=== PATIENT | female | born 1945 | race Caucasian/White ===

== ENCOUNTER 2019-09-07 13:48 | Outpatient (CLI) | payer MEDICARE, SELFPAY ==
--- NOTE | ~2019-09-07 | CT_ITS ---
EXAMINATION: CT chest wo con DATE: 09/07/2019 14:15 INDICATION: Left lower lobe pulmonary nodule TECHNIQUE: Computed tomography (CT) of the chest was performed without intravenous contrast. The dose -length product was 352.79 mGy-cm. Automated exposure control and iterative reconstruction technique were employed. COMPARISON: CT dated 06/07/2019 FINDINGS: There is a left lower lobe nodule measuring 1.5 x 0.8 cm. Dependent atelectasis. No endobro nchial lesions. Calcified granulomas in the right lower lobe. Dependent atelectasis. No endobronchial lesions. Cardiomegaly. No thoracic lymphadenopathy. Thyroid gland is unremarkable. There is atherosc lerosis of the aorta and coronary arteries. 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 Stable nodul ar thickening of the adrenal glands, likely benign adrenal adenomas. IMPRESSION: 1. Enlargement of left lower lobe nodule measuring 1.5 x 0.8 cm. Consider further evaluation with pet /CT or percutaneous biopsy. Reviewed, dictated and finalized at location A. IMPRESSION: 1. Enlargement of left lower lobe nodule measuring 1.5 x 0.8 cm. Consider furth er evaluation with pet/CT or percutaneous biopsy.
== END 2019-09-07 13:49 | disposition home or self-care (01) ==
LOC: ANHIMG 13:54
PROVIDERS: PCP Internal Medicine; Visit Provider Internal Medicine Cardiovascular Disease
DX: R91.1 Solitary pulmonary nodule (principal)
CPT/HCPCS: 71250

== ENCOUNTER 2019-09-21 12:06 | Outpatient (CLI) | payer MEDICARE, SELFPAY ==
--- NOTE | ~2019-09-21 | PE_ITS ---
EXAMINATION: PET skull to mid thigh DATE: 09/21/2019 14:09 INDICATION: Lung nodule TECHNIQUE: Blood glucose level was 106 mg/dL. 10.15 mCi of 18-fluorodeoxyglucose (18-FDG) was adminis tered i.v. Low dose computed tomography (CT) images were acquired from the base of the brain to the p roximal thighs for attenuation correction and anatomic localization. Positron emission tomography (PE T) images were acquired in the same distribution beginning 68 minutes after injection. COMPARISON: Chest CT, 09/07/2019 FINDINGS: Head/neck: FDG uptake in the oral cavity and vocal cords without suspicious CT correlate is likely ph ysiologic. No abnormal FDG uptake is identified. Chest: A 1.5 x 0.6 cm nodule of the left lower lobe is stable accounting for respiratory motion artif act. There is no evidence of FDG uptake. Mild dependent atelectasis is noted. There is no pleural eff usion or pneumothorax. There is mild cardiomegaly. No pathologically enlarged thoracic lymph nodes ar e identified. Calcified coronary artery atherosclerosis is noted. There is also calcification of the mitral annulus. Abdomen/pelvis/proximal thighs: Physiologic FDG activity is present in the bowel and urinary tract. S urgical changes in the stomach likely related to gastric bypass surgery. The liver, spleen, pancreas, and right adrenal gland are normal. There is mild nodularity of the left adrenal gland without abnor mal FDG uptake. The gallbladder is surgically absent. There is a 2 cm stone in the left renal pelvis. A 1.1 cm stone is present in the left kidney lower pole. The right kidney is unremarkable. No pathol ogically enlarged abdominal or pelvic lymph nodes are identified. There is no free intraperitoneal ga s or evidence of bowel obstruction. Calcified uterine fibroids are noted. Musculoskeletal: No abnormal FDG uptake is identified. IMPRESSION: 1. Left lower lobe nodule without FDG uptake, likely scarring versus infection/inflammation. Follow-u p CT in six months is recommended. Reviewed, dictated and finalized at location A. IMPRESSION: 1. Left lower lobe nodule without FDG uptake, likely scarring versus infection/ inflammation. Follow-up CT in six months is recommended.
[2019-09-21 12:30] LABS: Glucose Point of Care 106 (65-105)
== END 2019-09-21 12:07 | disposition home or self-care (01) ==
PROVIDERS: PCP Internal Medicine; Visit Provider Internal Medicine
DX: C34.90 Malignant neoplasm of unspecified part of unspecified bronchus or lung (principal); R91.8 Other nonspecific abnormal finding of lung field
CPT/HCPCS: 78815; A9552

== ENCOUNTER 2019-10-07 06:28 | Day surgery (SDC) | payer MEDICARE, SELFPAY ==
[2019-10-07] VITALS (9 sets, daily range): BP systolic 108–133; BP diastolic 58–90; PULSE 60–102; RESP 19–23; TEMP 37.3; O2SAT 92–97; BMI 40.3
--- NOTE | 2019-10-07 06:17 | ECG_ITS ---
Measurements Intervals [place] Rate: 92 P: [place]: 0 QRS: 4 QRSD: 100 T: 31 QT: 391 QTc: 486 Interpretive Statements ATRIAL FIBRILLATION BORDERLINE ST-T WAVE ABNORMALITY- INF/LAT LEADS BASELINE ARTIFACT- II, III, AVF, V6 ABNORMAL ECG Electronically Signed On 10-07-2019 9:34:05 CDT by Yunier Godfrey D.O.
[2019-10-07 09:41] LABS: Blood Urea Nitrogen 21 mg/dL (7-17); Calcium 8.9 mg/dL (8.4-10.2); Carbon Dioxide 25 mmol/L (22-30); Chloride 107 mmol/L (98-107); Estimated CRCL calculation 73 ml/min; Estimated Glomerular Filt Rate > 60; Glucose 121 mg/dL (65-105); Magnesium 2.1 mg/dL (1.6-2.3); Potassium 3.8 mmol/L (3.4-5.0); Sodium 139 mmol/L (137-145)
--- NOTE | 2019-10-07 10:32 | PM.IMHP ---
H&P: HPI History of Present Illness Chief complaint: A Fib Narrative: Date of service: 10/07/2019 Bela Muñoz is a 74 year old female with a long history of paroxysmal AFib and several cardioversions. Her last cardioversion, on amiodarone, with in May. Her amiodarone dose was reduced shortly thereafter to 200 mg a day but she went back in atrial fibrillation recently. She is here for an elective electrical cardioversion. She is feeling well, NPO, no fevers chills cough or shortness of breath. She is also followed by Dr. 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 Review of Systems Constitutional: Constitutional: Reports lethargy (Since being back in atrial fibrillation) ENT: Denies epistaxis Cardiovascular: Cardiovascular: Denies chest pain, Denies leg edema and Denies lightheadedness Respiratory: Respiratory: Denies cough, Denies dyspnea and Denies dyspnea on exertion Gastrointestinal: Gastrointestinal: Denies abdominal pain and Denies hematochezia Genitourinary: Genitourinary: Reports hematuria (Has been having some intermittent mild hematuria secondary to kidney stones) Musculoskeletal: Musculoskeletal: Denies back pain Integumentary/Breasts: Skin/Breast: Denies rash Neurologic: Denies confusion Psychiatric: Psychiatric: Denies anxiety [facility] Past Medical History Medical History (Updated 10/01/19 @ 07:47 by Eddi Silvestre APN) Paroxysmal atrial fibrillation Social History Social History Smoking status: Former smoker Meds Home Medications and Allergies Home Medications Medication Instructions Recorded Confirmed Type Eliquis 5 mg PO BID 04/28/19 10/07/19 History allopurinol 100 mg PO DAILY 04/28/19 10/07/19 History cyanocobalamin (vitamin B-12) 500 mcg PO DAILY 04/28/19 10/07/19 History furosemide [Lasix] 40 mg PO DAILY 04/28/19 10/07/19 History glimepiride [Amaryl] 2 mg PO QAM 04/28/19 10/07/19 History metoprolol tartrate [Lopressor] 50 mg PO Q12H 04/28/19 10/07/19 History pantoprazole [Protonix] 40 mg PO QAM 04/28/19 10/07/19 History potassium chloride 20 meq PO DAILY 04/28/19 10/07/19 History pravastatin 10 mg PO EVERY OTHER DAY 04/28/19 10/07/19 History sertraline [Zoloft] 50 mg PO DAILY 04/28/19 10/07/19 History tramadol 50 mg PO Q6H PRN 04/28/19 10/07/19 History amiodarone 200 mg PO HS 06/01/19 10/07/19 History amlodipine [Norvasc] 5 mg PO DAILY 10/07/19 10/07/19 History oivurhhigquw-fkb-rwgb-FA-vit K 1 tablet PO DAILY 10/07/19 10/07/19 History [Adults Multivitamin] Allergies Allergy/AdvReac Type Severity Reaction Status Date / Time lisinopril Allergy Unknown COUGH Verified 07/09/19 11:04 Vital Signs Vital Signs - 24 hr 10/07/19 09:15 Temperature 99.1 F Pulse Rate 90 Respiratory Rate 21 H Blood Pressure 133/85 Pulse Oximetry 95 Exam Const: General: comfortable and no acute distress Other: Obese female no distress accompanied by HENMT: Mouth: Yes moist mucous membranes Eyes: EOM: EOMs intact bilaterally Neck: Neck: supple and no JVD Resp: Effort & Inspection: normal respiratory effort Auscultation: clear to auscultation bilaterally Cardio: Rhythm: abnormal rhythm irregularly irregular Heart sounds: no murmurs GI: Inspection: non-distended GI Palp: Yes Soft to palpation Skin: Wounds: no wounds Neuro: Speech: normal speech Motor exam (neuro): Normal motor muscle tone present throughout Extrem: General: no pedal edema H&P: Results Labs Labs: [facility] 10/07/19 09:21 Sodium 139 Potassium 3.8 Chloride 107 Carbon Dioxide 25 BUN 21 H Creatinine 0.70 Glucose 121 H Calcium 8.9 Assessment and Plan Assessment and plan (1) Paroxysmal atrial fibrillation: Code(s): I48.0 - Paroxysmal atrial fibrillation Status: Acute Assessment and Plan: Long history of AFib, failed several medical therapies, now on amiodarone. Amiodarone was
--- NOTE | 2019-10-07 10:39 | P.SEDATION_ITS ---
Moderate Sedation Note-Pt Data Patient Data Diagnosis: Recurrent symptomatic atrial fibrillation Present Complaint: Paroxysmal atrial fibrillation, recurrent Procedure to be performed/Plan: Conscious sedation Elective electrical cardioversion Allergies Allergy/AdvReac Type Severity Reaction Status Date / Time lisinopril Allergy Unknown COUGH Verified 07/09/19 11:04 Home Medications Medication Instructions Recorded Confirmed Type Eliquis 5 mg PO BID 04/28/19 10/07/19 History allopurinol 100 mg PO DAILY 04/28/19 10/07/19 History cyanocobalamin (vitamin B-12) 500 mcg PO DAILY 04/28/19 10/07/19 History furosemide [Lasix] 40 mg PO DAILY 04/28/19 10/07/19 History glimepiride [Amaryl] 2 mg PO QAM 04/28/19 10/07/19 History metoprolol tartrate [Lopressor] 50 mg PO Q12H 04/28/19 10/07/19 History pantoprazole [Protonix] 40 mg PO QAM 04/28/19 10/07/19 History potassium chloride 20 meq PO DAILY 04/28/19 10/07/19 History pravastatin 10 mg PO EVERY OTHER DAY 04/28/19 10/07/19 History sertraline [Zoloft] 50 mg PO DAILY 04/28/19 10/07/19 History tramadol 50 mg PO Q6H PRN 04/28/19 10/07/19 History amiodarone 200 mg PO HS 06/01/19 10/07/19 History amlodipine [Norvasc] 5 mg PO DAILY 10/07/19 10/07/19 History soyjewrrutwo-sud-sgdd-FA-vit K 1 tablet PO DAILY 10/07/19 10/07/19 History [Adults Multivitamin] Sedation/Anesthesia: No previous sedation/anesthesia problems (including family history). [facility] Social History Social History Smoking status: Former smoker Mod Sed Physical Exam Physical Exam Pre Procedural Exam: Normal: Appearance (Morbidly obese, no distress), Eyes, Ears, Nose, Neck, Throat, Airway, Lungs, Heart Size, Heart Rate, Neuro Exam, Abdomen, Extremities and Skin and Variation: Heart Rhythm (Irregular rate and rhythm) Hours since solid foods: 12 Hours since liquid intake: 12 Internal Medicine - PN: Obj Da Vital Signs Vital Signs: Vital Signs - 24 hr 10/07/19 09:15 Temperature 99.1 F Pulse Rate 90 Respiratory Rate 21 H Blood Pressure 133/85 Pulse Oximetry 95 Labs CBC & Chem 7: 10/07/19 09:21 Labs: Laboratory Results - last 24 hr 10/07/19 09:21 Sodium 139 Potassium 3.8 Chloride 107 Carbon Dioxide 25 BUN 21 H Creatinine 0.70 Estim Creat Clear Calc 73 Estimated GFR > 60 Glucose 121 H Calcium 8.9 Magnesium 2.1 ASA Classification/Sedation ASA Classification/Sedation ASA Class: III Risks: Risks, benefits and alternatives explained and patient/family accepted plan for sedation. Patient re-evaluated immediately prior to sedation.
--- NOTE | 2019-10-07 10:51 | ECG_ITS ---
Measurements Intervals [place] Rate: 65 P: 95 IN: 246 QRS: 7 QRSD: 108 T: 56 QT: 471 QTc: 491 Interpretive Statements SINUS RHYTHM WITH FIRST DEGREE AV BLOCK BORDERLINE ST-T WAVE ABNORMALITY- ANTEROLAT/LAT LEADS PROLONGED QT INTERVAL ABNORMAL ECG Electronically Signed On 10-07-2019 11:11:45 CDT by Yunier YOUSIF
--- NOTE | 2019-10-07 10:54 | WPDCARDVER ---
Cardioversion Cardioversion Date of procedure: 10/07/19 Procedure: Conscious sedation elective electrical cardioversion Pre-op diagnosis: Symptomatic atrial fibrillation Post-op diagnosis: same Indications: 74-year-old female with long history of paroxysmal atrial fibrillation, having failed several medications, now on amiodarone. Her last cardioversion was May 2019. Her amiodarone dose was reduced a few months ago to 200 mg a day but she went back and atrial fibrillation recently and noted palpitations and shortness of breath. Her amiodarone was increased to: 400 mg daily. She has not missed any Eliquis doses. She is here for an elective electrical cardioversion. Description of procedure: Conscious sedation: Assessment: The patient has no history of anesthesia problems. The patient's oropharynx is clear. The patient was deemed to be a good candidate for conscious sedation. The patient had continuous hemodynamic monitoring during the procedure. Start time: 1042 Completion time: 10 50 Total conscious sedation time: 8 minutes Medications: Versed 4 mg, fentanyl 100 mcg IV push Trained observer: Rea Olivarez RN Outcome: The patient tolerated the procedure well with no complications. Cardioversion: The patient presents with AFib heart rate 90-115 beats per minute. After informed consent and the above conscious sedation, the patient underwent elective electrical synchronized cardioversion with 200 joules of biphasic energy and converted to normal sinus rhythm, rate 60s. There were no complications. . Conclusion: Successful electrical cardioversion Plan: Continue amiodarone 400 mg daily. EKG in 1 week Follow-up with Dr. Miranda as scheduled in November
== END 2019-10-07 12:45 | disposition home or self-care (01) ==
PROVIDERS: PCP Internal Medicine; Visit Provider Internal Medicine Cardiovascular Disease
PROC: 5A2204Z Restoration of Cardiac Rhythm, Single (ICD-10-PCS; principal; 2019-10-07 10:00)
DX: I48.0 Paroxysmal atrial fibrillation (principal); Z79.01 Long term (current) use of anticoagulants; Z87.891 Personal history of nicotine dependence
CPT/HCPCS: 36415; 80048; 83735; 92960; 93005; A9270; J2250; J3010; J7040

== ENCOUNTER 2019-10-29 22:57 | Emergency (ER) | payer MEDICARE, SELFPAY ==
--- NOTE | ~2019-10-29 | XR_ITS ---
EXAMINATION: XR shoulder RT min 2V INDICATION: Right arm pain after fall TECHNIQUE: Three views of the right shoulder are submitted. COMPARISON: 02/04/2011 FINDINGS: There is a comminuted shaft fracture of the right humerus. Glenohumeral alignment is normal . Glenohumeral and acromioclavicular joint spaces are normal. IMPRESSION: 1. Comminuted proximal humerus fracture, unremarkable shoulder. Reviewed, dictated and finalized at location A.
--- NOTE | ~2019-10-29 | XR_ITS ---
EXAMINATION: XR humerus RT INDICATION: Right arm pain, initial encounter TECHNIQUE: Two views of the right humerus are obtained. COMPARISON: None available FINDINGS: There is an acute, traumatic, comminuted fracture of the proximal right humerus. At least t hree separate fracture fragments are seen. One of the proximal humerus contains humeral head. A secon d 9 cm segment is seen between the proximal fragment and the distal fragment. Soft tissue swelling hodges rrounds the fracture. IMPRESSION: 1. Comminuted proximal humerus fracture. Reviewed, dictated and finalized at location A.
[2019-10-29 22:57] VITALS: BP 159/84; PULSE 74; RESP 15; TEMP 36.6; O2SAT 90
[2019-10-29] MEDS: MORPHINE SULFATE 4 MG/ML INJ IV PUSH (23:34)
--- NOTE | 2019-10-29 23:47 | ED.GENADULT ---
HPI - General Adult General Chief complaint: Fall Stated complaint: shoulder pain, fall Time Seen by Provider: 10/29/19 22:58 History of Present Illness HPI narrative: Patient is a 74-year-old female who presents the ER with right upper extremity pain and deformity. Patient was walking to turn on a light switch when she tripped over a piece of furniture and fell back getting her arm stuck behind her. Unsure if she felt a pop or snap. EMS reports obvious deformity and is placed in a long-arm posterior splint. Patient reports she has normal sensation distal to her shoulder. She has normal range of motion in the fingers. Sensation and pulses intact distally. Did not strike her head or lose consciousness. Patient is on a blood thinner for A. fib. She had a cardioversion within the last week. Related Data Home Medications Medication Instructions Recorded Confirmed Eliquis 5 mg PO BID 04/28/19 10/07/19 allopurinol 100 mg PO DAILY 04/28/19 10/07/19 cyanocobalamin (vitamin B-12) 500 mcg PO DAILY 04/28/19 10/07/19 furosemide [Lasix] 40 mg PO DAILY 04/28/19 10/07/19 glimepiride [Amaryl] 2 mg PO QAM 04/28/19 10/07/19 metoprolol tartrate [Lopressor] 50 mg PO Q12H 04/28/19 10/07/19 pantoprazole [Protonix] 40 mg PO QAM 04/28/19 10/07/19 potassium chloride 20 meq PO DAILY 04/28/19 10/07/19 pravastatin 10 mg PO EVERY OTHER DAY 04/28/19 10/07/19 sertraline [Zoloft] 50 mg PO DAILY 04/28/19 10/07/19 tramadol 50 mg PO Q6H PRN 04/28/19 10/07/19 amlodipine [Norvasc] 5 mg PO DAILY 10/07/19 10/07/19 llczuklccvcv-wwu-ohay-FA-vit K 1 tablet PO DAILY 10/07/19 10/07/19 [Adults Multivitamin] Allergies Allergy/AdvReac Type Severity Reaction Status Date / Time lisinopril Allergy Unknown COUGH Verified 10/29/19 23:09 Review of Systems Review of Systems: All systems reviewed & are unremarkable except as noted in HPI and below Genitourinary: Genitourinary: Reports hematuria (Ongoing over the last few days, has history of kidney stones) Musculoskeletal: Comments: Right upper extremity pain and deformity. Neurologic: Denies syncope, Denies focal weakness and Denies numbness PMFSH Past Medical History Medical History (Updated 10/30/19 @ 01:20 by Mason Atkinson MD) Dyslipidemia Essential hypertension Kidney stones Mixed restrictive and obstructive lung disease Paroxysmal atrial fibrillation Surgical History Surgical History (Updated 10/29/19 @ 23:51 by Mason Atkinson MD) History of cardioversion Social History Social History Smoking status: Former smoker Exam Narrative: Exam Narrative: GENERAL: Well-appearing, well-nourished, and in no acute distress. HEAD: Normocephalic, atraumatic. ENT: Mucous membranes moist. CHEST: Clear to auscultation. No respiratory distress. HEART: Regular rate and rhythm. Normal peripheral pulses. EXTREMITIES: Shortening of the right humerus region. Right upper extremity immobilized in a long-arm posterior splint. Has strong radial pulses with normal sensation fingers and to move the fingers. SKIN: Warm, dry, no rash. NEURO: Alert and oriented x3. Course Course Emergency Course: Dr. Hooker feels patient would benefit from tertiary care facility given complexity of fracture. I spoke with [facility] ER and they have accepted the patient. Patient had a drop in her O2 sat after laying down flat due to PEYMAN and receiving IV narcotic therapy. She is on 2 L of oxygen. Vital Signs Vital signs: Vital Signs Temperature 97.9 F 10/29/19 22:57 Pulse Rate 74 10/29/19 22:57 Respiratory Rate 10/29/19 22:57 Blood Pressure 159/84 H 10/29/19 22:57 Pulse Oximetry 90 10/29/19 22:57 Temperature 97.9 F 10/29/19 22:57 Pulse Rate 74 10/30/19 01:03 Respiratory Rate 10/30/19 01:03 Blood Pressure 167/97 H 10/30/19 01:03 Pulse Oximetry 93 10/30/19 01:03 Medical Decision Making Vital Signs Vital Signs: Vital Sign
[2019-10-30] VITALS: BP 154/71; PULSE 73; RESP 15; O2SAT 90
[2019-10-30 00:21] LABS: Basophils Percent Auto 0.3 % (0.2-1.2); Eosinophils Absolute Auto 0.1 K/mm3 (0-0.3); Eosinophils Percent Auto 0.8 % (0-4.4); Hemoglobin 10.1 g/dL (12.0-15.0); Immature Granulocyte Absolute 0.13 K/mm3 (0.00-0.031); Immature Granulocyte Percent A 0.9 % (0-0.5); Lymphocytes Percent Auto 8.8 % (18.3-44.2); Mean Corpuscular HGB Conc 30.6 g/dl (32-36); Mean Corpuscular Hemoglobin 25.8 pg (26-34); Mean Corpuscular Volume 84.2 fl (80-100); Mean Platelet Volume 8.6 fl (7.4-10.4); Monocytes Percent Auto 6.7 % (2.6-8.5); Neutrophils Absolute Auto 12.1 K/mm3 (1.3-6.7); Neutrophils Percent Auto 82.5 % (45.5-73.1); Platelet Count Result 380 k/mm3 (150-375); Red Blood Count 3.92 M/mm3 (4.2-5.4); Red Cell Distribution Width 17.5 % (11.5-14.5); White Blood Count 14.7 K/mm3 (4.5-10.0)
[2019-10-30 00:31] LABS: Add Urine Microscopic? YES; Appearance Urine Cloudy (Clear); Bacteria Urine Trace /hpf; Bilirubin Urine Negative (Negative); Blood Urine 3+ (Negative); Color Urine Yellow (Yellow); Glucose Urine UA Negative (Negative); Ketones Urine Negative (Negative); Leukocyte Esterase Ur 1+ LEU/UL (Negative); Mucus Urine Rare /lpf; Nitrate Urine Negative (Negative); Protein Urine 2+ mg/dL (Negative); RBC Urine >75 /hpf (0-2); Specific Grav Ur 1.023 (1.001-1.035); Squamous Epithelial Cell Urine Rare /hpf (Few); Urobilinogen Urine Negative mg/dL (<2.0); WBC Urine 31-50 /hpf
[2019-10-30] MEDS: MORPHINE SULFATE 4 MG/ML INJ IV PUSH ×2 (00:48→02:09)
[2019-10-30 00:57] LABS: Blood Urea Nitrogen 26 mg/dL (7-17); Calcium 8.7 mg/dL (8.4-10.2); Carbon Dioxide 23 mmol/L (22-30); Chloride 107 mmol/L (98-107); Estimated Glomerular Filt Rate > 60; Glucose 167 mg/dL (65-105); Potassium 3.9 mmol/L (3.4-5.0); Sodium 138 mmol/L (137-145)
[2019-10-30 01:03] VITALS: BP 167/97; PULSE 74; RESP 20; O2SAT 93
[2019-10-30 01:46] VITALS: BP 119/94; PULSE 76; RESP 19; O2SAT 91
[2019-10-30 02:12] VITALS: BP 120/88; PULSE 78; RESP 14; O2SAT 94
== END 2019-10-30 02:12 | disposition short-term general hospital (02) ==
PROVIDERS: Emergency Provider Emergency Medicine; PCP Internal Medicine
DX: S42.291A Other displaced fracture of upper end of right humerus, initial encounter for closed fracture (principal); S42.351A Displaced comminuted fracture of shaft of humerus, right arm, initial encounter for closed fracture; E78.5 Hyperlipidemia, unspecified; I10 Essential (primary) hypertension; I48.0 Paroxysmal atrial fibrillation; J43.9 Emphysema, unspecified; G47.33 Obstructive sleep apnea (adult) (pediatric); Z87.891 Personal history of nicotine dependence; Z79.01 Long term (current) use of anticoagulants; R82.998 Other abnormal findings in urine; Z87.442 Personal history of urinary calculi; W18.09XA Striking against other object with subsequent fall, initial encounter
CPT/HCPCS: 36415; 73030; 73060; 80048; 81001; 85025; 87086; 87088; 96374; 96376; 99285; J2270

== ENCOUNTER 2020-01-06 12:56 | Outpatient (CLI) | payer MEDICARE, SELFPAY ==
--- NOTE | 2020-01-06 14:43 | WPDPFTINT ---
PFT Interpretation PFT Interpretation: This PFT met all criteria for ATS standards and reproducibility FEV/FVC post bronchodilator 66% of predicted FEV1 70% of predicted or 1.35 liters FVC 74% or 2.04 liters TLC 93% or 4.47 liters RV 121% RV/TLC 53% DLCO 34% when adjusted for alveolar volume but not adjusted for hemoglobin Flow volume loops showed showed significant expiratory coving Impression: Moderate airflow obstruction with air trapping and severely reduced diffusion capacity. This pattern fits that of COPD. Clinical correlation is advised.
== END 2020-01-06 12:57 | disposition home or self-care (01) ==
LOC: ANHPFT 12:57
PROVIDERS: PCP Internal Medicine; Visit Provider Nurse Practitioner Family
DX: J43.9 Emphysema, unspecified (principal); J98.4 Other disorders of lung; R94.2 Abnormal results of pulmonary function studies
CPT/HCPCS: 94060; 94726; 94729

== ENCOUNTER 2020-01-28 14:22 | Outpatient (CLI) | payer MEDICARE, SELFPAY ==
[2020-01-28 15:10] LABS: Hematocrit 43.2 % (37.0-47.0); Hemoglobin 13.4 g/dL (12.0-15.0); Mean Corpuscular Hemoglobin 28.1 pg (26-34); Mean Corpuscular Volume 90.6 fl (80-100); Mean Platelet Volume 9.2 fl (7.4-10.4); Platelet Count Result 264 k/mm3 (150-375); Red Blood Count 4.77 M/mm3 (4.2-5.4); Red Cell Distribution Width 24.5 % (11.5-14.5); White Blood Count 7.4 K/mm3 (4.5-10.0)
[2020-01-28 15:25] LABS: Alanine Aminotransferase 23 U/L (4-35); Albumin Level 4.3 g/dL (3.5-5.1); Alkaline Phosphatase 84 U/L (38-126); Anion Gap 8 mmol/L (8-16); Aspartate Amino Transferase 30 U/L (14-36); Bilirubin,Total 0.1 mg/dL (0.2-1.3); Blood Urea Nitrogen 18 mg/dL (7-17); Calcium 9.2 mg/dL (8.4-10.2); Carbon Dioxide 24 mmol/L (22-30); Chloride 106 mmol/L (98-107); Estimated Glomerular Filt Rate > 60; Glucose 181 mg/dL (65-105); Potassium 4.2 mmol/L (3.4-5.0); Sodium 138 mmol/L (137-145)
[2020-01-28 16:28] LABS: Iron 112 ug/dL (37-170)
[2020-01-28 16:31] LABS: Vitamin D 25 Hydroxy 31.8 ng/mL
[2020-01-28 16:37] LABS: Percent Iron Saturation 33 % (20-50)
== END 2020-01-28 14:23 | disposition home or self-care (01) ==
PROVIDERS: Family Provider Registered Nurse; PCP Internal Medicine; Visit Provider Internal Medicine Cardiovascular Disease
DX: Z79.899 Other long term (current) drug therapy (principal); D50.9 Iron deficiency anemia, unspecified; E55.9 Vitamin D deficiency, unspecified
CPT/HCPCS: 36415; 80053; 82306; 82728; 83540; 83550; 84443; 85027

== ENCOUNTER 2020-02-25 10:13 | Outpatient (CLI) | payer MEDICARE, SELFPAY ==
--- NOTE | ~2020-02-25 | XR_ITS ---
XR lumbar spine 2-3V DATE: 02/25/2020 10:33 INDICATION: Chronic low back pain TECHNIQUE: AP, lateral, coned lateral lumbosacral views COMPARISON: None FINDINGS: Diffuse osteopenia. There is mild dextroscoliosis of the thoracolumbar spine. There is degenerative spurring throughout the thoracic and lumbar spine. There is multilevel degenera tive disc disease of the lumbar spine, most pronounced at L3-4 and L5-S1. The included lower thoracic and lumbar pedicles appear intact. There is degenerative change at the apophyseal joints involving particularly the mid and lower lumbar spine with associated grade 1 anterolisthesis at L4-5. Degenerative changes at the sacroiliac joints. There is abdominal aortic and iliac arterial calcification; no apparent abdominal aortic calcificatio n. Up to 1.5 x 2 cm calcification overlies the left renal pelvis, likely a large calcified left renal pe lvic calculus. Additional calcified left renal calculi are suggested. IMPRESSION: Diffuse osteopenia Degenerative changes of the thoracic and lumbar spine, including multilevel degenerative disc disease of lumbar spine, most pronounced at L3-4 and L5-S1 Grade 1 anterolisthesis at L4-5 due to degenerative change at the apophyseal joints Reviewed, dictated and finalized at location A. IMPRESSION: Diffuse osteopenia Degenerative changes of the thoracic and lumbar spine, including multilevel deg enerative disc disease of lumbar spine, most pronounced at L3-4 and L5-S1 Grade 1 anterolisthesis at L4-5 due to degenerative change at the apophyseal bri ints
== END 2020-02-25 10:14 | disposition home or self-care (01) ==
PROVIDERS: PCP Internal Medicine; Visit Provider Internal Medicine
DX: M54.5 Low back pain (principal)
CPT/HCPCS: 72100

== ENCOUNTER 2020-03-27 10:44 | Outpatient (CLI) | payer MEDICARE, SELFPAY ==
--- NOTE | ~2020-03-27 | XR_ITS ---
EXAMINATION: XR abdomen/kub 1V INDICATION: Gross hematuria TECHNIQUE: Supine views of the abdomen were obtained on 2 radiographs. COMPARISON: None FINDINGS: A 2.2 cm stone projects in the left renal pelvis. Additional punctate nephrolithiasis seen on CT from today is not definitely identified. There are surgical changes of left upper quadrant. Phl eboliths are noted in the pelvis. There are calcified uterine fibroids changes of left hip arthroplas ty are noted. The bowel gas pattern is normal. IMPRESSION: 1. Stone in the left renal pelvis. Reviewed, dictated and finalized at location A.
--- NOTE | ~2020-03-27 | CT_ITS ---
EXAMINATION: CT abdomen pelvis wo/w con DATE: 03/27/2020 12:19 INDICATION: Gross hematuria TECHNIQUE: Computed tomography (CT) of the abdomen and pelvis was performed without intravenous contr ast. CT of the abdomen and pelvis was then performed with a total of 130 mL Omnipaque 350 intravenous contrast using a double-bolus technique for simultaneous opacification of the renal parenchyma and r enal collecting system. The dose-length product (DLP) was 2693.51 mGy-cm. Automated exposure control and iterative reconstruction technique were employed. COMPARISON: 06/07/2019 FINDINGS: Minimal dependent atelectasis is present in the lung bases. Cardiomegaly is noted. There is calcification of the mitral valve. Surgical changes in the stomach likely reflect gastric bypass. Th e liver, spleen, pancreas, and adrenal glands are normal. The gallbladder is surgically absent. There is a 2.1 cm stone in the left renal pelvis. There is mild fat stranding of the left renal pelvis. A 6 mm nonobstructing stone is present in the left kidney lower pole. Punctate nonobstructing stones ar e present in the right kidney. Streak artifact from interval left hip arthroplasty obscures visualiza tion of the pelvis. No stones are identified in the ureters or bladder. There are phleboliths of the pelvis. Hypoattenuating lesions of the kidneys do not appear to enhance after contrast administration , likely proteinaceous cysts. No suspicious urothelial lesion is identified although evaluation of th e bladder and distal ureters is limited. No pathologically enlarged abdominal or pelvic lymph nodes a re identified. There is no free intraperitoneal gas or evidence of bowel obstruction. Calcified uteri ne fibroids are noted. There is mild lumbar spondylosis. IMPRESSION: 1. 2.1 cm stone in the left renal pelvis with mild inflammatory change in the renal pelvis. 2. Bilateral nonobstructing nephrolithiasis. Reviewed, dictated and finalized at location A. IMPRESSION: 1. 2.1 cm stone in the left renal pelvis with mild inflammatory change in the r enal pelvis. 2. Bilateral nonobstructing nephrolithiasis.
--- NOTE | ~2020-03-27 | CT_ITS ---
EXAMINATION: CT chest wo con DATE: 03/27/2020 12:19 INDICATION: R91.1 Solitary pulmonary nodule TECHNIQUE: Computed tomography (CT) of the chest was performed without intravenous contrast. Addition al 3D reconstructions utilizing coronal maximum intensity projection (MIP) were performed. Automated exposure control and iterative reconstruction technique were employed. The dose-length product was 90 4.19 mGy-cm. COMPARISON: 09/07/2019 FINDINGS: Mild emphysema. Significant interval improvement in a previous 1.6 x 0.8 cm cluster of nodules along a mildly dilated bronchus in the left lower lobe with residual approximate 4-5 mm nodule suggesting t his is likely infectious/inflammatory in etiology. Unchanged 6 mm noncalcified nodule in the right lo wer lobe. 6 mm calcified right lower lobe nodule consistent with old granulomatous disease. Mild scat tered atelectasis in the and bilateral dependent lungs with additional mild discoid atelectasis/scarr ing anteriorly at the lingula. No pleural effusion. Cardiomegaly. Atherosclerotic coronary artery warren cification. Dense mitral annular calcification. No pericardial or pleural effusion. Thoracic aorta is normal in caliber. Plate and screw fixation along the right humerus. There is increased density of t he liver which could be seen with hemachromatosis or chronic amiodarone use. 3 cm cyst at the upper p ole of the left kidney. Postoperative change of prior gastric bypass procedure. Mild thoracic spondyl osis. There are bridging osteophytes at multiple levels in the spine, consistent with diffuse idiopat hic skeletal hyperostosis (DISH). IMPRESSION: 1. Significant decrease in size of a previously 1.6 x 0.8 cm cluster pulmonary nodules now measuring 4-5 mm in the left lower lobe and which along with an unchanged 6 mm nodule in the right lower lobe a re likely infectious/inflammatory in etiology. 2. Mild emphysema. 3. Cardiomegaly. 4. Increased density of the liver which could be seen with hemachromatosis or chronic amiodarone use. Reviewed, dictated and finalized at location B. IMPRESSION: 1. Significant decrease in size of a previously 1.6 x 0.8 cm cluster pulmonary nodules now measuring 4-5 mm in the left lower lobe and which along with an unc hanged 6 mm nodule in the right lower lobe are likely infectious/inflammatory i n etiology. 2. Mild emphysema. 3. Cardiomegaly. 4. Increased density of the liver which could be seen with hemachromatosis or c hronic amiodarone use.
[2020-03-27 11:51] LABS: Estimated Glomerular Filt Rate > 60
== END 2020-03-27 10:45 | disposition home or self-care (01) ==
PROVIDERS: PCP Internal Medicine; Referring Provider Nurse Practitioner Family; Visit Provider Nurse Practitioner Adult Health
DX: R31.0 Gross hematuria (principal); R91.1 Solitary pulmonary nodule; I51.7 Cardiomegaly; J43.9 Emphysema, unspecified; N20.0 Calculus of kidney
CPT/HCPCS: 71250; 74018; 74178; Q9967

== ENCOUNTER 2020-08-11 11:37 | Outpatient (CLI) | payer MEDICARE, SELFPAY ==
[2020-08-11 12:41] LABS: Hematocrit 39.4 % (37.0-47.0); Hemoglobin 12.2 g/dL (12.0-15.0); Mean Corpuscular Hemoglobin 29.5 pg (26-34); Mean Corpuscular Volume 95.4 fl (80-100); Mean Platelet Volume 8.6 fl (7.4-10.4); Platelet Count Result 284 k/mm3 (150-375); Red Blood Count 4.13 M/mm3 (4.2-5.4); White Blood Count 7.7 K/mm3 (4.5-10.0)
[2020-08-11 12:54] LABS: Alanine Aminotransferase 18 U/L (4-35); Albumin Level 4.2 g/dL (3.5-5.1); Alkaline Phosphatase 109 U/L (38-126); Anion Gap 9 mmol/L (8-16); Aspartate Amino Transferase 27 U/L (14-36); Bilirubin,Total 0.5 mg/dL (0.2-1.3); Blood Urea Nitrogen 18 mg/dL (7-17); Calcium 9.3 mg/dL (8.4-10.2); Carbon Dioxide 28 mmol/L (22-30); Chloride 108 mmol/L (98-107); Cholesterol 143 mg/dL (0-200); Creatine Kinase 50 U/L (30-135); Estimated Glomerular Filt Rate 54; Glucose 110 mg/dL (65-105); HDL Direct 52 mg/dL; Potassium 3.6 mmol/L (3.4-5.0); Sodium 145 mmol/L (137-145); Triglycerides 119 mg/dL (<150); Uric Acid 5.2 mg/dL (2.5-7.5)
[2020-08-11 12:54] LABS: Hemoglobin A1C 5.6 % (<5.7)
[2020-08-11 13:05] LABS: LDL Cholesterol Direct 58 mg/dL
[2020-08-11 13:09] LABS: Creatinine Urine 70.8 mg/dL
[2020-08-11 13:15] LABS: MALB Creatinine Ratio 267.5 mg/g (0-30); Microalbumin Urine Random 189.4 mg/L (0-16.7)
[2020-08-11 13:16] LABS: Iron 71 ug/dL (37-170)
[2020-08-11 13:22] LABS: Add Urine Microscopic? YES; Appearance Urine Clear (Clear); Bacteria Urine Trace /hpf; Bilirubin Urine Negative (Negative); Blood Urine 3+ (Negative); Color Urine Yellow (Yellow); Glucose Urine UA Negative (Negative); Ketones Urine Negative (Negative); Leukocyte Esterase Ur 1+ LEU/UL (Negative); Mucus Urine Rare /lpf; Nitrate Urine Negative (Negative); Protein Urine 2+ mg/dL (Negative); RBC Urine >75 /hpf (0-2); Specific Grav Ur 1.014 (1.001-1.035); Squamous Epithelial Cell Urine Occasional /hpf (Few); Urobilinogen Urine Negative mg/dL (<2.0)
[2020-08-11 13:26] LABS: Percent Iron Saturation 19 % (20-50)
[2020-08-11 13:33] LABS: Free T4 Free Thyroxine 1.85 ng/mL (0.78-2.19)
[2020-08-14 07:20] LABS: Triiodothyronine T3 Free 2.2 pg/mL (2.3-4.2)
== END 2020-08-11 11:38 | disposition home or self-care (01) ==
LOC: ANHLAB 11:44
PROVIDERS: PCP Internal Medicine; Visit Provider Internal Medicine
DX: D50.9 Iron deficiency anemia, unspecified (principal); E11.65 Type 2 diabetes mellitus with hyperglycemia; I10 Essential (primary) hypertension; E78.5 Hyperlipidemia, unspecified; E55.9 Vitamin D deficiency, unspecified; E79.0 Hyperuricemia without signs of inflammatory arthritis and tophaceous disease
CPT/HCPCS: 36415; 80053; 80061; 81001; 82043; 82550; 82607; 82728; 83036; 83540; 83550; 84439; 84443; 84481; 84550; 85027; 87086

== ENCOUNTER 2020-10-02 13:08 | Outpatient (NON) | payer MEDICARE, SELFPAY | END 2020-10-02 13:09 | disposition home or self-care (01) | PROVIDERS: PCP Internal Medicine | DX: N20.0 Calculus of kidney (principal) | CPT/HCPCS: 36415; 82340; 82507; 82570; 83735; 83945; 83986; 84105; 84133; 84300; 84392; 84560 ==

== ENCOUNTER 2020-12-19 01:49 | Day surgery (SDC) | payer MEDICARE, SELFPAY ==
[2020-12-19] VITALS (10 sets, daily range): BP systolic 123–158; BP diastolic 71–103; PULSE 48–89; RESP 16–24; TEMP 36–36.2; O2SAT 90–96; BMI 39.6
--- NOTE | 2020-12-19 08:00 | ECG_ITS ---
Measurements Intervals [place] Rate: 89 P: [place]: 0 QRS: -6 QRSD: 114 T: 16 QT: 424 QTc: 516 Interpretive Statements ATRIAL FIBRILLATION INTRAVENTRICULAR CONDUCTION DELAY BASELINE WANDER- I, II, III, AVF ABNORMAL ECG Electronically Signed On 12-19-2020 9:54:13 CDT by Yunier Godfrey D.O.
[2020-12-19 09:20] LABS: Anion Gap 11 mmol/L (8-16); Blood Urea Nitrogen 29 mg/dL (7-17); Calcium 9.6 mg/dL (8.4-10.2); Carbon Dioxide 25 mmol/L (22-30); Chloride 106 mmol/L (98-107); Estimated Glomerular Filt Rate 44; Glucose 98 mg/dL (65-105); Potassium 3.9 mmol/L (3.4-5.0); Sodium 142 mmol/L (137-145)
--- NOTE | 2020-12-19 09:51 | P.HPUP_ITS ---
History and Physical Update Update Date/Time: 12/19/20 09:51 Patient with a long history of atrial fibrillation and multiple cardioversions. She underwent AFib ablation in October but has gone back into symptomatic atrial fibrillation Despite this and being on amiodarone 200 mg b.i.d.. The computational biologist Dr. Espinoza thinks that is not unusual in the 1st 3 months after a pulmonary vein isolation and recommends another cardioversion for which she is here to see us today. she is NPO and has not missed any medications. History and Physical has been reviewed, including an updated exam of the patient. There are NO changes in the patient's condition. Risks, benefits, and alternatives have been discussed and questions answered. Patient agrees to proceed with procedure.
--- NOTE | 2020-12-19 10:00 | ECG_ITS ---
Measurements Intervals [place] Rate: 53 P: 78 OR: 253 QRS: -5 QRSD: 113 T: 32 QT: 528 QTc: 498 Interpretive Statements SINUS BRADYCARDIA WITH FIRST DEGREE AV BLOCK INCOMPLETE LEFT BUNDLE BRANCH BLOCK PROLONGED QT INTERVAL ABNORMAL ECG Electronically Signed On 12-19-2020 17:05:34 CDT by Yunier Godfrey D.O.
--- NOTE | 2020-12-19 10:01 | WPDMODSED ---
Moderate Sedation Note-Pt Data Patient Data Diagnosis: Recurrent atrial fibrillation Present Complaint: symptomatic atrial fibrillation Procedure to be performed/Plan: conscious sedation elective electrical cardioversion Allergies Allergy/AdvReac Type Severity Reaction Status Date / Time lisinopril Allergy Unknown COUGH Verified 12/19/20 09:17 Home Medications Medication Instructions Recorded Confirmed Type Eliquis 5 mg PO BID 04/28/19 12/19/20 History allopurinol 100 mg PO DAILY 04/28/19 12/19/20 History cyanocobalamin (vitamin B-12) 1,000 mcg PO DAILY 04/28/19 12/19/20 History furosemide [Lasix] 40 mg PO DAILY 04/28/19 12/19/20 History glimepiride [Amaryl] 2 mg PO QAM 04/28/19 12/19/20 History metoprolol tartrate [Lopressor] 50 mg PO Q12H 04/28/19 12/19/20 History pantoprazole [Protonix] 40 mg PO QAM 04/28/19 12/19/20 History potassium chloride 20 meq PO DAILY 04/28/19 12/19/20 History pravastatin 10 mg PO EVERY OTHER DAY 04/28/19 12/19/20 History sertraline [Zoloft] 50 mg PO DAILY 04/28/19 12/19/20 History amlodipine [Norvasc] 5 mg PO DAILY 10/07/19 12/19/20 History cixqcpdhjeln-vac-vduf-FA-vit K 1 tablet PO DAILY 10/07/19 12/19/20 History [Adults Multivitamin] acetaminophen 1,000 mg PO Q6H PRN 12/19/20 12/19/20 History amiodarone 200 mg PO DAILY 12/19/20 12/19/20 History docusate sodium [Colace] 100 mg PO DAILY 12/19/20 12/19/20 History ergocalciferol (vitamin D2) 1,250 mcg PO WEEKLY 12/19/20 12/19/20 History [Vitamin D2] Current Medications: Active Medications Sodium Chloride (Normal Saline Iv) 1,000 mls @ 30 mls/hr IV CONT .Q24H BETSEY Sedation/Anesthesia: No previous sedation/anesthesia problems (including family history). [facility] Past Medical History Medical History (Updated 12/19/20 @ 10:04 by Puja Dobbs MD) Dyslipidemia Essential hypertension Former smoker She has a 20 pack year history, quit 1986. Hyperlipidemia Kidney stones Mixed restrictive and obstructive lung disease Paroxysmal atrial fibrillation Right arm fracture s /p surgery Surgical History Surgical History (Updated 12/19/20 @ 10:04 by Puja Dobbs MD) History of cardioversion History of total hip replacement S/P ablation of atrial fibrillation October 2020, Dr. Espinoza, [facility] Family History Family History Father Family history of lung cancer Mother Family history of lung cancer Family history of malignant neoplasm of breast in first degree relative Social History Social History (Updated 12/19/20 @ 10:05 by Puja Dobbs MD) Social History: to [place]. Disabled adult son a few years ago. Have a daughter in granddaughter in [facility]. Smoking packs per day: 1 Smoking cigarettes per day: 20.0 Years smoked: 20 Smoking pack-years: 20.00 Smoking status: Former smoker Mod Sed Physical Exam Physical Exam Pre Procedural Exam: Normal: Appearance (Morbidly obese), Eyes, Ears, Nose, Neck, Throat, Airway (dentition in good repair), Lungs, Heart Size, Heart Rate, Neuro Exam, Abdomen, Extremities and Skin and Variation: Heart Rhythm (irregular) Hours since solid foods: 12 Hours since liquid intake: 12 Mallampati Classification: class III Internal Medicine - PN: Obj Da Vital Signs Vital Signs: Vital Signs - 24 hr 12/19/20 09:17 Temperature 97.2 F L Pulse Rate 89 Respiratory Rate 16 Blood Pressure 150/93 H Pulse Oximetry 92 Meds/Results Medications: Active Medications Generic Name Dose Route Start Last Admin Trade Name Freq PRN Reason Stop Dose Admin Sodium Chloride 1,000 mls @ 30 mls/hr 12/19/20 08:00 Normal Saline Iv IV CONT .Q24H BETSEY Labs CBC & Chem 7: 12/19/20 08:59 Labs: Laboratory Results - last 24 hr 12/19/20 08:59 Sodium 142 Potassium 3.9 Chloride 106 Carbon Dioxide 25 Anion Gap 11 BUN 29 H D Creatinine 1.20 H Estim Creat Clear Ca
--- NOTE | 2020-12-19 10:22 | PM.OP ---
Procedure Note - Brief Procedure Note - Brief Date of procedure: 12/19/20 Pre-op diagnosis: a-fib Post-op diagnosis: same Procedure performed: conscious sedation Elective electrical cardioversion Description of procedure: successful cardioversion to sinus bradycardia rate 50s Anesthesia: other ( conscious sedation) Surgeon: Puja Dobbs MD Complications: None Condition: stable Disposition: same day
--- NOTE | 2020-12-19 10:24 | WPDCARDVER ---
Cardioversion Cardioversion Date of procedure: 12/19/20 Procedure: conscious sedation Elective electrical cardioversion Pre-op diagnosis: symptomatic atrial fibrillation Post-op diagnosis: same Indications: symptomatic atrial fibrillation Description of procedure: history: 75-year-old female with a long history of atrial fibrillation and multiple cardioversions. She had AFib ablation in October but has had recurrent AFib while on amiodarone and Eliquis. Is too early to decide on a success or lack thereof for the ablation. She is here for an elective electrical cardioversion. Conscious sedation: Assessment: The patient has no history of anesthesia problems. The patient's oropharynx is clear. The patient was deemed to be a good candidate for conscious sedation. The patient had continuous hemodynamic monitoring during the procedure. Start time: 10:11 a.m. Completion time: 10:18 a.m. Total conscious sedation time: 7 minutes Medications: Versed 4 mg, fentanyl 100 mcg IV push Trained observer: Priyanka Hernandez RN Outcome: The patient tolerated the procedure well with no complications. Cardioversion: After informed consent and the above conscious sedation, the patient underwent elective electrical synchronized cardioversion with 200 joules of biphasic energy and converted to normal sinus rhythm, heart rate 53-55 beats per minute with a first-degree AV block.. There were no complications. Conclusion: Uneventful electrical cardioversion to sinus bradycardia. Will discharge patient on her usual medications: Amiodarone, metoprolol 50 mg b.i.d. and Eliquis Office follow-up in 1 month.
--- NOTE | 2020-12-19 12:00 | SUR.PHASEII ---
1140 D/C instructions reviewed with patient and her , questions answered. IV was d/c'd, cath intact, pressure applied. Pt transported to [facility] via wheelchair where her drove her home in a private vehicle.
== END 2020-12-19 12:00 | disposition home or self-care (01) ==
PROVIDERS: PCP Internal Medicine; Visit Provider Internal Medicine Cardiovascular Disease
PROC: 5A2204Z Restoration of Cardiac Rhythm, Single (ICD-10-PCS; principal; 2020-12-19 10:00)
DX: I48.0 Paroxysmal atrial fibrillation (principal); I44.30 Unspecified atrioventricular block; R00.1 Bradycardia, unspecified; I44.7 Left bundle-branch block, unspecified; I11.0 Hypertensive heart disease with heart failure; I50.9 Heart failure, unspecified; Z87.891 Personal history of nicotine dependence; E66.9 Obesity, unspecified; Z68.39 Body mass index [BMI] 39.0-39.9, adult; Z79.01 Long term (current) use of anticoagulants; E78.5 Hyperlipidemia, unspecified; G47.33 Obstructive sleep apnea (adult) (pediatric)
CPT/HCPCS: 36415; 80048; 83735; 92960; J2250; J3010; J7040

== ENCOUNTER 2020-12-26 16:00 | Outpatient (CLI) | payer MEDICARE, SELFPAY ==
--- NOTE | ~2020-12-26 | XR_ITS ---
EXAMINATION: XR abdomen/kub 1V EXAM DATE: 12/26/2020 16:22 INDICATION: Kidney stone on the left. Gallbladder removed 1971. TECHNIQUE: Frontal projection of the upper abdomen, frontal projection lower abdomen/pelvis for inter pretation. Comparison is made to prior examination from 03/27/2020. FINDINGS: There is moderate amount of colonic stool and gas. No dilated small bowel, no obstruction suspected. Lung bases unremarkable. Again there is approximately 2 x 3 cm density projecting over exp ected location of left kidney which could be a large kidney stone. This finding has been indicated, ml drake on the examination for review, clinical correlation. There are bony degenerative changes. Left hip replacement. Probable fibroid. IMPRESSION: 1. Probable large left nephrolithiasis. 2. Other chronic findings. Reviewed, dictated and finalized at location A.
== END 2020-12-26 16:01 | disposition home or self-care (01) ==
PROVIDERS: PCP Internal Medicine; Visit Provider Urology
DX: N20.0 Calculus of kidney (principal)
CPT/HCPCS: 74018

== ENCOUNTER 2021-01-22 14:32 | Outpatient (CLI) | payer MEDICARE, SELFPAY ==
[2021-01-22 17:09] LABS: Alanine Aminotransferase 24 U/L (4-35); Albumin Level 4.4 g/dL (3.5-5.1); Alkaline Phosphatase 95 U/L (38-126); Anion Gap 12 mmol/L (8-16); Aspartate Amino Transferase 33 U/L (14-36); Bilirubin,Total 0.3 mg/dL (0.2-1.3); Blood Urea Nitrogen 27 mg/dL (7-17); Calcium 9.4 mg/dL (8.4-10.2); Carbon Dioxide 24 mmol/L (22-30); Chloride 104 mmol/L (98-107); Estimated Glomerular Filt Rate 40; Glucose 77 mg/dL (65-110); Potassium 3.9 mmol/L (3.4-5.0); Sodium 140 mmol/L (137-145)
[2021-01-22 17:20] LABS: Parathyroid Intact 218.4 pg/mL (7.5-53.5)
[2021-01-24 11:41] LABS: Zinc 52 mcg/dL (60-130)
== END 2021-01-22 14:33 | disposition home or self-care (01) ==
LOC: ANHLAB 14:40
PROVIDERS: PCP Internal Medicine; Visit Provider Nurse Practitioner Adult Health
DX: Z79.899 Other long term (current) drug therapy (principal); E63.9 Nutritional deficiency, unspecified; M81.0 Age-related osteoporosis without current pathological fracture; S42.351D Displaced comminuted fracture of shaft of humerus, right arm, subsequent encounter for fracture with routine healing
CPT/HCPCS: 36415; 80053; 82306; 82525; 83970; 84443; 84630

== ENCOUNTER 2021-02-22 11:20 | Outpatient (CLI) | payer MEDICARE, SELFPAY ==
[2021-02-22 11:37] LABS: Basophils Absolute Auto 0.03 K/mm3 (0.00-0.10); Basophils Percent Auto 0.4 % (0.0-1.0); Eosinophils Absolute Auto 0.15 K/mm3 (0.02-0.50); Eosinophils Percent Auto 1.8 % (1.0-6.0); Hematocrit 35.5 % (35.0-42.0); Hemoglobin 11.4 g/dL (11.7-13.8); Immature Granulocyte Absolute 0.04 K/mm3 (0.00-0.00); Immature Granulocyte Percent A 0.5 % (0.0-0.0); Lymphocytes Absolute Auto 1.04 K/mm3 (1.10-4.50); Lymphocytes Percent Auto 12.7 % (18.0-42.0); Mean Corpuscular HGB Conc 32.1 g/dL (32.0-36.0); Mean Corpuscular Hemoglobin 31.1 pg (27.0-31.0); Mean Corpuscular Volume 96.7 fL (78.0-102.0); Mean Platelet Volume 8.2 fl (9.2-11.8); Monocytes Absolute Auto 0.78 K/mm3 (0.10-0.90); Monocytes Percent Auto 9.5 % (2.0-11.0); Neutrophils Absolute Auto 6.2 K/mm3 (1.7-7.2); Neutrophils Percent Auto 75.1 % (50.0-70.0); Platelet Count Result 263 K/mm3 (150-420); Red Blood Count 3.67 M/mm3 (4.20-5.40); Red Cell Distribution Width 15.7 % (11.6-14.4); White Blood Count 8.2 K/mm3 (4.8-10.8)
[2021-02-22 11:59] LABS: Appearance Urine Clear (Clear); Bilirubin Urine Negative (Negative); Color Urine Light Yellow (Yellow); Glucose Urine UA Negative (Negative); Ketones Urine Negative (Negative); Leukocyte Esterase Ur Negative (Negative); Nitrate Urine Negative (Negative); Protein Urine Negative (Negative); Urobilinogen Urine 0.2 mg/dL (0.2-1.0)
[2021-02-22 12:12] LABS: Add Urine Microscopic? YES; Bacteria Urine Trace /hpf; Blood Urine Trace-Intact (Negative); Renal Epithelial Cells Urine Few /hpf; Squamous Epithelial Cell Urine Few /hpf (Few); WBC Urine None seen /hpf (0-3)
[2021-02-22 12:16] LABS: MALB Creatinine Ratio 48.5 mg/g (0-30); Microalbumin Urine Random 19.5 mg/L
[2021-02-22 12:20] LABS: Hemoglobin A1C 6.4 % (<5.7)
[2021-02-22 13:07] LABS: Alanine Aminotransferase 27 U/L (14-59); Albumin Level 3.7 g/dL (3.4-5.0); Alkaline Phosphatase 122 U/L (46-116); Anion Gap 11 mmol/L (8-16); Aspartate Amino Transferase 21 U/L (15-37); Bilirubin,Total 0.4 mg/dL (0.00-1.00); Blood Urea Nitrogen 29 mg/dL (7-18); Carbon Dioxide 28 mmol/L (21-32); Chloride 107 mmol/L (98-108); Cholesterol 145 mg/dL (0-200); Creatine Kinase 46 U/L (26-192); Estimated Glomerular Filt Rate 44; Glucose 108 mg/dL (70-99); HDL Direct 60 mg/dL (40-60); LDL Cholesterol Calculated 66 mg/dL (<130); Osmolality Calculated 308 mOsm/kg (285-295); Sodium 146 mmol/L (136-145); Triglycerides 96 mg/dL (0-150); Uric Acid 5.3 mg/dL (2.6-6.0); Vitamin B12 1549 pg/mL (193-986)
[2021-02-22 13:28] LABS: Free T4 Free Thyroxine 1.29 ng/dL (0.76-1.46); Thyroid Stimulating Hormone 1.09 uIU/mL (0.36-3.74)
[2021-02-24 18:33] LABS: Vitamin D 25 Hydroxy 25 ng/mL (30-100)
[2021-02-25 15:51] LABS: Parathyroid Intact 85 pg/mL (14-64)
== END 2021-02-22 11:21 | disposition home or self-care (01) ==
LOC: CHSLAB 11:22
PROVIDERS: PCP Internal Medicine; Visit Provider Internal Medicine
DX: E11.9 Type 2 diabetes mellitus without complications (principal); I10 Essential (primary) hypertension; E79.0 Hyperuricemia without signs of inflammatory arthritis and tophaceous disease; E03.4 Atrophy of thyroid (acquired); D50.9 Iron deficiency anemia, unspecified; E21.0 Primary hyperparathyroidism; I48.11 Longstanding persistent atrial fibrillation
CPT/HCPCS: 36415; 80053; 80061; 81001; 82043; 82306; 82550; 82607; 83036; 83970; 84439; 84443; 84550; 85025

== ENCOUNTER 2021-04-16 01:17 | Day surgery (SDC) | payer MEDICARE, SELFPAY ==
[2021-04-13 15:39] VITALS: BMI 37.5
[2021-04-16] VITALS (16 sets, daily range): BP systolic 86–136; BP diastolic 41–85; PULSE 54–93; RESP 14–31; TEMP 36.6; O2SAT 91–96; BMI 39.6
--- NOTE | 2021-04-16 10:00 | ECG_ITS ---
Measurements Intervals [place] Rate: 66 P: 87 MN: 259 QRS: 4 QRSD: 113 T: 48 QT: 491 QTc: 517 Interpretive Statements SINUS RHYTHM WITH FIRST DEGREE AV BLOCK ATRIAL AND VENTRICULAR PREMATURE COMPLEXES INTRAVENTRICULAR CONDUCTION DELAY BORDERLINE ST-T WAVE ABNORMALITY- HIGH LATERAL LEADS BASELINE ARTIFACT- I, II, III ABNORMAL ECG Electronically Signed On 04-16-2021 13:30:26 CDT by Yunier Godfrey D.O.
--- NOTE | 2021-04-16 11:36 | WPDHPUPDATE1 ---
History and Physical Update Update Date/Time: 04/16/21 11:36 History and Physical has been reviewed, including an updated exam of the patient. There are NO changes in the patient's condition. Risks, benefits, and alternatives have been discussed and questions answered. Patient agrees to proceed with procedure.
--- NOTE | 2021-04-16 11:36 | WPDMODSED ---
Moderate Sedation Note-Pt Data Patient Data Diagnosis: Atrial fibrillation Present Complaint: Fatigue History and physical update: Patient is a very pleasant 75-year-old female who is a patient of Dr. Dobbs's with a history of persistent recurrent atrial fibrillation status post multiple cardioversions and atrial fibrillation ablation October 2020 maintained on amiodarone and Eliquis, PEYMAN on BiPAP referred for repeat attempt at cardioversion to restore sinus rhythm for symptomatic improvement. Her last cardioversion was performed December of this year and she reports recurrence of atrial fibrillation over the past week. Impression/plan of care: Proceed with elective cardioversion in an attempt to restore sinus rhythm. She has been compliant with Eliquis without missing a single dose for least 4 weeks. Patient has done well with moderate sedation in the past the last being December 2020. Further recommendation to follow post procedure. Follow-up with Dr. Dobbs and Dr. Miranda as an outpatient. Procedure to be performed/Plan: Elective electrical cardioversion Allergies Allergy/AdvReac Type Severity Reaction Status Date / Time lisinopril Allergy Unknown COUGH Verified 12/19/20 09:17 Home Medications Medication Instructions Recorded Confirmed Type Eliquis 5 mg PO BID 04/28/19 04/13/21 History allopurinol 100 mg PO DAILY 04/28/19 04/13/21 History cyanocobalamin (vitamin B-12) 1,000 mcg PO DAILY 04/28/19 04/13/21 History furosemide [Lasix] 40 mg PO DAILY 04/28/19 04/13/21 History glimepiride [Amaryl] 2 mg PO QAM 04/28/19 04/13/21 History metoprolol tartrate [Lopressor] 50 mg PO Q12H 04/28/19 04/13/21 History pantoprazole [Protonix] 40 mg PO QAM 04/28/19 04/13/21 History potassium chloride 20 meq PO DAILY 04/28/19 04/13/21 History pravastatin 10 mg PO EVERY OTHER DAY 04/28/19 04/13/21 History sertraline [Zoloft] 50 mg PO DAILY 04/28/19 04/13/21 History Adults Multivitamin 1 tablet PO DAILY 10/07/19 04/13/21 History amlodipine [Norvasc] 5 mg PO DAILY 10/07/19 04/13/21 History acetaminophen 1,000 mg PO Q6H PRN 12/19/20 04/13/21 History amiodarone 200 mg PO DAILY 12/19/20 04/13/21 History docusate sodium [Colace] 100 mg PO DAILY 12/19/20 04/13/21 History ergocalciferol (vitamin D2) 1,250 mcg PO WEEKLY 12/19/20 04/13/21 History [Vitamin D2] Current Medications: Active Medications Sodium Chloride (Normal Saline Iv) 1,000 mls @ 30 mls/hr IV CONT .Q24H [facility] Sedation/Anesthesia: No previous sedation/anesthesia problems (including family history). [facility] Past Medical History Medical History Dyslipidemia Essential hypertension Former smoker She has a 20 pack year history, quit 1986. Hyperlipidemia Kidney stones Mixed restrictive and obstructive lung disease Paroxysmal atrial fibrillation Right arm fracture s /p surgery Surgical History Surgical History History of cardioversion History of total hip replacement S/P ablation of atrial fibrillation October 2020, Dr. Espinoza, [facility] Family History Family History Father Family history of lung cancer Mother Family history of lung cancer Family history of malignant neoplasm of breast in first degree relative Social History Social History Social History: to Jorje. Disabled adult son a few years ago. Have a daughter in granddaughter in [facility]. Smoking packs per day: 1 Smoking cigarettes per day: 20.0 Years smoked: 20 Smoking pack-years: 20.00 Smoking status: Former smoker Living arrangements: with family Mod Sed Physical Exam Physical Exam Pre Procedural Exam: Normal: Appearance, Eyes, Ears, Nose, Neck (Supple, normal range of motion), Throat (Posterior hypopharynx clear, nonerythematous), Airway (N
--- NOTE | 2021-04-16 12:00 | ECG_ITS ---
Measurements Intervals [place] Rate: 89 P: MT: 0 QRS: 6 QRSD: 101 T: 37 QT: 408 QTc: 498 Interpretive Statements ATRIAL FIBRILLATION EARLY PRECORDIAL R/S TRANSITION ABNORMAL ECG Electronically Signed On 04-16-2021 11:03:21 CDT by Yunier Godfrey D.O.
[2021-04-16 12:38] LABS: Anion Gap 7 mmol/L (8-16); Blood Urea Nitrogen 16 mg/dL (7-17); Calcium 9.3 mg/dL (8.4-10.2); Carbon Dioxide 27 mmol/L (22-30); Chloride 108 mmol/L (98-107); Estimated CRCL calculation 59 ml/min; Estimated Glomerular Filt Rate > 60; Glucose 119 mg/dL (65-110); Potassium 4.1 mmol/L (3.4-5.0); Sodium 142 mmol/L (137-145)
--- NOTE | 2021-04-16 13:20 | WPDCARDVER ---
Cardioversion Cardioversion Date of procedure: 04/16/21 Pre-op diagnosis: Atrial fibrillation Post-op diagnosis: same Indications: Atrial fibrillation Description of procedure: Brief history present illness: Patient is a very pleasant 75-year-old female who is a patient of Dr. Fonseca with a history of persistent recurrent atrial fibrillation status post multiple cardioversions and atrial fibrillation ablation October 2020 maintained on amiodarone and Eliquis, PEYMAN on BiPAP referred for repeat attempt at cardioversion to restore sinus rhythm for symptomatic improvement. Her last cardioversion was performed December of this year and she reports recurrence of atrial fibrillation over the past week. Procedure in detail: After verbal and written informed consent was obtained the patient risks, benefits, and alternatives explained in detail the patient agreed to proceed with the plan of care as outlined above. Patient was evaluated at bedside in [facility] room. On examination, neck was supple with normal range of motion, no restrictions to opening of the oral cavity, jaw angle and posterior hypopharynx was clear. Lungs were clear to auscultation. Patient was placed in appropriate 30 to 45 degree angle in a supine position. Patient was monitored throughout the study with telemetry, oxygen saturation, end-tidal CO2 monitoring, blood pressure, heart rate, and respirations. Anterior and posterior defibrillator pads placed in the appropriate positions. After confirmation of adequate sedation electrical cardioversion was carried out without complication. Patient tolerated the procedure well without difficulty. Sedation: Moderate Sedation/Anesthesia administration: Patient denied previous intolerance or complications with anesthesia/sedation. Please see sedation note for documentation of the pre-procedure physical examination. A total of 6 mg intravenous Versed and a total of 175 mcg intravenous Fentanyl in multiple divided doses was utilized for moderate sedation. Sedation start time was 1249 and end time was 1317 for a total of 28 minutes [id number] intra-procedure time. Sedation was administered by a qualified observer Sarah Olivarez RN under my supervision with intra-procedure [id number] observation and management throughout the entirety of the procedure. There were no other issues or complications and patient tolerated the procedure well and sedation protocol well and I was present for the entirety. Findings: Elective electrical cardioversion: After confirmation of adequate sedation and persistence of atrial fibrillation, 200 joules synched biphasic energy x1 was delivered with immediate sabianist of sinus rhythm. Twelve lead EKG was obtained postprocedure confirming sinus rhythm. Complications: None Conclusion: Successful sabianist of sinus rhythm status post 200 joules synched biphasic energy x1. Recommendations: Continue current medical therapy particularly systemic anticoagulation without interruption without explicit direction but particularly over the next 30 days status post cardioversion. Follow-up with Dr. Dobbs and Dr. Miranda as scheduled as an outpatient.
--- NOTE | 2021-04-16 16:38 | SUR.PHASEII ---
Iv removed from right hand, catheter intact. No redness or swelling at the site. Pt awake and alert. Discharge instructions reviewed with patient and spouse with stated understanding. Discharged to home via wheelchair to personal vehicle driven by .
== END 2021-04-16 15:45 | disposition home or self-care (01) ==
PROVIDERS: PCP Internal Medicine; Visit Provider Internal Medicine Cardiovascular Disease
PROC: 5A2204Z Restoration of Cardiac Rhythm, Single (ICD-10-PCS; principal; 2021-04-16 11:30)
DX: I48.0 Paroxysmal atrial fibrillation (principal); I11.9 Hypertensive heart disease without heart failure; G47.33 Obstructive sleep apnea (adult) (pediatric); Z79.01 Long term (current) use of anticoagulants
CPT/HCPCS: 36415; 80048; 83735; 92960; J2250; J3010; J7040

== ENCOUNTER 2021-04-19 10:17 | Outpatient (CLI) | payer MEDICARE, SELFPAY ==
--- NOTE | ~2021-04-19 | CT_ITS ---
EXAMINATION: CT diagnostic chest wo con DATE: 04/19/2021 10:38 INDICATION: Solitary pulmonary nodule TECHNIQUE: Computed tomography (CT) of the chest was performed without intravenous contrast. The dose -length product (DLP) was 261.09 mGy-cm. Automated exposure control and iterative reconstruction tech nique were employed. COMPARISON: 03/27/2020, 09/07/2019 FINDINGS: There is a stable 6 mm nodule of the right lower lobe. A small area of scarring is present in the left lower lobe at the site of the previously described nodule. No new pulmonary nodules are i dentified. There is mild atelectasis. There is chronic and unchanged mild mediastinal lymphadenopathy , likely reactive. There is mild emphysema. Cardiomegaly is noted. There is calcified coronary artery atherosclerosis. No pleural effusion or pneumothorax is identified. There are bridging osteophytes a t multiple levels in the spine, consistent with diffuse idiopathic skeletal hyperostosis (DISH). IMPRESSION: 1. Pulmonary nodules without significant change, consistent with old granulomatous disease and sequel a of prior infection. No new nodules identified. Reviewed, dictated and finalized at location B. IMPRESSION: 1. Pulmonary nodules without significant change, consistent with old granulomat ous disease and sequela of prior infection. No new nodules identified.
--- NOTE | ~2021-04-19 | NM_ITS ---
EXAMINATION: NM parathyroid w imaging DATE: 04/19/2021 14:47 INDICATION: Hyperparathyroidism TECHNIQUE: 19.4 mCi Tc99m sestamibi (Cardiolite) was administered by intravenous route. Anterior imag es of the neck were obtained at 10 minutes and 2 hours. Patient refused SPECT imaging due to claustro phobia. COMPARISON: None. FINDINGS/IMPRESSION: There is no focus of persistent activity in the area of the thyroid or mediastinum to suggest parathy roid adenoma. Reviewed, dictated and finalized at location A.
== END 2021-04-19 10:18 | disposition home or self-care (01) ==
LOC: ANHIMG 10:22
PROVIDERS: PCP Internal Medicine; Visit Provider Nurse Practitioner Family
DX: R91.1 Solitary pulmonary nodule (principal); E21.3 Hyperparathyroidism, unspecified
CPT/HCPCS: 71250; 78070; A9500

== ENCOUNTER 2021-05-04 14:52 | Outpatient (CLI) | payer MEDICARE, SELFPAY ==
[2021-05-04 15:24] LABS: Anion Gap 10 mmol/L (8-16); Blood Urea Nitrogen 21 mg/dL (7-17); Calcium 9.4 mg/dL (8.4-10.2); Carbon Dioxide 24 mmol/L (22-30); Chloride 110 mmol/L (98-107); Estimated Glomerular Filt Rate 49; Glucose 147 mg/dL (65-110); Potassium 4.2 mmol/L (3.4-5.0); Sodium 144 mmol/L (137-145)
== END 2021-05-04 14:53 | disposition home or self-care (01) ==
LOC: ANHLAB 14:58
PROVIDERS: PCP Internal Medicine; Visit Provider Internal Medicine
DX: N18.2 Chronic kidney disease, stage 2 (mild) (principal)
CPT/HCPCS: 36415; 80048; 83970

== ENCOUNTER 2021-06-06 14:10 | Outpatient (CLI) | payer MEDICARE, SELFPAY ==
[2021-06-06 14:51] LABS: Basophils Percent Auto 0.5 % (0.2-1.2); Eosinophils Absolute Auto 0.1 K/mm3 (0-0.3); Eosinophils Percent Auto 1.3 % (0-4.4); Hematocrit 36.6 % (37.0-47.0); Hemoglobin 11.2 g/dL (12.0-15.0); Immature Granulocyte Absolute 0.03 K/mm3 (0.00-0.031); Immature Granulocyte Percent A 0.4 % (0-0.5); Lymphocytes Absolute Auto 0.86 K/mm3 (0.9-3.2); Lymphocytes Percent Auto 10.4 % (18.3-44.2); Mean Corpuscular HGB Conc 30.6 g/dl (32-36); Mean Corpuscular Hemoglobin 28.9 pg (26-34); Mean Corpuscular Volume 94.3 fl (80-100); Mean Platelet Volume 8.9 fl (7.4-10.4); Monocytes Absolute Auto 0.6 K/mm3 (0.1-0.6); Monocytes Percent Auto 7.4 % (2.6-8.5); Neutrophils Absolute Auto 6.6 K/mm3 (1.3-6.7); Platelet Count Result 301 k/mm3 (150-375); Red Blood Count 3.88 M/mm3 (4.2-5.4); Red Cell Distribution Width 15.3 % (11.5-14.5); White Blood Count 8.3 K/mm3 (4.5-10.0)
[2021-06-06 15:08] LABS: Anion Gap 10 mmol/L (8-16); Blood Urea Nitrogen 22 mg/dL (7-17); Calcium 9.3 mg/dL (8.4-10.2); Carbon Dioxide 23 mmol/L (22-30); Chloride 107 mmol/L (98-107); Estimated Glomerular Filt Rate 49; Glucose 239 mg/dL (65-110); Sodium 140 mmol/L (137-145)
== END 2021-06-06 14:11 | disposition home or self-care (01) ==
PROVIDERS: PCP Internal Medicine
DX: I48.19 Other persistent atrial fibrillation (principal); I11.0 Hypertensive heart disease with heart failure
CPT/HCPCS: 36415; 80048; 85025

== ENCOUNTER → 2021-06-07 02:52 | Outpatient (CLI) | payer MEDICARE, SELFPAY ==
[2021-06-07 19:47] LABS: SARS-CoV-2 RNA PCR Negative
== END ==
PROVIDERS: PCP Internal Medicine
DX: Z20.822 Contact with and (suspected) exposure to COVID-19 (principal)
CPT/HCPCS: C9803; U0003; U0005

== ENCOUNTER 2021-07-11 14:20 | Outpatient (CLI) | payer MEDICARE, SELFPAY ==
--- NOTE | ~2021-07-11 | XR_ITS ---
XR chest 2V DATE: 07/11/2021 14:43 INDICATION: Shortness of breath TECHNIQUE: PA and lateral views COMPARISON: 04/19/2021 CT chest 01/12/2016 2 view chest FINDINGS: There is cardiomegaly. Prominent mitral annulus calcification. There is pulmonary vascular redistribution suggesting mild pulmonary venous hypertension, mild conges tive heart failure. There is aortic ectasia, tortuosity and calcification. No pulmonary infiltrate or consolidation, ple ural effusion or pneumothorax. Diffuse osteopenia Plate and screws of right humerus IMPRESSION: Cardiomegaly, pulmonary vascular redistribution, suggesting mild CHF Reviewed, dictated and finalized at location A. [facility] [employer] IMPRESSION: Cardiomegaly, pulmonary vascular redistribution, suggesting mild CH F
== END 2021-07-11 14:21 | disposition home or self-care (01) ==
PROVIDERS: PCP Internal Medicine
DX: R06.02 Shortness of breath (principal); I51.7 Cardiomegaly
CPT/HCPCS: 71046

== ENCOUNTER 2021-08-14 12:37 | Outpatient (CLI) | payer MEDICARE, SELFPAY ==
[2021-08-14 13:00] VITALS: PULSE 58; O2SAT 90
[2021-08-14 13:03] VITALS: PULSE 72; O2SAT 86
[2021-08-14 13:05] VITALS: O2SAT 87
[2021-08-14 13:06] VITALS: O2SAT 91
[2021-08-14 13:15] VITALS: PULSE 60; O2SAT 90
--- NOTE | 2021-08-14 14:03 | HOMEO2EVAL ---
Evaluation was performed at [facility] Home Oxygen Evaluation RC: Home Oxygen (O2) Evaluation Start: 08/14/21 14:01 Freq: Status: Active Protocol: RPE Activity Type Activity Date Activity User E-Sign Co-Sign Detail Recorded Client Recorded Date Recorded By Document 08/14/21 13:00 GINNA [id number] 08/14/21 14:03 GINNA Document 08/14/21 13:03 GINNA [id number] 08/14/21 14:03 GINNA Document 08/14/21 13:05 GINNA [id number] 08/14/21 14:03 GINNA Document 08/14/21 13:06 GINNA [id number] 08/14/21 14:03 GINNA Document 08/14/21 13:15 GINNA [id number] 08/14/21 14:03 GINNA 08/14/21 08/14/21 08/14/21 13:00 13:03 13:05 Home O2 Evaluation Test Phase Resting Exercise Exercise Oxygen Delivery Room Air Room Air Nasal Cannula Oxygen Flow Rate (L/min) 1 Pulse Oximetry (90-100 %) 90 86 L 87 L Pulse Rate (60-100 beats/min) 58 L 72 Ambulation Distance (feet) Ambulation Distance (meters) Home Oxygen Evaluation Comments Treatment Charges O2 Evaluation - Outpatient 08/14/21 08/14/21 13:06 13:15 Home O2 Evaluation Test Phase Exercise Resting Oxygen Delivery Nasal Cannula Room Air Oxygen Flow Rate (L/min) 2 Pulse Oximetry (90-100 %) 91 90 Pulse Rate (60-100 beats/min) 60 Ambulation Distance (feet) 400 Ambulation Distance (meters) 121.91 Home Oxygen Evaluation Comments PT REQUIRES 2 L WITH ACTIVITY Treatment Charges
--- NOTE | 2021-08-14 14:04 | PCRCNOTE ---
HOME O2 EVAL FAXED TO OFFICE, NEW SET UP. PT FAILED 6MWT
--- NOTE | 2021-08-15 14:18 | WPDPFTINT ---
PFT Procedure Performed PFT Procedure Performed Spirometry with Pre/Post Bronchodilator Plethysmography (Lung Vol) Diffusing Cap (DLCO) Flow Vol Loop PFT Interpretation Lung volumes were measured with the body plethysmography method. The elevated FRC and RV are indicative of a air trapping. Spirometry showed diminished expiratory flow rates and a diminished FEV1 to FVC ratio 52%, indicative of obstructive airway disease. Following administration of a bronchodilator there was no significant change in expiratory flow rates. Lung diffusion capacity is severely reduced at 34% predicted. In comparison to previous study in 2020 the post bronchodilator FVC and FEV1 are essentially unchanged. Impression: Moderate obstructive airway disease with Evidence of air trapping and no response to bronchodilators on this testing. Severely reduced lung diffusion capacity.
== END 2021-08-14 12:38 | disposition home or self-care (01) ==
LOC: ANHPFT 12:40
PROVIDERS: PCP Internal Medicine; Visit Provider Nurse Practitioner Family
DX: J43.9 Emphysema, unspecified (principal); J98.4 Other disorders of lung; R09.02 Hypoxemia; R06.02 Shortness of breath; J44.9 Chronic obstructive pulmonary disease, unspecified
CPT/HCPCS: 94060; 94618; 94726; 94729

== ENCOUNTER 2021-08-27 12:14 | Outpatient (CLI) | payer MEDICARE, SELFPAY ==
[2021-08-27 12:50] LABS: Hematocrit 35.9 % (37.0-47.0); Hemoglobin 10.8 g/dL (12.0-15.0); Mean Corpuscular HGB Conc 30.1 g/dl (32-36); Mean Corpuscular Hemoglobin 26.4 pg (26-34); Mean Corpuscular Volume 87.8 fl (80-100); Mean Platelet Volume 9.2 fl (7.4-10.4); Platelet Count Result 305 k/mm3 (150-375); Red Blood Count 4.09 M/mm3 (4.2-5.4); Red Cell Distribution Width 17.3 % (11.5-14.5); White Blood Count 6.9 K/mm3 (4.5-10.0)
[2021-08-27 12:58] LABS: Hemoglobin A1C 5.7 % (<5.7)
[2021-08-27 13:00] LABS: Alanine Aminotransferase 17 U/L (4-35); Albumin Level 4.1 g/dL (3.5-5.1); Alkaline Phosphatase 105 U/L (38-126); Anion Gap 8 mmol/L (8-16); Aspartate Amino Transferase 27 U/L (14-36); Bilirubin,Total 0.6 mg/dL (0.2-1.3); Blood Urea Nitrogen 15 mg/dL (7-17); Calcium 9.2 mg/dL (8.4-10.2); Carbon Dioxide 28 mmol/L (22-30); Chloride 108 mmol/L (98-107); Cholesterol 128 mg/dL (0-200); Creatine Kinase 30 U/L (30-135); Estimated Glomerular Filt Rate > 60; Glucose 114 mg/dL (65-110); HDL Direct 37 mg/dL; Potassium 3.7 mmol/L (3.4-5.0); Sodium 144 mmol/L (137-145); Triglycerides 122 mg/dL (<150)
[2021-08-27 13:09] LABS: Iron 45 ug/dL (37-170)
[2021-08-27 13:11] LABS: LDL Cholesterol Direct 59 mg/dL
[2021-08-27 13:15] LABS: Add Urine Microscopic? YES; Appearance Urine Sl Cloudy (Clear); Bilirubin Urine Negative (Negative); Blood Urine 3+ (Negative); Color Urine Yellow (Yellow); Glucose Urine UA Negative (Negative); Ketones Urine Negative (Negative); Leukocyte Esterase Ur 1+ LEU/UL (Negative); Nitrate Urine Negative (Negative); Protein Urine 1+ mg/dL (Negative)
[2021-08-27 13:17] LABS: MALB Creatinine Ratio 149.4 mg/g (0-30); Microalbumin Urine Random 125.5 mg/L (0-16.7)
[2021-08-27 13:27] LABS: Free T4 Free Thyroxine 3.52 ng/mL (0.78-2.19)
[2021-08-27 13:30] LABS: Thyroid Stimulating Hormone < 0.015 uIU/mL (0.465-4.680)
[2021-08-27 13:46] LABS: RBC Urine >75 /hpf (0-2)
[2021-08-27 13:48] LABS: Squamous Epithelial Cell Urine Few /hpf (Few)
[2021-08-27 13:51] LABS: Vitamin B12 > 1000.0 pg/mL (239-931)
[2021-08-30 05:46] LABS: Triiodothyronine T3 Free 4.7 pg/mL (2.3-4.2)
== END 2021-08-27 12:15 | disposition home or self-care (01) ==
LOC: ANHLAB 12:21
PROVIDERS: PCP Internal Medicine; Visit Provider Internal Medicine
DX: D50.9 Iron deficiency anemia, unspecified (principal); N39.0 Urinary tract infection, site not specified; E11.65 Type 2 diabetes mellitus with hyperglycemia; I10 Essential (primary) hypertension; E78.2 Mixed hyperlipidemia; E21.0 Primary hyperparathyroidism; E53.8 Deficiency of other specified B group vitamins
CPT/HCPCS: 36415; 80053; 80061; 81001; 82043; 82550; 82607; 82728; 83036; 83540; 84439; 84443; 84481; 85027

== ENCOUNTER 2021-09-05 12:06 | Outpatient (CLI) | payer MEDICARE, SELFPAY ==
[2021-09-05 12:56] LABS: Free T3 4.07 pg/mL (2.18-3.98); Free T4 Free Thyroxine 1.94 ng/dL (0.76-1.46)
[2021-09-05 13:06] LABS: Thyroid Stimulating Hormone < 0.01 uIU/mL (0.36-3.74)
[2021-09-08 15:38] LABS: Parathyroid Intact 118 pg/mL (14-64)
[2021-09-10 17:01] LABS: Thyrotropin Receptor Antibody <1.00 IU/L (<=2.00)
== END 2021-09-05 12:07 | disposition home or self-care (01) ==
LOC: CHSLAB 12:08
PROVIDERS: PCP Internal Medicine; Visit Provider Internal Medicine
DX: E05.90 Thyrotoxicosis, unspecified without thyrotoxic crisis or storm (principal)
CPT/HCPCS: 36415; 83519; 83970; 84439; 84443; 84481

== ENCOUNTER 2021-09-10 13:51 | Outpatient (CLI) | payer MEDICARE, SELFPAY ==
--- NOTE | ~2021-09-10 | NM_ITS ---
EXAMINATION: NM thyroid scan w uptake DATE: 09/11/2021 14:59 INDICATION: Hyperthyroidism. COMPARISON: Ultrasound thyroid 09/11/2021 TECHNIQUE: 0.335 mCi I-123 was administered orally. Scintigraphic images of the thyroid gland were o btained at 24 hours. Thyroid uptake was calculated by the technologist. FINDINGS: The thyroid uptake is 0.2% (normal 10-30%). There is no focal area of decreased or increased activity to suggest hypofunctioning or hyperfunctioning nodule. IMPRESSION: 1. Decreased 24-hour iodine uptake. This finding is most likely secondary to amiodarone therapy. Reviewed, dictated and finalized at location A. IMPRESSION: 1. Decreased 24-hour iodine uptake. This finding is most likely secondary to a miodarone therapy.
== END 2021-09-10 13:52 | disposition home or self-care (01) ==
PROVIDERS: PCP Internal Medicine; Visit Provider Internal Medicine
DX: E05.90 Thyrotoxicosis, unspecified without thyrotoxic crisis or storm (principal)
CPT/HCPCS: 78014; A9516

== ENCOUNTER 2021-09-11 13:28 | Outpatient (CLI) | payer MEDICARE, SELFPAY ==
--- NOTE | ~2021-09-11 | US_ITS ---
EXAMINATION: US thyroid EXAM DATE: 09/11/2021 14:00 INDICATION: Hyperthyroidism. TECHNIQUE: Multiple grayscale and Doppler images of the thyroid were obtained (by a technologist who performed the scan) and subsequently reviewed. Individual nodules and recommendations may be reporte d in accordance with TI-RADS system as designated by the 2017 ACR White Paper TI-RADS committee. Comp joaoson is made to prior examination from 09/12/2016. FINDINGS: Right there are lobe measures 4.3 x 1.9 x 1.8 cm, the left measuring 3.5 x 1.4 x 1.6 cm. There is mod erately diffusely heterogeneous thyroid echogenicity. No definite focal nodules are identified (can't identify the previously seen thyroid nodules which may have resolved). IMPRESSION: 1. Borderline mild thyromegaly. Reviewed, dictated and finalized at location B.
== END 2021-09-11 13:29 | disposition home or self-care (01) ==
PROVIDERS: PCP Internal Medicine; Visit Provider Internal Medicine
DX: E05.90 Thyrotoxicosis, unspecified without thyrotoxic crisis or storm (principal); E04.9 Nontoxic goiter, unspecified
CPT/HCPCS: 76536

== ENCOUNTER 2021-09-18 12:32 | Outpatient (CLI) | payer MEDICARE, SELFPAY ==
--- NOTE | ~2021-09-18 | US_ITS ---
EXAMINATION: US carotid duplex BI DATE: 09/18/2021 13:56 INDICATION: Carotid stenosis TECHNIQUE: Grayscale, color Doppler, and pulsed Doppler images of the cervical carotid arteries were obtained. The degree of vessel stenosis is placed in one of the following categories: normal, <50%, 5 0-69%, >=70% but less than near-occlusion, near-occlusion, or total occlusion. Note that percent sten osis relative to normal distal artery lumen diameter is indirectly measured from velocity measurement s as described by All, et al. Radiology 2003; 229:340-346. COMPARISON: 86 FINDINGS: RIGHT: The right common carotid artery (CCA) peak systolic velocity (PSV) is 68 cm/s. The right internal car otid artery (ICA) PSV is 9 cm/s. The right ICA end-diastolic velocity (EDV) is 0.8 cm/s. The right IC A/CCA PSV ratio is mild. Grayscale and color Doppler images yield an estimate of 76 diameter reductio n from plaque in the ICA. The external carotid artery (ECA) PSV is 76 cm/s. There is antegrade flow i n the right vertebral artery. LEFT: The left CCA PSV is 85 cm/s. The left ICA PSV is 85 cm/s. The left ICA EDV is 23 cm/s. The left ICA/C CA PSV ratio is 1.0. Grayscale and color Doppler images yield an estimate of <50% diameter reduction from plaque in the ICA. The ECA PSV is 51 cm/s. There is antegrade flow in the left vertebral artery. IMPRESSION: 1. <50% stenosis in the right internal carotid artery. 2. <50% stenosis in the left internal carotid artery. Reviewed, dictated and finalized at location B.
--- NOTE | ~2021-09-18 | XR_ITS ---
EXAMINATION: XR abdomen/kub 1V EXAM DATE: 09/18/2021 13:01 INDICATION: Left-sided kidney stone. TECHNIQUE: Frontal projection of the upper abdomen, frontal projection lower abdomen/pelvis for inter pretation. Comparison is made to prior examination from 12/26/2020. FINDINGS: Large density measuring up to 3 cm projecting over expected location of left renal pelvis is unchanged. Fibroid uterus. Left hip replacement. Moderate amount of colonic stool and gas. There a re bony degenerative changes. IMPRESSION: Probable large left nephrolithiasis unchanged. Reviewed, dictated and finalized at location A.
== END 2021-09-18 12:33 | disposition home or self-care (01) ==
PROVIDERS: PCP Internal Medicine; Referring Provider Urology; Visit Provider Internal Medicine
DX: I65.23 Occlusion and stenosis of bilateral carotid arteries (principal); N20.0 Calculus of kidney
CPT/HCPCS: 74018; 93880

== ENCOUNTER → 2021-10-30 14:14 | Outpatient (CLI) | payer MEDICARE, SELFPAY ==
--- NOTE | ~2021-10-30 | MM_ITS ---
EXAMINATION: MM screening renetta BI w hilton HISTORY: Screening mammogram, family history of breast cancer in her mother and daughter. TECHNIQUE: Craniocaudal and mediolateral oblique 3-D tomosynthesis images were obtained and synthetic 2-D images were generated. CAD analysis was submitted and interpreted. COMPARISON: 11/26/2018, 11/11/2018, 10/16/2017, 09/12/2016 BREAST PARENCHYMAL COMPOSITION: There are scattered areas of fibroglandular density. FINDINGS: RIGHT BREAST: There is a mass in the posterior third of the upper outer quadrant of the breast approx imately 9 cm from the nipple. LEFT BREAST: There is no suspicious mass, calcification, or architectural distortion to suggest malig faiza. There has been no significant interval change. IMPRESSION: 1. Right breast mass. 2. Additional mammographic views and possible breast ultrasound are recommended. BI-RADS Category 0: Incomplete: Needs additional imaging evaluation. Reviewed, dictated and finalized at location A. IMPRESSION: 1. Right breast mass. 2. Additional mammographic views and possible breast ultrasound are recommended . BI-RADS Category 0: Incomplete: Needs additional imaging evaluation.
== END ==
PROVIDERS: PCP Internal Medicine; Visit Provider Internal Medicine
DX: Z12.31 Encounter for screening mammogram for malignant neoplasm of breast (principal); R92.8 Other abnormal and inconclusive findings on diagnostic imaging of breast
CPT/HCPCS: 77063; 77067

== ENCOUNTER → 2021-11-16 08:05 | Outpatient (CLI) | payer MEDICARE, SELFPAY ==
--- NOTE | ~2021-11-16 | MMUS_ITS ---
EXAMINATION: MM diagnostic renetta RT w hilton, US breast RT limited HISTORY: Posterior upper outer quadrant right breast mass reported on 10/30/2021 screening mammogram e xaminations TECHNIQUE: Additional 3-D tomosynthesis images of the right breast were performed and synthetic 2-D i mages were generated. CAD analysis was submitted and interpreted. High resolution limited right breas t ultrasound at 8-10:00 was performed. COMPARISON: 10/30/2021 bilateral screening mammogram 12/03/2018 diagnostic right mammogram and limited right breast ultrasound 11/11/2018, 10/16/2017 bilateral screening mammogram examinations 09/12/2016 diagnostic right mammogram 08/28/2016 bilateral screening mammogram FINDINGS: MAMMOGRAPHIC FINDINGS: There is focal approximately 4.8 x 8 mm asymmetric density in the posterior outer mid right breast. T argeted ultrasound examination is recommended. There is a biopsy marker situated more anteriorly and superiorly in the upper outer quadrant of the r ight breast. ULTRASOUND: 9:00 8 cm from nipple: There is an antiparallel hypoechoic lesion measuring up to 6.9 mm with an 7.7 mm depth, with posterior shadowing. This is suspicious. Ultrasound-guided biopsy is recommended. At 10:00 7 cm from the nipple there is an oval irregular hypoechoic lesion with posterior shadowing, measuring 6.3 x 4.4 x 5.9 mm. Ultrasound-guided biopsy is recommended. At 10:00 6 cm from the nipple there is a circumscribed hypoechoic 2.4 x 4.1 x 4.2 mm hypoechoic area without internal vascularity or posterior shadowing. At 9-10:00 8 cm from the nipple there is an approximately 3.2 x 4.7 x 5.5 mm intramammary lymph node, with relatively uniform echogenicity of the cortex can with fatty hilus with expected vascular struc tures at the hilus. IMPRESSION: 1. Suspicious masses of right breast at 9:00 8 cm from nipple and 10:00 7 cm from nipple 2. Ultrasound-guided biopsy of 9:00 lesion 8 cm from nipple and at 10:00 7 cm from nipple is recommen ded. BI-RADS category 4, suspicious findings. Dr. Escalante telephoned the report and ultrasound-guided biopsy recommendations on 12/03/2021 at [address] Be. Reviewed, dictated and finalized at location A. IMPRESSION: 1. Suspicious masses of right breast at 9:00 8 cm from nipple and 10:00 7 cm fr om nipple 2. Ultrasound-guided biopsy of 9:00 lesion 8 cm from nipple and at 10:00 7 cm f rom nipple is recommended. BI-RADS category 4, suspicious findings. Dr. Escalante telephoned the report and ultrasound-guided biopsy recommendations on 12/03/2021 [address] Be.
== END ==
PROVIDERS: PCP Internal Medicine; Visit Provider Internal Medicine
DX: R92.8 Other abnormal and inconclusive findings on diagnostic imaging of breast (principal)
CPT/HCPCS: 76642; 77061; 77065; G0279

== ENCOUNTER 2021-11-19 13:45 | Outpatient (RCR) | payer MEDICARE, SELFPAY ==
--- NOTE | 2021-10-25 15:06 | PTOPEVAL ---
PHYSICAL THERAPY EVALUATION AND PLAN OF CARE 10-25-21 Thank you for referring Bela Muñoz to [facility].? She is scheduled to be seen for therapy? 2 x/week for 4 weeks. Please review, sign, date and return this plan of care SHREYA. I agree with and certify that the following plan of care is medically necessary. Referring Physician Date Attending Provider: Juno Braun MD Past Medical History Source of Past Medical History Recalled from Previous Visit, Confirmed with Patient/Family Neurological History Hx Neurological Disorders No Significant History Cardiovascular History Hx Atrial Fibrillation Yes: cardiac ablation 2x Respiratory History Hx Sleep Apnea Yes: bi pap for sleeping at 2L /min Hx Other Respiratory Disorders Yes: oxygen PRN for 2L/min Gastrointestinal History Hx Appendectomy Yes Hx Gastric Bypass Surgery Yes: 2011 Genitourinary History Hx Other Genitourinary Disorders Yes: monitoring kidney stone Musculoskeletal History Hx Orthopedic Surgery Yes: lumbar fusion 1964; L THR ; ORIF R humerus due to fall Endocrine History Hx Diabetes Yes: meds Hx Hypothyroidism Yes: new dx-have seen orthotist/prosthetist Other History Hx Other Medical Conditions Yes: obesity Evaluation Information Diagnosis at risk for falls, B knee pain Onset about one year ago Subjective Information gradual knee pain and issues Query Text:As Reported By Patient/ with balance; have had 1 Family fall in the past year-- walking at home and turned too sharp, fell; have not had any in the past 6 months; have seen ortho dr about knees-- they suggest TKR; is not doing any exercises at home; does most of the home chores and they eat out alot; Activity Level (Last 3 Months) Hand Dominance Right Home Setting Home Type House,Multiple Levels Environmental Barriers Ramp,Stairs, Lift Living Situation With Spouse Mobility Assistive Devices (Used Last 3 None,Cane,Walker, Rollator Months) Comments Additional Prior Level of Function indep with bathing, dressing, Comments showering with tub seat; use wheeled walker or scooter at the stores, when going distances; oxygen PRN; use cane, no device or rollator walke
--- NOTE | 2021-11-22 13:20 | PCPTNOTE ---
pt called and canceled today's reeval due to not feeling well;
--- NOTE | 2021-12-06 14:12 | PCPTNOTE ---
PHYSICAL THERAPY DISCHARGE 12-06-21 Attending Provider: Juno Braun MD Patient:Bela Muñoz Date of :1945 Mrs. uMñoz has not returned for any further treatments since 11/19/2021, therefore she will be discharged at this time. She has received 7 PT sessions from October 25 to November 19, then stopped attending therapy. The goals were not addressed. [facility]. Please review, sign, date and return this discharge summary SHREYA. I have been updated about the patient's current status and I agree with discharge from the above service at this time. Referring Physician Date
== END 2021-12-06 15:57 | disposition home or self-care (01) ==
LOC: ANHPT 13:45
PROVIDERS: PCP Internal Medicine
DX: M81.0 Age-related osteoporosis without current pathological fracture (principal); Z91.81 History of falling
CPT/HCPCS: 97110; 97112; 97162; 97530

== ENCOUNTER 2022-01-30 11:09 | Outpatient (CLI) | payer MEDICARE, SELFPAY ==
[2022-01-30] MEDS: IRON SUCROSE COMPLEX 500 MG in SODIUM CHLORIDE 0.9% IV 250 ML 62.5 MG IVPB (11:30)
[2022-01-30 11:46] VITALS: BMI 37.8
[2022-01-30 11:47] VITALS: BP 147/74; PULSE 76; RESP 14; TEMP 36.8; O2SAT 95
--- NOTE | 2022-01-30 15:06 | PC.NURSE ---
Patient here for #1 of 2 IV Venofer infusions. Education given. All concerns answered. IV Venofer administered. SEE MAR. Tolerated well. Safe exit of hospital. Will return 2021 at 11 a.m.
== END 2022-01-30 11:10 | disposition home or self-care (01) ==
LOC: CHSTREATRM 11:15
PROVIDERS: PCP Internal Medicine; Visit Provider Internal Medicine
DX: D50.9 Iron deficiency anemia, unspecified (principal)
CPT/HCPCS: 96365; 96366; J1756; J7050

== ENCOUNTER 2022-02-13 11:08 | Outpatient (CLI) | payer MEDICARE, SELFPAY ==
[2022-02-13] MEDS: IRON SUCROSE COMPLEX 500 MG in SODIUM CHLORIDE 0.9% IV 250 ML 62.5 MG IVPB (11:15)
[2022-02-13 11:17] VITALS: BMI 28.3
[2022-02-13 11:34] VITALS: BP 138/76; PULSE 70; RESP 18; TEMP 36.7; O2SAT 94
--- NOTE | 2022-02-13 14:37 | PC.NURSE ---
Patient here for #2 of 2 IV Venofer infusion. Education given. No concerns voiced. IV Venofer administered. See MAR.
== END 2022-02-13 11:09 | disposition home or self-care (01) ==
LOC: CHSTREATRM 11:14
PROVIDERS: PCP Internal Medicine; Visit Provider Internal Medicine
DX: D50.9 Iron deficiency anemia, unspecified (principal)
CPT/HCPCS: 96365; 96366; J1756; J7050

== ENCOUNTER 2022-02-26 13:15 | Outpatient (CLI) | payer MEDICARE, SELFPAY ==
[2022-02-26 13:37] LABS: Hematocrit 41.6 % (37.0-47.0); Hemoglobin 12.5 g/dL (12.0-15.0); Mean Corpuscular Hemoglobin 26.9 pg (26-34); Mean Corpuscular Volume 89.7 fl (80-100); Mean Platelet Volume 8.2 fl (7.4-10.4); Platelet Count Result 229 k/mm3 (150-375); Red Blood Count 4.64 M/mm3 (4.2-5.4); Red Cell Distribution Width 23.9 % (11.5-14.5); White Blood Count 6.5 K/mm3 (4.5-10.0)
[2022-02-26 14:20] LABS: Iron 104 ug/dL (37-170)
== END 2022-02-26 13:16 | disposition home or self-care (01) ==
PROVIDERS: PCP Internal Medicine; Visit Provider Internal Medicine
DX: D50.9 Iron deficiency anemia, unspecified (principal)
CPT/HCPCS: 36415; 82728; 83540; 85027

== ENCOUNTER 2022-04-22 13:19 | Outpatient (CLI) | payer MEDICARE, SELFPAY ==
--- NOTE | ~2022-04-22 | CT_ITS ---
EXAMINATION:CT diagnostic chest wo con DATE: 04/22/2022 13:39 INDICATION: Solitary pulmonary nodule. TECHNIQUE: Computed tomography (CT) of the chest was performed without intravenous contrast. Automate d exposure control and iterative reconstruction technique were employed. The dose-length product (DLP ) was 546.83 mGy-cm. COMPARISON: Chest CT 04/19/21, 03/27/20, right breast ultrasound 11/16/21 FINDINGS: There is mild atelectasis bilaterally. Calcified right lung nodules and a calcified right h ilar lymph node are consistent with old granulomatous disease. There is a stable mildly enlarged nonc alcified mediastinal lymph node, likely reactive. No pleural effusion. Cardiomegaly is noted. The kita tral pulmonary arteries are enlarged, consistent with pulmonary arterial hypertension. There are surg ical changes of the stomach. There is a 4.2 x 3.0 cm mass in right breast, consistent with surgical c hanges and seroma. There is internal fixation of right humerus. There are bridging endplate osteophyt es at multiple levels in the spine, consistent with diffuse idiopathic skeletal hyperostosis (DISH). IMPRESSION: 1. No abnormal pulmonary nodule. 2. Cardiomegaly. Reviewed, dictated and finalized at location A. OR TRAINING AND DEVELOPMENT REP
== END 2022-04-22 13:20 | disposition home or self-care (01) ==
PROVIDERS: PCP Internal Medicine; Visit Provider Internal Medicine Critical Care Medicine
DX: R91.1 Solitary pulmonary nodule (principal); I51.7 Cardiomegaly
CPT/HCPCS: 71250

== ENCOUNTER 2022-04-26 14:04 | Outpatient (CLI) | payer MEDICARE, SELFPAY ==
[2022-04-26] MEDS: diphenhydrAMINE HCl CAP 25 MG CAPSULE PO (14:25)
--- NOTE | 2022-04-26 14:25 | PC.NURSE ---
Consent signed to receive Bebtelovimab. Patient states understanding, denies any questions at this time. Provided with education.
[2022-04-26] MEDS: ACETAMINOPHEN 325 MG TABLET 650 MG PO (14:26)
[2022-04-26] MEDS: BEBTELOVIMAB 175 MG/2 ML VIAL IV PUSH (14:26)
[2022-04-26] MEDS: FAMOTIDINE 20 MG TABLET PO (14:26)
--- NOTE | 2022-04-26 15:00 | PC.NURSE ---
Patient tolerated injection well. Denies any adverse reactions. IV site discontinued, tip intact. Dressing applied to site. Pressure held for 2-3 minutes due to patient being on blood thinners. Patient instructions to keep dressing on site for 1 hour. Patient accompanied to front door via wheelchair by this nurse, left via private vehicle with .
== END 2022-04-26 14:05 | disposition home or self-care (01) ==
LOC: CHSTREATRM 14:06
PROVIDERS: PCP Internal Medicine; Visit Provider Internal Medicine
DX: U07.1 COVID-19 (principal); E11.9 Type 2 diabetes mellitus without complications; I10 Essential (primary) hypertension; J44.9 Chronic obstructive pulmonary disease, unspecified
CPT/HCPCS: A9270; M0222; Q0222

== ENCOUNTER 2022-09-20 11:29 | Outpatient (CLI) | payer MEDICARE, SELFPAY ==
[2022-09-20 12:06] LABS: Hematocrit 41.2 % (37.0-47.0); Hemoglobin 13.1 g/dL (12.0-15.0); Mean Corpuscular HGB Conc 31.8 g/dl (32-36); Mean Corpuscular Volume 97.4 fl (80-100); Mean Platelet Volume 8.6 fl (7.4-10.4); Platelet Count Result 233 k/mm3 (150-375); Red Blood Count 4.23 M/mm3 (4.2-5.4); Red Cell Distribution Width 14.8 % (11.5-14.5); White Blood Count 7.2 K/mm3 (4.5-10.0)
[2022-09-20 12:14] LABS: Appearance Urine Clear (Clear); Bacteria Urine None Seen /hpf; Bilirubin Urine Negative (Negative); Blood Urine 3+ (Negative); Color Urine Yellow (Yellow); Glucose Urine UA Negative (Negative); Ketones Urine Negative (Negative); Leukocyte Esterase Ur Negative LEU/UL (Negative); Nitrate Urine Negative (Negative); Non Pathogenic Casts 0-2; Protein Urine Trace mg/dL (Negative); RBC Urine 21-50 /hpf (0-2); Specific Grav Ur 1.014 (1.001-1.035); Squamous Epithelial Cell Urine None seen /hpf (Few); Urobilinogen Urine 0.2 mg/dL (<2.0); WBC Urine 0-5 /hpf
[2022-09-20 12:16] LABS: Anion Gap 8 mmol/L (8-16); Blood Urea Nitrogen 16 mg/dL (7-17); Carbon Dioxide 28 mmol/L (22-30); Chloride 106 mmol/L (98-107); Estimated Glomerular Filt Rate > 60; Glucose 136 mg/dL (65-110); Potassium 3.8 mmol/L (3.4-5.0); Sodium 142 mmol/L (137-145)
[2022-09-20 12:17] LABS: Alanine Aminotransferase 15 U/L (6-35); Albumin Level 4.1 g/dL (3.5-5.1); Alkaline Phosphatase 82 U/L (38-126); Aspartate Amino Transferase 21 U/L (14-36); Bilirubin,Total 0.6 mg/dL (0.2-1.3); Calcium 8.6 mg/dL (8.4-10.2); Cholesterol 159 mg/dL (0-200); Creatine Kinase 40 U/L (30-135); HDL Direct 48 mg/dL; Triglycerides 142 mg/dL (<150)
[2022-09-20 12:25] LABS: Iron 61 ug/dL (37-170)
[2022-09-20 12:27] LABS: Parathyroid Intact 122.3 pg/mL (7.5-53.5)
[2022-09-20 12:28] LABS: LDL Cholesterol Direct 76 mg/dL
[2022-09-20 12:30] LABS: Add Urine Microscopic? YES
[2022-09-20 12:41] LABS: Free T4 Free Thyroxine 0.96 ng/mL (0.78-2.19)
[2022-09-25 05:53] LABS: Triiodothyronine T3 Free 2.9 pg/mL (2.3-4.2)
== END 2022-09-20 11:30 | disposition home or self-care (01) ==
PROVIDERS: PCP Internal Medicine
DX: E11.51 Type 2 diabetes mellitus with diabetic peripheral angiopathy without gangrene (principal); I10 Essential (primary) hypertension; E78.2 Mixed hyperlipidemia; E21.0 Primary hyperparathyroidism; D50.9 Iron deficiency anemia, unspecified; N39.0 Urinary tract infection, site not specified; E55.9 Vitamin D deficiency, unspecified; M81.0 Age-related osteoporosis without current pathological fracture
CPT/HCPCS: 36415; 80053; 80061; 81001; 82550; 82607; 82728; 83036; 83540; 83970; 84439; 84443; 84481; 85027

== ENCOUNTER 2022-09-30 15:24 | Outpatient (CLI) | payer MEDICARE, SELFPAY ==
--- NOTE | ~2022-09-30 | XR_ITS ---
XR abdomen/kub 1V 09/30/2022 15:49 Indication: Left-sided renal stone Procedure: KUB Comparison: 09/18/2021 Findings: Bowel gas pattern is nonobstructive. Large amount of retained fecal material in the colon. There are amorphous calcifications in the pelvis, likely calcified fibroids. There is a large left re nal stone measuring 4 x 2.3 cm. No acute osseous abnormality. There is a left total hip arthroplasty. Moderate lumbar spondylosis with dextroscoliosis. Impression: 1: Large left renal stone measuring up to 4 cm. Reviewed, dictated and finalized at location A. Impression: 1: Large left renal stone measuring up to 4 cm.
== END 2022-09-30 15:25 | disposition home or self-care (01) ==
PROVIDERS: PCP Internal Medicine; Visit Provider Urology
DX: N20.0 Calculus of kidney (principal)
CPT/HCPCS: 74018

== ENCOUNTER 2023-02-24 13:29 | Outpatient (CLI) | payer MEDICARE, SELFPAY ==
[2023-02-28 07:45] LABS: Total Volume 2300; Urine Calcium 8.3
== END 2023-02-24 13:30 | disposition home or self-care (01) ==
PROVIDERS: PCP Internal Medicine
DX: M81.0 Age-related osteoporosis without current pathological fracture (principal)
CPT/HCPCS: 82340

== ENCOUNTER 2023-03-31 11:50 | Outpatient (CLI) | payer MEDICARE, SELFPAY ==
[2023-03-31 13:02] LABS: Hematocrit 39.5 % (37.0-47.0); Hemoglobin 12.7 g/dL (12.0-15.0)
[2023-03-31 13:15] LABS: Alanine Aminotransferase 16 U/L (6-35); Albumin Level 4.1 g/dL (3.5-5.1); Alkaline Phosphatase 64 U/L (38-126); Anion Gap 5 mmol/L (8-16); Aspartate Amino Transferase 25 U/L (14-36); Bilirubin,Total 0.7 mg/dL (0.2-1.3); Blood Urea Nitrogen 17 mg/dL (7-17); Calcium 8.7 mg/dL (8.4-10.2); Carbon Dioxide 28 mmol/L (22-30); Chloride 106 mmol/L (98-107); Cholesterol 159 mg/dL (0-200); Estimated Glomerular Filt Rate > 60; Glucose 124 mg/dL (65-110); HDL Direct 42 mg/dL; Potassium 3.7 mmol/L (3.4-5.0); Sodium 139 mmol/L (137-145); Triglycerides 143 mg/dL (<150)
[2023-03-31 13:17] LABS: Hemoglobin A1C 6.2 % (<5.7)
[2023-03-31 13:24] LABS: Appearance Urine Clear (Clear); Bilirubin Urine Negative (Negative); Blood Urine Negative (Negative); Color Urine Yellow (Yellow); Glucose Urine UA Negative (Negative); Ketones Urine Negative (Negative); Leukocyte Esterase Ur Negative LEU/UL (NEGATIVE); Nitrate Urine Negative (Negative); Protein Urine Negative (Negative); Specific Grav Ur 1.015 (1.001-1.035); Urobilinogen Urine 0.2 mg/dL (<2.0)
[2023-03-31 13:26] LABS: LDL Cholesterol Direct 83 mg/dL
[2023-03-31 13:30] LABS: Add Urine Microscopic? NO
[2023-04-03 05:45] LABS: Triiodothyronine T3 Free 2.7 pg/mL (2.3-4.2)
== END 2023-03-31 11:51 | disposition home or self-care (01) ==
LOC: ANHLAB 11:55
PROVIDERS: PCP Internal Medicine; Visit Provider Internal Medicine
DX: E11.65 Type 2 diabetes mellitus with hyperglycemia (principal); I10 Essential (primary) hypertension; E21.0 Primary hyperparathyroidism; R25.9 Unspecified abnormal involuntary movements; E05.90 Thyrotoxicosis, unspecified without thyrotoxic crisis or storm
CPT/HCPCS: 36415; 80053; 80061; 81003; 83036; 84439; 84443; 84481; 85014; 85018

== ENCOUNTER 2023-07-31 00:47 | Day surgery (SDC) | payer MEDICARE, SELFPAY ==
[2023-07-31] VITALS (11 sets, daily range): BP systolic 109–134; BP diastolic 62–100; PULSE 51–114; RESP 20–27; TEMP 36.6; O2SAT 92–98; BMI 40.4
--- NOTE | 2023-07-31 10:00 | ECG_ITS ---
Measurements Intervals [place] Rate: 54 P: 76 [place]: 229 QRS: -8 QRSD: 105 T: 17 QT: 470 QTc: 448 Interpretive Statements SINUS BRADYCARDIA WITH FIRST DEGREE AV BLOCK NONSPECIFIC ST ABNORMALITY ABNORMAL ECG COMPARED TO ECG 07/31/2023 10:43:29 SINUS BRADYCARDIA NOW PRESENT FIRST DEGREE AV BLOCK NOW PRESENT Electronically Signed On 07-31-2023 12:42:41 RETAIL OFFICE MANAGER by Garo Narvaez M.D.
--- NOTE | 2023-07-31 11:13 | WPDMODSED ---
Moderate Sedation Note-Pt Data Patient Data Diagnosis: atrial fibrillation Present Complaint: atrial fibrillation Procedure to be performed/Plan: moderate sedation Electrical cardioversion Allergies Allergy/AdvReac Type Severity Reaction Status Date / Time lisinopril Allergy Unknown COUGH Verified 07/31/23 11:01 Home Medications Medication Instructions Recorded Confirmed Type allopurinol 100 mg tablet 100 mg PO DAILY 04/28/19 07/31/23 History apixaban 5 mg tablet (Eliquis) 5 mg PO BID 04/28/19 07/31/23 History furosemide 40 mg tablet (Lasix) 40 mg PO DAILY 04/28/19 07/30/23 History metoprolol tartrate 50 mg tablet 150 mg PO Q12H 04/28/19 07/30/23 History (Lopressor) potassium chloride 20 mEq 20 meq PO DAILY 04/28/19 07/30/23 History tablet,extended release sertraline 50 mg tablet (Zoloft) 100 mg PO DAILY 04/28/19 07/31/23 History multivit with minerals-iron 18 1 tablet PO DAILY 10/07/19 07/30/23 History mg-folic ac 400 mcg-vit K 25 mcg tablet (Adults Multivitamin) acetaminophen 500 mg tablet 1,000 mg PO Q6H PRN Pain 12/19/20 07/30/23 History docusate sodium 100 mg capsule 100 mg PO DAILY PRN Constipation 12/19/20 07/30/23 History (Colace) glimepiride 2 mg tablet (Amaryl) 1 mg PO QAM 04/10/22 07/30/23 History pravastatin 10 mg tablet 10 mg PO .MWF 04/10/22 07/30/23 History ergocalciferol (vitamin D2) 1,250 1,250 mcg PO .2xweek 10/08/22 07/30/23 History mcg (50,000 unit) capsule (Vitamin D2) tamoxifen 20 mg tablet 20 mg PO DAILY 10/08/22 07/30/23 History amlodipine 10 mg tablet 10 mg PO DAILY 07/31/23 07/31/23 History Current Medications: Active Medications Sodium Chloride (Normal Saline Iv) 1,000 mls @ 30 mls/hr IV CONT .Q24H BETSEY Sedation/Anesthesia: No previous sedation/anesthesia problems (including family history). [facility] Past Medical History Medical History Dyslipidemia Essential hypertension Former smoker She has a 20 pack year history, quit 1986. Hyperlipidemia Kidney stones Mixed restrictive and obstructive lung disease Paroxysmal atrial fibrillation Right arm fracture s /p surgery Surgical History Surgical History History of cardioversion History of total hip replacement S/P ablation of atrial fibrillation October 2020, Dr. Espinoza, [facility] Family History Family History Father Family history of lung cancer Mother Family history of lung cancer Family history of malignant neoplasm of breast in first degree relative Social History Social History Social History: to Jorje. Disabled adult son a few years ago. Have a daughter in granddaughter in [facility]. Smoking packs per day: 0 Smoking cigarettes per day: 0.0 Years smoked: 20 Smoking pack-years: 0.00 Smoking status: Former smoker Second hand tobacco smoke exposure: Yes Smoking end date: 06/16/86 Alcohol intake: never Substance use type: does not use Living arrangements: with family Spiritual care concerns: No Mod Sed Physical Exam Physical Exam Pre Procedural Exam: Normal: Appearance, Eyes, Ears, Nose, Neck, Throat, Airway, Lungs, Heart Size, Neuro Exam, Abdomen, Extremities and Skin and Variation: Heart Rate ( tachycardia) and Heart Rhythm ( irregular irregular) Hours since solid foods: 12 Hours since liquid intake: 12 Mallampati Classification: class II Internal Medicine - PN: Obj Da Vital Signs Vital Signs: Vital Signs - 24 hr 07/31/23 10:48 Temperature 36.6 C Pulse Rate 109 H Respiratory Rate 20 Blood Pressure 130/90 Pulse Oximetry 92 Oxygen Delivery Room Air Meds/Results Medications: Active Medications Generic Name Dose Route Start Last Admin Trade Name Freq PRN Reason Stop Dose Admin Sodium Chloride 1,000 mls @
--- NOTE | 2023-07-31 11:14 | PM.IMHP ---
H&P: HPI History of Present Illness Date/Time: 07/31/23 11:14 Chief Complaint: atrial fibrillation Narrative: 77-year-old with atrial fibrillation Review of Systems Review of Systems: All systems reviewed & are unremarkable except as noted in HPI and below Eyes: Eyes: Denies blurry vision Cardiovascular: Cardiovascular: Denies chest pain Respiratory: Respiratory: Denies chest congestion Genitourinary: Genitourinary: Denies hematuria [facility] Past Medical History Medical History Dyslipidemia Essential hypertension Former smoker She has a 20 pack year history, quit 1986. Hyperlipidemia Kidney stones Mixed restrictive and obstructive lung disease Paroxysmal atrial fibrillation Right arm fracture s /p surgery Surgical History Surgical History History of cardioversion History of total hip replacement S/P ablation of atrial fibrillation October 2020, Dr. Espinoza, [facility] Family History Family History Father Family history of lung cancer Mother Family history of lung cancer Family history of malignant neoplasm of breast in first degree relative Social History Social History Social History: to Jorje. Disabled adult son a few years ago. Have a daughter in granddaughter in [facility]. Smoking packs per day: 0 Smoking cigarettes per day: 0.0 Years smoked: 20 Smoking pack-years: 0.00 Smoking status: Former smoker Second hand tobacco smoke exposure: Yes Smoking end date: 06/16/86 Alcohol intake: never Substance use type: does not use Living arrangements: with family Spiritual care concerns: No Meds Home Medications and Allergies Home Medications Medication Instructions Recorded Confirmed Type allopurinol 100 mg tablet 100 mg PO DAILY 04/28/19 07/31/23 History apixaban 5 mg tablet (Eliquis) 5 mg PO BID 04/28/19 07/31/23 History furosemide 40 mg tablet (Lasix) 40 mg PO DAILY 04/28/19 07/30/23 History metoprolol tartrate 50 mg tablet 150 mg PO Q12H 04/28/19 07/30/23 History (Lopressor) potassium chloride 20 mEq 20 meq PO DAILY 04/28/19 07/30/23 History tablet,extended release sertraline 50 mg tablet (Zoloft) 100 mg PO DAILY 04/28/19 07/31/23 History multivit with minerals-iron 18 1 tablet PO DAILY 10/07/19 07/30/23 History mg-folic ac 400 mcg-vit K 25 mcg tablet (Adults Multivitamin) acetaminophen 500 mg tablet 1,000 mg PO Q6H PRN Pain 12/19/20 07/30/23 History docusate sodium 100 mg capsule 100 mg PO DAILY PRN Constipation 12/19/20 07/30/23 History (Colace) glimepiride 2 mg tablet (Amaryl) 2 mg PO QAM 04/10/22 07/31/23 History pravastatin 10 mg tablet 10 mg PO .MWF 04/10/22 07/30/23 History ergocalciferol (vitamin D2) 1,250 1,250 mcg PO .2xweek 10/08/22 07/30/23 History mcg (50,000 unit) capsule (Vitamin D2) tamoxifen 20 mg tablet 20 mg PO DAILY 10/08/22 07/30/23 History amlodipine 10 mg tablet 10 mg PO DAILY 07/31/23 07/31/23 History metoprolol tartrate 100 mg tablet 100 mg PO ONCE 07/31/23 07/31/23 History Allergies Allergy/AdvReac Type Severity Reaction Status Date / Time lisinopril Allergy Unknown COUGH Verified 07/31/23 11:01 Vital Signs Vital Signs - 24 hr 07/31/23 10:48 Temperature 36.6 C Pulse Rate 109 H Respiratory Rate 20 Blood Pressure 130/90 Pulse Oximetry 92 Oxygen Delivery Room Air Exam Narrative: awake alert Const: General: comfortable HENMT: Face/Nose/Sinus: Normal nares present Eyes: Sclera: sclerae normal Neck: Neck: supple Cardio: Rate: tachycardic Rhythm: abnormal rhythm Extrem: General: normal to inspection Assessment and Plan Assessment and plan (1) Paroxysmal atrial fibrillation: Code(s): I48.0 - Paroxysmal atrial fibrillation
[2023-07-31 11:47] LABS: Anion Gap 7 mmol/L (8-16); Blood Urea Nitrogen 18 mg/dL (7-17); Calcium 8.7 mg/dL (8.4-10.2); Carbon Dioxide 24 mmol/L (22-30); Chloride 109 mmol/L (98-107); Estimated CRCL calculation 95 ml/min; Estimated Glomerular Filt Rate > 60; Glucose 137 mg/dL (65-110); Magnesium 2.1 mg/dL (1.6-2.3); Potassium 3.8 mmol/L (3.4-5.0); Sodium 140 mmol/L (137-145)
--- NOTE | 2023-07-31 11:59 | P.PCNCVR_ITS ---
Cardioversion Cardioversion Date of procedure: 07/31/23 Procedure: 1. Electrical cardioversion 2. Moderate sedation Pre-op diagnosis: atrial fibrillation Post-op diagnosis: Same Indications: atrial fibrillation Description of procedure: after discussing the risks, benefits alternatives of procedure patient able via verbal and written informed consent. Risks discussed included stroke, skin irritation or burn, shocking to more problematic heart rhythm, , adverse reaction to anesthesia. After time-out was taken and after establishing continuous general handling supervisor, pulse oxygenation in serial blood pressure assessments procedure was started Procedure start time 11:52 a.m. Procedure stop time 11:57 a.m. Complications: None Blood loss: None A total of 3 mg of Versed and 25 mcg of fentanyl given in divided dosages. Medications were administered and patient was monitored by Erna Nunez RN Sedation: as detailed above Findings: atrial fibrillation was confirmed and then subsequently 175 joules of biphasic synchronized energy was used to restore sinus rhythm Conclusion: 1. Moderate sedation 2. Successful electrical cardioversion using 175 joules of biphasic s ynchronized energy
--- NOTE | 2023-07-31 12:00 | ECG_ITS ---
Measurements Intervals [place] Rate: 121 P: [place]: 0 QRS: 68 QRSD: 93 T: 32 QT: 332 QTc: 473 Interpretive Statements ATRIAL FIBRILLATION WITH RAPID VENTRICULAR RESPONSE ABNORMAL RHYTHM ECG COMPARED TO ECG 04/16/2021 13:20:19 ATRIAL FIBRILLATION NOW PRESENT Electronically Signed On 07-31-2023 12:42:12 SENIOR CONSTRUCTION PROJECT MANAGER by Garo Narvaez M.D.
== END 2023-07-31 13:30 | disposition home or self-care (01) ==
PROVIDERS: PCP Internal Medicine; Visit Provider Internal Medicine Cardiovascular Disease
PROC: 5A2204Z Restoration of Cardiac Rhythm, Single (ICD-10-PCS; principal; 2023-07-31 11:30)
DX: I48.0 Paroxysmal atrial fibrillation (principal); I10 Essential (primary) hypertension; E78.5 Hyperlipidemia, unspecified; E11.9 Type 2 diabetes mellitus without complications; G47.33 Obstructive sleep apnea (adult) (pediatric); Z79.01 Long term (current) use of anticoagulants; Z79.84 Long term (current) use of oral hypoglycemic drugs; Z79.810 Long term (current) use of selective estrogen receptor modulators (SERMs); Z98.84 Bariatric surgery status; Z85.3 Personal history of malignant neoplasm of breast; Z87.891 Personal history of nicotine dependence; Z86.79 Personal history of other diseases of the circulatory system; Z80.3 Family history of malignant neoplasm of breast; Z80.1 Family history of malignant neoplasm of trachea, bronchus and lung; Z82.49 Family history of ischemic heart disease and other diseases of the circulatory system
CPT/HCPCS: 36415; 80048; 83735; 92960; J2250; J3010; J7030

== ENCOUNTER 2023-08-01 02:35 | Emergency (ER) | payer MEDICARE, SELFPAY ==
[2023-08-01] VITALS (16 sets, daily range): BP systolic 110–158; BP diastolic 61–93; PULSE 66–101; RESP 18–32; TEMP 36.8; O2SAT 89–100
--- NOTE | ~2023-08-01 | XR_ITS ---
Portable chest x-ray Comparison: 07/11/2021 Clinical History: Dyspnea Findings: There is mild bibasilar hazy airspace disease. Suspected underlying COPD. Cardiomediastin al silhouette is stable. Bones and soft tissues are unremarkable. Impression: Suspected mild bibasilar pulmonary edema. Underlying COPD. Reviewed, dictated and finalized at [facility]. [employer] SALES REPRESENTATIVE Impression: Suspected mild bibasilar pulmonary edema. Underlying COPD.
--- NOTE | 2023-08-01 03:25 | ECG_ITS ---
Measurements Intervals [place] Rate: 87 P: 66 [place]: 228 QRS: -10 QRSD: 98 T: 52 QT: 399 QTc: 482 Interpretive Statements SINUS RHYTHM WITH FIRST DEGREE AV BLOCK NONSPECIFIC ST SEGMENT ABNORMALITY BORDERLINE ECG COMPARED TO ECG 07/31/2023 12:03:23 HEART RATE INCREASED, NO OTHER DIFFERENCE Electronically Signed On 08-01-2023 15:15:35 SUPERVISOR BURLING AND JOINING by Jorge L Ruelas M.D.
--- NOTE | 2023-08-01 03:25 | ED.SOB ---
HPI - SOB/Dyspnea General Chief Complaint: Shortness of Breath/Dyspnea Stated Complaint: difficulty breathin Source: patient and family Limitations: no limitations History of Present Illness HPI Narrative: patient is a 77-year-old female presents to the emergency department accompanied by her for difficulty breathing. Patient states yesterday she had a cardioversion for atrial fibrillation and was doing well afterwards and for she went to bed she noted she was feeling slightly short of breath and she typically wears BiPAP with 2 L supplemental oxygen at night and the was unable to get her oxygen levels above 90 despite giving her 5 L of supplemental oxygen and brought her into the emergency department for further evaluation. Patient notes that she was told to hold her Lasix before the procedure however she did take some Lasix after the procedure. Patient denies cough, fever, chest pain, bloody bowel movements, nausea, vomiting, diarrhea, nasal congestion recent illness or recent injuries, numbness, weakness, abdominal pain, urinary discomfort. Patient admits to urinating well. Patient denies wearing oxygen at all times but does wear it sometimes as needed. Patient denies history of blood clots. Patient admits to feeling better since getting to the emergency department and her breathing is improving. Patient admits to orthopnea. Related Data Home Medications Medication Instructions Recorded Confirmed allopurinol 100 mg tablet 100 mg PO DAILY 04/28/19 07/31/23 apixaban 5 mg tablet (Eliquis) 5 mg PO BID 04/28/19 07/31/23 furosemide 40 mg tablet (Lasix) 40 mg PO DAILY 04/28/19 07/30/23 potassium chloride 20 mEq 20 meq PO DAILY 04/28/19 07/30/23 tablet,extended release sertraline 50 mg tablet (Zoloft) 100 mg PO DAILY 04/28/19 07/31/23 multivit with minerals-iron 18 1 tablet PO DAILY 10/07/19 07/30/23 mg-folic ac 400 mcg-vit K 25 mcg tablet (Adults Multivitamin) acetaminophen 500 mg tablet 1,000 mg PO Q6H PRN Pain 12/19/20 07/30/23 docusate sodium 100 mg capsule 100 mg PO DAILY PRN Constipation 12/19/20 07/30/23 (Colace) glimepiride 2 mg tablet (Amaryl) 2 mg PO QAM 04/10/22 07/31/23 pravastatin 10 mg tablet 10 mg PO .MWF 04/10/22 07/30/23 ergocalciferol (vitamin D2) 1,250 1,250 mcg PO .2xweek 10/08/22 07/30/23 mcg (50,000 unit) capsule (Vitamin D2) tamoxifen 20 mg tablet 20 mg PO DAILY 10/08/22 07/30/23 amlodipine 10 mg tablet 10 mg PO DAILY 07/31/23 07/31/23 metoprolol tartrate 100 mg tablet 100 mg PO ONCE 07/31/23 07/31/23 Allergies Allergy/AdvReac Type Severity Reaction Status Date / Time lisinopril Allergy Unknown COUGH Verified 07/31/23 11:01 Review of Systems Review of Systems: A 10 system review of systems was completed on the patient and is negative except for what is stated in the HPI. Nursing and ancillary documentation was reviewed. [facility] Past Medical History Medical History Dyslipidemia Essential hypertension Former smoker She has a 20 pack year history, quit 1986. Hyperlipidemia Kidney stones Mixed restrictive and obstructive lung disease Paroxysmal atrial fibrillation Right arm fracture s /p surgery Surgical History Surgical History History of cardioversion History of total hip replacement S/P ablation of atrial fibrillation October 2020, Dr. Espinoza, [facility] Family History Family History Father Family history of lung cancer Mother Family history of lung cancer Family history of malignant neoplasm of breast in first degree relative Social History Social History Social History: to Jorje. Disabled adult son a few years ago. Have a daughter in granddaughter in [facility]. Smoking packs per day: 0 Smoking cigarettes
[2023-08-01 03:50] LABS: Basophils Percent Auto 0.3 % (0.2-1.2); Eosinophils Absolute Auto 0.1 K/mm3 (0-0.3); Eosinophils Percent Auto 1.2 % (0-4.4); Hematocrit 37.5 % (37.0-47.0); Hemoglobin 11.6 g/dL (12.0-15.0); Immature Granulocyte Absolute 0.05 K/mm3 (0.00-0.031); Immature Granulocyte Percent A 0.4 % (0-0.5); Lymphocytes Absolute Auto 1.66 K/mm3 (0.9-3.2); Lymphocytes Percent Auto 13.7 % (18.3-44.2); Mean Corpuscular HGB Conc 30.9 g/dl (32-36); Mean Corpuscular Hemoglobin 29.7 pg (26-34); Mean Corpuscular Volume 95.9 fl (80-100); Mean Platelet Volume 9.1 fl (7.4-10.4); Monocytes Absolute Auto 0.9 K/mm3 (0.1-0.6); Monocytes Percent Auto 7.4 % (2.6-8.5); Neutrophils Absolute Auto 9.3 K/mm3 (1.3-6.7); Platelet Count Result 258 k/mm3 (150-375); Red Blood Count 3.91 M/mm3 (4.2-5.4); Red Cell Distribution Width 15.7 % (11.5-14.5); White Blood Count 12.1 K/mm3 (4.5-10.0)
[2023-08-01] MEDS: FUROSEMIDE INJ 40 MG/4 ML VIAL IV PUSH (03:50)
[2023-08-01 04:26] LABS: Influenza A QL RT-PCR Negative (Negative); Influenza B QL RT-PCR Negative (Negative); RSV RNA, RT-PCR Negative (Negative); SARS-CoV-2 RNA PCR Negative (Negative)
[2023-08-01 04:26] LABS: Alanine Aminotransferase 24 U/L (6-35); Albumin Level 4.3 g/dL (3.5-5.1); Alkaline Phosphatase 81 U/L (38-126); Anion Gap 10 mmol/L (8-16); Aspartate Amino Transferase 31 U/L (14-36); Bilirubin,Total 0.7 mg/dL (0.2-1.3); Blood Urea Nitrogen 21 mg/dL (7-17); Calcium 8.7 mg/dL (8.4-10.2); Carbon Dioxide 27 mmol/L (22-30); Chloride 106 mmol/L (98-107); Estimated CRCL calculation 69 ml/min; Estimated Glomerular Filt Rate > 60; Glucose 185 mg/dL (65-110); Magnesium 1.9 mg/dL (1.6-2.3); Potassium 3.4 mmol/L (3.4-5.0); Sodium 143 mmol/L (137-145)
[2023-08-01 04:37] LABS: Troponin I 0.018 ng/mL (0.000-0.034)
--- NOTE | 2023-08-01 06:36 | ECG_ITS ---
Measurements Intervals [place] Rate: 72 P: 75 CA: 221 QRS: -5 QRSD: 103 T: 14 QT: 464 QTc: 508 Interpretive Statements SINUS RHYTHM WITH FIRST DEGREE AV BLOCK NONSPECIFIC ST SEGMENT ABNORMALITY BORDERLINE ECG COMPARED TO ECG 08/01/2023 02:54:34 NO SIGNIFICANT CHANGE Electronically Signed On 08-01-2023 15:17:19 AIRLINE PILOT/FIRST OFFICER by Jorge L Ruelas M.D.
== END 2023-08-01 07:43 | disposition home or self-care (01) ==
PROVIDERS: Emergency Provider Student in an Organized Health Care Education/Training Program; PCP Internal Medicine
DX: R06.00 Dyspnea, unspecified (principal); I50.9 Heart failure, unspecified; Z20.822 Contact with and (suspected) exposure to COVID-19; I11.0 Hypertensive heart disease with heart failure; I48.0 Paroxysmal atrial fibrillation; J44.9 Chronic obstructive pulmonary disease, unspecified; E78.5 Hyperlipidemia, unspecified; E11.9 Type 2 diabetes mellitus without complications; Z96.649 Presence of unspecified artificial hip joint; Z87.442 Personal history of urinary calculi; Z87.891 Personal history of nicotine dependence; Z79.01 Long term (current) use of anticoagulants; Z79.84 Long term (current) use of oral hypoglycemic drugs; I44.0 Atrioventricular block, first degree; R94.31 Abnormal electrocardiogram [ECG] [EKG]
CPT/HCPCS: 36415; 71045; 80053; 83735; 84484; 85025; 87637; 93005; 96374; 99284; J1940

== ENCOUNTER 2023-10-06 14:26 | Outpatient (CLI) | payer MEDICARE, SELFPAY ==
--- NOTE | ~2023-10-06 | XR_ITS ---
XR abdomen/kub 1V 10/06/2023 14:50 Indication: Left renal stone Procedure: KUB Comparison: KUB dated 12/26/2020 Findings: There is a 4.6 cm left renal stone. Bowel gas pattern is nonobstructive. Moderate colonic f ecal loading. There are are coarse amorphous calcifications in the pelvis, consistent with calcified uterine fibroids. There is a left total hip arthroplasty. Severe lumbar spondylosis stenosis. Impression: 1: Large left renal stone measuring 4.6 cm. Reviewed, dictated and finalized at location B. Impression: 1: Large left renal stone measuring 4.6 cm.
== END 2023-10-06 14:27 | disposition home or self-care (01) ==
PROVIDERS: PCP Internal Medicine; Visit Provider Urology
DX: N20.0 Calculus of kidney (principal)
CPT/HCPCS: 74018

== ENCOUNTER 2023-10-13 12:17 | Outpatient (CLI) | payer MEDICARE, SELFPAY ==
[2023-10-13 13:05] LABS: Hematocrit 39.1 % (37.0-47.0)
[2023-10-13 13:17] LABS: Alanine Aminotransferase 16 U/L (6-35); Alkaline Phosphatase 68 U/L (38-126); Anion Gap 6 mmol/L (4-12); Aspartate Amino Transferase 22 U/L (14-36); Bilirubin,Total 0.7 mg/dL (0.2-1.3); Blood Urea Nitrogen 16 mg/dL (7-17); Carbon Dioxide 26 mmol/L (22-30); Chloride 110 mmol/L (98-107); Cholesterol 123 mg/dL (0-200); Creatine Kinase 40 U/L (30-135); Estimated Glomerular Filt Rate > 60; Glucose 126 mg/dL (65-110); HDL Direct 39 mg/dL; Potassium 3.7 mmol/L (3.4-5.0); Sodium 142 mmol/L (137-145); Triglycerides 131 mg/dL (<150); Uric Acid 5.2 mg/dL (2.5-7.5)
[2023-10-13 13:27] LABS: LDL Cholesterol Direct 69 mg/dL; Parathyroid Intact 191.1 pg/mL (7.5-53.5)
[2023-10-13 13:28] LABS: Appearance Urine Clear (Clear); Bilirubin Urine Negative (Negative); Blood Urine Negative (Negative); Color Urine Yellow (Yellow); Glucose Urine UA Negative (Negative); Ketones Urine Negative (Negative); Leukocyte Esterase Ur Negative LEU/UL (Negative); Nitrate Urine Negative (Negative); Protein Urine Negative (Negative); Specific Grav Ur 1.012 (1.001-1.035); Urobilinogen Urine 0.2 mg/dL (<2.0)
[2023-10-13 13:30] LABS: Hemoglobin A1C 6.4 % (<5.7)
[2023-10-13 13:47] LABS: Add Urine Microscopic? NO
[2023-10-13 14:04] LABS: Iron 53 ug/dL (37-170)
[2023-10-13 14:41] LABS: Creatinine Urine 32.2 mg/dL
[2023-10-13 14:58] LABS: MALB Creatinine Ratio 170.8 mg/g (0-30)
== END 2023-10-13 12:18 | disposition home or self-care (01) ==
PROVIDERS: PCP Internal Medicine; Referring Provider Urology; Visit Provider Internal Medicine
DX: E53.8 Deficiency of other specified B group vitamins (principal); E79.0 Hyperuricemia without signs of inflammatory arthritis and tophaceous disease; E78.2 Mixed hyperlipidemia; E21.0 Primary hyperparathyroidism; E05.90 Thyrotoxicosis, unspecified without thyrotoxic crisis or storm; E11.8 Type 2 diabetes mellitus with unspecified complications; Z98.84 Bariatric surgery status
CPT/HCPCS: 36415; 80053; 80061; 81001; 81003; 82043; 82550; 82607; 82728; 83036; 83540; 83970; 84443; 84550; 85014; 85018

== ENCOUNTER 2023-11-03 15:40 | Outpatient (CLI) | payer MEDICARE, SELFPAY ==
--- NOTE | ~2023-11-03 | XR_ITS ---
XR chest 2V DATE: 11/03/2023 16:07 INDICATION: Pacemaker surgery on 11/17/2023. Atrial fibrillation. COPD. TECHNIQUE: PA and lateral chest COMPARISON: August 01, 2023 portable AP chest FINDINGS: Cardiomegaly. Mitral annulus calcification. There is evidence of coronary artery calcificat ion. There is aortic calcification and mild tortuosity. No hilar or mediastinal enlargement is eviden t. No pulmonary infiltrate or consolidation, pleural effusion or pulmonary vascular congestion or pneum othorax is detected. Diffuse osteopenia. Plate and screws of the right humerus. IMPRESSION: Cardiomegaly, coronary artery disease Aortic atherosclerosis No active pulmonary disease Osteopenia Reviewed, dictated and finalized at location B.
== END 2023-11-03 15:41 | disposition home or self-care (01) ==
PROVIDERS: PCP Internal Medicine; Referring Provider Internal Medicine Cardiovascular Disease; Visit Provider Internal Medicine Critical Care Medicine
DX: I51.7 Cardiomegaly (principal); I25.10 Atherosclerotic heart disease of native coronary artery without angina pectoris; I70.0 Atherosclerosis of aorta; M85.88 Other specified disorders of bone density and structure, other site
CPT/HCPCS: 71046

== ENCOUNTER 2024-03-04 11:53 | Outpatient (CLI) | payer MEDICARE, SELFPAY ==
[2024-03-04 12:38] LABS: Hematocrit 38.6 % (37.0-47.0); Hemoglobin 11.5 g/dL (12.0-15.0); Mean Corpuscular HGB Conc 29.8 g/dl (32-36); Mean Corpuscular Hemoglobin 26.8 pg (26-34); Mean Platelet Volume 8.8 fl (7.4-10.4); Platelet Count Result 227 k/mm3 (150-375); Red Blood Count 4.29 M/mm3 (4.2-5.4); Red Cell Distribution Width 17.2 % (11.5-14.5); White Blood Count 7.3 K/mm3 (4.5-10.0)
[2024-03-04 12:52] LABS: Alanine Aminotransferase 11 U/L (6-35); Albumin Level 3.8 g/dL (3.5-5.1); Alkaline Phosphatase 63 U/L (38-126); Anion Gap 8 mmol/L (4-12); Aspartate Amino Transferase 28 U/L (14-36); Bilirubin,Total 0.7 mg/dL (0.2-1.3); Blood Urea Nitrogen 17 mg/dL (7-17); Calcium 8.7 mg/dL (8.4-10.2); Carbon Dioxide 27 mmol/L (22-30); Chloride 106 mmol/L (98-107); Estimated Glomerular Filt Rate > 60; Glucose 122 mg/dL (65-110); Potassium 3.6 mmol/L (3.4-5.0); Sodium 141 mmol/L (137-145)
[2024-03-04 13:01] LABS: Parathyroid Intact 110.6 pg/mL (14.5-75.2)
[2024-03-04 13:36] LABS: Vitamin D 25 Hydroxy 26.5 ng/mL
== END 2024-03-04 11:54 | disposition home or self-care (01) ==
LOC: ANHLAB 12:05
PROVIDERS: PCP Internal Medicine; Visit Provider Internal Medicine
DX: D64.9 Anemia, unspecified (principal); E55.9 Vitamin D deficiency, unspecified
CPT/HCPCS: 36415; 80053; 82306; 83970; 85027

== ENCOUNTER 2024-03-16 14:21 | Outpatient (CLI) | payer MEDICARE, SELFPAY ==
--- NOTE | ~2024-03-16 | XR_ITS ---
EXAMINATION: XR chest 2V Exam Date/Time: 03/16/2024 14:30 CDT HISTORY: Dyspnea during exertion Comparison: 11/03/2023. RESULT: Lines, tubes, and devices: Partially visualized right humeral hardware. Left chest pacer with intact leads. Lungs and pleura: Clear. Cardiomediastinal silhouette: Stable cardiomegaly. Mitral annulus calcification. Dilated central pul monary arteries as can be seen with pulmonary arterial hypertension. Other: No acute osseous or upper abdominal finding. IMPRESSION: No acute cardiopulmonary process. Reviewed, dictated and finalized at location K.
[2024-03-16 15:02] LABS: Hemoglobin A1C 6.4 % (<5.7)
[2024-03-16 16:56] LABS: Cholesterol 147 mg/dL (0-200); Creatine Kinase 45 U/L (26-192); Ferritin 34 ng/mL (8-252); Free T4 Free Thyroxine 0.87 ng/dL (0.76-1.46); HDL Direct 51 mg/dL (40-60); Iron 34 ug/dL (50-170); LDL Cholesterol Calculated 71 mg/dL (<130); NT Pro B Type Natriuretic Pept 2297 pg/mL (0-450); Thyroid Stimulating Hormone 2.17 uIU/mL (0.36-3.74); Triglycerides 125 mg/dL (0-150); Uric Acid 5.7 mg/dL (2.6-6.0); Vitamin B12 503 pg/mL (193-986)
== END 2024-03-16 14:22 | disposition home or self-care (01) ==
PROVIDERS: PCP Internal Medicine; Visit Provider Internal Medicine
DX: D50.9 Iron deficiency anemia, unspecified (principal); E78.2 Mixed hyperlipidemia; E11.65 Type 2 diabetes mellitus with hyperglycemia; E79.0 Hyperuricemia without signs of inflammatory arthritis and tophaceous disease; R06.00 Dyspnea, unspecified
CPT/HCPCS: 36415; 71046; 80061; 82550; 82607; 82728; 83036; 83540; 83880; 84439; 84443; 84550

== ENCOUNTER 2024-03-25 12:46 | Outpatient (CLI) | payer MEDICARE, SELFPAY ==
[2024-03-25 13:15] VITALS: BMI 37.8
--- NOTE | 2024-03-25 13:15 | PC.NURSE ---
Patient here for Venofer infusion. Tolerated IV start well. Provided with white soda per request. Patient sitting up in recliner, in room with patient. Waiting on medication to be ready. Call light provided, and education given on how to use.
[2024-03-25 13:24] VITALS: BP 157/75; PULSE 82; RESP 16; TEMP 36.2; O2SAT 95
[2024-03-25] MEDS: IRON SUCROSE COMPLEX 200 MG, IRON SUCROSE COMPLEX 100 MG in SODIUM CHLORIDE 0.9% IV 250 ML 125 MG IVPB (13:26)
--- NOTE | 2024-03-25 14:25 | PC.NURSE ---
Patient sitting up in recliner, tolerated infusion well. Denies any need at present. Call dodge at side.
--- NOTE | 2024-03-25 15:40 | PC.NURSE ---
Patient tolerated infusion well, IV site removed, tip intact. Dressing applied to site. Patient provided with discharge information and education, reviewed with patient by this nurse. Patient denies any questions. Patient left floor via wheelchair accompanied by . Next appt. for venofer set up for 04/08/24.
== END 2024-03-25 15:40 | disposition home or self-care (01) ==
PROVIDERS: PCP Internal Medicine; Visit Provider Internal Medicine
DX: D50.9 Iron deficiency anemia, unspecified (principal)
CPT/HCPCS: 96365; 96366; J1756; J7050

== ENCOUNTER 2024-03-30 14:11 | Outpatient (CLI) | payer MEDICARE, SELFPAY ==
[2024-03-30 15:06] LABS: Hematocrit 37.7 % (37.0-47.0); Hemoglobin 11.7 g/dL (12.0-15.0); Mean Corpuscular Hemoglobin 27.7 pg (26-34); Mean Corpuscular Volume 89.3 fl (80-100); Platelet Count Result 215 k/mm3 (150-375); Red Blood Count 4.22 M/mm3 (4.2-5.4); Red Cell Distribution Width 18.6 % (11.5-14.5); White Blood Count 6.8 K/mm3 (4.5-10.0)
[2024-03-30 15:16] LABS: Anion Gap 8 mmol/L (4-12); Blood Urea Nitrogen 14 mg/dL (7-17); Calcium 8.8 mg/dL (8.4-10.2); Carbon Dioxide 25 mmol/L (22-30); Chloride 108 mmol/L (98-107); Estimated Glomerular Filt Rate > 60; Glucose 147 mg/dL (65-110); Potassium 3.8 mmol/L (3.4-5.0); Sodium 141 mmol/L (137-145)
[2024-03-30 15:25] LABS: NT Pro B Type Natriuretic Pept 2760 pg/mL (19.9-100)
== END 2024-03-30 14:12 | disposition home or self-care (01) ==
LOC: ANHLAB 14:17
PROVIDERS: PCP Internal Medicine; Visit Provider Internal Medicine
DX: I48.19 Other persistent atrial fibrillation (principal); I50.9 Heart failure, unspecified
CPT/HCPCS: 36415; 80048; 83880; 85027

== ENCOUNTER 2024-04-08 12:46 | Outpatient (CLI) | payer MEDICARE, SELFPAY ==
[2024-04-08 13:15] VITALS: BP 140/83; PULSE 74; RESP 16; TEMP 36.3; O2SAT 94; BMI 37.8
--- NOTE | 2024-04-08 13:15 | PC.NURSE ---
Patient here for venofer infusion, Tolerated IV start well. Call light provided.
[2024-04-08] MEDS: IRON SUCROSE COMPLEX 200 MG, IRON SUCROSE COMPLEX 100 MG in SODIUM CHLORIDE 0.9% IV 250 ML 125 MG IVPB (13:33)
--- NOTE | 2024-04-08 14:30 | PC.NURSE ---
Patient tolerating infusion well, resting in recliner. Denies any needs. Call light at side.
--- NOTE | 2024-04-08 15:45 | PC.NURSE ---
IV venofer done infusing. Patient tolerated well. IV site removed, tip intact. Dressing applied to site. Patient denies any further needs at this time. Left ambulatory.
== END 2024-04-08 15:50 | disposition home or self-care (01) ==
PROVIDERS: PCP Internal Medicine; Visit Provider Internal Medicine
DX: D50.9 Iron deficiency anemia, unspecified (principal)
CPT/HCPCS: 96365; 96366; J1756; J7050

== ENCOUNTER 2024-04-09 13:50 | Outpatient (CLI) | payer MEDICARE, SELFPAY ==
[2024-04-09 14:25] LABS: Hematocrit 38.1 % (37.0-47.0); Hemoglobin 11.6 g/dL (12.0-15.0); Mean Corpuscular HGB Conc 30.4 g/dl (32-36); Mean Corpuscular Hemoglobin 27.4 pg (26-34); Mean Corpuscular Volume 90.1 fl (80-100); Platelet Count Result 184 k/mm3 (150-375); Red Blood Count 4.23 M/mm3 (4.2-5.4); White Blood Count 6.1 K/mm3 (4.5-10.0)
[2024-04-09 14:36] LABS: Anion Gap 10 mmol/L (4-12); Blood Urea Nitrogen 15 mg/dL (7-17); Calcium 8.7 mg/dL (8.4-10.2); Carbon Dioxide 24 mmol/L (22-30); Chloride 110 mmol/L (98-107); Estimated Glomerular Filt Rate > 60; Glucose 98 mg/dL (65-110); Potassium 4.1 mmol/L (3.4-5.0); Sodium 144 mmol/L (137-145)
[2024-04-09 14:44] LABS: NT Pro B Type Natriuretic Pept 1860 pg/mL (19.9-100)
== END 2024-04-09 13:51 | disposition home or self-care (01) ==
LOC: ANHLAB 13:54
PROVIDERS: PCP Internal Medicine; Visit Provider Nurse Practitioner Adult Health
DX: I50.42 Chronic combined systolic (congestive) and diastolic (congestive) heart failure (principal); E87.1 Hypo-osmolality and hyponatremia
CPT/HCPCS: 36415; 80048; 83880; 85027

== ENCOUNTER 2024-04-22 12:46 | Outpatient (CLI) | payer MEDICARE, SELFPAY ==
[2024-04-22 13:10] VITALS: BP 145/78; PULSE 81; RESP 16; TEMP 36.4; O2SAT 92; BMI 36.6
[2024-04-22] MEDS: IRON SUCROSE COMPLEX 300 MG in SODIUM CHLORIDE 0.9% IV 250 ML 125 MG IVPB (13:22)
--- NOTE | 2024-04-22 13:25 | PC.NURSE ---
Patient here to receive IV Venofer infusion. Tolerated IV start well. Sitting up in chair resting. Call light provided. Provided with diet white soda per request. No further needs stated.
--- NOTE | 2024-04-22 14:30 | PC.NURSE ---
Patient tolerating infusion well. Ambulated to bathroom and back with no assist with cane. Sitting up in chair with call light at side.
--- NOTE | 2024-04-22 15:30 | PC.NURSE ---
Patient tolerated infusion well. IV site removed, tip intact. Dressing applied to site. Patient denies any questions at this time. Left floor accompanied by via wheelchair, left premesis via private vehicle.
== END 2024-04-22 15:30 | disposition home or self-care (01) ==
PROVIDERS: PCP Internal Medicine; Visit Provider Internal Medicine
DX: D50.9 Iron deficiency anemia, unspecified (principal)
CPT/HCPCS: 96365; 96366; J1756; J7050

== ENCOUNTER 2024-05-06 15:03 | Outpatient (CLI) | payer MEDICARE, SELFPAY ==
[2024-05-06 15:44] LABS: Hematocrit 40.4 % (37.0-47.0); Hemoglobin 12.8 g/dL (12.0-15.0); Mean Corpuscular HGB Conc 31.7 g/dl (32-36); Mean Corpuscular Hemoglobin 29.3 pg (26-34); Mean Corpuscular Volume 92.4 fl (80-100); Mean Platelet Volume 8.7 fl (7.4-10.4); Platelet Count Result 161 k/mm3 (150-375); Red Blood Count 4.37 M/mm3 (4.2-5.4); Red Cell Distribution Width 22.6 % (11.5-14.5); White Blood Count 5.5 K/mm3 (4.5-10.0)
[2024-05-06 16:49] LABS: Iron 102 ug/dL (37-170)
== END 2024-05-06 15:04 | disposition home or self-care (01) ==
LOC: ANHLAB 15:06
PROVIDERS: PCP Internal Medicine; Visit Provider Internal Medicine
DX: D50.9 Iron deficiency anemia, unspecified (principal)
CPT/HCPCS: 36415; 82728; 83540; 85027

== ENCOUNTER 2024-05-21 12:48 | Outpatient (CLI) | payer MEDICARE, SELFPAY ==
--- NOTE | 2024-05-24 22:09 | WPDSIXMINUTE ---
Six Minute Walk Procedure Procedure Performed Pulmonary Stress Test (6 min walk) Six Minute Walk Six Minute Walk: DATE OF SERVICE: 05/21/2024 REQUESTING: Adrienne Fernando MD REASON FOR TESTING: COPD, pre-pulmonary rehab SIX MINUTE WALK This test was conducted per ATS guidelines. She used a wheeled walker during the test. The initial saturation was 94%, and initial heart rate was 74 beats per minute. The patient walked without stopping, completing 182.8 m/600 ft. The saturation at the end of testing was 92%, and the heart rate was 100 beats per minute. The Bossman scale was 0.5 at baseline and the Bossman scale was 3 at the end of testing. IMPRESSION: This is a normal study. The patient did not require supplemental oxygen with exertion. Distance walked is less than expected for age. Adrienne Fernando MD
== END 2024-05-21 12:49 | disposition home or self-care (01) ==
LOC: ANHPFT 12:51
PROVIDERS: PCP Internal Medicine; Visit Provider Internal Medicine Critical Care Medicine
DX: J44.9 Chronic obstructive pulmonary disease, unspecified (principal)
CPT/HCPCS: 94618

== ENCOUNTER 2024-06-11 14:57 | Outpatient (CLI) | payer MEDICARE, SELFPAY ==
[2024-06-11 16:20] LABS: Anion Gap 3 mmol/L (4-12); Blood Urea Nitrogen 17 mg/dL (7-17); Calcium 8.5 mg/dL (8.4-10.2); Carbon Dioxide 25 mmol/L (22-30); Chloride 113 mmol/L (98-107); Estimated Glomerular Filt Rate > 60; Glucose 122 mg/dL (65-110); Potassium 3.5 mmol/L (3.4-5.0); Sodium 141 mmol/L (137-145)
[2024-06-11 16:30] LABS: NT Pro B Type Natriuretic Pept 2560 pg/mL (19.9-100)
== END 2024-06-11 14:58 | disposition home or self-care (01) ==
LOC: ANHLAB 15:02
PROVIDERS: PCP Internal Medicine; Visit Provider Nurse Practitioner Adult Health
DX: I50.42 Chronic combined systolic (congestive) and diastolic (congestive) heart failure (principal)
CPT/HCPCS: 36415; 80048; 83880

== ENCOUNTER 2024-09-14 13:30 | Outpatient (RCR) | payer MEDICARE, SELFPAY | END 2024-09-14 23:59 | disposition home or self-care (01) | LOC: ANHCPREHAB 13:30 | PROVIDERS: PCP Internal Medicine; Visit Provider Internal Medicine Critical Care Medicine | DX: J44.9 Chronic obstructive pulmonary disease, unspecified (principal) | CPT/HCPCS: 94625 ==

== ENCOUNTER 2024-10-12 13:30 | Outpatient (RCR) | payer MEDICARE, SELFPAY | END 2024-10-14 14:38 | disposition home or self-care (01) | LOC: ANHCPREHAB 13:30 | PROVIDERS: PCP Internal Medicine; Visit Provider Internal Medicine Critical Care Medicine | DX: J44.9 Chronic obstructive pulmonary disease, unspecified (principal) | CPT/HCPCS: 94625 ==

== ENCOUNTER 2024-10-13 13:01 | Outpatient (CLI) | payer MEDICARE, SELFPAY ==
--- OUTSIDE RECORDS SUMMARY | 2024-10-13 13:54 | XMS_ITS | Encounter Summary ---
Author Organization [facility] Healthcare Address [address] [place] [address] Care Team Providers Care Screen Roller Name Role Phone Tomi Be MD Primary Care Provider + [phone] Reason for Visit * Diagnostic Imaging (Routine) - Closed Specialty Diagnoses / Procedures Referred By Contac t Referred To Contact Procedures Breast Imaging Screening Outside Reference Aft, Leah Swift MD PhD [address] [place] [address] Phone: tel: fax: Referral ID Status Reason Start Date Expiration Date Visits Re quested Visits Authorized [id number] Closed 01/02/2022 02/01/2023 1 1 Encounter Details Date Type Department Care Team (Late st Contact Info) Description 10/16/2017 Hospital Encounter [facility] [address] [place] [id number] Social History Tobacco Use Types Packs/Day Years [...] on file Legal Sex 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 There will be no report generated by a [facility] Radiologist. Narrative [facility]MO[facility] - 01/02/2022 5:06 PM CDT EXAMINATION: Images For Reference Purposes Only us Leah Rogers MD PhD IMG MAMMO PROCEDURES Final Result [facility] documented in this encounter Visit Diagnoses Not on filedocumented in this encounter Additional Health Concerns Infection Onset Date Last Indicated Resolved Time COVID: Suspected 06/20/2023 06/20/2023 06/20/2023 7:31 PM VULCANIZING PRESS OPERATOR documented as of this encounter Care Teams Screen Roller Relationship Specialty Start Date End Date Tomi Be MD [address] [place] [address] PCP - General Internal Medicine 01/15/17 documented as of this encounter
--- OUTSIDE RECORDS SUMMARY | 2024-10-13 13:54 | XMS_ITS | Encounter Summary ---
Author Organization [facility] Healthcare Address [address] [place] [address] Care Team Providers Care Fine Hairer Name Role Phone Tomi Be MD Primary Care Provider + [phone] Reason for Visit * Diagnostic Imaging (Routine) - Closed Specialty Diagnoses / Procedures Referred By Contac t Referred To Contact Procedures Breast Imaging US Outside Reference Aft, Leah Swift MD PhD [address] [place] [address] Phone: tel: fax: Referral ID Status Reason Start Date Expiration Date Visits Re quested Visits Authorized [id number] Closed 01/02/2022 02/01/2023 1 1 Encounter Details Date Type Department Care Team (Late st Contact Info) Description 11/16/2018 12:05 AM CDT Hospital Encounter [facility]) [address] [place] [id number] Social History Tobacco Use Types Packs/Day Years [...] on file Legal Sex Female 12:14 AM AGENCY OPERATOR Gender Identity Not on file Sexual Orientation Straight 07/05/2021 1: 52 PM AGENCY OPERATOR documented as of this encounter Functional [...] and have not been reviewed by [facility] Radiology. There will be no report generated by a [facility] Radiologist. Narrative [facility] - 01/02/2022 5:18 PM CDT EXAMINATION: Images For Reference Purposes Only us Leah Rogers MD PhD IMG MAMMO PROCEDURES Final Result [facility] documented in this encounter Visit Diagnoses Not on filedocumented in this encounter Additional Health Concerns Infection Onset Date Last Indicated Resolved Time COVID: Suspected 06/20/2023 06/20/2023 06/20/2023 7:31 PM AGENCY OPERATOR documented as of this encounter Care Teams Fine Hairer Relationship Specialty Start Date End Date Tomi Be MD [address] [place], [place] [id number] PCP - General Internal Medicine 01/15/17 documented as of this encounter
--- OUTSIDE RECORDS SUMMARY | 2024-10-13 13:54 | XMS_ITS ---
Author Organization [facility] [address] Address [address] [place] [address] Care Team Providers Care Doughnut Batter Mixer Name Role Phone Tomi Be MD Primary Care Provider + [phone] Miscellaneous, Not In File Unavailable Unava ilable Krysta Justin MD Unavailable Aft, Leah Swift MD PhD Unavailable [phone] Marybeth Guerra PhD Unavailable [phone] Sushil Zarate MD Unavailable [phone] Garo Narvaez MD Unavailable [phone] Active Problems Problem Noted Date Diagnosed Date Severe obesity 06/22/2024 History of right breast cancer 11/11/2022 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 02/04/2022 Cancer Staging:Clinical stage from 01/14/2022:Stage IA(cT1b, cN0, cM0, G2, ER+, IL+, HER2-) - Signed by Lance Austin MD on 04/03/2022 Pathologic stage from 02/28/2022:No Stage Recommended(pT1c, cN0, cM0, G2, ER+, IL+, HER2-) - Signed by Lance Austin MD on 04/03/2022 Pathologic: Unsigned Overview (02/04/2022): Added automatically from request for surgery [id number] Mammogram abnormal 01/07/2022 DURANT (dyspnea on exertion) 10/02/2021 Chronic combined systolic an d diastolic CHF (congestive heart failure) 10/02/2021 History of amiodarone therapy 10/02/2021 Hyperthyroidism 09/27/2021 Assessment & Plan (08/06/2022 3:06 PM DIRECTOR DRUG SAFETY): Seems to have resolved Will test once more If normal, pt can f/u with PCP Assessment & Plan (02/05/2022 3:57 PM CDT): Very likely, it was related to amiodarone in a patient with multinodular goiter Her TSH is normal now, in the high side, with normal free T4 I have recommended to repeat thyroid function test again in 2 months Assessment & Plan (09/27/2021 3:40 PM CDT): The patient does not have any symptoms of hyperthyroidism at this time She took amiodarone but has been off of that for almost 3 month She has been on biotin which can interfere with the assay for TSH I going to go ahead and repeat the thyroid function test, including TSH, free T4 and free T3, after the patient being off of the biotin for a week If the TSH is persistently suppressed with elevated free T4 and / or T3, Will start Tapazole The Hyperparathyroidism, secondary renal 07/24/2021 Assessment & Plan (02/05/2022 3:57 PM CDT): Related to vit D deficiency Continuous with Ergocalciferol, 50,000 international units weekly Repeat 25 OH vit D levels in about 2 m Assessment & Plan (07/24/2021 4:23 PM DIRECTOR DRUG SAFETY): I explained to Mrs. 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 I am going to check her 25 hydroxy vitamin-D level so I will send prescription, according with his current level I explained to the patient that she needs to is taken the vitamin-D at least 50,000 once a week and to follow up with Dr. Juno Braun , with home she has been following up. Vitamin D deficiency 07/24/2021 Assessment & Plan (08/06/2022 3:06 PM DIRECTOR DRUG SAFETY): Check vit D Adjust dose of Ergocalciferol accordingly Assessment & Plan (07/24/2021 4:25 PM DIRECTOR DRUG SAFETY): Check 25 OH vit D and restart Ergocalciferol , accordingly Vitamin B 12 deficiency 07/24/2021 Assessment & Plan (07/24/2021 4:25 PM DIRECTOR DRUG SAFETY): The patient asked me to check on her B12 level to adjust her vitamin B12 supplementation. She follows also with her primary care doctor, Dr. Be on this regard A-fib 06/11/2021 Hip arthritis 03/02/2020 Pulmonary nodule 12/05/2019 Essential hypertension 10/31/2019 Depression 10/31/2019 Closed displaced comminuted fracture of shaft of right humerus 10/30/2019 Overview (10/30/2019): Added automatically from request for surgery [id number] PEYMAN (obstructive sleep apnea) 03/22/2019 Status post ablation of atrial fibrillation 01/14 Iron deficiency 02/20/2018 Hypercholesteremia 08/13/2017 Bradycardia 08/13/2017 Class 3 obesity 12/06/2016 Paroxysmal atrial fibrillation 05/28/2016 Overview (09/19/2016): PAF (paroxysmal atrial fibrillation) Assessment & Plan (10/02/2020 4:41 PM CDT): Persistent atrial fibrillation, refractory to multiple antiarrhythmic drugs, including most recently amiodarone. We discussed catheter ablation small option. We discussed the rationale for atrial fibrillation ablation, including the steps involved in ablation. I detailed the risks of the procedure, including vascular injury/hematoma, myocardial injury/perforation, stroke, myocardial infarction, pulmonary vein stenosis, thermal esophageal injury, phrenic nerve injury, and . I estimated a 70% chance of freedom from long- term atrial arrhythmia, and the patient understands that occasionally a second procedure is necessary. Because of the patient's persistent atrial fibrillation, I recommended that they undergo transesophageal echocardiography (to exclude the presence of left atrial thrombus) immediately prior to EP study and ablation. If she wishes to proceed, my office will make the appropriate arrangements. From: June, Laurita LS, Geno JS, Naheed H, Enrique STEPHANIE, Tierney JE, Gabrielle CHARLES, Brian PT, Jackson FINLEY, ME, Alcides KT, Elizabeth RL, Aj WG, Zion PJ, Brenda CM, Maile CW. 2014 AHA/ACC/HRS guideline for the management of patients with atrial fibrillation: a report of the [place] [employer]/[place] [employer] Association Task Force on Practice Guidelines and the Heart Rhythm Society. J Am Seb Cardiol 2014. 6.3. AF Catheter Ablation to Maintain Sinus Rhythm: Recommendations Class IIa AF catheter ablation is reasonable for selected patients with symptomatic persistent AF refractory or intolerant to at least 1 class I or III antiarrhythmic medication (388, [phone]). (Level of Evidence: A) Assessment & Plan (03/31/2019 8:48 AM CDT): Patient has symptomatic persistent atrial fibrillation. She is presently in sinus rhythm on sotalol and is satisfied with her present symptoms. The patient would like to continue on this medication. Catheter ablation can be considered as an alternative, especially as she has failed antiarrhythmic medications in the past. Assessment & Plan (12/06/2016 6:21 PM CDT): Patient with paroxysmal atrial fibrillation maintaining sinus rhythm clinically 2nd set her 2nd cardioversion in April 2016. Doing well with flecainide which will need periodic evaluation by EKG. EKG today shows NSR, mild bradycardia heart rate 51, QTC 464 milliseconds, acceptable. Because of bradycardia, I will change metop tart 100 BID to metop succ 100 mg qd. FU 6 months. Chronic anticoagulation 02/15/2016 Overview (09/19/2016): Chronic anticoagulation Assessment & Plan (12/06/2016 6:23 PM CDT): Tolerating Eliquis Hypertensive heart disease with heart failure Overview (09/19/2016): Hypertensive heart disease with heart failure Assessment & Plan (12/06/2016 6:23 PM CDT): LVH and diast dysfxn. BP at goal Current Treatment and Therapy Plans No current plan information found. Past Treatment and Therapy Plans No past plan information found. Radiation Treatments * Course [id number]/30/2022 - 04/30/2022 Treatment Period Energy Fraction Dose Fractions Total Dose Plans Planned VR RT BRST 04/30/2022 - 04/30/2022 2,000 2,000 Reference Points Delivered PTV_SURG_BED IZ 04/30/2022 - 04/30/2022 2,000 Lifetime Dose Tracking * Chemical Lifetime Dose Automatic Entry Manual Entr y Fluoro Time 1 minutes 1 minutes 0 minutes Air kerma at the reference point (Ka,r) 119.23 mGy 8 .23 mGy 111 mGy DLP 1,488 mGycm 1,488 mGycm 0 mGycm Resolved Problems Problem Noted Date Diagnosed Date Resolved Date Persistent atrial fibrillation 06/06/2021 10/02/2021 Overview (06/06/2021): Added automatically from request for surgery [id number] Medication management 12/12/20202021 Acute pain due to trauma 10/31/2019 Acute blood loss anemia 10/31/201911/15 Brown-colored urine 05/25/2019 10/31/19 20 On amiodarone therapy 05/25/20192021 Assessment & Plan (10/02/2020 4:42 PM CDT): 12-lead ECG today does not demonstrate any changes that would prohibit continued use of amiodarone. We will continue the patient on the same dose and schedule, though it may be possible to discontinue this medication following ablation. As long as the patient continues on this medication, an ECG should be performed at least every 6 months to monitor for toxicity. Liver function tests and thyroid function tests should be performed at least every 6 months, an assessment of pulmonary function will be needed yearly. Hair loss 08/13/2017 12/05/2019 Anticoagulation management encounter 12/06/2016 10/02/2021 Assessment & Plan (10/02/2020 4:41 PM CDT): The patient has a [id number] score of 3 (annualized risk of stroke 3%). I have therefore recommended that she remain anticoagulated for thromboprophylaxis. Assessment & Plan (03/31/2019 8:49 AM CDT): The patient has a [id number] score of 3 (annualized risk of stroke 3.2 %). I have therefore recommended that she remain anticoagulated for thromboprophylaxis. The patient will follow-up with me in 6 months for an office visit and twelve- lead ECG. Assessment & Plan (12/06/2016 6:22 PM CDT): Flecainide monitoring as above. Avoid other meds that prolong QT interval. Persistent atrial fibrillation 02/15/2016 12/05/2019 Overview (09/19/2016): Persistent atrial fibrillation Morbid obesity 02/15/2016 08/13/2017 Overview (09/19/2016): Morbid obesity due to excess calories H/O: heart disorder 02/15/2016 08/13/19 18 Overview (09/19/2016): H/O congestive heart failure Morbid obesity due to excess calories 09/01/2015 05/25/2019 Stomach dilatation 09/01/2015 0 GIB (gastrointestinal bleeding) 08/29/2013 10/31/2019
--- OUTSIDE RECORDS SUMMARY | 2024-10-13 13:54 | XMS_ITS | Encounter Summary ---
Author Organization [facility] Healthcare Address [address] [place] [address] Care Team Providers Care Dressmaker Garment Fitter Name Role Phone Unavailable Primary Care Provider Unavailabl e Reason for Visit * Diagnostic Imaging (Routine) - Closed Specialty Diagnoses / Procedures Referred By Contac t Referred To Contact Procedures Breast Imaging Screening Outside Reference Aft, Leah Swift MD PhD [address] [place] [address] Phone: tel: fax: Referral ID Status Reason Start Date Expiration Date Visits Re quested Visits Authorized [id number] Closed 01/02/2022 02/01/2023 1 1 Encounter Details Date Type Department Care Team (Late st Contact Info) Description 08/28/2016 Hospital Encounter [facility] [address] [place] [id number] Social History Tobacco Use Types Packs/Day Years [...] on file Legal Sex Female 12:14 AM OFFSET PRINTING OPERATOR Gender Identity Not on file Sexual Orientation Straight 07/05/2021 1: 52 PM OFFSET PRINTING OPERATOR documented as of this encounter Functional [...] only and have not been reviewed by [facility] Radiology. There will be no report generated by a [facility] Radiologist. Narrative [facility]MO[facility] - 01/02/2022 5:07 PM CDT EXAMINATION: Images For Reference Purposes Only us Leah Rogers MD PhD IMG MAMMO PROCEDURES Final Result [facility] documented in this encounter Visit Diagnoses Not on filedocumented in this encounter Additional Health Concerns Infection Onset Date Last Indicated Resolved Time COVID: Suspected 06/20/2023 06/20/2023 06/20/2023 7:31 PM OFFSET PRINTING OPERATOR documented as of this encounter
--- OUTSIDE RECORDS SUMMARY | 2024-10-13 13:54 | XMS_ITS | Encounter Summary ---
Author Organization [facility] Healthcare Address [address] [place] [address] Care Team Providers Care General Manager Road Production Name Role Phone Tomi Be MD Primary Care Provider + [phone] Miscellaneous, Not In File Unavailable Unava ilable Krysta Justin MD Unavailable Aft, Leah Swift MD PhD Unavailable [phone] Marybeth Guerra PhD Unavailable [phone] Sushil Zarate MD Unavailable [phone] Garo Narvaez MD Unavailable [phone] Encounter Details Date Type Department Care Team (Late st Contact Info) Description 10/12/2024 Telephone [facility] Cardiology [address] [place] [address] Garo aNrvaez MD [address] [id number] Social History Tobacco Use Types Packs/Day Years [...] on file Legal Sex Female 12:14 AM MEDICINE TECH Gender Identity Not on file Sexual Orientation Straight 07/05/2021 1: 52 PM MEDICINE TECH documented as of this encounter Miscellaneous Notes * Telephone Encounter - Mehnaz Gupta MA - 10/12/2024 3:05 PM CDT Patient brought in her portion of [employer] patient assistance application. Faxed application with physician portion. Awaiting response. documented in this encounter Plan of Treatment Not on file documented as of this encounter Visit Diagnoses Not on filedocumented in this encounter Care Teams General Manager Road Production Relationship Specialty Start Date End Date Tomi Be MD [address] [place] [address] PCP - General Internal Medicine 01/15/17 Miscellaneous, Not In File 11/01/19 Krysta Justin MD [address] [place] [address] Radiation Oncologist Radiation Oncology 04/03/22 Leah Rogers MD PhD [address] [place] [address] Surgeon Surgical Oncology 04/03/22 Marybeth Guerra, PhD [address] [place] [address] Nurse Practitioner Radiation Oncology 05/20/22 Sushil Zarate MD [address] DIV IM MEDICAL ONCOLOGY, [facility] [address] [place] [address] Medical Oncologist/Administration Manager Medical Oncology 05/20/22 Garo Narvaez MD [address] [address] Consulting Physician Cardiology 04/22/24 documented as of this encounter
--- OUTSIDE RECORDS SUMMARY | 2024-10-13 13:54 | XMS_ITS | Encounter Summary ---
Author Organization [facility] Healthcare Address [address] [place] [address] Care Team Providers Care Educational Resource Coordinator Name Role Phone Tomi Be MD Primary Care Provider + [phone] Reason for Visit * Diagnostic Imaging (Routine) - Closed Specialty Diagnoses / Procedures Referred By Contac t Referred To Contact Procedures Breast Imaging Diagnostic Outside Reference Aft, Leah Swift MD PhD [address] [place] [address] Phone: tel: fax: Referral ID Status Reason Start Date Expiration Date Visits Re quested Visits Authorized [id number] Closed 01/02/2022 02/01/2023 1 1 Encounter Details Date Type Department Care Team (Late st Contact Info) Description 11/30/2018 Hospital Encounter [facility] [address] [place] [address] [phone] Social History Tobacco Use Types Packs/Day Years [...] on file Legal Sex Female 12:14 AM APPLICATIONS CHEMIST Gender Identity Not on file Sexual Orientation Straight 07/05/2021 1: 52 PM APPLICATIONS CHEMIST documented as of this encounter Functional Status [...] only and have not been reviewed by [facility] Radiology. There will be no report generated by a [facility] Radiologist. Narrative [facility] - 01/02/2022 5:04 PM CDT EXAMINATION: Images For Reference Purposes Only us Leah Rogers MD PhD IMG MAMMO PROCEDURES Final Result [facility] documented in this encounter Visit Diagnoses Not on filedocumented in this encounter Additional Health Concerns Infection Onset Date Last Indicated Resolved Time COVID: Suspected 06/20/2023 06/20/2023 06/20/2023 7:31 PM APPLICATIONS CHEMIST documented as of this encounter Care Teams Educational Resource Coordinator Relationship Specialty Start Date End Date Tomi Be MD [address] [place] [address] PCP - General Internal Medicine 01/15/17 documented as of this encounter
--- OUTSIDE RECORDS SUMMARY | 2024-10-13 13:54 | XMS_ITS | Encounter Summary ---
Author Organization [facility] Healthcare Address [address] [place] [address] Care Team Providers Care Elementary Supervisor Name Role Phone Unavailable Primary Care Provider Unavailabl e Reason for Visit * Diagnostic Imaging (Routine) - Closed Specialty Diagnoses / Procedures Referred By Contac t Referred To Contact Procedures Breast Imaging Screening Outside Reference Aft, Leah Swift MD PhD [address] [place] [id number] Phone: tel: fax: Referral ID Status Reason Start Date Expiration Date Visits Re quested Visits Authorized [id number] Closed 01/02/2022 02/01/2023 1 1 Encounter Details Date Type Department Care Team (Late st Contact Info) Description 07/28/2015 Hospital Encounter [facility] Radiology [facility] [address] [place] [address] [phone] Social History Tobacco Use Types Packs/Day Years [...] on file Legal Sex Female 12:14 AM SILK TOP HAT BODY MAKER Gender Identity Not on file Sexual Orientation Straight 07/05/2021 1: 52 PM SILK TOP HAT BODY MAKER documented as of this encounter Functional Status [...] SCREENING OUTSIDE REFERENCE Routine 07/28/2015 12:00 AM SILK TOP HAT BODY MAKER documented in this encounter Results * Breast Imaging Screening Outside Reference (07/28/2015 12:00 AM SILK TOP HAT BODY MAKER) Impressions [facility] - 01/02/2022 5:07 PM CDT These images are for Reference purposes only and have not been reviewed by [facility] Radiology. There will be no report generated by a [facility] Radiologist. Narrative [facility] - 01/02/2022 5:07 PM CDT EXAMINATION: Images For Reference Purposes Only us Leah Rogers MD PhD IMG MAMMO PROCEDURES Final Result [facility] documented in this encounter Visit Diagnoses Not on filedocumented in this encounter Additional Health Concerns Infection Onset Date Last Indicated Resolved Time COVID: Suspected 06/20/2023 06/20/2023 06/20/2023 7:31 PM SILK TOP HAT BODY MAKER documented as of this encounter
--- OUTSIDE RECORDS SUMMARY | 2024-10-13 13:54 | XMS_ITS | Clinical Summary ---
Author Organization [facility] Address [address] [place] [address] Care Team Providers Care Emergency Services Dispatcher Name Role Phone Puja Dobbs MD Unavailable [phone] Tomi Be MD Primary Care Provider [phone] Source Comments [facility],non-owned Affiliates and Associated Physician Practices is amultiple site organization consisting of ambulatory clinics and hospital sitesin [place], [place], [place] and [place]. This disclosure is being madepursuant to the Care Everywhere program and may not contain all information available regarding this patient. Last updated 18.[facility] Allergies Active Allergy Reactions Criticality Noted Date Comments Lisinopril Cough Low 08/13/2017 Medications * Be aware that medications may not be up to date on this document. Alwaysverify current medications with the patient. docusate sodium (COLACE) 100 MG capsule Take 100 mg by mouth once daily as needed Active pantoprazole EC (PROTONIX) 40 MG tablet Take 1 Tab by mouth 2 times daily. 60 Tab 5 4 Active Additional Information Patient taking differently:40 mg OralDAILY, Reported on 02/02/2020 sertraline (ZOLOFT) 50 MG tablet Take 50 mg by mouth 2 times daily Active furosemide (LASIX) 40 MG tablet Take 40 mg by mouth once daily Active metoprolol tartrate (LOPRESSOR) 100 MG tablet Take 50 mg by mouth 2 times daily Active potassium chloride (KLOR-CON) 20 MEQ tablet Take 20 mEq by mouth once daily Active pravastatin (PRAVACHOL) 10 MG tablet Take 10 mg by mouth every Friday, Friday & Friday Active cyanocobalamin (VITAMIN B-12) 500 MCG tablet Take 500 mcg by mouth once daily Active allopurinol (ZYLOPRIM) 100 MG tablet Take 100 mg by mouth once daily Active amiodarone (CORDARONE) 200 MG tablet Take 200 mg by mouth 2 times daily 0 Active glimepiride (AMARYL) 2 MG tablet TAKE 1 TABLET BY MOUTH ONCE DAILY IN THE MORNING 0 Active amLODIPine (NORVASC) 5 MG tablet TAKE 1 TABLET (5 MG TOTAL) BY MOUTH ONCE DAILY 0 Active ferrous sulfate 325 (65 FE) MG tablet Take 325 mg by mouth 2 times daily with morning and evening meal Active LORazepam (ATIVAN) 1 MG tablet Take 1 mg by mouth nightly as needed for Anxiety Active multivitamin daily tablet Take 1 tablet by mouth daily with food Active vitamin D, ergocalciferol , (DRISDOL) 1.25 MG (86929 UT) capsule Take 50,000 Units by mouth every 7 days Active acetaminophen (TYLENOL) 325 MG tablet Take 2 tablets by mouth every 6 hours as needed Maximum allowable Acetaminophen amount = 4 Grams (4000 mg) / 24 hours. 0 Active apixaban (ELIQUIS) 5 MG tablet Hold till hematuria clears up 0 Active Active Problems Problem Noted Date Diagnosed Date Hip arthritis 03/02/2020 Stomach dilatation 09/01/2015 Morbid obesity due to excess calories 09/01/2015 GIB (gastrointestinal bleeding) 08/29/2013 Immunizations Immunization Administration Dates Next Due PNEUMOCOCCAL PPSV23 08/30/2013 Family History Medical History Relation Name Comments Cancer Father lung Heart Failure Father Cancer Mother lung, breast Relation Name Status Comments Father Mother Social History Tobacco Use Types Packs/Day Years Used Date Smoking Tobacco: Former Cigarettes 1 15 0 06/16/1972 - 06/16/1987 Smokeless Tobacco: Never Tobacco Cessation:Counseling Given: Yes Alcohol Use Standard Drinks/Week Comments No 0 (1 standard drink = 0.6 oz pur e alcohol) Comments Unknown Sex and Gender Information Value Date Recorded Sex Assigned at Not on file 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 Temperature 36.8 C (98.3 F) 10/16/2020 1:40 PM CDT Respiratory Rate 19 03/07/2020 7:35 AM CDT Oxygen Saturation 93% 10/16/2020 1:4 0 PM CDT Inhaled Oxygen Concentration - - Weight 107.2 kg (236 lb 6.4 oz) 03/02/2020 7:37 AM CDT Height 162.6 cm (5' 4 ) 03/02/2020 7:37 AM CDT stated Body Mass Index 40.58 03/02/2020 7:37 AM CDT Plan of Treatment Health Maintenance Due Date Last Done Comments BONE DENSITY TESTING 1945 HEPATITIS C SCREENING 09/30/1964 DTAP/TDAP/TD VACCINES (1 - Tdap) 1965 ZOSTER VACCINE (1 of 2) 1996 PNEUMOCOCCAL VACCINE 50+ (2 of 2 - PCV) 08/30/2014 08/30/2013 Respiratory Syncytial Virus (RSV) Vaccine Pt: or over 60 yrs (1 - 1-dose 75+ series) 2021 COVID-19 VACCINE (1 - 2023- season) 2024 DEPRESSION SCREENING 06/16/2024 INFLUENZA VACCINE (Season Ended) 2025 03/05/2018, 03/07/2017, 03/11/2016, Additional history exists HEPATITIS B VACCINE Aged Out No longe r eligible based on patient's age to complete this topic HIB VACCINE Aged Out No longer eligi ble based on patient's age to complete this topic HPV VACCINE Aged Out No longer eligi ble based on patient's age to complete this topic MENINGOCOCCAL (Group B) VACCINE SHARED DECISION-MAKING Aged Out No longer eligible based on patient's age to complete this topic MENINGOCOCCAL GROUPS A/C/Y/W VACCINE Aged Out No longer eligible based on patient's age to complete this topic Medical Devices Implanted Type Area Supervisor Paper Machine Device Identifier Shelf Expiration Date Model / Serial / Lot Shell Actb 50mm Hip 3 Hl R3 Implanted:Qty: 1 on 03/02/2020 by Fili Wilkinson IV, MD at [facility] Left: Hip [employer] 09/13/2029 [id number] / / [id number] Acetabular Liner 36 Mm Implanted:Qty: 1 on 03/02/2020 by Fili Wilkinson IV, MD at [facility] Left: Hip 01/17/2030 [id number] / / [id number] Marline Stem Size 5 Implanted:Qty: 1 on 03/02/2020 by Fili Wilkinson IV, MD at [facility] Left: Hip 03/16/2026 [id number] / / [id number] Taper Femoral Head +0 Implanted:Qty: 1 on 03/02/2020 by Fili Wilkinson IV, MD at [facility] Left: Hip 01/23/2030 [id number] / / [id number] Explanted Type Area Supervisor Paper Machine Device Identifier Shelf Expiration Date Model / Serial / Lot Pin Hlf 255mm 5mm Jtx Lng Orth Ss 45mm Explanted:Qty: 1 on 03/02/2020 by Fili Wilkinson IV, MD at [facility] Left: Hip [employer] [id number] / / Insurance MEDICARE [facility] MEDICARE [employer] Advance Directives Documents on File Type Date Recorded Patient Production Potter Expl anation Adv Directive/Living Will/POA 05/02/2012 3:46 PM * Full Code (Latest Code Status on File) Date Activated Date Inactivated Comments 03/02/2020 11:51 AM 03/07/2020 2:38 PM * Full Code Date Activated Date Inactivated Comments 08/29/2013 8:44 PM 08/31/2013 3:36 PM * FULL RESUSCITATION Date Activated Date Inactivated Comments 04/28/2012 8:03 PM 05/01/2012 3:51 PM Care Teams Emergency Services Dispatcher Relationship Specialty Start Date End Date Tomi Be MD [address] [place] [address] PCP - General Internal Medicine 02/02/20 Puja Dobbs MD [address] [place] [address] Cardiovascular Disease 08/23/19
--- OUTSIDE RECORDS SUMMARY | 2024-10-13 13:54 | XMS_ITS | Encounter Summary ---
Author Organization [facility] Healthcare Address [address] [place] [address] Care Team Providers Care Billet Recorder Name Role Phone Tomi Be MD Primary Care Provider + [phone] Reason for Visit * Diagnostic Imaging (Routine) - Closed Specialty Diagnoses / Procedures Referred By Contac t Referred To Contact Procedures Breast Imaging US Outside Reference Aft, Leah Swift MD PhD [address] [place] [address] Phone: tel: fax: Referral ID Status Reason Start Date Expiration Date Visits Re quested Visits Authorized [id number] Closed 01/02/2022 02/01/2023 1 1 Encounter Details Date Type Department Care Team (Late st Contact Info) Description 11/30/2018 12:05 AM CDT Hospital Encounter [facility]iology [facility] [address] [place] [id number] Social History Tobacco Use Types Packs/Day Years [...] on file 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 Narrative [facility] - 01/02/2022 5:18 PM CDT EXAMINATION: Images For Reference Purposes Only us Leah Rogers MD PhD IMG MAMMO PROCEDURES Final Result [facility] documented in this encounter Visit Diagnoses Not on filedocumented in this encounter Additional Health Concerns Infection Onset Date Last Indicated Resolved Time COVID: Suspected 06/20/2023 06/20/2023 06/20/2023 7:31 PM COLOR SPECIALIST documented as of this encounter Care Teams Billet Recorder Relationship Specialty Start Date End Date Tomi Be MD [address] [place], [place] [id number] PCP - General Internal Medicine 01/15/17 documented as of this encounter
--- OUTSIDE RECORDS SUMMARY | 2024-10-13 13:54 | XMS_ITS | Encounter Summary ---
Author Organization [facility] Healthcare Address [address] [place] [address] Care Team Providers Care Enrober Name Role Phone Tomi Be MD Primary Care Provider + [phone] Miscellaneous, Not In File Unavailable Unava ilable Krysta Justin MD Unavailable Aft, Leah Swift MD PhD Unavailable [phone] Marybeth Guerra PhD Unavailable [phone] Sushil Zarate MD Unavailable [phone] Garo Narvaez MD Unavailable +[phone] Encounter Details Date Type Department Care Team (Late st Contact Info) Description 07/13/2020 Telephone [facility] - Interventional Radiology [address] [place] [address] Giselle Rutledge RN Social History Tobacco Use Types Packs/Day Years Used Date Smoking Tobacco: Former Cigarettes Q uit: 12/06/1986 Smokeless Tobacco: Never Alcohol Use Standard Drinks/Week Comments No 0 (1 standard drink = 0.6 oz pur e alcohol) Comments No Sex and Gender Information Value Date Recorded Sex Assigned at Not on file 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 Gender Identity Not on file Sexual Orientation Straight 07/05/2021 1: 52 PM ATTENDANCE SECRETARY documented as of this encounter Plan of Treatment Not on file documented as of this encounter Visit Diagnoses Not on filedocumented in this encounter Additional Health Concerns Infection Onset Date Last Indicated Resolved Time COVID: Suspected 06/20/2023 06/20/2023 06/20/2023 7:31 PM ATTENDANCE SECRETARY documented as of this encounter Care Teams Enrober Relationship Specialty Start Date End Date Tomi Be MD [address] [place] [address] PCP - General Internal Medicine 01/15/17 Miscellaneous, Not In File 11/01/19 Krysta Justin MD [address] [place] [address] Radiation Oncologist Radiation Oncology 04/03/22 Leah Rogers MD PhD [address] [place] [address] Surgeon Surgical Oncology 04/03/22 Marybeth Guerra, PhD [address] [place] [address] Nurse Practitioner Radiation Oncology 05/20/22 Sushil Zarate MD [address] DIV MEDICAL ONCOLOGY, [facility] [address] [place] [address] Medical Oncologist/Maintenance Groundskeeper Medical Oncology 05/20/22 Garo Narvaez MD [address] [id number] Consulting Physician Cardiology 04/22/24 documented as of this encounter
--- OUTSIDE RECORDS SUMMARY | 2024-10-13 13:54 | XMS_ITS | Clinical Summary ---
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 Name Role Phone Tomi Be MD Primary Care Provider [phone] Miscellaneous, Not In File Unavailable Unava ilable Krysta Justin MD Unavailable Aft, Leah Swift MD PhD Unavailable [phone] Marybeth Guerra PhD Unavailable [phone] Sushil Zarate MD Unavailable [phone] Garo Narvaez MD Unavailable Allergies Active Allergy Reactions Criticality Noted Date Comments Lisinopril Cough Low 08/13/2017 Medications glimepiride (AMARYL) 2 mg tabletIndicati ons:type 2 diabetes mellitus Take 0.5 tablets (1 mg total) by mouth daily before breakfast 07/15/19 18 Active allopurinol (ZYLOPRIM) 100 mg tabletIndicati ons:gout Take 1 tablet (100 mg total) by mouth every morning Active acetaminophen 500 mg capsuleIndicat ions:Pain Take 2 capsules (1,000 mg total) by mouth every 6 (six) hours 30 tablet 11/01/19 20 Active multivitamin capsule Take 1 capsule by mouth every morning Active sertraline (ZOLOFT) 100 mg tablet Take 1 tablet (100 mg total) by mouth daily 10/10/19 23 Active pravastatin (PRAVACHOL) 10 mg tabletIndicati ons:Hyperchole steremia Take 1 tablet (10 mg total) by mouth 3 (three) times a week Friday, Friday, Friday 36 tablet 2 03/03/20 24 Active potassium chloride ER 20 mEq CR tablet Take 2 tablets (40 mEq total) by mouth daily 60 tablet 11 03/18/20 24 Active furosemide (LASIX) 40 mg tablet Take 2 tablets (80 mg total) by mouth daily 60 tablet 11 03/18/20 24 Active apixaban (Eliquis) 5 mg tablet Take 1 tablet (5 mg total) by mouth 2 (two) times a day for 28 days 60 tablet 03/29/20 24 Active sacubitriL-lydia sartan (ENTRESTO) 49-51 mg tabletIndicati ons:chronic heart failure Take 1 tablet by mouth 2 (two) times a day 30 tablet 11 04/13/20 24 Active tamoxifen (NOLVADEX) 20 mg tablet TAKE 1 TABLET(20 MG) BY MOUTH DAILY 90 tablet 3 04/20/20 24 Active ergocalciferol (VITAMIN D) 50,000 unit capsule Take 1 capsule (50,000 Units total) by mouth every 14 (fourteen) days 6 capsule 06/04/20 24 Active ergocalciferol (VITAMIN D) 50,000 unit capsule Take 1 capsule (50,000 Units total) by mouth once a week 4 capsule 2 08/20/19 25 Active cholecalcifero l (VITAMIN D-3) 2000 unit capsule Take 1 capsule (2,000 Units total) by mouth daily 90 capsule 3 08/20/19 25 Active busPIRone (BUSPAR) 10 mg tabletIndicati ons:Generalize d Anxiety Disorder Take 1 tablet (10 mg total) by mouth as needed Active metoprolol (LOPRESSOR) 100 mg tablet TAKE 1 TABLET BY MOUTH TWICE DAILY 60 tablet 3 10/12/19 25 Active metoprolol (LOPRESSOR) 100 mg tablet TAKE 1 TABLET BY MOUTH TWICE DAILY 60 tablet 3 06/02/20 24 025 Discontinued Active Problems Problem Noted Date Diagnosed Date Severe obesity 06/22/2024 History of right breast cancer 11/11/2022 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 02/04/2022 Cancer Staging:Clinical stage from 01/14/2022:Stage IA(cT1b, cN0, cM0, G2, ER+, MT+, HER2-) - Signed by Lance Austin MD on 04/03/2022 Pathologic stage from 02/28/2022:No Stage Recommended(pT1c, cN0, cM0, G2, ER+, MT+, HER2-) - Signed by Lance Austin MD on 04/03/2022 Pathologic: Unsigned Overview (02/04/2022): Added automatically from request for surgery [id number] Mammogram abnormal 01/07/2022 DURANT (dyspnea on exertion) 10/02/2021 Chronic combined systolic an d diastolic CHF (congestive heart failure) 10/02/2021 History of amiodarone therapy 10/02/2021 Hyperthyroidism 09/27/2021 Assessment & Plan (08/06/2022 3:06 PM MEDIA MARKETING COORDINATOR): Seems to have resolved Will test once [...] m Assessment & Plan (07/24/2021 4:23 PM MEDIA MARKETING COORDINATOR): I explained to Mrs. Guevara that her elevated PTH is secondary to [...] 07/24/2021 Assessment & Plan (08/06/2022 3:06 PM MEDIA MARKETING COORDINATOR): Check vit D Adjust dose of Ergocalciferol accordingly Assessment & Plan (07/24/2021 4:25 PM MEDIA MARKETING COORDINATOR): Check 25 OH vit D and restart Ergocalciferol , accordingly Vitamin B 12 deficiency 07/24/2021 Assessment & Plan (07/24/2021 4:25 PM MEDIA MARKETING COORDINATOR): The patient asked me to check on her B12 level to adjust her vitamin B12 supplementation. She follows also with her primary care doctor, Dr. Be on this regard A-fib 06/11/2021 Hip arthritis 03/02/2020 Pulmonary nodule 12/05/2019 Essential hypertension 10/31/2019 Depression 10/31/2019 Closed displaced comminuted fracture of shaft of right humerus 10/30/2019 Overview (10/30/2019): Added automatically from request for surgery [id number] PEYMAN (obstructive sleep apnea) 03/22/2019 Status post [...] with atrial fibrillation: a report of the [place] [employer]/[place] [employer] Task Force on Practice Guidelines [...] LVH and diast dysfxn. BP at goal Resolved Problems Problem Noted Date Diagnosed Date Resolved Date Persistent atrial fibrillation 06/06/2021 10/02/2021 Overview (06/06/2021): Added automatically from request for surgery [id number] Medication management 12/12/20202021 Acute pain due to [...] 4:41 PM CDT): The patient has a ENJ0KO9-OCJw score of 3 (annualized risk of stroke 3%). I have therefore recommended that she remain anticoagulated for thromboprophylaxis. Assessment & Plan (03/31/2019 8:49 AM CDT): The patient has a GAM0IO5-NBMb score of 3 (annualized risk of stroke [...] 09/01/2015 0 GIB (gastrointestinal bleeding) 08/29/2013 10/31/2019 Encounters Date Type Department Care Team Description 10/12/2024 Telephone [facility] [address] [place] [address] Garo Narvaez MD 09/20/2024 Telephone [facility] [address] [place] [address] Garo Narvaez MD 09/06/2024 1:40 PM CDT Office Visit [address] 5th [place] [address] [place] [address] Juno Braun MD Osteoporosis, unspecified osteoporosis type, unspecified pathological fracture presence (Primary Dx) 09/06/2024 1:10 PM CDT Clinical Support [address] Medicine 5th [place] [address] [place] [address] Age-related osteoporosis without current pathological fracture (Primary Dx); Osteoporosis, unspecified osteoporosis type, unspecified pathological fracture presence 09/06/2024 Telephone [facility] [address] [facility] [address] [place] [phone] Juno Braun MD 08/31/2024 7:30 AM CDT Ancillary Procedure [facility] [address] [facility] [address] [place] [id number] Presence of biventricular cardiac pacemaker (Primary Dx); Persistent atrial fibrillation (HCC) 08/19/2024 1:00 PM MEDIA MARKETING COORDINATOR Office Visit [facility] On[facility] [address] [facility] Floor [address] [place] [phone] Sushil Zarate MD Carcinoma of right breast with ductal and lobular features (HCC) (Primary Dx) 08/19/2024 12:00 PM MEDIA MARKETING COORDINATOR Lab [facility] - Lab Collection [address] [facility] Floor 5 [place] [address] Carcinoma of right breast with ductal and lobular features (HCC) 07/20/2024 Telephone [facility] [address] [place] [address] Garo Narvaez MD samples from Last 3 Months Immunizations Immunization Administration Dates Next Due Influenza, Quadrivalent, Hig h Dose, Preservative Free, Intrr 02/14/2020 Influenza, Quadrivalent, Spl it, Preservative Free, Intramuscular 03/05/2018,03/07/2017 Influenza, Trivalent, High D ose, Split, Preservative Free, Intramuscular 03/11/2016,03/10/2013 Influenza, Trivalent, IM (MDV) 03/07/2015 Pneumococcal Conjugate PCV 13 06/07/2015 Pneumococcal Polysaccharide PPV23 08/30/2013 Surgical History Surgery Date Site/Laterality Comments CHOLECYSTECTOMY 06/16/1972 - 06/15/1973 GASTRIC BYPASS 06/16/2011 - 06/15/2012 SPINAL FUSION 06/16/1964 - 06/15/1965 FRACTURE SURGERY 09/15/2019 - 10/14/2019 R arn JOINT REPLACEMENT Hip 2019 BREAST BIOPSY 01/14/2022 Right ABLATION 05/16/2021 - 06/15/2021 a fib Medical History Medical History Date Comments Hx Other Medical Morbid obesity, Gastric bypass.; Comments: ELU 02/15/2016 - Hx Other Medical Bleeding ulcer; Comments: U 02/15/2016 - Hypertension Heart beat abnormality Atrial fibrillation (HCC) Diabetes mellitus (HCC) 2000 Kidney stone 10/2019 Breast cancer (HCC) Sleep apnea Delayed emergence from gener al anesthesia did not require ICU stay, pr olonged stay, did not require positive pressure therapy PONV (postoperative nausea and vomiting) controlled with medication Type 2 diabetes mellitus (HCC) Family History Medical History Relation Name Comments Breast cancer Daughter D Heart attack Father F Heart disease Father F Lung cancer Father F Cancer, lung; C ause of : Cancer, lung Arthritis Mother M Breast cancer Mother M Cancer, breast ; Hypertension Mother M Obesity Mother M defects Son S Anesthesia problems Neg Hx Hip fracture Neg Hx Osteoporosis Neg Hx Relation Name Status Comments Daughter D Father F (Age 80) Mother M Son S Social History Tobacco Use Types Packs/Day Years Used Date Smoking Tobacco: Former Cigarettes 1 20.5 1 967 - 12/06/1986 Smokeless Tobacco: Never Tobacco Cessation:Counseling Given: Not Answered Alcohol Use Standard Drinks/Week Comments No 0 [...] on file Legal Sex Female 12:14 AM MEDIA MARKETING COORDINATOR Gender Identity Not on file Sexual Orientation Straight 07/05/2021 1: 52 PM MEDIA MARKETING COORDINATOR Obstetrics History Last Filed Vital Signs Vital Sign Reading Time Taken Comments Blood Pressure 134/84 08/19/2024 1:02 PM MEDIA MARKETING COORDINATOR Pulse 79 08/19/2024 1:02 PM MEDIA MARKETING COORDINATOR Temperature 36.5 C (97.7 F) 08/19/2024 1:02 PM MEDIA MARKETING COORDINATOR Respiratory Rate 18 08/19/2024 1:02 PM MEDIA MARKETING COORDINATOR Oxygen Saturation 92% 08/19/2024 1:02 PM MEDIA MARKETING COORDINATOR Inhaled Oxygen Concentration - - Weight 103.1 kg (227 lb 3.2 oz) 09/06/2024 1:34 PM CDT Height 160.3 cm (5' 3.1 ) 09/06/2024 1:34 PM CDT Body Mass Index 40.12 09/06/2024 1:34 PM CDT Plan of Treatment Health Maintenance Due Date Last Done Comments Hepatitis C Screening 1945 DTaP/Tdap/Td Vaccine (1 - Tdap) 1957 Hepatitis B Screening 1964 Zoster Vaccine (1 of 2) 1965 Well Visit 65+ 10/06/2011 Depression Screening 02/05/2023 02/05/2022, 09/28/19 Covid-19 Vaccine (2023-2 5 season) 2024 05/06/2021, 09/04/2020, 08/02/2020 Fall Risk Assessment 11/17/2024 11/18/2023, 04/04/20 Osteoporosis Screening-Bone Density Scan 09/06/2026 09/06/2024, 01/29/2023, 10/01/2021, Additional history exists Pneumococcal vaccine 65+ Completed 06/07/2015, 08/14 Breast Cancer Screening-Mammogram Discontinued 024, 11/05/2022 Influenza Vaccine Completed 03/16/2024, , 02/14/2020, Additional history exists Medical Devices Implanted Type Area Spray Rig Operator Device Identifier Shelf Expiration Date Model / Serial / Lot [employer] [id number] Vascade 6/7fr Bioabsorbable Vascular System Compression Collagen - [id number] - [id number] Implanted:Qty: 1 on 10/24/2020 by Mason Miranda MD at [facility] Collagen [employer] 07/19/2022 700-580I -05U / [id number] 204A / [id number] 204A [employer] 165-270w-12d System 6-12fr Mvp Venous Closure Vascade - [id number] - [id number] Implanted:Qty: 1 on 10/24/2020 by Mason Miranda MD at [facility] Collagen [employer] 08/22/2022 800-612C -10U / [id number] 310A / [id number] 310A [employer] [id number] System 6-12fr Mvp Venous Closure Vascade - [id number] - [id number] Implanted:Qty: 1 on 10/24/2020 by Mason Miranda MD at [facility] Collagen [employer] 08/22/2022 800-612C -10U / [id number] 310A / [id number] 310A [employer] 107-169s-70p System 6-12fr Mvp Venous Closure Vascade - [id number] - [id number] Implanted:Qty: 1 on 10/24/2020 by Mason Miranda MD at [facility] Collagen [employer] 08/22/2022 800-612C -10U / [id number] 310A / [id number] 310A [employer] 359-673q-41q System 6-12fr Mvp Venous Closure Vascade - [id number] - [id number] Implanted:Qty: 1 on 06/11/2021 by Mason Miranda MD at [facility] Collagen [employer] 03/27/2023 800-612C -10U / [id number] 019A / [id number] 019A [employer] 837-600w-36o System 6-12fr Mvp Venous Closure Vascade - [id number] - [id number] Implanted:Qty: 1 on 06/11/2021 by Mason Miranda MD at [facility] Collagen [employer] 03/27/2023 800-612C -10U / [id number] 019A / [id number] 019A [employer] 334-039g-68q System 6-12fr Mvp Venous Closure Vascade - [id number] - [id number] Implanted:Qty: 1 on 06/11/2021 by Mason Miranda MD at [facility] Collagen [employer] 03/27/2023 800-612C -10U / [id number] 019A / [id number] 019A [employer] 964-697u-61j Vascade 6/7fr Bioabsorbable Vascular System Compression Collagen - [id number] - [id number] Implanted:Qty: 1 on 06/11/2021 by Mason Miranda MD at [facility] Collagen [employer] 09/12/2022 700-580I -05U / [id number] 401A / [id number] 401A Medtronic Inc Capsurefix Novus 6.2fr 2mm 58cm Bipolar Screw In Implantable 5076-58 - [id number] - [id number] Implanted:Qty: 1 on 11/18/2023 by Mason Miranda MD at [facility] Lead Medtronic Inc [id number] 03/25/2025 507 6-58 / [id number] 1V / Medtronic Inc Attain Stability Quad Mri Surescan Active Fixation Lv Lead 88cm [id number] - [id number] - [id number] Implanted:Qty: 1 on 11/18/2023 by Mason Miranda MD at [facility] Lead [employer]onic Inc [id number] 09/03/2025 479 888 / [id number] / Medtronic Inc Solara Mri Surescan Bluetooth 46.5x59mm Connector Hole Radiopaque W4tr03 - [id number] - [id number] Implanted:Qty: 1 on 11/18/2023 by Mason Miranda MD at [facility] Pacemaker Medtronic Inc 12/11/2024 W4TR03 / [id number] / Synthes 241.35 12mm [id number] .5mm 5 Hole Collar 1/3 Tubular Plate Bone Stainless - S000 - [id number] Implanted:Qty: 1 on 10/30/2019 by Paras Houston MD at [facility] Plate Right: Humerus Synthes I 241.35 / 000 / 000 Synthes 241.923s Plate Bone Lcp Combi Philos Long Stainless Steel L232mm X W12mm X H3.7mm Humerus Proximal 10 Hole Shaft Sterile 3.5mm Screw Small Fragment Set - S000 - [id number] Implanted:Qty: 1 on 10/30/2019 by Paras Houston MD at [facility] Plate Right: Humerus Synthes I 241.923S / 000 / 000 Synthes 212.117 3.5mm 2.9mm 40mm Self Tap Lock Stardrive Conical Head T15 Full - S000 - [id number] Implanted:Qty: 1 on 10/30/2019 by Paras Houston MD at [facility] Screw Right: Humerus Synthes I 212.117 / 000 / 000 Synthes 212.118 3.5mm 2.9mm 42mm Self Tap Lock Stardrive Conical Head Full Thread - S000 - [id number] Implanted:Qty: 1 on 10/30/2019 by Paras Houston MD at [facility] Screw Right: Humerus Synthes I 212.118 / 000 / 000 Synthes 212.115 3.5mm 2.9mm 36mm Self Tap Lock Stardrive Conical Head T15 Full - S000 - [id number] Implanted:Qty: 1 on 10/30/2019 by Paras Houston MD at [facility] Screw Right: Humerus Synthes I 212.115 / 000 / 000 Synthes 212.108 3.5mm 2.9mm 24mm Self Tap Lock Stardrive Conical Head Pelvis T15 - S000 - [id number] Implanted:Qty: 3 on 10/30/2019 by Paras Houston MD at [facility] Screw Right: Humerus Synthes I 212.108 / 000 / 000 Synthes 204.824 3.5mm 6mm 24mm 2.5mm Self Tap Small Hexagonal Socket Low Profile - S000 - [id number] Implanted:Qty: 2 on 10/30/2019 by Paras Houston MD at [facility] Screw Right: Humerus Synthes I 204.824 / 000 / 000 Synthes 204.820 3.5mm 6mm 20mm 2.5mm Self Tap Small Hexagonal Socket Low Profile - S000 - [id number] Implanted:Qty: 1 on 10/30/2019 by Paras Houston MD at [facility] Screw Right: Humerus Synthes I 204.820 / 000 / 000 Synthes 204.822 3.5mm 6mm 22mm 2.5mm Self Tap Small Hexagonal Socket Low Profile - S000 - [id number] Implanted:Qty: 1 on 10/30/2019 by Paras Houston MD at [facility] Screw Right: Humerus Synthes I 204.822 / 000 / 000 Synthes 204.828 3.5mm 6mm 28mm 2.5mm Self Tap Small Hexagonal Socket Low Profile - S000 - [id number] Implanted:Qty: 1 on 10/30/2019 by Paras Houston MD at [facility] Screw Right: Humerus Synthes I 204.828 / 000 / 000 Synthes 204.826 3.5mm 6mm 26mm 2.5mm Self Tap Small Hexagonal Socket Low Profile - S000 - [id number] Implanted:Qty: 1 on 10/30/2019 by Paras Houston MD at [facility] Screw Right: Humerus Synthes I 204.826 / 000 / 000 Synthes 212.121 3.5mm 2.9mm 50mm Self Tap Lock Stardrive Conical Head T15 Full - S000 - [id number] Implanted:Qty: 1 on 10/30/2019 by Paras Houston MD at [facility] Screw Right: Humerus Synthes I 212.121 / 000 / 000 Synthes 212.114 3.5mm 2.9mm 35mm Self Tap Lock Stardrive Conical Head T15 Full - S000 - [id number] Implanted:Qty: 1 on 10/30/2019 by Paras Houston MD at [facility] Screw Right: Humerus Synthes I 212.114 / 000 / 000 Synthes 212.116 3.5mm 2.9mm 38mm Self Tap Lock Stardrive Conical Head T15 Full - S000 - [id number] Implanted:Qty: 1 on 10/30/2019 by Paras Houston MD at [facility] Screw Right: Humerus Synthes I 212.116 / 000 / 000 Bard Peripheral Vascular Ultraclip Bard 17ga 10cm 2 Trigger Permanent Ultrasound [id number] - [id number] Implanted:Qty: 1 on 01/14/2022 at [facility] Right: Breast Bard Peripheral Vascular [id number] / / Bard Peripheral Vascular Ghiatas 20ga 20cm 9cm Beaded Needle Breast Wire Localization 88690 - [id number] Implanted:Qty: 1 on 02/28/2022 at [facility] Right: Breast Bard Peripheral Vascular [id number] / / Explanted Type Area Spray Rig Operator Device Identifier Shelf Expiration Date Model / Serial / Lot Synthes 204.812 3.5mm 6mm 12mm 2.5mm Self Tap Small Hexagonal Socket Low Profile - S000 - [id number] Explanted:Qty: 1 on 10/30/2019 by Paras Houston MD at [facility] Screw Right: Humerus Synthes I 204.812 / 000 / 000 Procedures Procedure Name Priority Date/Time Associated Diagnosis Comments DEXA TBS AXIAL SKELETON BONE DENSITY 1 OR MORE SITES Schedule Routine, Read Routine (OP Routine) 09/06/2024 1:18 PM CDT Age-related osteoporosis without current pathological fracture DEVICE CHECK - REMOTE Routine 08/31/2024 10:06 AM CDT Persistent atrial fibrillation (HCC) EGFR Routine 08/19/2024 12:41 PM MEDIA MARKETING COORDINATOR Carcinoma of right breast with ductal and lobular features (HCC) COMPREHENSIVE METABOLIC PANEL Routine 08/19/2024 12:41 PM MEDIA MARKETING COORDINATOR Carcinoma of right breast with ductal and lobular features (HCC) VITAMIN D 25 HYDROXY Routine 08/19/2024 12:41 PM MEDIA MARKETING COORDINATOR Carcinoma of right breast with ductal and lobular features (HCC) DIAGNOSTIC MAMMOGRAM BILATERAL W ALEC Schedule Routine, Read Routine (OP Routine) 11/11/2023 2:47 PM CDT Abnormal mammogram Mammogram abnormal from Last 3 Months or Most Recently Relevant to Health Maintenance Results * Dexa TBS Axial Skeleton Bone Density 1 or more sites (09/06/2024 1:18 PM CDT) Anatomical Region Laterality Modality Wrist, Body N/A Radiographic Valentine ging Narrative 09/06/2024 10:59 PM CDT Patient Name: Sanam Guevara Date of : 1945 Date of scan: 09/06/2024 Bone mineral density was performed on a [employer] Discovery Densitometer. Based on machine cross-calibration and precision studies the least significant changes of this densitometer is 0.024 g/cm2 at the spine, 0.020 g/cm2 at the total proximal femur, and 0.014g/cm2 at the forearm. HISTORY: This is a 78 y.o. postmenopausal female with a history of breast cancer and osteoporosis. She reports that she quit smoking about 37 years ago. Her smoking use included cigarettes. She started smoking about 58 years ago. She has a 20.5 pack-year smoking history. She has never used smokeless tobacco. Currently on treatment with vitamin D, tamoxifen, and anticoagulants and current complaint of back pain and leg pain. INDICATIONS: Menopause status and history of osteoporosis. FINDINGS: BONE MINERAL DENSITY OF THE LUMBAR SPINE Bone Mineral Density (BMD) of the lumbar spine was measured from L1-L4 and the average density was calculated to be 0.945 gm/cm2. This corresponds to a T-score (standard deviations from the mean of young adults) of -0.9. When compared to the previous study of 01/29/2023 there has been a 0.021 gm/cm (2.3%) increase in bone density that is considered significant. BONE MINERAL DENSITY OF THE PROXIMAL FEMUR Bone Mineral Density (BMD) of the right hip total was found to be 0.593 gm/cm2. This corresponds to a T-score standard deviations from the mean of young adults of -2.9. Femoral neck is 0.488 gm/cm2 with a T-score (standard deviations from the mean of young adults) of -3.3. When compared to the previous study of 01/29/2023 there has been a 0.039 gm/cm (7.1%) increase in bone density that is considered significant. BONE MINERAL DENSITY OF THE FOREARM Bone Mineral density (BMD) of the left proximal 1/3 of the radius measures 0.528 gm/cm2. This corresponds to a T-score (standard deviations from the mean of young adults) of -2.8. When compared to the previous study of 01/29/2023 there has been no significant changes in bone density. A forearm bone density study was performed in addition to the routine study due to department forearm protocol. SUMMARY: Bone mineral density shows evidence of osteoporosis and marked increase risk of fracture. There has been a significant increase in bone density since previous measurement. There is an artifact in the lumbar spine scan that cannot be corrected and may affect estimation of bone density. The lumbar spine Trabecular Bone Score TBS was not obtained due to BMI being out of range. ADDITIONAL COMMENTS: Postmenopausal Women and Men Over 50: Diagnostic criteria: Osteoporosis: BMD at or below -2.5 T-score; Osteopenia (low bone mass): BMD between -1.0 and -2.5 T-score. If the patient has a history of a fragility fracture, a fracture that occurred with trauma equivalent to a fall from a standing position or less, then the diagnosis is osteoporosis regardless of bone density. The history and data sections of the bone mineral density scan were prepared by Alisa Chirinos)([facility]who is accredited by the International Society of Clinical Densitometry. The overall patient assessment and scan interpretation were performed by Juno Braun M.D. who is certified by the International Society of Clinical Densitometry. [id number] us Juno Braun MD [facility] [place]XA PROCEDURES Final Result * DEVICE CHECK - REMOTE (08/31/2024 10:06 AM CDT) Anatomical Region Laterality Modality Other Narrative 09/14/2024 9:33 AM CDT Table formatting from the original result was not included. BiV PACEMAKER CHECK (REMOTE) Patient ID: Sanam Guevara is a 78 y.o. female. This patient received a Medtronic BiV Pacemaker. They had a routine remote transmission on 08/31/2024. Device implant indications: AF, status post AV node ablation Interrogation of the patient's device demonstrates the following: Presenting EGM: Bi V paced @ 70 bpm Original Device Settings Right Ventricle Left Ventricle Sensitivity (mV) 2.8 mV N/a mV Pacemaker Outputs 2.0 V @ 0.4 ms 2.25 V @ 1.0 ms Testing Measurements Right Ventricle Left Ventricle Sensitivity (mV) 10.9 mV Not done mV Impedence (Ohms) 399 ohms 456 ohms Pace Threshold 1.0 V @ 0.4 ms 1.75 V @ 1.0 ms Pacing % 99.9 % 99.9 % Battery Status: 7.4 years to FARZAD Episodes last 90 days/Comments: 1 episode classified as nonsustained VT for duration of 1 second at 169 beats per minute NORMAL DEVICE FUNCTION PROGRAMMED MEDICATIONS: Anti-coagulant(s): Eliquis 5 mg twice a day Anti-arrhythmic(s): Lopressor 100 mg twice a day PLAN: 1) Medtronic BiV Pacemaker evaluation 2) Medtronic remote transmission scheduled in 3 months. 3) Programming appropriate for device settings Kim Mosley RN us Mason Miranda MD [facility] CARDIAC SERVICES PRO CEDURES Final Result * eGFR (08/19/2024 12:41 PM MEDIA MARKETING COORDINATOR) eGFR 90 >=60 mL/min/1. 73 m2 Comment: Interpretive Data Reference Interval Normal >/= 90 mL/min/1.73m2 Mildly decreased* 60 - 89 mL/min/1.73m2 Mildly to moderately decreased 45 - 59 mL/min/1.73m2 Moderately to severely decreased 30 - 44 mL/min/1.73m2 Severely decreased 15 - 29 mL/min/1.73m2 Kidney Failure < 15 mL/min/1.73m2 *Relative to young adult level Estimated glomerular filtration rate is determined by the 2020 CKD-EPI equation recommended by the National Kidney Foundation (A Unifying Approach to GFR Estimation: Recommendations of the NKF-ASK Task Force on Reassessing the Inclusion of Race in Diagnosing Kidney Disease, JASN 2021). The CKD-EPI equation should not be used for patients with unstable renal function and has not been validated in children and those over 70. Current interpretive data was last reviewed 2021. Blood 08/19/2024 12:4 1 PM MEDIA MARKETING COORDINATOR 08/19/2024 12:46 PM MEDIA MARKETING COORDINATOR Sushil Zarate MD LAB BLOOD ORDERABLES Final Result Performing Organization Address City/[facility]/ZIP Co de Phone Number [facility] [place] [address] * (ABNORMAL) Vitamin D 25 hydroxy (08/19/2024 12:41 PM MEDIA MARKETING COORDINATOR) Pathologist [facility] Vitamin D 25-OH 20(L) 30 - 80 ng/mL Blood 08/19/2024 12:4 1 PM MEDIA MARKETING COORDINATOR 08/19/2024 12:46 PM MEDIA MARKETING COORDINATOR Sushil Zarate MD LAB BLOOD ORDERABLES Final Result Performing Organization Address City/[facility] de Phone Number [facility] [place] [address] * (ABNORMAL) Comprehensive metabolic panel (08/19/2024 12:41 PM MEDIA MARKETING COORDINATOR) Sodium 146(H) 135 - 145 mmol/L Potassium, pl 3.4 3.3 - 4.9 mmol/L [facility] Chloride 111(H) 97 - 110 mmol/L [facility] CO2 25 22 - 32 mmol/L [facility] Anion gap 10 2 - 15 mmol/L [facility] BUN 13 6 - 25 mg/dL [facility] Creatinine 0.67 0.60 - 1.10 mg/dL [facility] Glucose 149 70 - 199 mg/dL [facility] Comment: Interpretive Data Fasting glucose >/= 126 mg/dl is diagnostic for diabetes. Fasting is defined as no caloric intake for at least 8 hours. Fasting glucose between 100 mg/dl to 125 mg/dl is diagnostic of prediabetes. In a patient with classic symptoms of hyperglycemia or hyperglycemic crisis, a random glucose >/= 200 mg/dl is diagnostic for diabetes. In the absence of unequivocal hyperglycemia, results should be confirmed by repeat testing. The classification and Diagnosis of Diabetes Diabetes Care 2021; 46: S19-S40. Current interpretive data was last revised 2022. Calcium 8.8 8.5 - 10.3 mg/dL [facility] Bilirubin, total 0.6 0.1 - 1.2 mg/dL [facility] Protein, pl 7.0 6.5 - 8.5 g/dL [facility] Albumin 3.8 3.5 - 5.0 g/dL [facility] Alk phos 68 40 - 130 Units/L [facility] ALT 6(L) 7 - 45 Units/L [facility] AST 18 10 - 45 Units/L [facility] Blood 08/19/2024 12:4 1 PM MEDIA MARKETING COORDINATOR 08/19/2024 12:46 PM MEDIA MARKETING COORDINATOR Sushil Zarate MD LAB BLOOD ORDERABLES Final Result [facility] Department [place] [address] * Diagnostic Mammogram Bilateral W Alec (11/11/2023 2:47 PM CDT) Anatomical Region Laterality Modality Breast Bilateral Mammography 11/11/2023 2:53 PM CDT Impressions 11/11/2023 3:14 PM CDT Evolving changes of RIGHT breast conservation therapy. No mammographic evidence of malignancy in EITHER breast. OVERALL FINAL ASSESSMENT: BI-RADS Category 2: Benign. RECOMMENDATION: Annual diagnostic mammography is recommended. Dictated by: Gallito Wu MD, Ph.D The radiology attending physician has personally reviewed this study, and had reviewed and/or edited this written report and agrees with it. Electronically signed by: Quynh Okeefe M.D. Narrative 11/11/2023 3:14 PM CDT EXAMINATION: BILATERAL DIGITAL DIAGNOSTIC MAMMOGRAM INCLUDING CAD AND BILATERAL DIGITAL BREAST TOMOSYNTHESIS HISTORY: 78 year-old woman with history of RIGHT breast invasive mammary carcinoma status post breast conservation therapy in 2021. COMPARISON: Multiple prior studies, most recently 11/05/2022 and dating back to 08/28/2016. TECHNIQUE: Full field digital mammographic views of BOTH breasts were performed, including computer aided detection (CAD) and BILATERAL digital breast tomosynthesis (DBT). BREAST PARENCHYMAL COMPOSITION: There are scattered areas of fibroglandular density. MAMMOGRAM FINDINGS: Evolving changes of RIGHT breast conservation therapy. Spot compression images of the lumpectomy scar in the RIGHT upper outer breast demonstrated partial effacement, without concerning new mass or architectural distortion. No new suspicious mammographic abnormality in EITHER breast. Procedure Note Quynh Okeefe MD - 11/11/2023 EXAMINATION: BILATERAL DIGITAL DIAGNOSTIC MAMMOGRAM INCLUDING CAD AND BILATERAL DIGITAL BREAST TOMOSYNTHESIS HISTORY: 78 year-old woman with history of RIGHT breast invasive mammary carcinoma status post breast conservation therapy in 2021. COMPARISON: Multiple prior studies, most recently 11/05/2022 and dating back to 08/28/2016. TECHNIQUE: Full field digital mammographic views of BOTH breasts were performed, including computer aided detection (CAD) and BILATERAL digital breast tomosynthesis (DBT). BREAST PARENCHYMAL COMPOSITION: There are scattered areas of fibroglandular density. MAMMOGRAM FINDINGS: Evolving changes of RIGHT breast conservation therapy. Spot compression images of the lumpectomy scar in the RIGHT upper outer breast demonstrated partial effacement, without concerning new mass or architectural distortion. No new suspicious mammographic abnormality in EITHER breast. IMPRESSION: Evolving changes of RIGHT breast conservation therapy. No mammographic evidence of malignancy in EITHER breast. OVERALL FINAL ASSESSMENT: BI-RADS Category 2: Benign. RECOMMENDATION: Annual diagnostic mammography is recommended. Dictated by: Gallito Wu MD, Ph.D The radiology attending physician has personally reviewed this study, and had reviewed and/or edited this written report and agrees with it. Electronically signed by: Quynh Okeefe M.D. Emmie Emanuel NP IMG MAMMO PROCEDURES Fin al Result from Last 3 Months or Most Recently Relevant to Health Maintenance Insurance MEDICARE [facility] MEDICARE SUPPLEMENT MEDICARE [facility] MEDICARE SUPPLEMENT Advance Directives For more information, please contact: [phone] Documents on File Type Date Recorded Patient Hop Weigher Expl anation Power of Miner Placer 12/13/2020 6:34 AM * Full Code (Latest Code Status on File) Date Activated Date Inactivated Comments 10/24/2020 2:28 PM 10/25/2020 4:42 PM * Full Code Date Activated Date Inactivated Comments 10/30/2019 10:51 AM 11/01/2019 7:00 PM Care Teams Diesel Engine Pipe Fitter Relationship Specialty Start Date End Date Tomi Be MD [address] [place] [address] PCP - General Internal Medicine 01/15/17 Miscellaneous, Not In File 11/01/19 Krysta Justin MD [address] [facility] [address] [place] [address] Radiation Oncologist Radiation Oncology 04/03/22 Leah Rogers MD PhD [address] [place] [address] Surgeon Surgical Oncology 04/03/22 Marybeth Guerra, PhD [address] [place] [address] Nurse Practitioner Radiation Oncology 05/20/22 Sushil Zarate MD [address] [facility] DIV MEDICAL ONCOLOGY, [address] [place] [address] Medical Oncologist/Powerhouse Helper Medical Oncology 05/20/22 Garo Narvaez MD [address] [facility] [address] [place] [address] Consulting Physician Cardiology 04/22/24
--- OUTSIDE RECORDS SUMMARY | 2024-10-13 13:54 | XMS_ITS | Encounter Summary ---
Author Organization [facility] Healthcare Address [address] [place] [address] Care Team Providers Care Soapstoner Name Role Phone Unavailable Primary Care Provider Unavailabl e Reason for Visit * Diagnostic Imaging (Routine) - Closed Specialty Diagnoses / Procedures Referred By Contac t Referred To Contact Procedures Breast Imaging Diagnostic Outside Reference Aft, Leah Swift MD PhD [address] [place] [id number] Phone: tel: fax: Referral ID Status Reason Start Date Expiration Date Visits Re quested Visits Authorized [id number] Closed 01/02/2022 02/01/2023 1 1 Encounter Details Date Type Department Care Team (Late st Contact Info) Description 09/12/2016 Hospital Encounter [facility] [address] [place] [id number] Social History Tobacco Use Types Packs/Day Years [...] on file Legal Sex Female 12:14 AM ASSISTIVE TECHNOLOGY TRAINER Gender Identity Not on file Sexual Orientation Straight 07/05/2021 1: 52 PM ASSISTIVE TECHNOLOGY TRAINER documented as of this encounter Functional [...] only and have not been reviewed by [facility]. There will be no report generated by a [facility]iologist. Narrative [facility] - 01/02/2022 5:07 PM CDT EXAMINATION: Images For Reference Purposes Only us Leah Rogers MD PhD IMG MAMMO PROCEDURES Final Result [facility] documented in this encounter Visit Diagnoses Not on filedocumented in this encounter Additional Health Concerns Infection Onset Date Last Indicated Resolved Time COVID: Suspected 06/20/2023 06/20/2023 06/20/2023 7:31 PM ASSISTIVE TECHNOLOGY TRAINER documented as of this encounter
--- OUTSIDE RECORDS SUMMARY | 2024-10-13 13:54 | XMS_ITS | Referral Summary ---
Author Organization [facility] [address] [place] [address] Address [address] [facility] [address] [place] [address] Care Team Providers Care Interactive Digital Media Specialist Name Role Phone Tomi Be MD Primary Care Provider [phone] Miscellaneous, Not In File Unavailable Unava ilable Krysta Justin MD Unavailable Aft, Leah Swift MD PhD Unavailable [phone] Marybeth Guerra PhD Unavailable [phone] Sushil Zarate MD Unavailable [phone] Garo Narvaez MD Unavailable Encounters Date Type Department Care Team Description 10/12/[address] [facility] Cardiology [address] [facility] [address] [place] [address] Garo Narvaez MD 09/20/[address] [facility] Cardiology [address] [facility] [address] [place] [address] Garo Narvaez MD 09/06/2024 Telephone [facility] [address] [facility] Medical Office Building 2 [address] [place] [address] Juno Braun MD 09/06/2024 1:40 PM CDT Office Visit [facility] [address] [facility] 5th [place] [address] [place] [address] Juno Braun MD Osteoporosis, unspecified osteoporosis type, unspecified pathological fracture presence (Primary Dx) 09/06/2024 1:10 PM CDT Clinical Support [facility] [address] [facility] 5th [place] [address] [place] [address] Age-related osteoporosis without current pathological fracture (Primary Dx); Osteoporosis, unspecified osteoporosis type, unspecified pathological fracture presence 08/31/2024 7:30 AM CDT Ancillary Procedure [facility] [address] [facility] [address] [place] [id number] Presence of biventricular cardiac pacemaker (Primary Dx); Persistent atrial fibrillation (HCC) 08/19/2024 12:00 PM FINANCIAL ECONOMIST Lab [facility] - Lab Collection [address] [facility] Floor 5 [place] [address] 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 Cardiology [address] [place] [address] Garo Narvaez MD samples from Last 3 Months Allergies Active Allergy Reactions Criticality Noted Date [...] from 01/14/2022:Stage IA(cT1b, cN0, cM0, G2, ER+, VT+, HER2-) - Signed by Lance Austin MD on 04/03/2022 Pathologic stage from 02/28/2022:No Stage Recommended(pT1c, cN0, cM0, G2, ER+, VT+, HER2-) - Signed by Lance Austin MD on 04/03/2022 Pathologic: Unsigned Overview (02/04/2022): Added automatically from request for surgery [id number] Mammogram abnormal 01/07/2022 DURANT (dyspnea on exertion) 10/02/2021 Chronic combined systolic an d diastolic CHF (congestive heart failure) 10/02/2021 History of amiodarone therapy 10/02/2021 Hyperthyroidism 09/27/2021 Assessment & Plan (08/06/2022 3:06 PM FINANCIAL ECONOMIST): Seems to have resolved Will test once [...] m Assessment & Plan (07/24/2021 4:23 PM FINANCIAL ECONOMIST): I explained to Mrs. Guevara that her [...] 07/24/2021 Assessment & Plan (08/06/2022 3:06 PM FINANCIAL ECONOMIST): Check vit D Adjust dose of Ergocalciferol accordingly Assessment & Plan (07/24/2021 4:25 PM FINANCIAL ECONOMIST): Check 25 OH vit D and restart Ergocalciferol , accordingly Vitamin B 12 deficiency 07/24/2021 Assessment & Plan (07/24/2021 4:25 PM FINANCIAL ECONOMIST): The patient asked me to check on her B12 level to adjust her vitamin B12 supplementation. She follows also with her primary care doctor, Dr. Be on this regard A-fib 06/11/2021 Hip arthritis 03/02/2020 Pulmonary nodule 12/05/2019 Essential hypertension 10/31/2019 Depression 10/31/2019 Closed displaced comminuted fracture of shaft of right humerus 10/30/2019 Overview (10/30/2019): Added automatically from request for surgery [id number] PEYMAN (obstructive sleep apnea) 03/22/2019 Status post [...] office will make the appropriate arrangements. From: June CT, Laurita LS, Geno JS, Naheed H, Enrique STEPHANIE, Tierney JE, Gabrielle CHARLES, Brian PT, Jackson FINLEY, [place], Alcides KT, Elizabeth RL, Aj WG, Zion PJ, Brenda CM, Maile CW. 2014 AHA/ACC/HRS guideline for the management of patients with atrial fibrillation: a report of the [place] [employer]/[place] Heart Association Task Force on Practice Guidelines [...] (06/06/2021): Added automatically from request for surgery [id number] Medication management 12/12/20202021 Acute pain due to [...] 4:41 PM CDT): The patient has a KHN8IE1-JPBu score of 3 (annualized risk of stroke 3%). I have therefore recommended that she remain anticoagulated for thromboprophylaxis. Assessment & Plan (03/31/2019 8:49 AM CDT): The patient has a VKI6OT3-TDYl score of 3 (annualized risk of stroke [...] 09/01/2015 0 GIB (gastrointestinal bleeding) 08/29/2013 10/31/2019 Immunizations Immunization Administration Dates Next Due Influenza, Quadrivalent, Hig h Dose, Preservative Free, Intrr 02/14/2020 Influenza, Quadrivalent, Spl it, Preservative Free, Intramuscular 03/05/2018,03/07/2017 Influenza, Trivalent, High D ose, Split, Preservative Free, Intramuscular 03/11/2016,03/10/2013 Influenza, Trivalent, IM (MDV) 03/07/2015 Pneumococcal Conjugate PCV 13 06/07/2015 Pneumococcal Polysaccharide PPV23 08/30/2013 Social History Tobacco Use Types Packs/Day Years [...] on file Legal Sex Female 12:14 AM FINANCIAL ECONOMIST Gender Identity Not on file Sexual Orientation Straight 07/05/2021 1: 52 PM FINANCIAL ECONOMIST Last Filed Vital Signs Vital Sign Reading Time Taken Comments Blood Pressure 134/84 08/19/2024 1:02 PM FINANCIAL ECONOMIST Pulse 79 08/19/2024 1:02 PM FINANCIAL ECONOMIST Temperature 36.5 C (97.7 F) 08/19/2024 1:02 PM FINANCIAL ECONOMIST Respiratory Rate 18 08/19/2024 1:02 PM FINANCIAL ECONOMIST Oxygen Saturation 92% 08/19/2024 1:02 PM FINANCIAL ECONOMIST Inhaled Oxygen Concentration - - Weight 103.1 kg (227 lb 3.2 oz) 09/06/2024 1:34 PM CDT Height 160.3 cm (5' 3.1 ) 09/06/2024 1:34 PM CDT Body Mass Index 40.12 09/06/2024 1:34 PM CDT Plan of Treatment Not on file Medical Devices Implanted Type Area Calibration Technician Device Identifier Shelf Expiration Date Model / Serial / Lot Cardi[employer]fetch [employer] [id number] Vascade 6/7fr Bioabsorbable Vascular System Compression Collagen - [id number] - [id number] Implanted:Qty: 1 on 10/24/2020 by Mason Miranda MD at [facility] Collagen [employer] 07/19/2022 700-580I -05U / [id number] 204A / [id number] 204A Cardiva [employer] Inc [id number] System 6-12fr Mvp Venous Closure Vascade - [id number] - [id number] Implanted:Qty: 1 on 10/24/2020 by Mason Miranda MD at [facility] Collagen [employer] 08/22/2022 800-612C -10U / [id number] 310A / [id number] 310A [employer] 578-713l-84f System 6-12fr Mvp Venous Closure Vascade - [id number] - [id number] Implanted:Qty: 1 on 10/24/2020 by Mason Miranda MD at [facility] Collagen [employer] 08/22/2022 800-612C -10U / [id number] 310A / [id number] 310A [employer] 183-721q-73n System 6-12fr Mvp Venous Closure Vascade - [id number] - [id number] Implanted:Qty: 1 on 10/24/2020 by Mason Miranda MD at [facility] Collagen [employer] 08/22/2022 800-612C -10U / [id number] 310A / [id number] 310A [employer] 166-873w-67t System 6-12fr Mvp Venous Closure Vascade - [id number] - [id number] Implanted:Qty: 1 on 06/11/2021 by Mason Miranda MD at [facility] Collagen [employer] 03/27/2023 800-612C -10U / [id number] 019A / [id number] 019A [employer] 269-288l-95d System 6-12fr Mvp Venous Closure Vascade - [id number] - [id number] Implanted:Qty: 1 on 06/11/2021 by Mason Miranda MD at [facility] Collagen [employer] 03/27/2023 800-612C -10U / [id number] 019A / [id number] 019A [employer] 990-245o-74l System 6-12fr Mvp Venous Closure Vascade - [id number] - [id number] Implanted:Qty: 1 on 06/11/2021 by Mason Miranda MD at [facility] Collagen [employer] 03/27/2023 800-612C -10U / [id number] 019A / [id number] 019A [employer] 032-230i-21o Vascade 6/7fr Bioabsorbable Vascular System Compression Collagen - [id number] - [id number] Implanted:Qty: 1 on 06/11/2021 by Mason Miranda MD at [facility] Collagen [employer] 09/12/2022 700-580I -05U / [id number] 401A / [id number] 401A Medtronic Inc Capsurefix Novus 6.2fr 2mm 58cm Bipolar Screw In Implantable 5076-58 - [id number] - [id number] Implanted:Qty: 1 on 11/18/2023 by Mason Miranda MD at [facility] Lead Medtronic Inc [id number] 03/25/2025 507 6-58 / [id number] 1V / Medtronic Inc Attain Stability Quad Mri Surescan Active Fixation Lv Lead 88cm [id number] - [id number] - [id number] Implanted:Qty: 1 on 11/18/2023 by Mason Miranda MD at [facility] Lead [employer] Inc [id number] 09/03/2025 479 888 / [id number] / Medtronic Inc Solara Mri Surescan Bluetooth 46.5x59mm Connector Hole Radiopaque W4tr03 - [id number] - [id number] Implanted:Qty: 1 on 11/18/2023 by Mason Miranda MD at [facility] Pacemaker Medtronic Inc 12/11/2024 W4TR03 / [id number] / Synthes 241.35 12mm [id number] .5mm 5 Hole Collar 1/3 Tubular Plate Bone Stainless - S000 - [id number] Implanted:Qty: 1 on 10/30/2019 by Paras Houston MD at [facility] Plate Right: Humerus Synthes I 241.35 / 000 / 000 Synthes 241.923s Plate Bone Lcp Combi Philos Long Stainless Steel L232mm X W12mm X H3.7mm Humerus Proximal 10 Hole Shaft Sterile 3.5mm Screw Small Fragment Set - S000 - [id number] Implanted:Qty: 1 on 10/30/2019 by Paras Houston MD at [facility] Plate Right: Humerus Synthes I 241.923S / 000 / 000 Synthes 212.117 3.5mm 2.9mm 40mm Self Tap Lock Stardrive Conical Head T15 Full - S000 - [id number] Implanted:Qty: 1 on 10/30/2019 by Paras Houston MD at [facility] Screw Right: Humerus Synthes I 212.117 / 000 / 000 Synthes 212.118 3.5mm 2.9mm 42mm Self Tap Lock Stardrive Conical Head Full Thread - S000 - [id number] Implanted:Qty: 1 on 10/30/2019 by Paras Houston MD at [facility] Screw Right: Humerus Synthes I 212.118 / 000 / 000 Synthes 212.115 3.5mm 2.9mm 36mm Self Tap Lock Stardrive Conical Head T15 Full - S000 - [id number] Implanted:Qty: 1 on 10/30/2019 by Paras Houston MD at [facility] Screw Right: Humerus Synthes I 212.115 / 000 / 000 Synthes 212.108 3.5mm 2.9mm 24mm Self Tap Lock Stardrive Conical Head Pelvis T15 - S000 - [id number] Implanted:Qty: 3 on 10/30/2019 by Paras Houston MD at [facility] Screw Right: Humerus Synthes I 212.108 / 000 / 000 Synthes 204.824 3.5mm 6mm 24mm 2.5mm Self Tap Small Hexagonal Socket Low Profile - S000 - [id number] Implanted:Qty: 2 on 10/30/2019 by Paras Houston MD at [facility] Screw Right: Humerus Synthes I 204.824 / 000 / 000 Synthes 204.820 3.5mm 6mm 20mm 2.5mm Self Tap Small Hexagonal Socket Low Profile - S000 - [id number] Implanted:Qty: 1 on 10/30/2019 by Paras Houston MD at [facility] Screw Right: Humerus Synthes I 204.820 / 000 / 000 Synthes 204.822 3.5mm 6mm 22mm 2.5mm Self Tap Small Hexagonal Socket Low Profile - S000 - [id number] Implanted:Qty: 1 on 10/30/2019 by Paras Houston MD at [facility] Screw Right: Humerus Synthes I 204.822 / 000 / 000 Synthes 204.828 3.5mm 6mm 28mm 2.5mm Self Tap Small Hexagonal Socket Low Profile - S000 - [id number] Implanted:Qty: 1 on 10/30/2019 by Paras Huoston MD at [facility] Screw Right: Humerus Synthes I 204.828 / 000 / 000 Synthes 204.826 3.5mm 6mm 26mm 2.5mm Self Tap Small Hexagonal Socket Low Profile - S000 - [id number] Implanted:Qty: 1 on 10/30/2019 by Paras Houston MD at [facility] Screw Right: Humerus Synthes I 204.826 / 000 / 000 Synthes 212.121 3.5mm 2.9mm 50mm Self Tap Lock Stardrive Conical Head T15 Full - S000 - [id number] Implanted:Qty: 1 on 10/30/2019 by Paras Houston MD at [facility] Screw Right: Humerus Synthes I 212.121 / 000 / 000 Synthes 212.114 3.5mm 2.9mm 35mm Self Tap Lock Stardrive Conical Head T15 Full - S000 - [id number] Implanted:Qty: 1 on 10/30/2019 by Paras Houston MD at [facility] Screw Right: Humerus Synthes I 212.114 / 000 / 000 Synthes 212.116 3.5mm 2.9mm 38mm Self Tap Lock Stardrive Conical Head T15 Full - S000 - [id number] Implanted:Qty: 1 on 10/30/2019 by Paras Houston MD at [facility] Screw Right: Humerus Synthes I 212.116 / 000 / 000 Bard Peripheral Vascular Ultraclip Bard 17ga 10cm 2 Trigger Permanent Ultrasound [id number] - [id number] Implanted:Qty: 1 on 01/14/2022 at [facility] Right: Breast Bard Peripheral Vascular [id number] / / Bard Peripheral Vascular Ghiatas 20ga 20cm 9cm Beaded Needle Breast Wire Localization 05994 - [id number] Implanted:Qty: 1 on 02/28/2022 at [facility] Right: Breast Bard Peripheral Vascular [id number] / / Explanted Type Area Calibration Technician Device Identifier Shelf Expiration Date Model / Serial / Lot Synthes 204.812 3.5mm 6mm 12mm 2.5mm Self Tap Small Hexagonal Socket Low Profile - S000 - [id number] Explanted:Qty: 1 on 10/30/2019 by Paras Houston MD at [facility] Screw Right: Humerus Synthes I 204.812 / 000 / 000 Procedures Procedure Name Priority Date/Time Associated Diagnosis Comments DEXA TBS AXIAL SKELETON BONE DENSITY 1 OR MORE SITES Schedule Routine, Read Routine (OP Routine) 09/06/2024 1:18 PM CDT Age-related osteoporosis without current pathological fracture DEVICE CHECK - REMOTE Routine 08/31/2024 10:06 AM CDT Persistent atrial fibrillation (HCC) EGFR Routine 08/19/2024 12:41 PM FINANCIAL ECONOMIST Carcinoma of right breast with ductal and lobular features (HCC) COMPREHENSIVE METABOLIC PANEL Routine 08/19/2024 12:41 PM FINANCIAL ECONOMIST Carcinoma of right breast with ductal and lobular features (HCC) VITAMIN D 25 HYDROXY Routine 08/19/2024 12:41 PM FINANCIAL ECONOMIST Carcinoma of right breast with ductal and [...] Bone mineral density was performed on a Wote Discovery Densitometer. Based on machine cross-calibration and [...] mineral density scan were prepared by Alisa Chirinos)(CBDT)who is accredited by the International Society of Clinical Densitometry. The overall patient assessment and scan interpretation were performed by Juno Braun M.D. who is certified by the International Society of Clinical Densitometry. [id number] Juno Braun MD IM DXA PROCEDURES Final Result * DEVICE CHECK [...] Final Result * eGFR (08/19/2024 12:41 PM FINANCIAL ECONOMIST) eGFR 90 >=60 mL/min/1. 73 m2 Comment: [...] of Race in Diagnosing Kidney Disease, JASN 2020). The CKD-EPI equation should not be used for patients with unstable renal function and has not been validated in children and those over 70. Current interpretive data was last reviewed 2021. Blood 08/19/2024 12:4 1 PM FINANCIAL ECONOMIST 08/19/2024 12:46 PM FINANCIAL ECONOMIST us Sushil Zarate MD LAB BLOOD ORDERABLES Final Result Performing Organization Address City/[facility] Co de Phone Number [facility] [place] [address] * (ABNORMAL) Vitamin D 25 hydroxy (08/19/2024 12:41 PM FINANCIAL ECONOMIST) Pathologist [facility] Vitamin D 25-OH 20(L) 30 - 80 ng/mL Blood 08/19/2024 12:4 1 PM FINANCIAL ECONOMIST 08/19/2024 12:46 PM FINANCIAL ECONOMIST us Sushil Zarate MD LAB BLOOD ORDERABLES Final Result Performing Organization Address [facility] de Phone Number [facility] [place] [address] * (ABNORMAL) Comprehensive metabolic panel (08/19/2024 12:41 PM FINANCIAL ECONOMIST) [facility] Sodium 146(H) 135 - 145 mmol/L Potassium, pl 3.4 3.3 - 4.9 mmol/L [facility] Chloride 111(H) 97 - 110 mmol/L [facility] CO2 25 22 - 32 mmol/L [facility] Anion gap 10 2 - 15 mmol/L [facility] BUN 13 6 - 25 mg/dL [facility] Creatinine 0.67 0.60 - 1.10 mg/dL [facility] Glucose 149 70 - 199 mg/dL [facility] Comment: Interpretive Data Fasting glucose >/= 126 [...] Calcium 8.8 8.5 - 10.3 mg/dL [facility] Bilirubin, total 0.6 0.1 - 1.2 mg/dL [facility] Protein, pl 7.0 6.5 - 8.5 g/dL [facility] Albumin 3.8 3.5 - 5.0 g/dL [facility] Alk phos 68 40 - 130 Units/L [facility] ALT 6(L) 7 - 45 Units/L [facility] AST 18 10 - 45 Units/L [facility] Blood 08/19/2024 12:4 1 PM FINANCIAL ECONOMIST 08/19/2024 12:46 PM FINANCIAL ECONOMIST us Sushil Zarate MD LAB BLOOD ORDERABLES Final Result Performing Organization Address City/State/[facility] Co de Phone Number [facility] Department [place] [address] * Diagnostic Mammogram Bilateral W Alec (11/11/2023 [...] Most Recently Relevant to Health Maintenance Insurance [facility] MEDICARE SUPPLEMENT MEDICARE [facility] MEDICARE SUPPLEMENT Advance Directives For more information, please contact: [phone] Documents on File Type Date Recorded Patient Scrap Iron Cutter Expl anation Power of Hot Molder 12/13/2020 6:34 AM * Full Code (Latest Code Status on File) Date Activated Date Inactivated Comments 10/24/2020 2:28 PM 10/25/2020 4:42 PM * Full Code Date Activated Date Inactivated Comments 10/30/2019 10:51 AM 11/01/2019 7:00 PM Care Teams Interactive Digital Media Specialist Relationship Specialty Start Date End Date Tomi Be MD [address] [place] [address] PCP - General Internal Medicine 01/15/17 Miscellaneous, Not In File 11/01/19 Krysta Justin MD [address] [place] [address] Radiation Oncologist Radiation Oncology 04/03/22 Leah Rogers MD PhD [address] [place] [address] Surgeon Surgical Oncology 04/03/22 Marybeth Guerra, PhD [address] [place] [address] Nurse Practitioner Radiation Oncology 05/20/22 Sushil Zarate MD [address] DIV MEDICAL ONCOLOGY, [facility] [address] [place] [address] Medical Oncologist/Manager Media Medical Oncology 05/20/22 Garo Narvaez MD [address] [facility] [address] [place] [address] Consulting Physician Cardiology 04/22/24
--- OUTSIDE RECORDS SUMMARY | 2024-10-13 13:55 | XMS_ITS | Encounter Summary ---
Author Organization [facility] Healthcare Address [address] [place] [address] Care Team Providers Care Tdp Displays Analyst Name Role Phone Tomi Be MD Primary Care Provider + [phone] Reason for Visit * Diagnostic Imaging (Routine) - Closed Specialty Diagnoses / Procedures Referred By Contac t Referred To Contact Procedures Breast Imaging Screening Outside Reference Aft, Leah Swift MD PhD [address] [place] [id number] Phone: tel: fax: Referral ID Status Reason Start Date Expiration Date Visits Re quested Visits Authorized [id number] Closed 01/02/2022 02/01/2023 1 1 Encounter Details Date Type Department Care Team (Late st Contact Info) Description 11/11/2018 Hospital Encounter [facility] [address] [place] [address] Social History Tobacco Use Types Packs/Day Years [...] on file Legal Sex Female 12:14 AM TRIMMING INSPECTOR Gender Identity Not on file Sexual Orientation Straight 07/05/2021 1: 52 PM TRIMMING INSPECTOR documented as of this encounter Functional Status [...] only and have not been reviewed by [facility] Radiology. There will be no report generated by a [facility] Radiologist. Narrative [facility] - 01/02/2022 5:06 PM CDT EXAMINATION: Images For Reference Purposes Only us Leah Rogers MD PhD IMG MAMMO PROCEDURES Final Result [facility] documented in this encounter Visit Diagnoses Not on filedocumented in this encounter Additional Health Concerns Infection Onset Date Last Indicated Resolved Time COVID: Suspected 06/20/2023 06/20/2023 06/20/2023 7:31 PM TRIMMING INSPECTOR documented as of this encounter Care Teams Tdp Displays Analyst Relationship Specialty Start Date End Date Tomi Be MD [address] [place] [id number] PCP - General Internal Medicine 01/15/17 documented as of this encounter
--- OUTSIDE RECORDS SUMMARY | 2024-10-13 13:55 | XMS_ITS | Encounter Summary ---
Author Organization [facility] Healthcare Address [address] [place] [address] Care Team Providers Care Direct Care Counselor Name Role Phone Tomi Be MD Primary Care Provider + [phone] Reason for Visit * Diagnostic Imaging (Routine) - Closed Specialty Diagnoses / Procedures Referred By Contac t Referred To Contact Procedures Breast Imaging Diagnostic Outside Reference Aft, Leah Swift MD PhD [address] [place] [id number] Phone: tel: fax: Referral ID Status Reason Start Date Expiration Date Visits Re quested Visits Authorized [id number] Closed 01/02/2022 02/01/2023 1 1 Encounter Details Date Type Department Care Team (Late st Contact Info) Description 11/16/2018 Hospital Encounter [facility]iology [facility] [address] [place] [id number] Social History Tobacco Use Types Packs/Day Years [...] on file Legal Sex Female 12:14 AM SENIOR INVESTIGATOR Gender Identity Not on file Sexual Orientation Straight 07/05/2021 1: 52 PM SENIOR INVESTIGATOR documented as of this encounter Functional Status [...] only and have not been reviewed by [facility] Radiology. There will be no report generated by a [facility] Radiologist. Narrative [facility] - 01/02/2022 5:04 PM CDT EXAMINATION: Images For Reference Purposes Only us Leah Rogers MD PhD IMG MAMMO PROCEDURES Final Result [facility] documented in this encounter Visit Diagnoses Not on filedocumented in this encounter Additional Health Concerns Infection Onset Date Last Indicated Resolved Time COVID: Suspected 06/20/2023 06/20/2023 06/20/2023 7:31 PM SENIOR INVESTIGATOR documented as of this encounter Care Teams Direct Care Counselor Relationship Specialty Start Date End Date Tomi Be MD [address] [place] [address] PCP - General Internal Medicine 01/15/17 documented as of this encounter
--- NOTE | 2024-10-13 15:55 | WPDSIXMINUTE ---
Six Minute Walk Procedure Procedure Performed Pulmonary Stress Test (6 min walk) Six Minute Walk Six Minute Walk: This is a 6 minute walk test. The test was performed and interpreted in accordance with the 2014 ERS/ATS task force guidelines. Of note, patient used a wheeled walker and 2 L nasal cannula. Findings: The patient's resting 2 L NC oxygen saturation measured by pulse oximetry was 92%, the heart rate was 73 bpm, and the modified Bossman dyspnea score was 2. Patient ambulated for 183 meters and oxygen saturation remained 91 to 92%. At the end of the study the heart rate was 101 bpm and the modified Bossman dyspnea score was 3. The patient had no rest or ambulatory hypoxemia on 2 L nasal cannula. in comparison to 6 minute walk on 05/21/2024 which was performed on room air, the ambulatory distance was unchanged at 183 m. and the jose saturation was unchanged at 91%.
== END 2024-10-13 13:02 | disposition home or self-care (01) ==
PROVIDERS: PCP Internal Medicine; Visit Provider Internal Medicine Critical Care Medicine
DX: J43.9 Emphysema, unspecified (principal); J98.4 Other disorders of lung
CPT/HCPCS: 94618

== ENCOUNTER 2024-10-22 13:29 | Outpatient (CLI) | payer MEDICARE, SELFPAY ==
--- NOTE | ~2024-10-22 | XR_ITS ---
XR abdomen/kub 1V 10/22/2024 13:49 Indication: Left renal stone Procedure: KUB Comparison: 10/06/2023 Findings: There is a large left renal stone measuring 4.9 x 2.6 cm. There are amorphous calcification s in the pelvis, likely related to calcified uterine fibroid. There is a left total hip arthroplasty. Moderate osteoarthritis of the right hip. Moderate lumbar spondylosis. Nonobstructive bowel gas graham sima. Lung bases unremarkable. Pacemaker leads are identified. Impression: 1: Left nephrolithiasis measuring up to 4.9 cm maximum dimension. Reviewed, dictated and finalized at location A. Impression: 1: Left nephrolithiasis measuring up to 4.9 cm maximum dimension.
--- OUTSIDE RECORDS SUMMARY | 2024-10-22 13:37 | XMS_ITS | Encounter Summary ---
Author Organization [facility] Healthcare Address [address] [place] [address] Care Team Providers Care Butcher Scullion Name Role Phone Tomi Be MD Primary Care Provider + [phone] Reason for Visit * Diagnostic Imaging (Routine) - Closed Specialty Diagnoses / Procedures Referred By Contac t Referred To Contact Procedures Breast Imaging US Outside Reference Aft, Leah Swift MD PhD [address] [place] [id number] Phone: tel: fax: Referral ID Status Reason Start Date Expiration Date Visits Re quested Visits Authorized [id number] Closed 01/02/2022 02/01/2023 1 1 Encounter Details Date Type Department Care Team (Late st Contact Info) Description 11/16/2018 12:05 AM CDT Hospital Encounter [facility] [address] [place] [id number] Social History Tobacco Use Types Packs/Day Years [...] on file Legal Sex Female 12:14 AM FITNESS TRAINER Gender Identity Not on file Sexual Orientation Straight 07/05/2021 1: 52 PM FITNESS TRAINER documented as of this encounter Functional [...] only and have not been reviewed by [facility] Radiology. There will be no report generated by a [facility] Radiologist. Narrative [facility] - 01/02/2022 5:18 PM CDT EXAMINATION: Images For Reference Purposes Only us Leah Rogers MD PhD IMG MAMMO PROCEDURES Final Result [facility] documented in this encounter Visit Diagnoses Not on filedocumented in this encounter Additional Health Concerns Infection Onset Date Last Indicated Resolved Time COVID: Suspected 06/20/2023 06/20/2023 06/20/2023 7:31 PM FITNESS TRAINER documented as of this encounter Care Teams Butcher Scullion Relationship Specialty Start Date End Date Tomi Be MD [address] [place], [place] [id number] PCP - General Internal Medicine 01/15/17 documented as of this encounter
--- OUTSIDE RECORDS SUMMARY | 2024-10-22 13:37 | XMS_ITS | Encounter Summary ---
Author Organization [facility] Healthcare Address [address] [place] [address] Care Team Providers Care Senior Financial Name Role Phone Tomi Be MD Primary Care Provider + [phone] Reason for Visit * Diagnostic Imaging (Routine) - Closed Specialty Diagnoses / Procedures Referred By Contac t Referred To Contact Procedures Breast Imaging Diagnostic Outside Reference Aft, Leah Swift MD PhD [address] [place] [id number] Phone: tel: fax: Referral ID Status Reason Start Date Expiration Date Visits Re quested Visits Authorized [id number] Closed 01/02/2022 02/01/2023 1 1 Encounter Details Date Type Department Care Team (Late st Contact Info) Description 11/30/2018 Hospital Encounter [facility] Radiology [facility] [address] [place] [phone] Social History Tobacco Use Types Packs/Day Years [...] on file 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 There will be no report generated by a [facility] Radiologist. Narrative [facility] - 01/02/2022 5:04 PM CDT EXAMINATION: Images For Reference Purposes Only us Leah Rogers MD PhD IMG MAMMO PROCEDURES Final Result [facility] documented in this encounter Visit Diagnoses Not on filedocumented in this encounter Additional Health Concerns Infection Onset Date Last Indicated Resolved Time COVID: Suspected 06/20/2023 06/20/2023 06/20/2023 7:31 PM HELP DESK ADMINISTRATOR documented as of this encounter Care Teams Senior Financial Relationship Specialty Start Date End Date Tomi Be MD [address] [place] [address] PCP - General Internal Medicine 01/15/17 documented as of this encounter
--- OUTSIDE RECORDS SUMMARY | 2024-10-22 13:37 | XMS_ITS | Encounter Summary ---
Author Organization [facility] Healthcare Address [address] [place] [address] Care Team Providers Care Principal Solutions Architect Name Role Phone Tomi Be MD Primary Care Provider + [phone] Reason for Visit * Diagnostic Imaging (Routine) - Closed Specialty Diagnoses / Procedures Referred By Contac t Referred To Contact Procedures Breast Imaging Screening Outside Reference Aft, Leah Swift MD PhD [address] [place] [id number] Phone: tel: fax: Referral ID Status Reason Start Date Expiration Date Visits Re quested Visits Authorized [id number] Closed 01/02/2022 02/01/2023 1 1 Encounter Details Date Type Department Care Team (Late st Contact Info) Description 10/16/2017 Hospital Encounter [facility] Radiology [facility] [address] [place] [phone] Social History Tobacco Use Types Packs/Day Years [...] on file 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 There will be no report generated by a [facility] Radiologist. Narrative [facility] - 01/02/2022 5:06 PM CDT EXAMINATION: Images For Reference Purposes Only us Leah Rogers MD PhD IMG MAMMO PROCEDURES Final Result [facility] documented in this encounter Visit Diagnoses Not on filedocumented in this encounter Additional Health Concerns Infection Onset Date Last Indicated Resolved Time COVID: Suspected 06/20/2023 06/20/2023 06/20/2023 7:31 PM BENCH WORKER HELPER documented as of this encounter Care Teams Principal Solutions Architect Relationship Specialty Start Date End Date Tomi Be MD [address] [place] [address] PCP - General Internal Medicine 01/15/17 documented as of this encounter
--- OUTSIDE RECORDS SUMMARY | 2024-10-22 13:37 | XMS_ITS | Encounter Summary ---
Author Organization [facility] Healthcare Address [address] [place] [address] Care Team Providers Care Fire Services Plumber Name Role Phone Unavailable Primary Care Provider Unavailabl e Reason for Visit * Diagnostic Imaging (Routine) - Closed Specialty Diagnoses / Procedures Referred By Contac t Referred To Contact Procedures Breast Imaging Screening Outside Reference Aft, Leah Swift MD PhD [address] [place] [address] Phone: tel: fax: Referral ID Status Reason Start Date Expiration Date Visits Re quested Visits Authorized [id number] Closed 01/02/2022 02/01/2023 1 1 Encounter Details Date Type Department Care Team (Late st Contact Info) Description 08/28/2016 Hospital Encounter [facility] Radiology [facility] [address] [place] [address] [phone] Social History Tobacco Use Types Packs/Day Years [...] on file 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 There will be no report generated by a [facility] Radiologist. Narrative [facility] - 01/02/2022 5:07 PM CDT EXAMINATION: Images For Reference Purposes Only us Leah Rogers MD PhD IMG MAMMO PROCEDURES Final Result [facility] documented in this encounter Visit Diagnoses Not on filedocumented in this encounter Additional Health Concerns Infection Onset Date Last Indicated Resolved Time COVID: Suspected 06/20/2023 06/20/2023 06/20/2023 7:31 PM MACHINE SHOP LEAD MAN documented as of this encounter
--- OUTSIDE RECORDS SUMMARY | 2024-10-22 13:37 | XMS_ITS | Referral Summary ---
Author Organization [facility] [address] [place] [address] Address [address] [place] [address] Care Team Providers Care Record Press Tender Name Role Phone Tomi Be MD Primary Care Provider Miscellaneous, Not In File Unavailable Unava ilable Krysta Justin MD Unavailable Aft, Leah Swift MD PhD Unavailable [phone] Marybeth Guerra PhD Unavailable Sushil Zarate MD Unavailable [phone] Garo Narvaez MD Unavailable Encounters Date Type Department Care Team Description 10/12/2024 Telephone [facility] Cardiology [address] [place] [address] Garo Narvaez MD 09/20/2024 Telephone [facility] Cardiology [address] [place] [address] Garo Narvaez MD 09/06/2024 Telephone [facility] [address] [facility] Medical Office Building 2 [address] [place] [address] Juno Braun MD 09/06/2024 1:40 PM CDT Office Visit [facility] [address] [facility] 5th [place] [address] [place] [address] Juno Braun MD Osteoporosis, unspecified osteoporosis type, unspecified pathological fracture presence (Primary Dx) 09/06/2024 1:10 PM CDT Clinical Support [facility] [address] [facility] Medicine 5th [place] [address] [place] [address] Age-related osteoporosis without current pathological fracture (Primary Dx); Osteoporosis, unspecified osteoporosis type, unspecified pathological fracture presence 08/31/2024 7:30 AM CDT Ancillary Procedure [facility] [address] [place] [address] Presence of biventricular cardiac pacemaker (Primary Dx); Persistent atrial fibrillation (HCC) 08/19/2024 12:00 PM DIRECTOR OF ENVIRONMENTAL SERVICES Lab [facility] - [facility] [address] [facility] [address] [place] [address] 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) (Primary Dx) from Last 3 Months Allergies Active Allergy [...] from 01/14/2022:Stage IA(cT1b, cN0, cM0, G2, ER+, PA+, HER2-) - Signed by Lance Austin MD on 04/03/2022 Pathologic stage from 02/28/2022:No Stage Recommended(pT1c, cN0, cM0, G2, ER+, PA+, HER2-) - Signed by Lance Austin MD on 04/03/2022 Pathologic: Unsigned Overview (02/04/2022): Added automatically from request for surgery [id number] Mammogram abnormal 01/07/2022 DURANT (dyspnea on exertion) 10/02/2021 Chronic combined systolic an d diastolic CHF (congestive heart failure) 10/02/2021 History of amiodarone therapy 10/02/2021 Hyperthyroidism 09/27/2021 Assessment & Plan (08/06/2022 3:06 PM DIRECTOR OF ENVIRONMENTAL SERVICES): Seems to have resolved Will test once [...] Assessment & Plan (07/24/2021 4:23 PM DIRECTOR OF ENVIRONMENTAL SERVICES): I explained to Mrs. Guevara that her [...] Assessment & Plan (08/06/2022 3:06 PM DIRECTOR OF ENVIRONMENTAL SERVICES): Check vit D Adjust dose of Ergocalciferol accordingly Assessment & Plan (07/24/2021 4:25 PM DIRECTOR OF ENVIRONMENTAL SERVICES): Check 25 OH vit D and restart Ergocalciferol , accordingly Vitamin B 12 deficiency 07/24/2021 Assessment & Plan (07/24/2021 4:25 PM DIRECTOR OF ENVIRONMENTAL SERVICES): The patient asked me to check on her B12 level to adjust her vitamin B12 supplementation. She follows also with her primary care doctor, Dr. Be on this regard A-fib 06/11/2021 Hip arthritis 03/02/2020 Pulmonary nodule 12/05/2019 Essential hypertension 10/31/2019 Depression 10/31/2019 Closed displaced comminuted fracture of shaft of right humerus 10/30/2019 Overview (10/30/2019): Added automatically from request for surgery [id number] PEYMAN (obstructive sleep apnea) 03/22/2019 Status post [...] with atrial fibrillation: a report of the [place] [employer]/[place] [employer] Association Task Force on Practice Guidelines [...] (06/06/2021): Added automatically from request for surgery [id number] Medication management 12/12/20202021 Acute pain due to [...] 4:41 PM CDT): The patient has a QCZ6MG3-BIPo score of 3 (annualized risk of stroke 3%). I have therefore recommended that she remain anticoagulated for thromboprophylaxis. Assessment & Plan (03/31/2019 8:49 AM CDT): The patient has a STP6IT2-YOHv score of 3 (annualized risk of stroke [...] on file Legal Sex Female 12:14 AM DIRECTOR OF ENVIRONMENTAL SERVICES Gender Identity Not on file Sexual Orientation Straight 07/05/2021 1: 52 PM DIRECTOR OF ENVIRONMENTAL SERVICES Last Filed Vital Signs Vital Sign Reading Time Taken Comments Blood Pressure 134/84 08/19/2024 1:02 PM DIRECTOR OF ENVIRONMENTAL SERVICES Pulse 79 08/19/2024 1:02 PM DIRECTOR OF ENVIRONMENTAL SERVICES Temperature 36.5 C (97.7 F) 08/19/2024 1:02 PM DIRECTOR OF ENVIRONMENTAL SERVICES Respiratory Rate 18 08/19/2024 1:02 PM DIRECTOR OF ENVIRONMENTAL SERVICES Oxygen Saturation 92% 08/19/2024 1:02 PM DIRECTOR OF ENVIRONMENTAL SERVICES Inhaled Oxygen Concentration - - Weight 103.1 kg (227 lb 3.2 oz) 09/06/2024 1:34 PM CDT Height 160.3 cm (5' 3.1 ) 09/06/2024 1:34 PM CDT Body Mass Index 40.12 09/06/2024 1:34 PM CDT Plan of Treatment Not on file Medical Devices Implanted Type Area Data Security Coordinator Device Identifier Shelf Expiration Date Model / Serial / Lot [employer] 052-243v-90s Vascade 6/7fr Bioabsorbable Vascular System Compression Collagen - [id number] - [id number] Implanted:Qty: 1 on 10/24/2020 by Mason Miranda MD at [facility] Collagen [employer] 07/19/2022 700-580I -05U / [id number] 204A / [id number] 204A [employer] 194-666x-88m System 6-12fr Mvp Venous Closure Vascade - [id number] - [id number] Implanted:Qty: 1 on 10/24/2020 by Mason Miranda MD at [facility] Collagen [employer] 08/22/2022 800-612C -10U / [id number] 310A / [id number] 310A [employer] [id number] System 6-12fr Mvp Venous Closure Vascade - [id number] - [id number] Implanted:Qty: 1 on 10/24/2020 by Mason Miranda MD at [facility] Collagen [employer] 08/22/2022 800-612C -10U / [id number] 310A / [id number] 310A [employer] 466-943b-49y System 6-12fr Mvp Venous Closure Vascade - [id number] - [id number] Implanted:Qty: 1 on 10/24/2020 by Mason Miranda MD at [facility] Collagen [employer] 08/22/2022 800-612C -10U / [id number] 310A / [id number] 310A [employer] 486-312t-23g System 6-12fr Mvp Venous Closure Vascade - [id number] - [id number] Implanted:Qty: 1 on 06/11/2021 by Mason Miranda MD at [facility] Collagen [employer] 03/27/2023 800-612C -10U / [id number] 019A / [id number] 019A [employer] 050-721u-47z System 6-12fr Mvp Venous Closure Vascade - [id number] - [id number] Implanted:Qty: 1 on 06/11/2021 by Mason Miranda MD at [facility] Collagen [employer] 03/27/2023 800-612C -10U / [id number] 019A / [id number] 019A [employer] 766-211m-66b System 6-12fr Mvp Venous Closure Vascade - [id number] - [id number] Implanted:Qty: 1 on 06/11/2021 by Mason Miranda MD at [facility] Collagen [employer] 03/27/2023 800-612C -10U / [id number] 019A / [id number] 019A [employer] 732-012c-55v Vascade 6/7fr Bioabsorbable Vascular System Compression Collagen - [id number] - [id number] Implanted:Qty: 1 on 06/11/2021 by Mason Miranda MD at [facility] Collagen [employer] 09/12/2022 700-580I -05U / [id number] 401A / [id number] 401A Med[employer]onic [employer] Capsurefix Novus 6.2fr 2mm 58cm Bipolar Screw In Implantable 5076-58 - [id number] - [id number] Implanted:Qty: 1 on 11/18/2023 by Mason Miranda MD at [facility] Lead [employer] Inc [id number] 03/25/2025 507 6-58 / [id number] 1V / [employer] Inc Attain Stability Quad Mri Surescan Active Fixation Lv Lead 88cm [id number] - [id number] - [id number] Implanted:Qty: 1 on 11/18/2023 by Mason Miranda MD at [facility] Lead [employer] [id number] 09/03/2025 479 888 / [id number] / [employer] Inc Solara Mri Surescan Bluetooth 46.5x59mm Connector Hole Radiopaque W4tr03 - [id number] - [id number] Implanted:Qty: 1 on 11/18/2023 by Mason Miranda MD at [facility] Pacemaker [employer] 12/11/2024 [id number] / [id number] / Synthes 241.35 12mm 24f1f5ot .5mm 5 Hole Collar 1/3 Tubular Plate Bone Stainless - S000 - [id number] Implanted:Qty: 1 on 10/30/2019 by Paras Houston MD at [facility] Plate Right: Humerus Synthes I 241.35 / 000 / 000 Synthes 241.923s Plate Bone Lcp Combi Philos Long Stainless Steel L232mm X W12mm X H3.7mm Humerus Proximal 10 Hole Shaft Sterile 3.5mm Screw Small Fragment Set - S000 - [id number] Implanted:Qty: 1 on 10/30/2019 by Paras Houston MD at [facility] Plate Right: Humerus Synthes I 241.923S / 000 / 000 Synthes 212.117 3.5mm 2.9mm 40mm Self Tap Lock Stardrive Conical Head T15 Full - S000 - [id number] Implanted:Qty: 1 on 10/30/2019 by Paras Houston MD at [facility] Screw Right: Humerus Synthes I 212.117 / 000 / 000 Synthes 212.118 3.5mm 2.9mm 42mm Self Tap Lock Stardrive Conical Head Full Thread - S000 - [id number] Implanted:Qty: 1 on 10/30/2019 by Paras Houston MD at [facility] Screw Right: Humerus Synthes I 212.118 / 000 / 000 Synthes 212.115 3.5mm 2.9mm 36mm Self Tap Lock St[employer]rive Conical Head T15 Full - S000 - [id number] Implanted:Qty: 1 on 10/30/2019 by Paras Houston MD at [facility] Screw Right: Humerus Synthes I 212.115 / 000 / 000 Synthes 212.108 3.5mm 2.9mm 24mm Self Tap Lock Stardrive Conical Head Pelvis T15 - S000 - [id number] Implanted:Qty: 3 on 10/30/2019 by Paras Houston MD at [facility] Screw Right: Humerus Synthes I 212.108 / 000 / 000 Synthes 204.824 3.5mm 6mm 24mm 2.5mm Self Tap Small Hexagonal Socket Low Profile - S000 - [id number] Implanted:Qty: 2 on 10/30/2019 by Paras Houston MD at [facility] Screw Right: Humerus Synthes I 204.824 / 000 / 000 Synthes 204.820 3.5mm 6mm 20mm 2.5mm Self Tap Small Hexagonal Socket Low Profile - S000 - [id number] Implanted:Qty: 1 on 10/30/2019 by Paras Houston MD at [facility] Screw Right: Humerus Synthes I 204.820 / 000 / 000 Synthes 204.822 3.5mm 6mm 22mm 2.5mm Self Tap Small Hexagonal Socket Low Profile - S000 - [id number] Implanted:Qty: 1 on 10/30/2019 by Paras Houston MD at [facility] Screw Right: Humerus Synthes I 204.822 / 000 / 000 Synthes 204.828 3.5mm 6mm 28mm 2.5mm Self Tap Small Hexagonal Socket Low Profile - S000 - [id number] Implanted:Qty: 1 on 10/30/2019 by Paras Houston MD at [facility] Screw Right: Humerus Synthes I 204.828 / 000 / 000 Synthes 204.826 3.5mm 6mm 26mm 2.5mm Self Tap Small Hexagonal Socket Low Profile - S000 - [id number] Implanted:Qty: 1 on 10/30/2019 by Paras Houston MD at [facility] Screw Right: Humerus Synthes I 204.826 / 000 / 000 Synthes 212.121 3.5mm 2.9mm 50mm Self Tap Lock Stardrive Conical Head T15 Full - S000 - [id number] Implanted:Qty: 1 on 10/30/2019 by Paras Houston MD at [facility] Screw Right: Humerus Synthes I 212.121 / 000 / 000 Synthes 212.114 3.5mm 2.9mm 35mm Self Tap Lock Stardrive Conical Head T15 Full - S000 - [id number] Implanted:Qty: 1 on 10/30/2019 by Paras Houston MD at [facility] Screw Right: Humerus Synthes I 212.114 / 000 / 000 Synthes 212.116 3.5mm 2.9mm 38mm Self Tap Lock Stardrive Conical Head T15 Full - S000 - [id number] Implanted:Qty: 1 on 10/30/2019 by Paras Houston MD at [facility] Screw Right: Humerus Synthes I 212.116 / 000 / 000 Bard Peripheral Vascular Ultraclip Bard 17ga 10cm 2 Trigger Permanent Ultrasound 808803g - [id number] Implanted:Qty: 1 on 01/14/2022 at [facility] Right: Breast Bard Peripheral Vascular [id number] / / Bard Peripheral Vascular Ghiatas 20ga 20cm 9cm Beaded Needle Breast Wire Localization 23268 - [id number] Implanted:Qty: 1 on 02/28/2022 at [facility] Right: Breast Bard [employer]ipheral [employer] [id number] / / Explanted Type Area Data Security Coordinator Device Identifier Shelf Expiration Date Model / Serial / Lot Synthes 204.812 3.5mm 6mm 12mm 2.5mm Self Tap Small Hexagonal Socket Low Profile - S000 - [id number] Explanted:Qty: 1 on 10/30/2019 by Paras Houston MD at [facility] Screw Right: Humerus Synthes [...] fibrillation (HCC) EGFR Routine 08/19/2024 12:41 PM DIRECTOR OF ENVIRONMENTAL SERVICES Carcinoma of right breast with ductal and lobular features (HCC) COMPREHENSIVE METABOLIC PANEL Routine 08/19/2024 12:41 PM DIRECTOR OF ENVIRONMENTAL SERVICES 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 Based on machine cross-calibration and [...] by the International Society of Clinical Densitometry. [id number] Juno Braun MD IMG DXA PROCEDURES Final Result * DEVICE CHECK [...] Final Result * eGFR (08/19/2024 12:41 PM DIRECTOR OF ENVIRONMENTAL SERVICES) eGFR 90 >=60 mL/min/1. 73 m2 Comment: [...] reviewed 2021. Blood 08/19/2024 12:4 1 PM DIRECTOR OF ENVIRONMENTAL SERVICES 08/19/2024 12:46 PM DIRECTOR OF ENVIRONMENTAL SERVICES Sushil Zarate MD LAB BLOOD ORDERABLES Final Result [facility] [place] [address] * (ABNORMAL) Vitamin D 25 hydroxy (08/19/2024 12:41 PM DIRECTOR OF ENVIRONMENTAL SERVICES) Pathologist [facility] Vitamin D 25-OH 20(L) 30 - 80 ng/mL Blood 08/19/2024 12:4 1 PM DIRECTOR OF ENVIRONMENTAL SERVICES 08/19/2024 12:46 PM DIRECTOR OF ENVIRONMENTAL SERVICES Sushil Zarate MD LAB BLOOD ORDERABLES Final Result Performing Organization Address [facility] Co de Phone Number [facility] Department [place] [address] * (ABNORMAL) Comprehensive metabolic panel (08/19/2024 12:41 PM DIRECTOR OF ENVIRONMENTAL SERVICES) Pathologist [facility] Sodium 146(H) 135 - 145 mmol/L Potassium, pl 3.4 3.3 - 4.9 mmol/L [facility] Chloride 111(H) 97 - 110 mmol/L [facility] CO2 25 22 - 32 mmol/L [facility] Anion gap 10 2 - 15 mmol/L [facility] BUN 13 6 - 25 mg/dL [facility] Creatinine 0.67 0.60 - 1.10 mg/dL [facility] Glucose 149 70 - 199 mg/dL [facility] Comment: Interpretive Data Fasting glucose >/= 126 [...] Calcium 8.8 8.5 - 10.3 mg/dL [facility] Bilirubin, total 0.6 0.1 - 1.2 mg/dL [facility] Protein, pl 7.0 6.5 - 8.5 g/dL [facility] Albumin 3.8 3.5 - 5.0 g/dL [facility] Alk phos 68 40 - 130 Units/L [facility] ALT 6(L) 7 - 45 Units/L [facility] AST 18 10 - 45 Units/L [facility] Blood 08/19/2024 12:4 1 PM DIRECTOR OF ENVIRONMENTAL SERVICES 08/19/2024 12:46 PM DIRECTOR OF ENVIRONMENTAL SERVICES us Sushil Zarate MD LAB BLOOD ORDERABLES Final Result [facility] [place] [address] * Diagnostic Mammogram Bilateral W Alec (11/11/2023 [...] Recently Relevant to Health Maintenance Insurance [facility]ICARE [facility] MEDICARE SUPPLEMENT MEDICARE [facility] MEDICARE SUPPLEMENT Advance Directives For more information, please contact: [phone] Documents on File Type Date Recorded Patient Zoning Engineer Expl anation Power of Snow Remover 12/13/2020 6:34 AM * Full Code (Latest Code Status on File) Date Activated Date Inactivated Comments 10/24/2020 2:28 PM 10/25/2020 4:42 PM * Full Code Date Activated Date Inactivated Comments 10/30/2019 10:51 AM 11/01/2019 7:00 PM Care Teams Record Press Tender Relationship Specialty Start Date End Date Tomi Be MD [address] [place] [address] PCP - General Internal Medicine 01/15/17 Miscellaneous, Not In File 11/01/19 Krysta Justin MD [id number] [place] [address] Radiation Oncologist Radiation Oncology 04/03/22 Leah Rogers MD PhD [address] [place] [address] Surgeon Surgical Oncology 04/03/22 Marybeth Guerra, PhD [address] [place] [address] Nurse Practitioner Radiation Oncology 05/20/22 Sushil Zarate MD [address] [facility] MEDICAL ONCOLOGY, [facility] [address] [place] [address] Medical Oncologist/Radio/Tv Technician Medical Oncology 05/20/22 Garo Narvaez MD [address] [facility] [address] [place] [address] Consulting Physician Cardiology 04/22/24
--- OUTSIDE RECORDS SUMMARY | 2024-10-22 13:37 | XMS_ITS | Clinical Summary ---
Author Organization [facility] [address] Address [address] [place] [address] Care Team Providers Care Parole Board Member Name Role Phone Tomi Be MD Primary Care Provider [phone] Miscellaneous, Not In File Unavailable Unava ilable Krysta Justin MD Unavailable Aft, Leah Swift MD PhD Unavailable Marybeth Guerra PhD Unavailable [phone] Sushil Zarate MD Unavailable [phone] Garo Narvaez MD Unavailable Allergies Active Allergy [...] from 01/14/2022:Stage IA(cT1b, cN0, cM0, G2, ER+, AZ+, HER2-) - Signed by Lance Austin MD on 04/03/2022 Pathologic stage from 02/28/2022:No Stage Recommended(pT1c, cN0, cM0, G2, ER+, AZ+, HER2-) - Signed by Lance Austin MD on 04/03/2022 Pathologic: Unsigned Overview (02/04/2022): Added automatically from request for surgery [id number] Mammogram abnormal 01/07/2022 DURANT (dyspnea on exertion) 10/02/2021 Chronic combined systolic an d diastolic CHF (congestive heart failure) 10/02/2021 History of amiodarone therapy 10/02/2021 Hyperthyroidism 09/27/2021 Assessment & Plan (08/06/2022 3:06 PM POWER EQUIPMENT MECHANICS INSTRUCTOR): Seems to have resolved Will test once [...] m Assessment & Plan (07/24/2021 4:23 PM POWER EQUIPMENT MECHANICS INSTRUCTOR): I explained to Mrs. Guevara that her [...] 07/24/2021 Assessment & Plan (08/06/2022 3:06 PM POWER EQUIPMENT MECHANICS INSTRUCTOR): Check vit D Adjust dose of Ergocalciferol accordingly Assessment & Plan (07/24/2021 4:25 PM POWER EQUIPMENT MECHANICS INSTRUCTOR): Check 25 OH vit D and restart Ergocalciferol , accordingly Vitamin B 12 deficiency 07/24/2021 Assessment & Plan (07/24/2021 4:25 PM POWER EQUIPMENT MECHANICS INSTRUCTOR): The patient asked me to check on her B12 level to adjust her vitamin B12 supplementation. She follows also with her primary care doctor, Dr. Be on this regard A-fib 06/11/2021 Hip arthritis 03/02/2020 Pulmonary nodule 12/05/2019 Essential hypertension 10/31/2019 Depression 10/31/2019 Closed displaced comminuted fracture of shaft of right humerus 10/30/2019 Overview (10/30/2019): Added automatically from request for surgery [id number] PEYMAN (obstructive sleep apnea) 03/22/2019 Status post [...] with atrial fibrillation: a report of the [place] [employer]/[place] [employer] Association Task Force on Practice Guidelines [...] (06/06/2021): Added automatically from request for surgery [id number] Medication management 12/12/20202021 Acute pain due to [...] 4:41 PM CDT): The patient has a UVZ9TT7-YFXt score of 3 (annualized risk of stroke 3%). I have therefore recommended that she remain anticoagulated for thromboprophylaxis. Assessment & Plan (03/31/2019 8:49 AM CDT): The patient has a YQR9JV6-CNDr score of 3 (annualized risk of stroke [...] Type Department Care Team Description 10/12/2024 Telephone [facility] Cardiology [address] [place] [address] Garo Narvaez MD 09/20/2024 Telephone [facility] Cardiology [address] [place] [address] Garo Narvaez MD 09/06/2024 1:40 PM CDT Office Visit [address] 5th [place] [address] [place] [address] Juno Braun MD Osteoporosis, unspecified osteoporosis type, unspecified pathological fracture presence (Primary Dx) 09/06/2024 1:10 PM CDT Clinical Support [address] Medicine 5th [place] [address] [place] [address] Age-related osteoporosis without current pathological fracture (Primary Dx); Osteoporosis, unspecified osteoporosis type, unspecified pathological fracture presence 09/06/2024 Telephone [facility] [address] [facility] Medical Office Building 2 [address] [place] [address] Juno Braun MD 08/31/2024 7:30 AM CDT Ancillary Procedure Arr[facility] [address] [place] [phone] Presence of biventricular cardiac pacemaker (Primary Dx); Persistent atrial fibrillation (HCC) 08/19/2024 1:00 PM POWER EQUIPMENT MECHANICS INSTRUCTOR Office Visit [facility] Oncology [address] 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 features (HCC) from Last 3 Months Immunizations Immunization Administration [...] on file Legal Sex Female 12:14 AM POWER EQUIPMENT MECHANICS INSTRUCTOR Gender Identity Not on file Sexual Orientation Straight 07/05/2021 1: 52 PM POWER EQUIPMENT MECHANICS INSTRUCTOR Obstetrics History Last Filed Vital Signs Vital Sign Reading Time Taken Comments Blood Pressure 134/84 08/19/2024 1:02 PM POWER EQUIPMENT MECHANICS INSTRUCTOR Pulse 79 08/19/2024 1:02 PM POWER EQUIPMENT MECHANICS INSTRUCTOR Temperature 36.5 C (97.7 F) 08/19/2024 1:02 PM POWER EQUIPMENT MECHANICS INSTRUCTOR Respiratory Rate 18 08/19/2024 1:02 PM POWER EQUIPMENT MECHANICS INSTRUCTOR Oxygen Saturation 92% 08/19/2024 1:02 PM POWER EQUIPMENT MECHANICS INSTRUCTOR Inhaled Oxygen Concentration - - Weight 103.1 [...] history exists Medical Devices Implanted Type Area Investment Sales Assistant Device Identifier Shelf Expiration Date Model / Serial / Lot [employer] [id number] Vascade 6/7fr Bioabsorbable Vascular System Compression Collagen - [id number] - [id number] Implanted:Qty: 1 on 10/24/2020 by Mason Miranda MD at [facility] Collagen [employer] 07/19/2022 700-580I -05U / [id number] 204A / [id number] 204A [employer] [id number] System 6-12fr Mvp Venous Closure Vascade - [id number] - [id number] Implanted:Qty: 1 on 10/24/2020 by Mason Miranda MD at [facility] Collagen [employer] 08/22/2022 800-612C -10U / [id number] 310A / [id number] 310A [employer] [id number] System 6-12fr Mvp Venous Closure Vascade - [id number] - [id number] Implanted:Qty: 1 on 10/24/2020 by Mason Miranda MD at [facility] Collagen [employer] 08/22/2022 800-612C -10U / [id number] 310A / [id number] 310A [employer] [id number] System 6-12fr Mvp Venous Closure Vascade - [id number] - [id number] Implanted:Qty: 1 on 10/24/2020 by Mason Miranda MD at [facility] Collagen [employer] 08/22/2022 800-612C -10U / [id number] 310A / [id number] 310A [employer] [id number] System 6-12fr Mvp Venous Closure Vascade - [id number] - [id number] Implanted:Qty: 1 on 06/11/2021 by Mason Miranda MD at [facility] Collagen [employer] 03/27/2023 800-612C -10U / [id number] 019A / [id number] 019A [employer] [id number] System 6-12fr Mvp Venous Closure Vascade - [id number] - [id number] Implanted:Qty: 1 on 06/11/2021 by Mason Miranda MD at [facility] Collagen [employer] 03/27/2023 800-612C -10U / [id number] 019A / [id number] 019A [employer] [id number] System 6-12fr Mvp Venous Closure Vascade - [id number] - [id number] Implanted:Qty: 1 on 06/11/2021 by Mason Miranda MD at [facility] Collagen [employer] 03/27/2023 800-612C -10U / [id number] 019A / [id number] 019A [employer] [id number] Vascade 6/7fr Bioabsorbable Vascular System Compression Collagen - [id number] - [id number] Implanted:Qty: 1 on 06/11/2021 by Mason Miranda MD at [facility] Collagen [employer] 09/12/2022 700-580I -05U / [id number] 401A / [id number] 401A Med[employer]onic Inc Capsurefix Novus 6.2fr 2mm 58cm Bipolar Screw In Implantable 5076-58 - Offnocv681s - [id number] Implanted:Qty: 1 on 11/18/2023 by Mason Miranda MD at [facility] Lead [employer] [id number] 03/25/2025 507 6-58 / [id number] 1V / Med[employer] Inc Attain Stability Quad Mri Surescan Active Fixation Lv Lead 88cm [id number] - [id number] - [id number] Implanted:Qty: 1 on 11/18/2023 by Mason Miranda MD at [facility] Lead [employer] [id number] 09/03/2025 479 888 / [id number] / Med[employer] Inc Solara Mri Surescan Bluetooth 46.5x59mm Connector Hole Radiopaque W4tr03 - [id number] - [id number] Implanted:Qty: 1 on 11/18/2023 by Mason Miranda MD at [facility] Pacemaker [employer] Inc 12/11/2024 [id number] / [id number] / Synthes 241.35 12mm 59u6t2ky .5mm 5 Hole Collar 1/3 Tubular Plate Bone Stainless - S000 - [id number] Implanted:Qty: 1 on 10/30/2019 by Paras Houston MD at [facility] Plate Right: Humerus Synthes I 241.35 / 000 / 000 Synthes 241.923s Plate Bone Lcp Combi Philos Long Stainless Steel L232mm X W12mm X H3.7mm Humerus Proximal 10 Hole Shaft Sterile 3.5mm Screw Small Fragment Set - S000 - [id number] Implanted:Qty: 1 on 10/30/2019 by Paras Houston MD at [facility] Plate Right: Humerus Synthes I 241.923S / 000 / 000 Synthes 212.117 3.5mm 2.9mm 40mm Self Tap Lock Stardrive Conical Head T15 Full - S000 - [id number] Implanted:Qty: 1 on 10/30/2019 by Paras Houston MD at [facility] Screw Right: Humerus Synthes I 212.117 / 000 / 000 Synthes 212.118 3.5mm 2.9mm 42mm Self Tap Lock Stardrive Conical Head Full Thread - S000 - [id number] Implanted:Qty: 1 on 10/30/2019 by Paras Houston MD at [facility] Screw Right: Humerus Synthes I 212.118 / 000 / 000 Synthes 212.115 3.5mm 2.9mm 36mm Self Tap Lock Stardrive Conical Head T15 Full - S000 - [id number] Implanted:Qty: 1 on 10/30/2019 by Paras Houston MD at [facility] Screw Right: Humerus Synthes I 212.115 / 000 / 000 Synthes 212.108 3.5mm 2.9mm 24mm Self Tap Lock Stardrive Conical Head Pelvis T15 - S000 - [id number] Implanted:Qty: 3 on 10/30/2019 by Paras Houston MD at [facility] Screw Right: Humerus Synthes I 212.108 / 000 / 000 Synthes 204.824 3.5mm 6mm 24mm 2.5mm Self Tap Small Hexagonal Socket Low Profile - S000 - [id number] Implanted:Qty: 2 on 10/30/2019 by Paras Houston MD at [facility] Screw Right: Humerus Synthes I 204.824 / 000 / 000 Synthes 204.820 3.5mm 6mm 20mm 2.5mm Self Tap Small Hexagonal Socket Low Profile - S000 - [id number] Implanted:Qty: 1 on 10/30/2019 by Paras Houston MD at [facility] Screw Right: Humerus Synthes I 204.820 / 000 / 000 Synthes 204.822 3.5mm 6mm 22mm 2.5mm Self Tap Small Hexagonal Socket Low Profile - S000 - [id number] Implanted:Qty: 1 on 10/30/2019 by Paras Houston MD at [facility] Screw Right: Humerus Synthes I 204.822 / 000 / 000 Synthes 204.828 3.5mm 6mm 28mm 2.5mm Self Tap Small Hexagonal Socket Low Profile - S000 - [id number] Implanted:Qty: 1 on 10/30/2019 by Paras Houston MD at [facility] Screw Right: Humerus Synthes I 204.828 / 000 / 000 Synthes 204.826 3.5mm 6mm 26mm 2.5mm Self Tap Small Hexagonal Socket Low Profile - S000 - [id number] Implanted:Qty: 1 on 10/30/2019 by Paras Houston MD at [facility] Screw Right: Humerus Synthes I 204.826 / 000 / 000 Synthes 212.121 3.5mm 2.9mm 50mm Self Tap Lock Stardrive Conical Head T15 Full - S000 - [id number] Implanted:Qty: 1 on 10/30/2019 by Paras Houston MD at [facility] Screw Right: Humerus Synthes I 212.121 / 000 / 000 Synthes 212.114 3.5mm 2.9mm 35mm Self Tap Lock Stardrive Conical Head T15 Full - S000 - [id number] Implanted:Qty: 1 on 10/30/2019 by Paras Houston MD at [facility] Screw Right: Humerus Synthes I 212.114 / 000 / 000 Synthes 212.116 3.5mm 2.9mm 38mm Self Tap Lock Stardrive Conical Head T15 Full - S000 - [id number] Implanted:Qty: 1 on 10/30/2019 by Paras Houston MD at [facility] Screw Right: Humerus Synthes I 212.116 / 000 / 000 Bard Peripheral Vascular Ultraclip Bard 17ga 10cm 2 Trigger Permanent Ultrasound 663480f - [id number] Implanted:Qty: 1 on 01/14/2022 at [facility] Right: Breast [employer] [id number] / / Bard Peripheral Vascular Ghiatas 20ga 20cm 9cm Beaded Needle Breast Wire Localization 38775 - [id number] Implanted:Qty: 1 on 02/28/2022 at [facility] Right: Breast Bard [employer]ipheral [employer] [id number] 63201 / / Explanted Type Area Investment Sales Assistant Device Identifier Shelf Expiration Date Model / Serial / Lot Synthes 204.812 3.5mm 6mm 12mm 2.5mm Self Tap Small Hexagonal Socket Low Profile - S000 - [id number] Explanted:Qty: 1 on 10/30/2019 by Paras Houston MD at [facility] Screw Right: Humerus Synthes I 204.812 / 000 / 000 Procedures Procedure Name Priority Date/Time Associated Diagnosis Comments DEXA TBS AXIAL SKELETON BONE DENSITY 1 OR MORE SITES Schedule Routine, Read Routine (OP Routine) 09/06/2024 1:18 PM CDT Age-related osteoporosis without current pathological fracture DEVICE CHECK - REMOTE Routine 08/31/2024 10:06 AM CDT Persistent atrial fibrillation (HCC) EGFR Routine 08/19/2024 12:41 PM POWER EQUIPMENT MECHANICS INSTRUCTOR Carcinoma of right breast with ductal and lobular features (HCC) COMPREHENSIVE METABOLIC PANEL Routine 08/19/2024 12:41 PM POWER EQUIPMENT MECHANICS INSTRUCTOR Carcinoma of right breast with ductal and lobular features (HCC) VITAMIN D 25 HYDROXY Routine 08/19/2024 12:41 PM POWER EQUIPMENT MECHANICS INSTRUCTOR Carcinoma of right breast with ductal and [...] Bone mineral density was performed on a HoloRuckPack Discovery Densitometer. Based on machine cross-calibration and [...] by the International Society of Clinical Densitometry. [id number] Juno Braun MD IM DXA PROCEDURES Final [...] Final Result * eGFR (08/19/2024 12:41 PM POWER EQUIPMENT MECHANICS INSTRUCTOR) eGFR 90 >=60 mL/min/1. 73 m2 Comment: [...] reviewed 2021. Blood 08/19/2024 12:4 1 PM POWER EQUIPMENT MECHANICS INSTRUCTOR 08/19/2024 12:46 PM POWER EQUIPMENT MECHANICS INSTRUCTOR Sushil Zarate MD LAB BLOOD ORDERABLES Final Result [facility] [place] [address] * (ABNORMAL) Vitamin D 25 hydroxy (08/19/2024 12:41 PM POWER EQUIPMENT MECHANICS INSTRUCTOR) Pathologist [facility] Vitamin D 25-OH 20(L) 30 - 80 ng/mL Blood 08/19/2024 12:4 1 PM POWER EQUIPMENT MECHANICS INSTRUCTOR 08/19/2024 12:46 PM POWER EQUIPMENT MECHANICS INSTRUCTOR Sushil Zarate MD LAB BLOOD ORDERABLES Final Result Performing Organization Address [facility] Co de Phone Number [facility] [place] [address] * (ABNORMAL) Comprehensive metabolic panel (08/19/2024 12:41 PM POWER EQUIPMENT MECHANICS INSTRUCTOR) [facility] Sodium 146(H) 135 - 145 mmol/L Potassium, pl 3.4 3.3 - 4.9 mmol/L [facility] Chloride 111(H) 97 - 110 mmol/L [facility] CO2 25 22 - 32 mmol/L [facility] Anion gap 10 2 - 15 mmol/L [facility] BUN 13 6 - 25 mg/dL [facility] Creatinine 0.67 0.60 - 1.10 mg/dL [facility] Glucose 149 70 - 199 mg/dL [facility] Comment: Interpretive Data Fasting glucose >/= 126 [...] Calcium 8.8 8.5 - 10.3 mg/dL [facility] Bilirubin, total 0.6 0.1 - 1.2 mg/dL [facility] Protein, pl 7.0 6.5 - 8.5 g/dL [facility] Albumin 3.8 3.5 - 5.0 g/dL [facility] Alk phos 68 40 - 130 Units/L [facility] ALT 6(L) 7 - 45 Units/L [facility] AST 18 10 - 45 Units/L [facility] Blood 08/19/2024 12:4 1 PM POWER EQUIPMENT MECHANICS INSTRUCTOR 08/19/2024 12:46 PM POWER EQUIPMENT MECHANICS INSTRUCTOR us Sushil Zarate MD LAB BLOOD ORDERABLES Final Result [facility] [place] [address] * Diagnostic Mammogram Bilateral W Alec (11/11/2023 [...] Recently Relevant to Health Maintenance Insurance MEDICARE [facility] MEDICARE SUPPLEMENT MEDICARE [facility] MEDICARE SUPPLEMENT Advance Directives For more information, please contact: [phone] Documents on File Type Date Recorded Patient Loss Prevention Consultant Expl anation Power of Stone Hand 12/13/2020 6:34 AM * Full Code (Latest Code Status on File) Date Activated Date Inactivated Comments 10/24/2020 2:28 PM 10/25/2020 4:42 PM * Full Code Date Activated Date Inactivated Comments 10/30/2019 10:51 AM 11/01/2019 7:00 PM Care Teams Parole Board Member Relationship Specialty Start Date End Date Tomi Be MD [address] [place] [address] PCP - General Internal Medicine 01/15/17 Miscellaneous, Not In File 11/01/19 Krysta Justin MD [address] [place] [address] Radiation Oncologist Radiation Oncology 04/03/22 Leah Rogers MD PhD [address] [place] [address] Surgeon Surgical Oncology 04/03/22 Marybeth Guerra, PhD [address] [place] [address] Nurse Practitioner Radiation Oncology 05/20/22 Sushil Zarate MD [address] MEDICAL ONCOLOGY, [address] [place] [address] Medical Oncologist/Painter [facility] Oncology 05/20/22 Garo Narvaez MD [address] [place] [id number] Consulting Physician Cardiology 04/22/24
--- OUTSIDE RECORDS SUMMARY | 2024-10-22 13:37 | XMS_ITS | Clinical Summary ---
Author Organization [facility] Address [address] [place] [address] Care Team Providers Care Cell Lead Name Role Phone Puja Dobbs MD Unavailable [phone] Tomi Be MD Primary Care Provider Source Comments [facility],non-owned Affiliates and Associated Physician Practices is amultiple site organization consisting of ambulatory clinics and hospital sitesin [place], [place], [place] and [place]. This disclosure is being madepursuant to the Care Everywhere program and may not contain all information available regarding this patient. Last updated 18.[facility] Allergies Active Allergy Reactions Criticality Noted Date [...] vitamin D, ergocalciferol , (DRISDOL) 1.25 MG (44673 UT) capsule Take 50,000 Units by mouth [...] on file Legal Sex Female 2:04 PM SOFTWARE SUPPORT SPECIALIST Gender Identity Not on file Sexual [...] this topic Medical Devices Implanted Type Area Chair Frame Builder Device Identifier Shelf Expiration Date Model / Serial / Lot Shell Actb 50mm Hip 3 Hl R3 Implanted:Qty: 1 on 03/02/2020 by Fili Wilkinson IV, MD at [facility] Left: Hip [employer] 09/13/2029 [id number] / / [id number] Acetabular Liner 36 Mm Implanted:Qty: 1 on 03/02/2020 by Fili Wilkinson IV, MD at [facility] Left: Hip 01/17/2030 [id number] / / [id number] Marline Stem Size 5 Implanted:Qty: 1 on 03/02/2020 by Fili Wilkinson IV, MD at [facility] Left: Hip 03/16/2026 [id number] / / [id number] Taper Femoral Head +0 Implanted:Qty: 1 on 03/02/2020 by Fili Wilkinson IV, MD at [facility] Left: Hip 01/23/2030 [id number] / / [id number] Explanted Type Area Chair Frame Builder Device Identifier Shelf Expiration Date Model / Serial / Lot Pin Hlf 255mm 5mm Jtx Lng Orth Ss 45mm Explanted:Qty: 1 on 03/02/2020 by Fili Wilkinson IV, MD at [facility] Left: Hip [employer] [id number] / / Insurance MEDICARE [facility] MEDICARE [facility] Advance Directives Documents on File Type Date Recorded Patient Guidance Counselor Expl anation Adv Directive/Living Will/POA 05/02/2012 3:46 PM * Full Code (Latest Code Status on File) Date Activated Date Inactivated Comments 03/02/2020 11:51 AM 03/07/2020 2:38 PM * Full Code Date Activated Date Inactivated Comments 08/29/2013 8:44 PM 08/31/2013 3:36 PM * FULL RESUSCITATION Date Activated Date Inactivated Comments 04/28/2012 8:03 PM 05/01/2012 3:51 PM Care Teams Cell Lead Relationship Specialty Start Date End Date Tomi Be MD [address] [place] [address] PCP - General Internal Medicine 02/02/20 Puja Dobbs MD [address] [place] [address] Cardiovascular Disease 08/23/19
--- OUTSIDE RECORDS SUMMARY | 2024-10-22 13:37 | XMS_ITS | Encounter Summary ---
Author Organization [facility] Healthcare Address [address] [place] [address] Care Team Providers Care Capacitor Repairer Name Role Phone Tomi Be MD Primary Care Provider [phone] Reason for Visit * Diagnostic Imaging (Routine) - Closed Specialty Diagnoses / Procedures Referred By Contac t Referred To Contact Procedures Breast Imaging US Outside Reference Aft, Leah Swift MD PhD [address] [place] [address] Phone: tel: fax: Referral ID Status Reason Start Date Expiration Date Visits Re quested Visits Authorized [id number] Closed 01/02/2022 02/01/2023 1 1 Encounter Details Date Type Department Care Team (Late st Contact Info) Description 11/30/2018 12:05 AM CDT Hospital Encounter [facility] [address] [place] [address] Social History Tobacco Use Types Packs/Day Years [...] on file Legal Sex Female 12:14 AM TRAFFIC EXPERT Gender Identity Not on file Sexual Orientation Straight 07/05/2021 1: 52 PM TRAFFIC EXPERT documented as of this encounter Functional Status [...] only and have not been reviewed by [facility] Radiology. There will be no report generated by a [facility] Radiologist. Narrative [facility] - 01/02/2022 5:18 PM CDT EXAMINATION: Images For Reference Purposes Only us Leah Rogers MD PhD IMG MAMMO PROCEDURES Final Result [facility] documented in this encounter Visit Diagnoses Not on filedocumented in this encounter Additional Health Concerns Infection Onset Date Last Indicated Resolved Time COVID: Suspected 06/20/2023 06/20/2023 06/20/2023 7:31 PM TRAFFIC EXPERT documented as of this encounter Care Teams Capacitor Repairer Relationship Specialty Start Date End Date Tomi Be MD [address] [place], [place] [id number] PCP - General Internal Medicine 01/15/17 documented as of this encounter
--- OUTSIDE RECORDS SUMMARY | 2024-10-22 13:37 | XMS_ITS | Encounter Summary ---
Author Organization [facility] Healthcare Address [address] [place] [address] Care Team Providers Care Corrections Unit Supervisor Name Role Phone Unavailable Primary Care Provider Unavailabl e Reason for Visit * Diagnostic Imaging (Routine) - Closed Specialty Diagnoses / Procedures Referred By Contac t Referred To Contact Procedures Breast Imaging Diagnostic Outside Reference Aft, Leah Swift MD PhD [address] [place] [address] Phone: tel: fax: Referral ID Status Reason Start Date Expiration Date Visits Re quested Visits Authorized [id number] Closed 01/02/2022 02/01/2023 1 1 Encounter Details Date Type Department Care Team (Late st Contact Info) Description 09/12/2016 Hospital Encounter [facility]iology [facility] [address] [place] [address] [id number] Social History Tobacco Use Types Packs/Day Years [...] on file Legal Sex Female 12:14 AM AGRONOMY TECHNICIAN Gender Identity Not on file Sexual Orientation Straight 07/05/2021 1: 52 PM AGRONOMY TECHNICIAN documented as of this encounter Functional Status [...] only and have not been reviewed by [facility] Radiology. There will be no report generated by a [facility] Radiologist. Narrative [facility] - 01/02/2022 5:07 PM CDT EXAMINATION: Images For Reference Purposes Only us Leah Rogers MD PhD IMG MAMMO PROCEDURES Final Result [facility] documented in this encounter Visit Diagnoses Not on filedocumented in this encounter Additional Health Concerns Infection Onset Date Last Indicated Resolved Time COVID: Suspected 06/20/2023 06/20/2023 06/20/2023 7:31 PM AGRONOMY TECHNICIAN documented as of this encounter
--- OUTSIDE RECORDS SUMMARY | 2024-10-22 13:37 | XMS_ITS ---
Author Organization [facility] [place] [address] Address [address] [place] [address] Care Team Providers Care Case Management Rn Name Role Phone Tomi Be MD Primary Care Provider + [phone] Miscellaneous, Not In File Unavailable Unava ilable Krysta Justin MD Unavailable Aft, Leah Swift MD PhD Unavailable [phone] Marybeth Guerra PhD Unavailable [phone] Sushil Zarate MD Unavailable [phone] Garo Narvaez MD Unavailable [phone] Active Problems Problem Noted Date Diagnosed Date Severe obesity 06/22/2024 History of right breast cancer 11/11/2022 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 02/04/2022 Cancer Staging:Clinical stage from 01/14/2022:Stage IA(cT1b, cN0, cM0, G2, ER+, [place]+, HER2-) - Signed by Lance Austin MD on 04/03/2022 Pathologic stage from 02/28/2022:No Stage Recommended(pT1c, cN0, cM0, G2, ER+, [place]+, HER2-) - Signed by Lance Austin MD on 04/03/2022 Pathologic: Unsigned Overview (02/04/2022): Added automatically from request for surgery [id number] Mammogram abnormal 01/07/2022 DURANT (dyspnea on exertion) 10/02/2021 Chronic combined systolic an d diastolic CHF (congestive heart failure) 10/02/2021 History of amiodarone therapy 10/02/2021 Hyperthyroidism 09/27/2021 Assessment & Plan (08/06/2022 3:06 PM CHEMISTRY LAB INSTRUCTOR): Seems to have resolved Will test [...] m Assessment & Plan (07/24/2021 4:23 PM CHEMISTRY LAB INSTRUCTOR): I explained to Mrs. Muñoz that her [...] 07/24/2021 Assessment & Plan (08/06/2022 3:06 PM CHEMISTRY LAB INSTRUCTOR): Check vit D Adjust dose of Ergocalciferol accordingly Assessment & Plan (07/24/2021 4:25 PM CHEMISTRY LAB INSTRUCTOR): Check 25 OH vit D and restart Ergocalciferol , accordingly Vitamin B 12 deficiency 07/24/2021 Assessment & Plan (07/24/2021 4:25 PM CHEMISTRY LAB INSTRUCTOR): The patient asked me to check on her B12 level to adjust her vitamin B12 supplementation. She follows also with her primary care doctor, Dr. Be on this regard A-fib 06/11/2021 Hip arthritis 03/02/2020 Pulmonary nodule 12/05/2019 Essential hypertension 10/31/2019 Depression 10/31/2019 Closed displaced comminuted fracture of shaft of right humerus 10/30/2019 Overview (10/30/2019): Added automatically from request for surgery [id number] PEYMAN (obstructive sleep apnea) 03/22/2019 Status post [...] with atrial fibrillation: a report of the [place] [employer]/[place] [employer] Task Force on Practice Guidelines [...] (06/06/2021): Added automatically from request for surgery [id number] Medication management 12/12/20202021 Acute pain due to [...] 4:41 PM CDT): The patient has a [id number]-[id number] score of 3 (annualized risk of stroke 3%). I have therefore recommended that she remain anticoagulated for thromboprophylaxis. Assessment & Plan (03/31/2019 8:49 AM CDT): The patient has a [id number]-SOSp score of 3 (annualized risk of stroke [...]
--- OUTSIDE RECORDS SUMMARY | 2024-10-22 13:37 | XMS_ITS | Encounter Summary ---
Author Organization [facility] Healthcare Address [address] [place] [address] Care Team Providers Care Occ Med Physician Name Role Phone Unavailable Primary Care Provider Unavailabl e Reason for Visit * Diagnostic Imaging (Routine) - Closed Specialty Diagnoses / Procedures Referred By Contac t Referred To Contact Procedures Breast Imaging Screening Outside Reference Aft, Leah Swift MD PhD [address] [place] [address] Phone: tel: fax: Referral ID Status Reason Start Date Expiration Date Visits Re quested Visits Authorized [id number] Closed 01/02/2022 02/01/2023 1 1 Encounter Details Date Type Department Care Team (Late st Contact Info) Description 07/28/2015 Hospital Encounter [facility] [address] [place] [address] [phone] Social History Tobacco Use Types Packs/Day Years [...] on file Legal Sex Female 12:14 AM AUTOMATION MACHINE BUILDER Gender Identity Not on file Sexual Orientation Straight 07/05/2021 1: 52 PM AUTOMATION MACHINE BUILDER documented as of this encounter Functional Status [...] SCREENING OUTSIDE REFERENCE Routine 07/28/2015 12:00 AM AUTOMATION MACHINE BUILDER documented in this encounter Results * Breast Imaging Screening Outside Reference (07/28/2015 12:00 AM AUTOMATION MACHINE BUILDER) Impressions [facility] - 01/02/2022 5:07 PM CDT These images are for Reference purposes only and have not been reviewed by [facility] Radiology. There will be no report generated by a [facility] Radiologist. Narrative [facility]MO[facility] - 01/02/2022 5:07 PM CDT EXAMINATION: Images For Reference Purposes Only us Leah Rogers MD PhD IMG MAMMO PROCEDURES Final Result [facility] documented in this encounter Visit Diagnoses Not on filedocumented in this encounter Additional Health Concerns Infection Onset Date Last Indicated Resolved Time COVID: Suspected 06/20/2023 06/20/2023 06/20/2023 7:31 PM AUTOMATION MACHINE BUILDER documented as of this encounter
--- OUTSIDE RECORDS SUMMARY | 2024-10-22 13:37 | XMS_ITS | Encounter Summary ---
Author Organization [facility] Healthcare Address [address] [place] [address] Care Team Providers Care Med Dir Name Role Phone Tomi Be MD Primary Care Provider + [phone] Reason for Visit * Diagnostic Imaging (Routine) - Closed Specialty Diagnoses / Procedures Referred By Contac t Referred To Contact Procedures Breast Imaging Screening Outside Reference Aft, Leah Swift MD PhD [address] [place] [address] Phone: tel: fax: Referral ID Status Reason Start Date Expiration Date Visits Re quested Visits Authorized [id number] Closed 01/02/2022 02/01/2023 1 1 Encounter Details Date Type Department Care Team (Late st Contact Info) Description 11/11/[address] [facility]iology [facility] [address] [place] [phone] Social History Tobacco Use Types Packs/Day Years [...] on file Legal Sex Female 12:14 AM PIANO TEACHER Gender Identity Not on file Sexual Orientation Straight 07/05/2021 1: 52 PM PIANO TEACHER documented as of this encounter Functional Status [...] have not been reviewed by [facility] Radiology. There will be no report generated by a [facility] Radiologist. Narrative [facility]MO[facility] - 01/02/2022 5:06 PM CDT EXAMINATION: Images For Reference Purposes Only us Leah Rogers MD PhD IMG MAMMO PROCEDURES Final Result [facility] documented in this encounter Visit Diagnoses Not on filedocumented in this encounter Additional Health Concerns Infection Onset Date Last Indicated Resolved Time COVID: Suspected 06/20/2023 06/20/2023 06/20/2023 7:31 PM PIANO TEACHER documented as of this encounter Care Teams Med Dir Relationship Specialty Start Date End Date Tomi Be MD [address] [id number] PCP - General Internal Medicine 01/15/17 documented as of this encounter
--- OUTSIDE RECORDS SUMMARY | 2024-10-22 13:37 | XMS_ITS | Encounter Summary ---
Author Organization [facility] Healthcare Address [address] [place] [address] Care Team Providers Care Mounter Name Role Phone Tomi Be MD Primary Care Provider + [phone] Miscellaneous, Not In File Unavailable Unava ilable Krysta Justin MD Unavailable Aft, Leah Swift MD PhD Unavailable [phone] Marybeth Guerra PhD Unavailable [phone] Sushil Zarate MD Unavailable [phone] Garo Narvaez MD Unavailable [phone] Encounter Details Date Type Department Care Team (Late st Contact Info) Description 07/13/2020 Telephone [facility] - Interventional Radiology [address] [place] [address] Giselle Rutledge RN Social History Tobacco Use Types Packs/Day Years Used Date Smoking Tobacco: Former Cigarettes Q uit: 12/06/1986 Smokeless Tobacco: Never Alcohol Use Standard Drinks/Week Comments No 0 (1 standard drink = 0.6 oz pur e alcohol) Comments No Sex and Gender Information Value Date Recorded Sex Assigned at Not on file Legal Sex Female 12:14 AM COMBER TENDER Gender Identity Not on file Sexual Orientation Straight 07/05/2021 1: 52 PM COMBER TENDER documented as of this encounter Plan of Treatment Not on file documented as of this encounter Visit Diagnoses Not on filedocumented in this encounter Additional Health Concerns Infection Onset Date Last Indicated Resolved Time COVID: Suspected 06/20/2023 06/20/2023 06/20/2023 7:31 PM COMBER TENDER documented as of this encounter Care Teams Mounter Relationship Specialty Start Date End Date Tomi Be MD [address] [place] [address] PCP - General Internal Medicine 01/15/17 Miscellaneous, Not In File 11/01/19 Krysta Justin MD [address] [place] [address] Radiation Oncologist Radiation Oncology 04/03/22 Leah Rogers MD PhD [address] [place] [address] Surgeon Surgical Oncology 04/03/22 Marybeth Guerra, PhD [address] [place] [address] Nurse Practitioner Radiation Oncology 05/20/22 Sushil Zarate MD [address] DIV MEDICAL ONCOLOGY, [facility] [address] [place] [address] Medical Oncologist/Manager Of Distribution Medical Oncology 05/20/22 Garo Narvaez MD [address] [phone] Consulting Physician Cardiology 04/22/24 documented as of this encounter
--- OUTSIDE RECORDS SUMMARY | 2024-10-22 13:37 | XMS_ITS | Encounter Summary ---
Author Organization [facility] Healthcare Address [address] [place] [address] Care Team Providers Care Senior Mainframe Programmer Analyst Name Role Phone Tomi Be MD Primary Care Provider + [phone] Reason for Visit * Diagnostic Imaging (Routine) - Closed Specialty Diagnoses / Procedures Referred By Contac t Referred To Contact Procedures Breast Imaging Diagnostic Outside Reference Aft, Leah Swift MD PhD [address] [place] [address] Phone: tel: fax: Referral ID Status Reason Start Date Expiration Date Visits Re quested Visits Authorized [id number] Closed 01/02/2022 02/01/2023 1 1 Encounter Details Date Type Department Care Team (Late st Contact Info) Description 11/16/2018 Hospital Encounter [facility] [address] [place] [address] [phone] Social History Tobacco Use Types Packs/Day Years [...] on file Legal Sex Female 12:14 AM WARDROBE SPECIALIST Gender Identity Not on file Sexual Orientation Straight 07/05/2021 1: 52 PM WARDROBE SPECIALIST documented as of this encounter Functional [...] have not been reviewed by [facility] Radiology. There will be no report generated by a [facility] Radiologist. Narrative RAD_MAMMO[facility] - 01/02/2022 5:04 PM CDT EXAMINATION: Images For Reference Purposes Only us Leah Rogers MD PhD IMG MAMMO PROCEDURES Final Result [facility] documented in this encounter Visit Diagnoses Not on filedocumented in this encounter Additional Health Concerns Infection Onset Date Last Indicated Resolved Time COVID: Suspected 06/20/2023 06/20/2023 06/20/2023 7:31 PM WARDROBE SPECIALIST documented as of this encounter Care Teams Senior Mainframe Programmer Analyst Relationship Specialty Start Date End Date Tomi Be MD [address] [place] [address] PCP - General Internal Medicine 01/15/17 documented as of this encounter
== END 2024-10-22 13:30 | disposition home or self-care (01) ==
PROVIDERS: PCP Internal Medicine; Visit Provider Nurse Practitioner Family
DX: N20.0 Calculus of kidney (principal)
CPT/HCPCS: 74018

== ENCOUNTER 2024-11-12 11:15 | Outpatient (CLI) | payer MEDICARE, SELFPAY ==
--- OUTSIDE RECORDS SUMMARY | 2024-11-12 11:27 | XMS_ITS | Encounter Summary ---
Author Organization [facility] Healthcare Address [address] [place] [address] Care Team Providers Care Materials Planning Manager Name Role Phone Tomi Be MD Primary Care Provider + [phone] Reason for Visit * Diagnostic Imaging (Routine) - Closed Specialty Diagnoses / Procedures Referred By Contac t Referred To Contact Procedures Breast Imaging US Outside Reference Aft, Leah Swift MD PhD [address] [place] [address] Phone: tel: fax: Referral ID Status Reason Start Date Expiration Date Visits Re quested Visits Authorized [id number] Closed 01/02/2022 02/01/2023 1 1 Encounter Details Date Type Department Care Team (Late st Contact Info) Description 11/30/2018 12:05 AM CDT Hospital Encounter [facility] [address] [place] [address] Social History Tobacco Use Types Packs/Day Years [...] on file Legal Sex Female 12:14 AM ROBOT DESIGNER Gender Identity Not on file Sexual Orientation Straight 07/05/2021 1: 52 PM ROBOT DESIGNER documented as of this encounter Functional Status [...] only and have not been reviewed by [facility] Radiology. There will be no report generated by a [facility] Radiologist. Narrative RAD_MAMMO[facility] - 01/02/2022 5:18 PM CDT EXAMINATION: Images For Reference Purposes Only us Leah Rogers MD PhD IMG MAMMO PROCEDURES Final Result [facility] documented in this encounter Visit Diagnoses Not on filedocumented in this encounter Additional Health Concerns Infection Onset Date Last Indicated Resolved Time COVID: Suspected 06/20/2023 06/20/2023 06/20/2023 7:31 PM ROBOT DESIGNER documented as of this encounter Care Teams Materials Planning Manager Relationship Specialty Start Date End Date Tomi Be MD [address] [place], [place] [id number] PCP - General Internal Medicine 01/15/17 documented as of this encounter
--- OUTSIDE RECORDS SUMMARY | 2024-11-12 11:27 | XMS_ITS | Encounter Summary ---
Author Organization [facility] Healthcare Address [address] [place] [address] Care Team Providers Care Meat Products Demonstrator Name Role Phone Unavailable Primary Care Provider Unavailabl e Reason for Visit * Diagnostic Imaging (Routine) - Closed Specialty Diagnoses / Procedures Referred By Contac t Referred To Contact Procedures Breast Imaging Diagnostic Outside Reference Aft, Leah Swift MD PhD [address] [place] [address] Phone: tel: fax: Referral ID Status Reason Start Date Expiration Date Visits Re quested Visits Authorized [id number] Closed 01/02/2022 02/01/2023 1 1 Encounter Details Date Type Department Care Team (Late st Contact Info) Description 09/12/2016 Hospital Encounter [facility]iology [facility] [address] [place] [address] [phone] Social History Tobacco Use Types Packs/Day Years [...] on file Legal Sex Female 12:14 AM GENERAL OFFICE ASSOCIATE Gender Identity Not on file Sexual Orientation Straight 07/05/2021 1: 52 PM GENERAL OFFICE ASSOCIATE documented as of this encounter Functional Status [...] have not been reviewed by [facility] Radiology. There will be no report generated by a [facility] Radiologist. Narrative RAD_MAMMO[facility] - 01/02/2022 5:07 PM CDT EXAMINATION: Images For Reference Purposes Only us Leah Rogers MD PhD IMG MAMMO PROCEDURES Final Result [facility] documented in this encounter Visit Diagnoses Not on filedocumented in this encounter Additional Health Concerns Infection Onset Date Last Indicated Resolved Time COVID: Suspected 06/20/2023 06/20/2023 06/20/2023 7:31 PM GENERAL OFFICE ASSOCIATE documented as of this encounter
--- OUTSIDE RECORDS SUMMARY | 2024-11-12 11:27 | XMS_ITS | Encounter Summary ---
Author Organization [facility] Healthcare Address [address] [place] [address] Care Team Providers Care Rollout Manager Name Role Phone Unavailable Primary Care Provider Unavailabl e Reason for Visit * Diagnostic Imaging (Routine) - Closed Specialty Diagnoses / Procedures Referred By Contac t Referred To Contact Procedures Breast Imaging Screening Outside Reference Aft, Leah Swift MD PhD [address] [place] [address] Phone: tel: fax: Referral ID Status Reason Start Date Expiration Date Visits Re quested Visits Authorized [id number] Closed 01/02/2022 02/01/2023 1 1 Encounter Details Date Type Department Care Team (Late st Contact Info) Description 07/28/2015 Hospital Encounter [facility] Radiology [facility] [address] [place] [address] [phone] Social History Tobacco Use Types Packs/Day Years [...] on file Legal Sex Female 12:14 AM STONE AND PLATE PREPARER APPRENTICE Gender Identity Not on file Sexual Orientation Straight 07/05/2021 1: 52 PM STONE AND PLATE PREPARER APPRENTICE documented as of this encounter Functional Status [...] SCREENING OUTSIDE REFERENCE Routine 07/28/2015 12:00 AM STONE AND PLATE PREPARER APPRENTICE documented in this encounter Results * Breast Imaging Screening Outside Reference (07/28/2015 12:00 AM STONE AND PLATE PREPARER APPRENTICE) Impressions RAD_M[facility]MO[facility] - 01/02/2022 5:07 PM CDT These images are for Reference purposes only and have not been reviewed by [facility] Radiology. There will be no report generated by a [facility] Radiologist. Narrative RAD_MAMMO[facility] - 01/02/2022 5:07 PM CDT EXAMINATION: Images For Reference Purposes Only us Leah Rogers MD PhD IMG MAMMO PROCEDURES Final Result [facility] documented in this encounter Visit Diagnoses Not on filedocumented in this encounter Additional Health Concerns Infection Onset Date Last Indicated Resolved Time COVID: Suspected 06/20/2023 06/20/2023 06/20/2023 7:31 PM STONE AND PLATE PREPARER APPRENTICE documented as of this encounter
--- OUTSIDE RECORDS SUMMARY | 2024-11-12 11:27 | XMS_ITS | Encounter Summary ---
Author Organization [facility] Healthcare Address [address] [place] [address] Care Team Providers Care Gluten Settling Tender Name Role Phone Unavailable Primary Care Provider Unavailabl e Reason for Visit * Diagnostic Imaging (Routine) - Closed Specialty Diagnoses / Procedures Referred By Contac t Referred To Contact Procedures Breast Imaging Screening Outside Reference Aft, Leah Swift MD PhD [address] [place] [address] Phone: tel: fax: Referral ID Status Reason Start Date Expiration Date Visits Re quested Visits Authorized [id number] Closed 01/02/2022 02/01/2023 1 1 Encounter Details Date Type Department Care Team (Late st Contact Info) Description 08/28/2016 Hospital Encounter [facility] Radiology [facility] [address] [place] [address] [phone] Social History Tobacco Use Types Packs/Day Years [...] on file Legal Sex Female 12:14 AM KEYBOARD TEACHER Gender Identity Not on file Sexual Orientation Straight 07/05/2021 1: 52 PM KEYBOARD TEACHER documented as of this encounter Functional [...] only and have not been reviewed by [facility] Radiology. There will be no report generated by a [facility] Radiologist. Narrative RAD_MAMMO[facility] - 01/02/2022 5:07 PM CDT EXAMINATION: Images For Reference Purposes Only us Leah Rogers MD PhD IMG MAMMO PROCEDURES Final Result [facility] documented in this encounter Visit Diagnoses Not on filedocumented in this encounter Additional Health Concerns Infection Onset Date Last Indicated Resolved Time COVID: Suspected 06/20/2023 06/20/2023 06/20/2023 7:31 PM KEYBOARD TEACHER documented as of this encounter
--- OUTSIDE RECORDS SUMMARY | 2024-11-12 11:27 | XMS_ITS | Encounter Summary ---
Author Organization [facility] Healthcare Address [address] [place] [address] Care Team Providers Care Bailiff Name Role Phone Tomi Be MD Primary Care Provider + [phone] Reason for Visit * Diagnostic Imaging (Routine) - Closed Specialty Diagnoses / Procedures Referred By Contac t Referred To Contact Procedures Breast Imaging Screening Outside Reference Aft, Leah Swift MD PhD [address] [place] [address] Phone: tel: fax: Referral ID Status Reason Start Date Expiration Date Visits Re quested Visits Authorized [id number] Closed 01/02/2022 02/01/2023 1 1 Encounter Details Date Type Department Care Team (Late st Contact Info) Description 11/11/2018 Hospital Encounter [facility] [address] [place] [phone] Social History Tobacco Use Types Packs/Day Years [...] on file Legal Sex Female 12:14 AM PROFESSIONAL ORGANIZER Gender Identity Not on file Sexual Orientation Straight 07/05/2021 1: 52 PM PROFESSIONAL ORGANIZER documented as of this encounter Functional Status [...] not drink 11/18/2023 2:42 PM CDT Silvestre Rmoan Q3: How often do you have six [...] only and have not been reviewed by [facility] Radiology. There will be no report generated by a [facility] Radiologist. Narrative RAD_MAMMO[facility] - 01/02/2022 5:06 PM CDT EXAMINATION: Images For Reference Purposes Only us Leah Rogers MD PhD IMG MAMMO PROCEDURES Final Result [facility] documented in this encounter Visit Diagnoses Not on filedocumented in this encounter Additional Health Concerns Infection Onset Date Last Indicated Resolved Time COVID: Suspected 06/20/2023 06/20/2023 06/20/2023 7:31 PM PROFESSIONAL ORGANIZER documented as of this encounter Care Teams Bailiff Relationship Specialty Start Date End Date Tomi Be MD [address] [id number] PCP - General Internal Medicine 01/15/17 documented as of this encounter
--- OUTSIDE RECORDS SUMMARY | 2024-11-12 11:27 | XMS_ITS ---
Author Organization [facility] [place] [address] Address [address] [place] [address] Care Team Providers Care Buttonhole Tacker Name Role Phone Tomi Be MD Primary Care Provider + [phone] Miscellaneous, Not In File Unavailable Unava ilable Krysta Justin MD Unavailable Aft, Leah Swift MD PhD Unavailable [phone] Marybeth Guerra PhD Unavailable [phone] Sushil Zarate MD Unavailable [phone] Garo Narvaez MD Unavailable [phone] Active Problems Problem Noted Date Diagnosed Date [...] (02/04/2022): Added automatically from request for surgery [id number] Mammogram abnormal 01/07/2022 DURANT (dyspnea on exertion) 10/02/2021 Chronic combined systolic an d diastolic CHF (congestive heart failure) 10/02/2021 History of amiodarone therapy 10/02/2021 Hyperthyroidism 09/27/2021 Assessment & Plan (08/06/2022 3:06 PM RESIDENT INTERN): Seems to have resolved Will test once [...] m Assessment & Plan (07/24/2021 4:23 PM RESIDENT INTERN): I explained to Mrs. Muñoz that her [...] 07/24/2021 Assessment & Plan (08/06/2022 3:06 PM RESIDENT INTERN): Check vit D Adjust dose of Ergocalciferol accordingly Assessment & Plan (07/24/2021 4:25 PM RESIDENT INTERN): Check 25 OH vit D and restart Ergocalciferol , accordingly Vitamin B 12 deficiency 07/24/2021 Assessment & Plan (07/24/2021 4:25 PM RESIDENT INTERN): The patient asked me to check on her B12 level to adjust her vitamin B12 supplementation. She follows also with her primary care doctor, Dr. Be on this regard A-fib 06/11/2021 Hip arthritis 03/02/2020 Pulmonary nodule 12/05/2019 Essential hypertension 10/31/2019 Depression 10/31/2019 Closed displaced comminuted fracture of shaft of right humerus 10/30/2019 Overview (10/30/2019): Added automatically from request for surgery [id number] PEYMAN (obstructive sleep apnea) 03/22/2019 Status post [...] with atrial fibrillation: a report of the [place] [employer] Task Force on Practice Guidelines [...] (06/06/2021): Added automatically from request for surgery [id number] Medication management 12/12/20202021 Acute pain due to [...] 4:41 PM CDT): The patient has a [id number] score of 3 (annualized risk of stroke 3%). I have therefore recommended that she remain anticoagulated for thromboprophylaxis. Assessment & Plan (03/31/2019 8:49 AM CDT): The patient has a [id number]-SMVu score of 3 (annualized risk of stroke [...]
--- OUTSIDE RECORDS SUMMARY | 2024-11-12 11:27 | XMS_ITS | Clinical Summary ---
Author Organization [facility] Address [address] [place] [address] Care Team Providers Care Vamp Creaser Name Role Phone Puja Dobbs MD Unavailable [phone] Tomi Be MD Primary Care Provider [phone] Source Comments [facility],non-owned Affiliates and Associated Physician Practices is amultiple site organization consisting of ambulatory clinics and hospital sitesin [place], [place], [place] and [place]. This disclosure is being madepursuant to the Care Everywhere program and may not contain all information available regarding this patient. Last updated 18.[facility] Allergies Active Allergy Reactions Criticality Noted Date [...] vitamin D, ergocalciferol , (DRISDOL) 1.25 MG (45063 UT) capsule Take 50,000 Units by mouth [...] on file Legal Sex Female 2:04 PM HERBARIUM CURATOR Gender Identity Not on file Sexual Orientation [...] 7:37 AM CDT Height 162.6 cm (5' 4) 03/02/2020 7:37 AM CDT stated Body Mass [...] this topic Medical Devices Implanted Type Area Client Analyst Device Identifier Shelf Expiration Date Model / Serial / Lot Shell Actb 50mm Hip 3 Hl R3 Implanted:Qty: 1 on 03/02/2020 by Fili Wilkinson IV, MD at [facility] Left: Hip [employer] 09/13/2029 [id number] / / [id number] Acetabular Liner 36 Mm Implanted:Qty: 1 on 03/02/2020 by Fili Wilkinson IV, MD at [facility] Left: Hip 01/17/2030 [id number] / / [id number] Marline Stem Size 5 Implanted:Qty: 1 on 03/02/2020 by Fili Wilkinson IV, MD at [facility] Left: Hip 03/16/2026 [id number] / / [id number] Taper Femoral Head +0 Implanted:Qty: 1 on 03/02/2020 by Fili Wilkinson IV, MD at [facility] Left: Hip 01/23/2030 [id number] / / [id number] Explanted Type Area Client Analyst Device Identifier Shelf Expiration Date Model / Serial / Lot Pin Hlf 255mm 5mm Jtx Lng Orth Ss 45mm Explanted:Qty: 1 on 03/02/2020 by Fili Wilkinson IV, MD at [facility] Left: Hip [employer] [id number] / / Insurance MEDICARE FORMERLY [facility] MEDICARE [employer] Advance Directives Documents on File Type Date Recorded Patient Trimmer Press Clippings Expl anation Adv Directive/Living Will/POA 05/02/2012 3:46 PM * Full Code (Latest Code Status on File) Date Activated Date Inactivated Comments 03/02/2020 11:51 AM 03/07/2020 2:38 PM * Full Code Date Activated Date Inactivated Comments 08/29/2013 8:44 PM 08/31/2013 3:36 PM * FULL RESUSCITATION Date Activated Date Inactivated Comments 04/28/2012 8:03 PM 05/01/2012 3:51 PM Care Teams Vamp Creaser Relationship Specialty Start Date End Date Tomi Be MD [address] [place] [address] PCP - General Internal Medicine 02/02/20 Puja Dobbs MD [address] [place] [id number] Cardiovascular Disease 08/23/19
--- OUTSIDE RECORDS SUMMARY | 2024-11-12 11:27 | XMS_ITS | Encounter Summary ---
Author Organization [facility] Address [address] [place] [address] Care Team Providers Care Fabric Inspector Name Role Phone Tomi Be MD Primary Care Provider + [phone] Reason for Visit * Diagnostic Imaging (Routine) - Closed Specialty Diagnoses / Procedures Referred By Contac t Referred To Contact Procedures Breast Imaging Diagnostic Outside Reference Aft, Leah Swift MD PhD [address] [place] [id number] Phone: tel: fax: Referral ID Status Reason Start Date Expiration Date Visits Re quested Visits Authorized [id number] Closed 01/02/2022 02/01/2023 1 1 Encounter Details Date Type Department Care Team (Late st Contact Info) Description 11/16/[address] [facility] [address] [place] [address] [id number] Social History Tobacco Use Types Packs/Day Years [...] on file Legal Sex Female 12:14 AM LINEN SORTER Gender Identity Not on file Sexual Orientation Straight 07/05/2021 1: 52 PM LINEN SORTER documented as of this encounter Functional Status [...] have not been reviewed by [facility] Radiology. There will be no report generated by a [facility] Radiologist. Narrative [facility] - 01/02/2022 5:04 PM CDT EXAMINATION: Images For Reference Purposes Only us Leah Rogers MD PhD IMG MAMMO PROCEDURES Final Result [facility] documented in this encounter Visit Diagnoses Not on filedocumented in this encounter Additional Health Concerns Infection Onset Date Last Indicated Resolved Time COVID: Suspected 06/20/2023 06/20/2023 06/20/2023 7:31 PM LINEN SORTER documented as of this encounter Care Teams Fabric Inspector Relationship Specialty Start Date End Date Tomi Be MD [address] [place] [address] PCP - General Internal Medicine 01/15/17 documented as of this encounter
--- OUTSIDE RECORDS SUMMARY | 2024-11-12 11:27 | XMS_ITS | Encounter Summary ---
Author Organization [facility] Address [address] [place] [address] Care Team Providers Care Mechanical Maintenance Foreman Name Role Phone Tomi Be MD Primary Care Provider + [phone] Reason for Visit * Diagnostic Imaging (Routine) - Closed Specialty Diagnoses / Procedures Referred By Contac t Referred To Contact Procedures Breast Imaging Diagnostic Outside Reference Aft, Leah Swift MD PhD [address] [place] [id number] Phone: tel: fax: Referral ID Status Reason Start Date Expiration Date Visits Re quested Visits Authorized [id number] Closed 01/02/2022 02/01/2023 1 1 Encounter Details Date Type Department Care Team (Late st Contact Info) Description 11/30/2018 Hospital Encounter [facility] [address] [place] [address] [id number] Social History Tobacco Use Types Packs/Day Years [...] file Legal Sex Female 12:14 AM LEAD OXIDE MILL TENDER Gender Identity Not on file Sexual Orientation Straight 07/05/2021 1: 52 PM LEAD OXIDE MILL TENDER documented as of this encounter Functional Status [...] only and have not been reviewed by [facility] Radiology. There will be no report generated by a [facility] Radiologist. Narrative [facility] - 01/02/2022 5:04 PM CDT EXAMINATION: Images For Reference Purposes Only us Leah Rogers MD PhD IMG MAMMO PROCEDURES Final Result [facility] documented in this encounter Visit Diagnoses Not on filedocumented in this encounter Additional Health Concerns Infection Onset Date Last Indicated Resolved Time COVID: Suspected 06/20/2023 06/20/2023 06/20/2023 7:31 PM LEAD OXIDE MILL TENDER documented as of this encounter Care Teams Mechanical Maintenance Foreman Relationship Specialty Start Date End Date Tomi Be MD [address] [place] [address] PCP - General Internal Medicine 01/15/17 documented as of this encounter
--- OUTSIDE RECORDS SUMMARY | 2024-11-12 11:27 | XMS_ITS | Encounter Summary ---
Author Organization [facility] Address [address] [place] [address] Care Team Providers Care Salt Washer Name Role Phone Tomi Be MD Primary Care Provider + [phone] Miscellaneous, Not In File Unavailable Unava ilable Krysta Justin MD Unavailable Aft, Leah Swift MD PhD Unavailable [phone] Marybeth Guerra PhD Unavailable [phone] Sushil Zarate MD Unavailable [phone] Garo Narvaez MD Unavailable [phone] Encounter Details Date Type Department Care Team (Late st Contact Info) Description 07/13/2020 Telephone [facility] - Interventional Radiology [address] [place] [address] Giselle Rutledge RN Social History Tobacco Use Types Packs/Day Years Used Date Smoking Tobacco: Former Cigarettes Q uit: 12/06/1986 Smokeless Tobacco: Never Alcohol Use Standard Drinks/Week Comments No 0 (1 standard drink = 0.6 oz pur e alcohol) Comments No Sex and Gender Information Value Date Recorded Sex Assigned at Not on file Legal Sex Female 12:14 AM MANAGER PHP Gender Identity Not on file Sexual Orientation Straight 07/05/2021 1: 52 PM MANAGER PHP documented as of this encounter Plan of Treatment Not on file documented as of this encounter Visit Diagnoses Not on filedocumented in this encounter Additional Health Concerns Infection Onset Date Last Indicated Resolved Time COVID: Suspected 06/20/2023 06/20/2023 06/20/2023 7:31 PM MANAGER PHP documented as of this encounter Care Teams Salt Washer Relationship Specialty Start Date End Date Tomi Be MD [address] [place] [address] PCP - General Internal Medicine 01/15/17 Miscellaneous, Not In File 11/01/19 Krysta Justin MD [address] [place] [address] Radiation Oncologist Radiation Oncology 04/03/22 Leah Rogers MD PhD [address] [place] [address] Surgeon Surgical Oncology 04/03/22 Marybeth Guerra, PhD [address] [place] [address] Nurse Practitioner Radiation Oncology 05/20/22 Sushil Zarate MD [address] DIV MEDICAL ONCOLOGY, [facility] [address] [place] [address] Medical Oncologist/Vice President Medical Affairs Medical Oncology 05/20/22 Garo Narvaez MD [address] [id number] Consulting Physician Cardiology 04/22/24 documented as of this encounter
--- OUTSIDE RECORDS SUMMARY | 2024-11-12 11:27 | XMS_ITS | Referral Summary ---
Author Organization [facility] [place] [address] [place] [address] Address [address] [place] [address] Care Team Providers Care Bankruptcy Manager Name Role Phone Tomi Be MD Primary Care Provider [phone] Miscellaneous, Not In File Unavailable Unava ilable Krysta Justin MD Unavailable Aft, Leah Swift MD PhD Unavailable [phone] Marybeth Guerra PhD Unavailable Sushil Zarate MD Unavailable [phone] Garo Narvaez MD Unavailable [phone] Encounters Date Type Department Care Team Description 10/12/2024 Telephone [facility] Cardiology [address] [place] [address] Garo Narvaez MD 09/20/2024 Telephone [facility] Cardiology [address] [place] [address] Garo Narvaez MD 09/06/2024 Telephone [facility] [address] [facility] Medical Office Building 2 [address] [place] [address] Juno Braun MD 09/06/2024 1:40 PM CDT Office Visit [facility] [address] [facility] 5th [place] [address] [place] [address] Juno Braun MD Osteoporosis, unspecified osteoporosis type, unspecified pathological fracture presence (Primary Dx) 09/06/2024 1:10 PM CDT Clinical Support [facility] [address] [facility] 5th [place] [address] [place] [address] Age-related osteoporosis without current pathological fracture (Primary Dx); Osteoporosis, unspecified osteoporosis type, unspecified pathological fracture presence 08/31/2024 7:30 AM CDT Ancillary Procedure [facility] [address] [facility] [address] [place] [address] Presence of biventricular cardiac pacemaker (Primary Dx); Persistent atrial fibrillation (HCC) 08/19/2024 12:00 PM AVIATION ELECTRICIAN Lab [facility] - Lab Collection [address] [facility] Floor 5 [place] [address] 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 On[facility] [address] [facility] Floor 8 [place] [address] Sushil Zarate MD Carcinoma of right breast [...] total) by mouth daily 10/10/19 23 Active potassium chloride ER 20 mEq CR [...] BY MOUTH TWICE DAILY 60 tablet 3 11/09/19 25 Active pravastatin (PRAVACHOL) 10 mg tabletIndicati ons:Hyperchole steremia TAKE 1 TABLET BY MOUTH THREE DAYS A WEEK(FRIDAY, FRIDAY, AND FRIDAY) 36 tablet 2 11/10/19 25 Active pravastatin (PRAVACHOL) 10 mg tabletIndicati ons:Hyperchole steremia Take 1 tablet (10 mg total) by mouth 3 (three) times a week Friday, Friday, Friday 36 tablet 2 03/03/20 24 025 Discontinued metoprolol (LOPRESSOR) 100 mg tablet TAKE 1 TABLET BY MOUTH TWICE DAILY 60 tablet 3 10/12/19 25 025 Discontinued Active Problems Problem Noted Date Diagnosed Date Severe obesity 06/22/2024 History of right breast cancer 11/11/2022 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 02/04/2022 Cancer Staging:Clinical stage from 01/14/2022:Stage IA(cT1b, cN0, cM0, G2, ER+, OH+, HER2-) - Signed by Lance Austin MD on 04/03/2022 Pathologic stage from 02/28/2022:No Stage Recommended(pT1c, cN0, cM0, G2, ER+, OH+, HER2-) - Signed by Lance Austin MD on 04/03/2022 Pathologic: Unsigned Overview (02/04/2022): Added automatically from request for surgery [id number] Mammogram abnormal 01/07/2022 DURANT (dyspnea on exertion) 10/02/2021 Chronic combined systolic an d diastolic CHF (congestive heart failure) 10/02/2021 History of amiodarone therapy 10/02/2021 Hyperthyroidism 09/27/2021 Assessment & Plan (08/06/2022 3:06 PM AVIATION ELECTRICIAN): Seems to have resolved Will test once [...] m Assessment & Plan (07/24/2021 4:23 PM AVIATION ELECTRICIAN): I explained to Mrs. Guevara that her [...] 07/24/2021 Assessment & Plan (08/06/2022 3:06 PM AVIATION ELECTRICIAN): Check vit D Adjust dose of Ergocalciferol accordingly Assessment & Plan (07/24/2021 4:25 PM AVIATION ELECTRICIAN): Check 25 OH vit D and restart Ergocalciferol , accordingly Vitamin B 12 deficiency 07/24/2021 Assessment & Plan (07/24/2021 4:25 PM AVIATION ELECTRICIAN): The patient asked me to check on her B12 level to adjust her vitamin B12 supplementation. She follows also with her primary care doctor, Dr. Be on this regard A-fib 06/11/2021 Hip arthritis 03/02/2020 Pulmonary nodule 12/05/2019 Essential hypertension 10/31/2019 Depression 10/31/2019 Closed displaced comminuted fracture of shaft of right humerus 10/30/2019 Overview (10/30/2019): Added automatically from request for surgery [id number] PEYMAN (obstructive sleep apnea) 03/22/2019 Status post [...] (06/06/2021): Added automatically from request for surgery [id number] Medication management 12/12/20202021 Acute pain due to [...] 4:41 PM CDT): The patient has a [id number] score of 3 (annualized risk of stroke 3%). I have therefore recommended that she remain anticoagulated for thromboprophylaxis. Assessment & Plan (03/31/2019 8:49 AM CDT): The patient has a YGD4BX3-XGRm score of 3 (annualized risk of stroke [...] on file Legal Sex Female 12:14 AM AVIATION ELECTRICIAN Gender Identity Not on file Sexual Orientation Straight 07/05/2021 1: 52 PM AVIATION ELECTRICIAN Last Filed Vital Signs Vital Sign Reading Time Taken Comments Blood Pressure 134/84 08/19/2024 1:02 PM AVIATION ELECTRICIAN Pulse 79 08/19/2024 1:02 PM AVIATION ELECTRICIAN Temperature 36.5 C (97.7 F) 08/19/2024 1:02 PM AVIATION ELECTRICIAN Respiratory Rate 18 08/19/2024 1:02 PM AVIATION ELECTRICIAN Oxygen Saturation 92% 08/19/2024 1:02 PM AVIATION ELECTRICIAN Inhaled Oxygen Concentration - - Weight 103.1 kg (227 lb 3.2 oz) 09/06/2024 1:34 PM CDT Height 160.3 cm (5' 3.1) 09/06/2024 1:34 PM CDT Body Mass Index 40.12 09/06/2024 1:34 PM CDT Plan of Treatment Not on file Medical Devices Implanted Type Area Lead Oxide Mill Tender Device Identifier Shelf Expiration Date Model / Serial / Lot [employer] [id number] Vascade 6/7fr Bioabsorbable Vascular System Compression Collagen - [id number] - [id number] Implanted:Qty: 1 on 10/24/2020 by Mason Miranda MD at [facility] Collagen [employer] 07/19/2022 700-580I -05U / [id number] 204A / [id number] 204A [employer] [id number] System 6-12fr Mvp Venous Closure Vascade - [id number] - [id number] Implanted:Qty: 1 on 10/24/2020 by Mason Miranda MD at [facility] Collagen [employer] 08/22/2022 800-612C -10U / [id number] 310A / [id number] 310A [employer] [id number]-[id number] System 6-12fr Mvp Venous Closure Vascade - [id number] - [id number] Implanted:Qty: 1 on 10/24/2020 by Mason Miranda MD at [facility] Collagen [employer] 08/22/2022 800-612C -10U / [id number] 310A / [id number] 310A [employer] 811-816t-72t System 6-12fr Mvp Venous Closure Vascade - [id number] - [id number] Implanted:Qty: 1 on 10/24/2020 by Mason Miranda MD at [facility] Collagen [employer] 08/22/2022 800-612C -10U / [id number] 310A / [id number] 310A [employer] [id number] System 6-12fr Mvp Venous Closure Vascade - [id number] - [id number] Implanted:Qty: 1 on 06/11/2021 by Mason Miranda MD at [facility] Collagen [employer] 03/27/2023 800-612C -10U / [id number] 019A / [id number] 019A [employer] 860-326a-82h System 6-12fr Mvp Venous Closure Vascade - [id number] - [id number] Implanted:Qty: 1 on 06/11/2021 by Mason Miranda MD at [facility] Collagen [employer] 03/27/2023 800-612C -10U / [id number] 019A / [id number] 019A [employer] 030-879l-04r System 6-12fr Mvp Venous Closure Vascade - [id number] - [id number] Implanted:Qty: 1 on 06/11/2021 by Mason Miranda MD at [facility] Collagen [employer] 03/27/2023 800-612C -10U / [id number] 019A / [id number] 019A [employer] 775-867e-50e Vascade 6/7fr Bioabsorbable Vascular System Compression Collagen - [id number] - [id number] Implanted:Qty: 1 on 06/11/2021 by Mason Miranda MD at [facility] Collagen [employer] 09/12/2022 700-580I -05U / [id number] 401A / [id number] 401A Medtronic Inc Capsurefix Novus 6.2fr 2mm 58cm Bipolar Screw In Implantable 5076-58 - [id number] - [id number] Implanted:Qty: 1 on 11/18/2023 by Mason Miranda MD at [facility] Lead Med[employer]onic Inc [id number] 03/25/2025 507 6-58 / [id number] 1V / Med[employer]onic Inc Attain Stability Quad Mri Surescan Active Fixation Lv Lead 88cm [id number] - [id number] - [id number] Implanted:Qty: 1 on 11/18/2023 by Mason Miranda MD at [facility] Lead [employer] [id number] 09/03/2025 479 888 / [id number] / Med[employer]onic Inc Solara Mri Surescan Bluetooth 46.5x59mm Connector Hole Radiopaque W4tr03 - [id number] - [id number] Implanted:Qty: 1 on 11/18/2023 by Mason Miranda MD at [facility] Pacemaker [employer] Inc 12/11/2024 [id number] / [id number] / Synthes 241.35 12mm 19g3v2qx .5mm 5 Hole Collar 1/3 Tubular Plate Bone Stainless - S000 - [id number] Implanted:Qty: 1 on 10/30/2019 by Paras Houston MD at [facility] Plate Right: Humerus Synthes I 241.35 / 000 / 000 Synthes 241.923s Plate Bone Lcp Combi Philos Long Stainless Steel L232mm X W12mm X H3.7mm Humerus Proximal 10 Hole Shaft Sterile 3.5mm Screw Small Fragment Set - S000 - [id number] Implanted:Qty: 1 on 10/30/2019 by Paras Houston MD at [facility] Plate Right: Humerus Synthes I 241.923S / 000 / 000 Synthes 212.117 3.5mm 2.9mm 40mm Self Tap Lock Stardrive Conical Head T15 Full - S000 - [id number] Implanted:Qty: 1 on 10/30/2019 by Paras Houston MD at [facility] Screw Right: Humerus Synthes I 212.117 / 000 / 000 Synthes 212.118 3.5mm 2.9mm 42mm Self Tap Lock Stardrive Conical Head Full Thread - S000 - [id number] Implanted:Qty: 1 on 10/30/2019 by Paras Houston MD at [facility] Screw Right: Humerus Synthes I 212.118 / 000 / 000 Synthes 212.115 3.5mm 2.9mm 36mm Self Tap Lock Stardrive Conical Head T15 Full - S000 - [id number] Implanted:Qty: 1 on 10/30/2019 by Paras Houston MD at [facility] Screw Right: Humerus Synthes I 212.115 / 000 / 000 Synthes 212.108 3.5mm 2.9mm 24mm Self Tap Lock Stardrive Conical Head Pelvis T15 - S000 - [id number] Implanted:Qty: 3 on 10/30/2019 by Paras Houston MD at [facility] Screw Right: Humerus Synthes I 212.108 / 000 / 000 Synthes 204.824 3.5mm 6mm 24mm 2.5mm Self Tap Small Hexagonal Socket Low Profile - S000 - [id number] Implanted:Qty: 2 on 10/30/2019 by Paras Houston MD at [facility] Screw Right: Humerus Synthes I 204.824 / 000 / 000 Synthes 204.820 3.5mm 6mm 20mm 2.5mm Self Tap Small Hexagonal Socket Low Profile - S000 - [id number] Implanted:Qty: 1 on 10/30/2019 by Paras Houston MD at [facility] Screw Right: Humerus Synthes I 204.820 / 000 / 000 Synthes 204.822 3.5mm 6mm 22mm 2.5mm Self Tap Small Hexagonal Socket Low Profile - S000 - [id number] Implanted:Qty: 1 on 10/30/2019 by Paras Houston MD at [facility] Screw Right: Humerus Synthes I 204.822 / 000 / 000 Synthes 204.828 3.5mm 6mm 28mm 2.5mm Self Tap Small Hexagonal Socket Low Profile - S000 - [id number] Implanted:Qty: 1 on 10/30/2019 by Paras Houston MD at [facility] Screw Right: Humerus Synthes I 204.828 / 000 / 000 Synthes 204.826 3.5mm 6mm 26mm 2.5mm Self Tap Small Hexagonal Socket Low Profile - S000 - [id number] Implanted:Qty: 1 on 10/30/2019 by Paras Houston MD at [facility] Screw Right: Humerus Synthes I 204.826 / 000 / 000 Synthes 212.121 3.5mm 2.9mm 50mm Self Tap Lock Stardrive Conical Head T15 Full - S000 - [id number] Implanted:Qty: 1 on 10/30/2019 by Paras Houston MD at [facility] Screw Right: Humerus Synthes I 212.121 / 000 / 000 Synthes 212.114 3.5mm 2.9mm 35mm Self Tap Lock Stardrive Conical Head T15 Full - S000 - [id number] Implanted:Qty: 1 on 10/30/2019 by Paras Houston MD at [facility] Screw Right: Humerus Synthes I 212.114 / 000 / 000 Synthes 212.116 3.5mm 2.9mm 38mm Self Tap Lock Stardrive Conical Head T15 Full - S000 - [id number] Implanted:Qty: 1 on 10/30/2019 by Paras Houston MD at [facility] Screw Right: Humerus Synthes I 212.116 / 000 / 000 Bard Peripheral Vascular Ultraclip Bard 17ga 10cm 2 Trigger Permanent Ultrasound [id number] - [id number] Implanted:Qty: 1 on 01/14/2022 at [facility] Right: Breast Bard Peripheral Vascular [id number] / / Bard Peripheral Vascular Ghiatas 20ga 20cm 9cm Beaded Needle Breast Wire Localization 37242 - [id number] Implanted:Qty: 1 on 02/28/2022 at [facility] Right: Breast Bard Peripheral Vascular [id number] / / Explanted Type Area Lead Oxide Mill Tender Device Identifier Shelf Expiration Date Model / Serial / Lot Synthes 204.812 3.5mm 6mm 12mm 2.5mm Self Tap Small Hexagonal Socket Low Profile - S000 - [id number] Explanted:Qty: 1 on 10/30/2019 by Paras Houston MD at [facility] Screw Right: Humerus Synthes I 204.812 / 000 / 000 Procedures Procedure Name Priority Date/Time Associated Diagnosis Comments DEXA TBS AXIAL SKELETON BONE DENSITY 1 OR MORE SITES Schedule Routine, Read Routine (OP Routine) 09/06/2024 1:18 PM CDT Age-related osteoporosis without current pathological fracture DEVICE CHECK - REMOTE Routine 08/31/2024 10:06 AM CDT Persistent atrial fibrillation (HCC) EGFR Routine 08/19/2024 12:41 PM AVIATION ELECTRICIAN 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 Based on machine cross-calibration and [...] mineral density scan were prepared by Alisa Chirinos)([facility])who is accredited by the International Society of Clinical Densitometry. The overall patient assessment and scan interpretation were performed by Juno Braun M.D. who is certified by the International Society of Clinical Densitometry. [id number] us Juno Braun MD IMG DXA PROCEDURES Final [...] Final Result * eGFR (08/19/2024 12:41 PM AVIATION ELECTRICIAN) eGFR 90 >=60 mL/min/1. 73 m2 Comment: [...] reviewed 2021. Blood 08/19/2024 12:4 1 PM AVIATION ELECTRICIAN 08/19/2024 12:46 PM AVIATION ELECTRICIAN Sushil Zarate MD LAB BLOOD ORDERABLES Final Result Performing Organization Address City/[facility]/ZIP Co de Phone Number [facility] [employer] [place] [address] * (ABNORMAL) Vitamin D 25 hydroxy (08/19/2024 12:41 PM AVIATION ELECTRICIAN) Pathologist [facility] Vitamin D 25-OH 20(L) 30 - 80 ng/mL Blood 08/19/2024 12:4 1 PM AVIATION ELECTRICIAN 08/19/2024 12:46 PM AVIATION ELECTRICIAN Sushil Zarate MD LAB BLOOD ORDERABLES Final Result Performing Organization Address [facility] de Phone Number [facility] [place] [address] * (ABNORMAL) Comprehensive metabolic panel (08/19/2024 12:41 PM AVIATION ELECTRICIAN) Pathologist [facility] Sodium 146(H) 135 - 145 mmol/L Potassium, pl 3.4 3.3 - 4.9 mmol/L [facility] Chloride 111(H) 97 - 110 mmol/L [facility] CO2 25 22 - 32 mmol/L [facility] Anion gap 10 2 - 15 mmol/L [facility] BUN 13 6 - 25 mg/dL [facility] Creatinine 0.67 0.60 - 1.10 mg/dL [facility] Glucose 149 70 - 199 mg/dL [facility] Comment: Interpretive Data Fasting glucose >/= [...] Calcium 8.8 8.5 - 10.3 mg/dL [facility] Bilirubin, total 0.6 0.1 - 1.2 mg/dL [facility] Protein, pl 7.0 6.5 - 8.5 g/dL [facility] Albumin 3.8 3.5 - 5.0 g/dL [facility] Alk phos 68 40 - 130 Units/L [facility] ALT 6(L) 7 - 45 Units/L [facility] AST 18 10 - 45 Units/L [facility] Blood 08/19/2024 12:4 1 PM AVIATION ELECTRICIAN 08/19/2024 12:46 PM AVIATION ELECTRICIAN us Sushil Zarate MD LAB BLOOD ORDERABLES Final Result [facility] Department [place] [address] * Diagnostic Mammogram Bilateral W Alec (11/11/2023 [...] Recently Relevant to Health Maintenance Insurance MEDICARE [facility] MEDICARE SUPPLEMENT MEDICARE [facility] MEDICARE SUPPLEMENT Advance Directives For more information, please contact: [phone] Documents on File Type Date Recorded Patient Leaf Tinner Expl anation Power of Sales Office Coordinator 12/13/2020 6:34 AM * Full Code (Latest Code Status on File) Date Activated Date Inactivated Comments 10/24/2020 2:28 PM 10/25/2020 4:42 PM * Full Code Date Activated Date Inactivated Comments 10/30/2019 10:51 AM 11/01/2019 7:00 PM Care Teams Bankruptcy Manager Relationship Specialty Start Date End Date Tomi Be MD [address] [place] [address] PCP - General Internal Medicine 01/15/17 Miscellaneous, Not In File 11/01/19 Krysta Justin MD [address] [place] [address] Radiation Oncologist Radiation Oncology 04/03/22 Leah Rogers MD PhD [address] [place] [address] Surgeon Surgical Oncology 04/03/22 Marybeth Guerra, PhD [address] [place] [address] Nurse Practitioner Radiation Oncology 05/20/22 Suhsil Zarate MD [address] DIV MEDICAL ONCOLOGY, [address] [place] [address] Medical Oncologist/Machinist 2Nd Shift Medical Oncology 05/20/22 Garo Narvaez MD [address] [facility] [address] [place] [address] Consulting Physician Cardiology 04/22/24
--- OUTSIDE RECORDS SUMMARY | 2024-11-12 11:27 | XMS_ITS | Clinical Summary ---
Author Organization [facility] [address] Address [address] [place] [address] Care Team Providers Care Cleaning And Washing Equipment Operator Name Role Phone Tomi Be MD Primary Care Provider [phone] Miscellaneous, Not In File Unavailable Unava ilable Krysta Justin MD Unavailable Aft, Leah Swift MD PhD Unavailable [phone] Marybeth Guerra PhD Unavailable [phone] Sushil Zarate MD Unavailable [phone] Garo Narvaez MD Unavailable Allergies Active Allergy [...] from 01/14/2022:Stage IA(cT1b, cN0, cM0, G2, ER+, MI+, HER2-) - Signed by Lance Austin MD on 04/03/2022 Pathologic stage from 02/28/2022:No Stage Recommended(pT1c, cN0, cM0, G2, ER+, MI+, HER2-) - Signed by Lance Austin MD on 04/03/2022 Pathologic: Unsigned Overview (02/04/2022): Added automatically from request for surgery [id number] Mammogram abnormal 01/07/2022 DURANT (dyspnea on exertion) 10/02/2021 Chronic combined systolic an d diastolic CHF (congestive heart failure) 10/02/2021 History of amiodarone therapy 10/02/2021 Hyperthyroidism 09/27/2021 Assessment & Plan (08/06/2022 3:06 PM GANG BORE OPERATOR): Seems to have resolved Will test once [...] m Assessment & Plan (07/24/2021 4:23 PM GANG BORE OPERATOR): I explained to Mrs. Guevara that her [...] 07/24/2021 Assessment & Plan (08/06/2022 3:06 PM GANG BORE OPERATOR): Check vit D Adjust dose of Ergocalciferol accordingly Assessment & Plan (07/24/2021 4:25 PM GANG BORE OPERATOR): Check 25 OH vit D and restart Ergocalciferol , accordingly Vitamin B 12 deficiency 07/24/2021 Assessment & Plan (07/24/2021 4:25 PM GANG BORE OPERATOR): The patient asked me to check on her B12 level to adjust her vitamin B12 supplementation. She follows also with her primary care doctor, Dr. Be on this regard A-fib 06/11/2021 Hip arthritis 03/02/2020 Pulmonary nodule 12/05/2019 Essential hypertension 10/31/2019 Depression 10/31/2019 Closed displaced comminuted fracture of shaft of right humerus 10/30/2019 Overview (10/30/2019): Added automatically from request for surgery [id number] PEYMAN (obstructive sleep apnea) 03/22/2019 Status post [...] estimated a 70% chance of freedom from long-term atrial arrhythmia, and the patient understands that [...] with atrial fibrillation: a report of the [place] [employer]/[place] [employer] Task Force on Practice Guidelines [...] (06/06/2021): Added automatically from request for surgery [id number] Medication management 12/12/20202021 Acute pain due to [...] 4:41 PM CDT): The patient has a ZPI3DX5-USIo score of 3 (annualized risk of stroke 3%). I have therefore recommended that she remain anticoagulated for thromboprophylaxis. Assessment & Plan (03/31/2019 8:49 AM CDT): The patient has a MQF8GA6-ECWq score of 3 (annualized risk of stroke [...] Type Department Care Team Description 10/12/2024 Telephone [facility] [address] [place] [address] Garo Narvaez MD 09/20/2024 Telephone [facility] [address] [place] [address] Garo Narvaez MD 09/06/2024 1:40 PM CDT Office Visit [address] 5th [place] [address] [place] [phone] Juno Braun MD Osteoporosis, unspecified osteoporosis type, unspecified pathological fracture presence (Primary Dx) 09/06/2024 1:10 PM CDT Clinical Support [facility] [address] [facility] [address] 5th [place] [address] [place] [phone] Age-related osteoporosis without current pathological fracture (Primary Dx); Osteoporosis, unspecified osteoporosis type, unspecified pathological fracture presence 09/06/2024 Telephone 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) (Primary Dx) 08/19/2024 12:00 PM GANG BORE OPERATOR Lab [facility] [place] - Lab Collection [address] [facility] Floor 5 [place] [address] Carcinoma of right breast with ductal and [...] - Hx Other Medical Bleeding ulcer; Comments: ELU 02/15/2016 - Hypertension Heart beat abnormality Atrial [...] on file Legal Sex Female 12:14 AM GANG BORE OPERATOR Gender Identity Not on file Sexual Orientation Straight 07/05/2021 1: 52 PM GANG BORE OPERATOR Obstetrics History Last Filed Vital Signs Vital Sign Reading Time Taken Comments Blood Pressure 134/84 08/19/2024 1:02 PM GANG BORE OPERATOR Pulse 79 08/19/2024 1:02 PM GANG BORE OPERATOR Temperature 36.5 C (97.7 F) 08/19/2024 1:02 PM GANG BORE OPERATOR Respiratory Rate 18 08/19/2024 1:02 PM GANG BORE OPERATOR Oxygen Saturation 92% 08/19/2024 1: 02 PM GANG BORE OPERATOR Inhaled Oxygen Concentration - - Weight 103.1 [...] Depression Screening 02/05/2023 02/05/2022, 09/28/19 Covid-19 Vaccine (4 - 2023-2 5 season) 2024 05/06/2021, 09/04/2020, 08/02/2020 Fall Risk Assessment 11/17/2024 11/18/2023, 04/04/20 Osteoporosis Screening-Bone Density Scan 09/06/2026 09/06/2024, 01/29/2023, 10/01/2021, Additional history exists Pneumococcal vaccine 65+ Completed 06/07/2015, 08/14 Breast Cancer Screening-Mammogram Discontinued 024, 11/05/2022 Influenza Vaccine Completed 03/16/2024, , 02/14/2020, Additional history exists Medical Devices Implanted Type Area Needle Straightener Device Identifier Shelf Expiration Date Model / Serial / Lot [employer] [id number] Vascade 6/7fr Bioabsorbable Vascular System Compression Collagen - [id number] - [id number] Implanted:Qty: 1 on 10/24/2020 by Mason Miranda MD at [facility] Collagen [employer] 07/19/2022 700-580I -05U / [id number] 204A / [id number] 204A [employer] [id number] System 6-12fr Mvp Venous Closure Vascade - [id number] - [id number] Implanted:Qty: 1 on 10/24/2020 by Mason Miranda MD at [facility] Collagen [employer] 08/22/2022 800-612C -10U / [id number] 310A / [id number] 310A [employer] 767-353k-[id number] System 6-12fr Mvp Venous Closure Vascade - [id number] - [id number] Implanted:Qty: 1 on 10/24/2020 by Mason Miranda MD at [facility] Collagen [employer] 08/22/2022 800-612C -10U / [id number] 310A / [id number] 310A [employer] [id number]-[id number] System 6-12fr Mvp Venous Closure Vascade - [id number] - [id number] Implanted:Qty: 1 on 10/24/2020 by Mason Miranda MD at [facility] Collagen [employer] 08/22/2022 800-612C -10U / [id number] 310A / [id number] 310A [employer] 647-199u-44h System 6-12fr Mvp Venous Closure Vascade - [id number] - [id number] Implanted:Qty: 1 on 06/11/2021 by Mason Miranda MD at [facility] Collagen [employer] 03/27/2023 800-612C -10U / [id number] 019A / [id number] 019A [employer] 082-159o-56v System 6-12fr Mvp Venous Closure Vascade - [id number] - [id number] Implanted:Qty: 1 on 06/11/2021 by Mason Miranda MD at [facility] Collagen [employer] 03/27/2023 800-612C -10U / [id number] 019A / [id number] 019A [employer] 880-496x-[id number] System 6-12fr Mvp Venous Closure Vascade - [id number] - [id number] Implanted:Qty: 1 on 06/11/2021 by Mason Miranda MD at [facility] Collagen [employer] 03/27/2023 800-612C -10U / [id number] 019A / [id number] 019A [employer] 188-376p-69m Vascade 6/7fr Bioabsorbable Vascular System Compression Collagen - [id number] - [id number] Implanted:Qty: 1 on 06/11/2021 by Mason Miranda MD at [facility] Collagen [employer] 09/12/2022 700-580I -05U / [id number] 401A / [id number] 401A [employer] Inc Capsurefix Novus 6.2fr 2mm 58cm Bipolar Screw In Implantable 5076-58 - [id number] - [id number] Implanted:Qty: 1 on 11/18/2023 by Mason Miranda MD at [facility] Lead [employer] [id number] 03/25/2025 507 6-58 / [id number] 1V / Med[employer] Inc Attain Stability Quad Mri Surescan Active Fixation Lv Lead 88cm 348858 - [id number] - [id number] Implanted:Qty: 1 on 11/18/2023 by Mason Miranda MD at [facility] Lead [employer] [id number] 09/03/2025 479 888 / [id number] / [employer] Inc Solara Mri Surescan Bluetooth 46.5x59mm Connector Hole Radiopaque W4tr03 - [id number] - [id number] Implanted:Qty: 1 on 11/18/2023 by Mason Miranda MD at [facility] Pacemaker [employer] 12/11/2024 W4TR03 / [id number] / Synthes 241.35 12mm 35i8d2qs .5mm 5 Hole Collar 1/3 Tubular Plate Bone Stainless - S000 - [id number] Implanted:Qty: 1 on 10/30/2019 by Paras Houston MD at [facility] Plate Right: Humerus Synthes I 241.35 / 000 / 000 Synthes 241.923s Plate Bone Lcp Combi Philos Long Stainless Steel L232mm X W12mm X H3.7mm Humerus Proximal 10 Hole Shaft Sterile 3.5mm Screw Small Fragment Set - S000 - [id number] Implanted:Qty: 1 on 10/30/2019 by Paras Houston MD at [facility] Plate Right: Humerus Synthes I 241.923S / 000 / 000 Synthes 212.117 3.5mm 2.9mm 40mm Self Tap Lock Stardrive Conical Head T15 Full - S000 - [id number] Implanted:Qty: 1 on 10/30/2019 by Paras Houston MD at [facility] Screw Right: Humerus Synthes I 212.117 / 000 / 000 Synthes 212.118 3.5mm 2.9mm 42mm Self Tap Lock Stardrive Conical Head Full Thread - S000 - [id number] Implanted:Qty: 1 on 10/30/2019 by Paras Houston MD at [facility] Screw Right: Humerus Synthes I 212.118 / 000 / 000 Synthes 212.115 3.5mm 2.9mm 36mm Self Tap Lock Stardrive Conical Head T15 Full - S000 - [id number] Implanted:Qty: 1 on 10/30/2019 by Paras Houston MD at [facility] Screw Right: Humerus Synthes I 212.115 / 000 / 000 Synthes 212.108 3.5mm 2.9mm 24mm Self Tap Lock Stardrive Conical Head Pelvis T15 - S000 - [id number] Implanted:Qty: 3 on 10/30/2019 by Paras Houston MD at [facility] Screw Right: Humerus Synthes I 212.108 / 000 / 000 Synthes 204.824 3.5mm 6mm 24mm 2.5mm Self Tap Small Hexagonal Socket Low Profile - S000 - [id number] Implanted:Qty: 2 on 10/30/2019 by Paras Houston MD at [facility] Screw Right: Humerus Synthes I 204.824 / 000 / 000 Synthes 204.820 3.5mm 6mm 20mm 2.5mm Self Tap Small Hexagonal Socket Low Profile - S000 - [id number] Implanted:Qty: 1 on 10/30/2019 by Paras Houston MD at [facility] Screw Right: Humerus Synthes I 204.820 / 000 / 000 Synthes 204.822 3.5mm 6mm 22mm 2.5mm Self Tap Small Hexagonal Socket Low Profile - S000 - [id number] Implanted:Qty: 1 on 10/30/2019 by Paras Houston MD at [facility] Screw Right: Humerus Synthes I 204.822 / 000 / 000 Synthes 204.828 3.5mm 6mm 28mm 2.5mm Self Tap Small Hexagonal Socket Low Profile - S000 - [id number] Implanted:Qty: 1 on 10/30/2019 by Paras Houston MD at [facility] Screw Right: Humerus Synthes I 204.828 / 000 / 000 Synthes 204.826 3.5mm 6mm 26mm 2.5mm Self Tap Small Hexagonal Socket Low Profile - S000 - [id number] Implanted:Qty: 1 on 10/30/2019 by Paras Houston MD at [facility] Screw Right: Humerus Synthes I 204.826 / 000 / 000 Synthes 212.121 3.5mm 2.9mm 50mm Self Tap Lock Stardrive Conical Head T15 Full - S000 - [id number] Implanted:Qty: 1 on 10/30/2019 by Paras Houston MD at [facility] Screw Right: Humerus Synthes I 212.121 / 000 / 000 Synthes 212.114 3.5mm 2.9mm 35mm Self Tap Lock Stardrive Conical Head T15 Full - S000 - [id number] Implanted:Qty: 1 on 10/30/2019 by Paras Houston MD at [facility] Screw Right: Humerus Synthes I 212.114 / 000 / 000 Synthes 212.116 3.5mm 2.9mm 38mm Self Tap Lock Stardrive Conical Head T15 Full - S000 - [id number] Implanted:Qty: 1 on 10/30/2019 by Paras Houston MD at [facility] Screw Right: Humerus Synthes I 212.116 / 000 / 000 Bard Peripheral Vascular Ultraclip Bard 17ga 10cm 2 Trigger Permanent Ultrasound 785868b - [id number] Implanted:Qty: 1 on 01/14/2022 at [facility] Right: Breast [employer] [id number] / / Bard Peripheral Vascular Ghiatas 20ga 20cm 9cm Beaded Needle Breast Wire Localization 48148 - [id number] Implanted:Qty: 1 on 02/28/2022 at [facility] Right: Breast Bard [employer]ipheral [employer] [id number] 57593 / / Explanted Type Area Needle Straightener Device Identifier Shelf Expiration Date Model / Serial / Lot Synthes 204.812 3.5mm 6mm 12mm 2.5mm Self Tap Small Hexagonal Socket Low Profile - S000 - [id number] Explanted:Qty: 1 on 10/30/2019 by Paras Houston MD at 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 Based on machine cross-calibration and [...] mineral density scan were prepared by Alisa Bustos (Letty)([facility])who is accredited by the International Society of Clinical Densitometry. The overall patient assessment and scan interpretation were performed by Juno Braun M.D. who is certified by the International Society of Clinical Densitometry. [id number] Juno Braun MD [facility] DXA PROCEDURES Final Result * DEVICE CHECK [...] appropriate for device settings Kim Mosley RN Mason Miranda MD [facility] PRO CEDURES Final Result * eGFR (08/19/2024 12:41 PM GANG BORE OPERATOR) eGFR 90 >=60 mL/min/1. 73 m2 Comment: [...] Inclusion of Race in Diagnosing Kidney Disease, AYLA 2020). The CKD-EPI equation should not be used for patients with unstable renal function and has not been validated in children and those over 70. Current interpretive data was last reviewed 2021. Blood 08/19/2024 12:4 1 PM GANG BORE OPERATOR 08/19/2024 12:46 PM GANG BORE OPERATOR Sushil Zarate MD LAB BLOOD ORDERABLES Final Result Performing Organization Address City/[facility]/ZIP Co de Phone Number [facility] [place] [address] * (ABNORMAL) Vitamin D 25 hydroxy (08/19/2024 12:41 PM GANG BORE OPERATOR) Pathologist [facility] Vitamin D 25-OH 20(L) 30 - 80 ng/mL Blood 08/19/2024 12:4 1 PM GANG BORE OPERATOR 08/19/2024 12:46 PM GANG BORE OPERATOR Sushil Zarate MD LAB BLOOD ORDERABLES Final Result Performing Organization Address [facility] de Phone Number [facility] [place] [address] * (ABNORMAL) Comprehensive metabolic panel (08/19/2024 12:41 PM GANG BORE OPERATOR) Sodium 146(H) 135 - 145 mmol/L Potassium, pl 3.4 3.3 - 4.9 mmol/L [facility] Chloride 111(H) 97 - 110 mmol/L [facility] CO2 25 22 - 32 mmol/L [facility] Anion gap 10 2 - 15 mmol/L [facility] BUN 13 6 - 25 mg/dL [facility] Creatinine 0.67 0.60 - 1.10 mg/dL [facility] Glucose 149 70 - 199 mg/dL [facility] Comment: Interpretive Data Fasting glucose >/= [...] Calcium 8.8 8.5 - 10.3 mg/dL [facility] Bilirubin, total 0.6 0.1 - 1.2 mg/dL [facility] Protein, pl 7.0 6.5 - 8.5 g/dL [facility] Albumin 3.8 3.5 - 5.0 g/dL [facility] Alk phos 68 40 - 130 Units/L [facility] ALT 6(L) 7 - 45 Units/L [facility] AST 18 10 - 45 Units/L [facility] Blood 08/19/2024 12:4 1 PM GANG BORE OPERATOR 08/19/2024 12:46 PM GANG BORE OPERATOR Sushil Zarate MD LAB BLOOD ORDERABLES Final Result [facility] Department [place] [address] * Diagnostic Mammogram Bilateral W Alec (11/11/2023 [...] Recently Relevant to Health Maintenance Insurance MEDICARE [employer] [place] MEDICARE SUPPLEMENT MEDICARE [facility] MEDICARE SUPPLEMENT Advance Directives For more information, please contact: [phone] Documents on File Type Date Recorded Patient Merchandise Planner Expl anation Power of Group Sales Coordinator 12/13/2020 6:34 AM * Full Code (Latest Code Status on File) Date Activated Date Inactivated Comments 10/24/2020 2:28 PM 10/25/2020 4:42 PM * Full Code Date Activated Date Inactivated Comments 10/30/2019 10:51 AM 11/01/2019 7:00 PM Care Teams Cleaning And Washing Equipment Operator Relationship Specialty Start Date End Date Tomi Be MD [address] [place] [address] PCP - General Internal Medicine 01/15/17 Miscellaneous, Not In File 11/01/19 Krysta Justin MD [address] [facility] [address] [place] [address] Radiation Oncologist Radiation Oncology 04/03/22 Leah Rogers MD PhD [address] [place] [address] Surgeon Surgical Oncology 04/03/22 Marybeth Guerra, PhD [address] [place] [address] Nurse Practitioner Radiation Oncology 05/20/22 Sushil Zarate MD [address] [facility] [address] [place] [address] Medical Oncologist/Superintendent Landfill Operations Medical Oncology 05/20/22 Garo Narvaez MD [address] [address] Consulting Physician Cardiology 04/22/24
--- OUTSIDE RECORDS SUMMARY | 2024-11-12 11:27 | XMS_ITS | Encounter Summary ---
Author Organization [facility] Healthcare Address [address] [place] [address] Care Team Providers Care Certified Phlebotomist Name Role Phone Tomi Be MD Primary Care Provider [phone] Reason for Visit * Diagnostic Imaging (Routine) - Closed Specialty Diagnoses / Procedures Referred By Contac t Referred To Contact Procedures Breast Imaging US Outside Reference Aft, Leah Swift MD PhD [address] [place] [address] Phone: tel: fax: Referral ID Status Reason Start Date Expiration Date Visits Re quested Visits Authorized [id number] Closed 01/02/2022 02/01/2023 1 1 Encounter Details Date Type Department Care Team (Late st Contact Info) Description 11/16/2018 12:05 AM CDT Hospital Encounter [facility] [address] [place] [address] Social History Tobacco Use Types Packs/Day Years [...] on file Legal Sex Female 12:14 AM BIOLOGY MANAGER Gender Identity Not on file Sexual Orientation Straight 07/05/2021 1: 52 PM BIOLOGY MANAGER documented as of this encounter Functional Status [...] [facility]. Narrative [facility] - 01/02/2022 5:18 PM CDT EXAMINATION: Images For Reference Purposes Only us Leah Rogers MD PhD IMG MAMMO PROCEDURES Final Result [facility] documented in this encounter Visit Diagnoses Not on filedocumented in this encounter Additional Health Concerns Infection Onset Date Last Indicated Resolved Time COVID: Suspected 06/20/2023 06/20/2023 06/20/2023 7:31 PM BIOLOGY MANAGER documented as of this encounter Care Teams Certified Phlebotomist Relationship Specialty Start Date End Date Tomi Be MD [address] [place], [place] [id number] PCP - General Internal Medicine 01/15/17 documented as of this encounter
--- OUTSIDE RECORDS SUMMARY | 2024-11-12 11:27 | XMS_ITS | Encounter Summary ---
Author Organization [facility] Healthcare Address [address] [place] [address] Care Team Providers Care Dial Painter Name Role Phone Tomi Be MD Primary Care Provider + [phone] Reason for Visit * Diagnostic Imaging (Routine) - Closed Specialty Diagnoses / Procedures Referred By Contac t Referred To Contact Procedures Breast Imaging Screening Outside Reference Aft, Leah Swift MD PhD [address] [place] [address] Phone: tel: fax: Referral ID Status Reason Start Date Expiration Date Visits Re quested Visits Authorized [id number] Closed 01/02/2022 02/01/2023 1 1 Encounter Details Date Type Department Care Team (Late st Contact Info) Description 10/16/2017 Hospital Encounter [facility]iology [facility] [address] [place] [address] Social History Tobacco Use Types Packs/Day Years [...] on file Legal Sex Female 12:14 AM COMMUNITY RELATIONS OFFICER Gender Identity Not on file Sexual Orientation Straight 07/05/2021 1: 52 PM COMMUNITY RELATIONS OFFICER documented as of this encounter Functional Status [...] only and have not been reviewed by [facility] Radiology. There will be no report generated by a [facility] Radiologist. Narrative [facility] - 01/02/2022 5:06 PM CDT EXAMINATION: Images For Reference Purposes Only us Leah Rogers MD PhD IMG MAMMO PROCEDURES Final Result [facility] documented in this encounter Visit Diagnoses Not on filedocumented in this encounter Additional Health Concerns Infection Onset Date Last Indicated Resolved Time COVID: Suspected 06/20/2023 06/20/2023 06/20/2023 7:31 PM COMMUNITY RELATIONS OFFICER documented as of this encounter Care Teams Dial Painter Relationship Specialty Start Date End Date Tomi Be MD [address] [place] [address] PCP - General Internal Medicine 01/15/17 documented as of this encounter
[2024-11-12 11:54] LABS: Hematocrit 43.9 % (37.0-47.0); Hemoglobin 13.9 g/dL (12.0-15.0); Mean Corpuscular HGB Conc 31.7 g/dl (32-36); Mean Corpuscular Hemoglobin 31.4 pg (26-34); Mean Corpuscular Volume 99.3 fl (80-100); Mean Platelet Volume 9.3 fl (7.4-10.4); Platelet Count Result 164 k/mm3 (150-375); Red Blood Count 4.42 M/mm3 (4.2-5.4); Red Cell Distribution Width 15.3 % (11.5-14.5)
[2024-11-12 12:06] LABS: Add Urine Microscopic? YES; Appearance Urine Clear (Clear); Bacteria Urine None Seen /hpf; Bilirubin Urine Negative (Negative); Blood Urine 2+ (Negative); Color Urine Yellow (Yellow); Glucose Urine UA Negative (Negative); Ketones Urine Negative (Negative); Leukocyte Esterase Ur Negative LEU/UL (Negative); Nitrate Urine Negative (Negative); Non Pathogenic Casts 0-2; Protein Urine Negative (Negative); RBC Urine 51-100 /hpf (0-2); Specific Grav Ur 1.014 (1.001-1.035); Squamous Epithelial Cell Urine None Seen /hpf (Few); Urobilinogen Urine 0.2 mg/dL (<2.0); WBC Urine 0-5 /hpf (0-3); pH Urine 5.5 (5.0-9.0)
[2024-11-12 12:07] LABS: Alanine Aminotransferase 12 U/L (6-35); Albumin Level 4.1 g/dL (3.5-5.1); Alkaline Phosphatase 69 U/L (38-126); Anion Gap 7 mmol/L (4-12); Aspartate Amino Transferase 24 U/L (14-36); Bilirubin,Total 0.8 mg/dL (0.2-1.3); Blood Urea Nitrogen 21 mg/dL (7-17); Calcium 9.3 mg/dL (8.4-10.2); Carbon Dioxide 27 mmol/L (22-30); Chloride 109 mmol/L (98-107); Cholesterol 164 mg/dL (0-200); Creatine Kinase 44 U/L (30-135); Estimated Glomerular Filt Rate > 60; Glucose 119 mg/dL (65-110); HDL Direct 62 mg/dL; Hemoglobin A1C 6.4 % (<5.7); Potassium 4.1 mmol/L (3.4-5.0); Sodium 143 mmol/L (137-145); Triglycerides 112 mg/dL (<150); Uric Acid 6.1 mg/dL (2.5-7.5)
[2024-11-12 12:13] LABS: Iron 154 ug/dL (37-170)
[2024-11-12 12:26] LABS: Creatinine Urine 40.8 mg/dL
[2024-11-12 12:31] LABS: LDL Cholesterol Direct 66 mg/dL
[2024-11-12 12:31] LABS: MALB Creatinine Ratio 218.4 mg/g (0-30); Microalbumin Urine Random 89.1 mg/L (0-16.7)
[2024-11-12 12:33] LABS: Parathyroid Intact 120.9 pg/mL (14.5-75.2)
== END 2024-11-12 11:16 | disposition home or self-care (01) ==
PROVIDERS: PCP Internal Medicine; Visit Provider Internal Medicine
DX: E11.65 Type 2 diabetes mellitus with hyperglycemia (principal); D50.9 Iron deficiency anemia, unspecified; E21.0 Primary hyperparathyroidism; E53.8 Deficiency of other specified B group vitamins; E78.2 Mixed hyperlipidemia; E79.0 Hyperuricemia without signs of inflammatory arthritis and tophaceous disease; N39.0 Urinary tract infection, site not specified
CPT/HCPCS: 36415; 80053; 80061; 81001; 82043; 82550; 82607; 82728; 83036; 83540; 83970; 84550; 85027

== ENCOUNTER 2024-12-06 14:50 | Outpatient (CLI) | payer MEDICARE, SELFPAY ==
--- NOTE | ~2024-12-06 | XR_ITS ---
EXAM/ PROCEDURE: XR_KNEE1-2VRT_CR - 12/06/2024 15:15 CDT HISTORY: 79 years old Female with Pain in left and right knee COMPARISON: None available TECHNIQUE: Three view(s) FINDINGS/ IMPRESSION: There are no fractures or dislocations.Joint space narrowing, subchondral sclerosis, subchondral cyst formation and osteophyte formation, compatible with moderate osteoarthritis. Diffuse osteopenia. Reviewed, dictated and finalized at location A.
--- NOTE | ~2024-12-06 | XR_ITS ---
EXAM/ PROCEDURE: XR_KNEE1-2VLT_CR - 12/06/2024 15:15 CDT HISTORY: 79 years old Female with Pain in left and right knee COMPARISON: None available TECHNIQUE: Two view(s) FINDINGS/ IMPRESSION: There are no fractures or dislocations.Joint space narrowing, subchondral sclerosis, subchondral cyst formation and osteophyte formation, compatible with moderate osteoarthritis. Diffuse osteopenia. Reviewed, dictated and finalized at location A.
== END 2024-12-06 14:51 | disposition home or self-care (01) ==
LOC: MICIMG 14:52
PROVIDERS: PCP Internal Medicine; Visit Provider Nurse Practitioner Family
DX: M17.0 Bilateral primary osteoarthritis of knee (principal)
CPT/HCPCS: 73560

== ENCOUNTER 2025-02-05 14:20 | Emergency (ER) | payer MEDICARE, SELFPAY ==
--- OUTSIDE RECORDS SUMMARY | 2015-07-28 01:00 | XMS_ITS | Encounter Summary ---
Author Organization [facility] Healthcare Address [address] [place] [address] Care Team Providers Care Manager Rehab Name Role Phone Unavailable Primary Care Provider Unavailabl e Reason for Visit * Diagnostic Imaging (Routine) - Closed Specialty Diagnoses / Procedures Referred By Contac t Referred To Contact Procedures Breast Imaging Screening Outside Reference Aft, Leah Swift MD PhD [address] [place] [address] Phone: tel: fax: Referral ID Status Reason Start Date Expiration Date Visits Re quested Visits Authorized [id number] Closed 01/02/2022 02/01/2023 1 1 Encounter Details Date Type Department Care Team (Late st Contact Info) Description 07/28/2015 Hospital Encounter [facility] [address] [place] [address] [phone] Social History Tobacco Use Types Packs/Day Years [...] on file Legal Sex Female 12:14 AM CHECKER/STOCKER Gender Identity Not on file Sexual Orientation Straight 07/05/2021 1: 52 PM CHECKER/STOCKER documented as of this encounter Functional Status [...] SCREENING OUTSIDE REFERENCE Routine 07/28/2015 12:00 AM CHECKER/STOCKER documented in this encounter Results * Breast Imaging Screening Outside Reference (07/28/2015 12:00 AM CHECKER/STOCKER) Impressions [facility] - 01/02/2022 5:07 PM CDT These images are for Reference purposes only and have not been reviewed by [facility] Radiology. There will be no report generated by a [facility] Radiologist. Narrative [facility]MO[facility] - 01/02/2022 5:07 PM CDT EXAMINATION: Images For Reference Purposes Only us Leah Rogers MD PhD IMG MAMMO PROCEDURES Final Result [facility] documented in this encounter Visit Diagnoses Not on filedocumented in this encounter Additional Health Concerns Infection Onset Date Last Indicated Resolved Time COVID: Suspected 06/20/2023 06/20/2023 06/20/2023 7:31 PM CHECKER/STOCKER documented as of this encounter
--- OUTSIDE RECORDS SUMMARY | 2016-08-28 | XMS_ITS | Encounter Summary ---
Author Organization [facility] Healthcare Address [address] [place] [address] Care Team Providers Care Rn Midwife Name Role Phone Unavailable Primary Care Provider Unavailabl e Reason for Visit * Diagnostic Imaging (Routine) - Closed Specialty Diagnoses / Procedures Referred By Contac t Referred To Contact Procedures Breast Imaging Screening Outside Reference Aft, Leah Swift MD PhD [address] [place] [address] Phone: tel: fax: Referral ID Status Reason Start Date Expiration Date Visits Re quested Visits Authorized [id number] Closed 01/02/2022 02/01/2023 1 1 Encounter Details Date Type Department Care Team (Late st Contact Info) Description 08/28/2016 Hospital Encounter [facility] Radiology [facility] [address] [place] [address] [phone] Social History Tobacco Use Types Packs/Day Years [...] on file Legal Sex Female 12:14 AM PARTICIPANT ADMINISTRATOR Gender Identity Not on file Sexual Orientation Straight 07/05/2021 1: 52 PM PARTICIPANT ADMINISTRATOR documented as of this encounter Functional Status [...] BREAST IMAGING MG SCREENING OUTSIDE REFERENCE Routine 08/28/2016 12:00 AM CDT documented in this encounter Results * Breast Imaging Screening Outside Reference (08/28/2016 12:00 AM CDT) Impressions [facility] - 01/02/2022 5:07 PM CDT These images are for Reference purposes only and have not been reviewed by [facility] Radiology. There will be no report generated by a [facility] Radiologist. Narrative [facility]MAMMO[facility] - 01/02/2022 5:07 PM CDT EXAMINATION: Images For Reference Purposes Only us Leah Rogers MD PhD IMG MAMMO PROCEDURES Final Result [facility] documented in this encounter Visit Diagnoses Not on filedocumented in this encounter Additional Health Concerns Infection Onset Date Last Indicated Resolved Time COVID: Suspected 06/20/2023 06/20/2023 06/20/2023 7:31 PM PARTICIPANT ADMINISTRATOR documented as of this encounter
--- OUTSIDE RECORDS SUMMARY | 2016-09-12 | XMS_ITS | Encounter Summary ---
Author Organization [facility] Healthcare Address [address] [place] [address] Care Team Providers Care Collet Driller Name Role Phone Unavailable Primary Care Provider Unavailabl e Reason for Visit * Diagnostic Imaging (Routine) - Closed Specialty Diagnoses / Procedures Referred By Contac t Referred To Contact Procedures Breast Imaging Diagnostic Outside Reference Aft, Leah Swift MD PhD [address] [place] [address] Phone: tel: fax: Referral ID Status Reason Start Date Expiration Date Visits Re quested Visits Authorized [id number] Closed 01/02/2022 02/01/2023 1 1 Encounter Details Date Type Department Care Team (Late st Contact Info) Description 09/12/2016 Hospital Encounter [facility] [address] [place] [address] [phone] Social History Tobacco Use Types Packs/Day Years [...] on file Legal Sex Female 12:14 AM CUTTER WET MACHINE Gender Identity Not on file Sexual Orientation Straight 07/05/2021 1: 52 PM CUTTER WET MACHINE documented as of this encounter Functional Status [...] only and have not been reviewed by [facility] Radiology. There will be no report generated by a [facility] Radiologist. Narrative RAD_MAMMO[facility] - 01/02/2022 5:07 PM CDT EXAMINATION: Images For Reference Purposes Only us Leah Rogers MD PhD IMG MAMMO PROCEDURES Final Result [facility] documented in this encounter Visit Diagnoses Not on filedocumented in this encounter Additional Health Concerns Infection Onset Date Last Indicated Resolved Time COVID: Suspected 06/20/2023 06/20/2023 06/20/2023 7:31 PM CUTTER WET MACHINE documented as of this encounter
--- OUTSIDE RECORDS SUMMARY | 2017-10-16 | XMS_ITS | Encounter Summary ---
Author Organization [facility] Healthcare Address [address] [place] [address] Care Team Providers Care Terra Cotta Roofer Name Role Phone Tomi Be MD Primary Care Provider + [phone] Reason for Visit * Diagnostic Imaging (Routine) - Closed Specialty Diagnoses / Procedures Referred By Contac t Referred To Contact Procedures Breast Imaging Screening Outside Reference Aft, Leah Swift MD PhD [address] [place] [address] Phone: tel: fax: Referral ID Status Reason Start Date Expiration Date Visits Re quested Visits Authorized [id number] Closed 01/02/2022 02/01/2023 1 1 Encounter Details Date Type Department Care Team (Late st Contact Info) Description 10/16/2017 Hospital Encounter [facility] [address] [place] [phone] Social History Tobacco Use Types Packs/Day Years [...] on file Legal Sex Female 12:14 AM VACUUM REPAIRER Gender Identity Not on file Sexual Orientation Straight 07/05/2021 1: 52 PM VACUUM REPAIRER documented as of this encounter Functional Status [...] only and have not been reviewed by [facility] Radiology. There will be no report generated by a [facility] Radiologist. Narrative RAD_MAMMO[facility] - 01/02/2022 5:06 PM CDT EXAMINATION: Images For Reference Purposes Only us Leah Rogers MD PhD IMG MAMMO PROCEDURES Final Result [facility] documented in this encounter Visit Diagnoses Not on filedocumented in this encounter Additional Health Concerns Infection Onset Date Last Indicated Resolved Time COVID: Suspected 06/20/2023 06/20/2023 06/20/2023 7:31 PM VACUUM REPAIRER documented as of this encounter Care Teams Terra Cotta Roofer Relationship Specialty Start Date End Date Tomi Be MD [address] [place] [address] PCP - General Internal Medicine 01/15/17 documented as of this encounter
--- OUTSIDE RECORDS SUMMARY | 2018-11-11 | XMS_ITS | Encounter Summary ---
Author Organization [facility] Healthcare Address [address] [place] [address] Care Team Providers Care Newsagent Name Role Phone Tomi eB MD Primary Care Provider + [phone] Reason for Visit * Diagnostic Imaging (Routine) - Closed Specialty Diagnoses / Procedures Referred By Contac t Referred To Contact Procedures Breast Imaging Screening Outside Reference Aft, Leah Swift MD PhD [address] [place] [address] Phone: tel: fax: Referral ID Status Reason Start Date Expiration Date Visits Re quested Visits Authorized [id number] Closed 01/02/2022 02/01/2023 1 1 Encounter Details Date Type Department Care Team (Late st Contact Info) Description 11/11/2018 Hospital Encounter [facility] Radiology [facility] [address] [place] [phone] Social History Tobacco Use Types Packs/Day Years [...] on file Legal Sex Female 12:14 AM JAVA J2EE TECHNICAL LEAD Gender Identity Not on file Sexual Orientation Straight 07/05/2021 1: 52 PM JAVA J2EE TECHNICAL LEAD documented as of this encounter Functional [...] and have not been reviewed by [facility] Radiology. There will be no report generated by a [facility] Radiologist. Narrative RAD_MAMMO[facility] - 01/02/2022 5:06 PM CDT EXAMINATION: Images For Reference Purposes Only us Leah Rogers MD PhD IMG MAMMO PROCEDURES Final Result [facility] documented in this encounter Visit Diagnoses Not on filedocumented in this encounter Additional Health Concerns Infection Onset Date Last Indicated Resolved Time COVID: Suspected 06/20/2023 06/20/2023 06/20/2023 7:31 PM JAVA J2EE TECHNICAL LEAD documented as of this encounter Care Teams Newsagent Relationship Specialty Start Date End Date Tomi Be MD [address] [place] [id number] PCP - General Internal Medicine 01/15/17 documented as of this encounter
--- OUTSIDE RECORDS SUMMARY | 2018-11-16 | XMS_ITS | Encounter Summary ---
Author Organization [facility] Healthcare Address [address] [place] [address] Care Team Providers Care Compensation Associate Name Role Phone Tomi Be MD Primary Care Provider + [phone] Reason for Visit * Diagnostic Imaging (Routine) - Closed Specialty Diagnoses / Procedures Referred By Contac t Referred To Contact Procedures Breast Imaging Diagnostic Outside Reference Aft, Leah Swift MD PhD [address] [place] [address] Phone: tel: fax: Referral ID Status Reason Start Date Expiration Date Visits Re quested Visits Authorized [id number] Closed 01/02/2022 02/01/2023 1 1 Encounter Details Date Type Department Care Team (Late st Contact Info) Description 11/16/2018 Hospital Encounter 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 There will be no report generated by a [facility] Radiologist. Narrative [facility] - 01/02/2022 5:04 PM CDT EXAMINATION: Images For Reference Purposes Only us Leah Rogers MD PhD IMG MAMMO PROCEDURES Final Result [facility] documented in this encounter Visit Diagnoses Not on filedocumented in this encounter Additional Health Concerns Infection Onset Date Last Indicated Resolved Time COVID: Suspected 06/20/2023 06/20/2023 06/20/2023 7:31 PM EMERGENCY MEDICAL DISPATCHER documented as of this encounter Care Teams Compensation Associate Relationship Specialty Start Date End Date Tomi Be MD [address] [place] [address] PCP - General Internal Medicine 01/15/17 documented as of this encounter
--- OUTSIDE RECORDS SUMMARY | 2018-11-16 00:05 | XMS_ITS | Encounter Summary ---
Author Organization [facility] Healthcare Address [address] [place] [address] Care Team Providers Care Ice Rink Attendant Name Role Phone Tomi Be MD Primary Care Provider + [phone] Reason for Visit * Diagnostic Imaging (Routine) - Closed Specialty Diagnoses / Procedures Referred By Contac t Referred To Contact Procedures Breast Imaging US Outside Reference Aft, Leah Swift MD PhD [address] [place] [address] Phone: tel: fax: Referral ID Status Reason Start Date Expiration Date Visits Re quested Visits Authorized [id number] Closed 01/02/2022 02/01/2023 1 1 Encounter Details Date Type Department Care Team (Late st Contact Info) Description 11/16/2018 12:05 AM CDT Hospital Encounter [facility] [address] [place] [phone] Social History Tobacco Use Types Packs/Day Years [...] on file 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 There will be no report generated by a [facility] Radiologist. Narrative [facility] - 01/02/2022 5:18 PM CDT EXAMINATION: Images For Reference Purposes Only us Leah Rogers MD PhD IMG MAMMO PROCEDURES Final Result [facility] documented in this encounter Visit Diagnoses Not on filedocumented in this encounter Additional Health Concerns Infection Onset Date Last Indicated Resolved Time COVID: Suspected 06/20/2023 06/20/2023 06/20/2023 7:31 PM MANAGER MEDICAID documented as of this encounter Care Teams Ice Rink Attendant Relationship Specialty Start Date End Date Tomi Be MD [address] [place], [place] [phone] PCP - General Internal Medicine 01/15/17 documented as of this encounter
--- OUTSIDE RECORDS SUMMARY | 2018-11-30 | XMS_ITS | Encounter Summary ---
Author Organization [facility] Healthcare Address [address] [place] [address] Care Team Providers Care Measurement Analyst Name Role Phone Tomi Be MD Primary Care Provider + [phone] Reason for Visit * Diagnostic Imaging (Routine) - Closed Specialty Diagnoses / Procedures Referred By Contac t Referred To Contact Procedures Breast Imaging Diagnostic Outside Reference Aft, Leah Swift MD PhD [address] [place] [address] Phone: tel: fax: Referral ID Status Reason Start Date Expiration Date Visits Re quested Visits Authorized [id number] Closed 01/02/2022 02/01/2023 1 1 Encounter Details Date Type Department Care Team (Late st Contact Info) Description 11/30/2018 Hospital Encounter [facility] [address] [place] [phone] Social History Tobacco Use Types Packs/Day Years [...] on file Legal Sex Female 12:14 AM 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 There will be no report generated by a [facility] Radiologist. Narrative RAD[facility] - 01/02/2022 5:04 PM CDT EXAMINATION: Images For Reference Purposes Only us Leah Rogers MD PhD IMG MAMMO PROCEDURES Final Result [facility] documented in this encounter Visit Diagnoses Not on filedocumented in this encounter Additional Health Concerns Infection Onset Date Last Indicated Resolved Time COVID: Suspected 06/20/2023 06/20/2023 06/20/2023 7:31 PM RESTROOMS OR LOUNGES MAID documented as of this encounter Care Teams Measurement Analyst Relationship Specialty Start Date End Date Tomi Be MD [address] [place] [address] PCP - General Internal Medicine 01/15/17 documented as of this encounter
--- OUTSIDE RECORDS SUMMARY | 2018-11-30 00:05 | XMS_ITS | Encounter Summary ---
Author Organization [facility] Healthcare Address [address] [place] [address] Care Team Providers Care Spring Internship Name Role Phone Tomi Be MD Primary Care Provider + [phone] Reason for Visit * Diagnostic Imaging (Routine) - Closed Specialty Diagnoses / Procedures Referred By Contac t Referred To Contact Procedures Breast Imaging US Outside Reference Aft, Leah Swift MD PhD [address] [place] [address] Phone: tel: fax: Referral ID Status Reason Start Date Expiration Date Visits Re quested Visits Authorized [id number] Closed 01/02/2022 02/01/2023 1 1 Encounter Details Date Type Department Care Team (Late st Contact Info) Description 11/30/2018 12:05 AM CDT Hospital Encounter [facility] [address] [place] [phone] Social History Tobacco Use Types Packs/Day Years [...] on file 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 There will be no report generated by a [facility] Radiologist. Narrative [facility] - 01/02/2022 5:18 PM CDT EXAMINATION: Images For Reference Purposes Only us Leah Rogers MD PhD IMG MAMMO PROCEDURES Final Result [facility] documented in this encounter Visit Diagnoses Not on filedocumented in this encounter Additional Health Concerns Infection Onset Date Last Indicated Resolved Time COVID: Suspected 06/20/2023 06/20/2023 06/20/2023 7:31 PM ELECTRICIAN THIRD documented as of this encounter Care Teams Spring Internship Relationship Specialty Start Date End Date Tomi Be MD [address] [place], [place] [phone] PCP - General Internal Medicine 01/15/17 documented as of this encounter
[2025-02-05] VITALS (9 sets, daily range): BP systolic 152–180; BP diastolic 84–92; PULSE 68–80; RESP 20–29; O2SAT 90–100
--- NOTE | ~2025-02-05 | XR_ITS ---
XR chest 2V 02/05/2025 15:31 Indication: Chest pain Procedure: AP and lateral views of the chest Comparison: Comparison to multiple prior studies sequentially, with oldest reviewed study dated 07/11/2021. Findings: Moderate cardiomegaly with pulmonary vascular congestion. Pacemaker leads are stable. No significant effusion or pneumothorax. Impression: 1: Cardiomegaly with pulmonary vascular congestion. Reviewed, dictated and finalized at location O. Impression: 1: Cardiomegaly with pulmonary vascular congestion.
--- NOTE | 2025-02-05 14:22 | ECG_ITS ---
Test Date: 2025-02-05 14:38:32 Measurements Intervals [place] Rate: 70 P: 110 [place]: 248 QRS: -63 QRSD: 185 T: 60 QT: 494 QTc: 535 Interpretive Statements ELECTRONIC VENTRICULAR PACEMAKER NO FURTHER INTERPRETATION IS POSSIBLE ATYPICAL ECG No previous ECG available for comparison Electronically Signed On 02-05-2025 17:03:33 CDT by Yunier Godfrey D.O.
[2025-02-05] MEDS: ASPIRIN 81 MG CHEWABLE TABLET 324 MG PO (14:48)
--- OUTSIDE RECORDS SUMMARY | 2025-02-05 14:59 | XMS_ITS | Clinical Summary ---
Author Organization [facility] Address [address] [place] [address] Care Team Providers Care Clinical Assoc Name Role Phone Puja Dobbs MD Unavailable [phone] Tomi Be MD Primary Care Provider [phone] Source Comments [facility],non-owned Affiliates and Associated Physician Practices is amultiple site organization consisting of ambulatory clinics and hospital sitesin [place], [place], [place] and [place]. This disclosure is being madepursuant to the Care Everywhere program and may not contain all information available regarding this patient. 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 Gender Identity Not on file Sexual Orientation [...] season) 2024 DEPRESSION SCREENING 06/16/2024 INFLUENZA VACCINE (#1) 2025 8, 03/07/2017, 03/11/2016, Additional history exists HEPATITIS B [...] this topic Medical Devices Implanted Type Area Community Administrator Device Identifier Shelf Expiration Date Model / Serial / Lot Shell Actb 50mm Hip 3 Hl R3 Implanted:Qty: 1 on 03/02/2020 by Fili Wilkinson IV, MD at [facility] Left: Hip [employer] 09/13/2029 [id number] / / [id number] Acetabular Liner 36 Mm Implanted:Qty: 1 on 03/02/2020 by Fili Wilkinson IV, MD at [facility] Left: Hip 01/17/2030 [id number] / / [id number] Marline Stem Size 5 Implanted:Qty: 1 on 03/02/2020 by Fili Wilkinson IV, MD at [facility] Left: Hip 03/16/2026 [id number] / / [id number] Taper Femoral Head +0 Implanted:Qty: 1 on 03/02/2020 by Fili Wilkinson IV, MD at [facility] Left: Hip 01/23/2030 [id number] / / [id number] Explanted Type Area Community Administrator Device Identifier Shelf Expiration Date Model / Serial / Lot Pin Hlf 255mm 5mm Jtx Lng Orth Ss 45mm Explanted:Qty: 1 on 03/02/2020 by Fili Wilkinson IV, MD at [facility] Left: Hip [employer] [id number] / / Insurance MEDICARE [facility] MEDICARE [employer] Advance Directives Documents on File Type Date Recorded 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 Adv Directive/Living Will/POA 05/02/2012 3:46 PM * Full Code (Latest Code Status on File) Date Activated Date Inactivated Comments 03/02/2020 11:51 AM 03/07/2020 2:38 PM * Full Code Date Activated Date Inactivated Comments 08/29/2013 8:44 PM 08/31/2013 3:36 PM * FULL RESUSCITATION Date Activated Date Inactivated Comments 04/28/2012 8:03 PM 05/01/2012 3:51 PM Care Teams Clinical Assoc Relationship Specialty Start Date End Date Tomi Be MD [address] [place] [address] PCP - General Internal Medicine 02/02/20 Puja Dobbs MD [address] [place] [id number] Cardiovascular Disease 08/23/19
--- OUTSIDE RECORDS SUMMARY | 2025-02-05 14:59 | XMS_ITS | Encounter Summary ---
Author Organization [facility] Address [address] [place] [address] Care Team Providers Care Financial Aid Advisor Name Role Phone Tomi Be MD Primary Care Provider + [phone] Miscellaneous, Not In File Unavailable Unava ilable Krysta Justin MD Unavailable Aft, Leah Swift MD PhD Unavailable [phone] Marybeth Guerra PhD Unavailable [phone] Sushil Zarate MD Unavailable [phone] Garo Narvaez MD Unavailable [phone] Encounter Details Date Type Department Care Team (Late st Contact Info) Description 07/13/2020 Telephone [facility] - Interventional Radiology [address] [place] [address] Giselle Rutledge RN Social History Tobacco Use Types Packs/Day Years Used Date Smoking Tobacco: Former Cigarettes Q uit: 12/06/1986 Smokeless Tobacco: Never Alcohol Use Standard Drinks/Week Comments No 0 (1 standard drink = 0.6 oz pur e alcohol) Comments No Sex and Gender Information Value Date Recorded Sex Assigned at Not on file 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 Gender Identity Not on file Sexual Orientation Straight 07/05/2021 1: 52 PM CIVILIAN JAIL OFFICER documented as of this encounter Plan of Treatment Not on file documented as of this encounter Visit Diagnoses Not on filedocumented in this encounter Additional Health Concerns Infection Onset Date Last Indicated Resolved Time COVID: Suspected 06/20/2023 06/20/2023 06/20/2023 7:31 PM CIVILIAN JAIL OFFICER documented as of this encounter Care Teams Financial Aid Advisor Relationship Specialty Start Date End Date Tomi Be MD [address] [place] [address] PCP - General Internal Medicine 01/15/17 Miscellaneous, Not In File 11/01/19 Krysta Justin MD [address] [place] [address] Radiation Oncologist Radiation Oncology 04/03/22 Leah Rogers MD PhD [address] [place] [address] Surgeon Surgical Oncology 04/03/22 Marybeth Guerra, PhD [address] [place] [address] Nurse Practitioner Radiation Oncology 05/20/22 Sushil Zarate MD [address] DIV IM MEDICAL ONCOLOGY, [address] [place] [address] Medical Oncologist/Pediatric Oncologist Medical Oncology 05/20/22 Garo Narvaez MD [address] [place] [address] Consulting Physician Cardiology 04/22/24 documented as of this encounter
--- OUTSIDE RECORDS SUMMARY | 2025-02-05 14:59 | XMS_ITS | Clinical Summary ---
Author Organization [facility] [address] Address [address] [place] [address] Care Team Providers Care Machine Bobbin Winder Name Role Phone Tomi Be MD Primary Care Provider [phone] Miscellaneous, Not In File Unavailable Unava ilable Krysta Justin MD Unavailable Aft, Leah Swift MD PhD Unavailable [phone] Marybeth Guerra PhD Unavailable [phone] Sushil Zarate MD Unavailable [phone] Tres Narvaez MD Unavailable Allergies Active Allergy Reactions Criticality Noted Date Comments Lisinopril Cough Low 08/13/2017 Medications glimepiride (AMARYL) 2 mg tabletIndicati ons:type 2 diabetes mellitus Take 0.5 tablets (1 mg total) by mouth daily before breakfast 8 Active allopurinol (ZYLOPRIM) 100 mg tabletIndicati ons:gout Take 1 tablet (100 mg total) by mouth every morning Active acetaminophen 500 mg capsuleIndicat ions:Pain Take 2 capsules (1,000 mg total) by mouth every 6 (six) hours 30 tablet 0 Active multivitamin capsule Take 1 capsule by mouth every morning Active sertraline (ZOLOFT) 100 mg tablet Take 1 tablet (100 mg total) by mouth daily 3 Active potassium chloride ER 20 mEq CR tablet Take 2 tablets (40 mEq total) by mouth daily 60 tablet 11 4 Active furosemide (LASIX) 40 mg tablet Take 2 tablets (80 mg total) by mouth daily 60 tablet 11 4 Active Additional Information Patient taking differently: 40 mgoral Daily, Reported on 12/30/2024 tamoxifen (NOLVADEX) 20 mg tablet TAKE 1 TABLET(20 MG) BY MOUTH DAILY 90 tablet 3 4 Active cholecalcifero l (VITAMIN D-3) 2000 unit capsule Take 1 capsule (2,000 Units total) by mouth daily 90 capsule 3 5 Active busPIRone (BUSPAR) 10 mg tabletIndicati ons:Generalize d Anxiety Disorder Take 1 tablet (10 mg total) by mouth as needed Active metoprolol (LOPRESSOR) 100 mg tablet TAKE 1 TABLET BY MOUTH TWICE DAILY 60 tablet 3 5 Active pravastatin (PRAVACHOL) 10 mg tabletIndicati ons:Hyperchole steremia TAKE 1 TABLET BY MOUTH THREE DAYS A WEEK(FRIDAY, FRIDAY, AND FRIDAY) 36 tablet 2 5 Active ergocalciferol (VITAMIN D) 50,000 unit capsuleIndicat ions:Vitamin D deficiency Take 1 capsule (50,000 Units total) by mouth once a week Take 1 capsule every 7 days for 8 weeks 4 capsule 11 5 11/16/19 26 Active apixaban (Eliquis) 5 mg tablet TAKE 1 TABLET(5 MG) BY MOUTH TWICE DAILY 60 tablet 3 5 Active busPIRone (BUSPAR) 7.5 mg tablet Take 1 tablet (7.5 mg total) by mouth 2 (two) times a day 5 Active cyanocobalamin (Vitamin B-12) 1,000 mcg tabletIndicati ons:Prevention of Vitamin B12 Deficiency Take 1 tablet (1,000 mcg total) by mouth daily Active sacubitriL-lydia sartan (ENTRESTO) 49-51 mg tabletIndicati ons:chronic heart failure Take 1 tablet by mouth 2 (two) times a day 60 tablet 11 5 Active sacubitriL-lydia sartan (ENTRESTO) 49-51 mg tabletIndicati ons:chronic heart failure Take 1 tablet by mouth 2 (two) times a day 30 tablet 11 4 02/03/20 25 Discontin ued(Reord er) Active Problems Problem Noted Date Diagnosed Date Pulmonary hypertension 12/30/2024 Severe obesity 06/22/2024 History of right breast cancer 11/11/2022 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 02/04/2022 Cancer Staging:Clinical stage from 01/14/2022:Stage IA(cT1b, cN0, cM0, G2, ER+, RI+, HER2-) - Signed by Lance Austin MD on 04/03/2022 Pathologic stage from 02/28/2022:No Stage Recommended(pT1c, cN0, cM0, G2, ER+, RI+, HER2-) - Signed by Lance Austin MD on 04/03/2022 Pathologic: Unsigned Overview (02/04/2022): Added automatically from request for surgery [id number] Mammogram abnormal 01/07/2022 DURANT (dyspnea on exertion) 10/02/2021 Chronic combined systolic an d diastolic CHF (congestive heart failure) 10/02/2021 History of amiodarone therapy 10/02/2021 Hyperthyroidism 09/27/2021 Assessment & Plan (08/06/2022 3:06 PM COUNT TEAM CLERK): Seems to have resolved Will test once [...] m Assessment & Plan (07/24/2021 4:23 PM COUNT TEAM CLERK): I explained to Mrs. Guevara that her [...] 07/24/2021 Assessment & Plan (08/06/2022 3:06 PM COUNT TEAM CLERK): Check vit D Adjust dose of Ergocalciferol accordingly Assessment & Plan (07/24/2021 4:25 PM COUNT TEAM CLERK): Check 25 OH vit D and restart Ergocalciferol , accordingly Vitamin B 12 deficiency 07/24/2021 Assessment & Plan (07/24/2021 4:25 PM COUNT TEAM CLERK): The patient asked me to check on her B12 level to adjust her vitamin B12 supplementation. She follows also with her primary care doctor, Dr. Be on this regard A-fib 06/11/2021 Hip arthritis 03/02/2020 Pulmonary nodule 12/05/2019 Essential hypertension 10/31/2019 Depression 10/31/2019 Closed displaced comminuted fracture of shaft of right humerus 10/30/2019 Overview (10/30/2019): Added automatically from request for surgery [id number] PEYMAN (obstructive sleep apnea) 03/22/2019 Status post [...] (06/06/2021): Added automatically from request for surgery [id number] Medication management 12/12/20202021 Acute pain due to [...] 4:41 PM CDT): The patient has a JTE8GQ6-ZAFq score of 3 (annualized risk of stroke 3%). I have therefore recommended that she remain anticoagulated for thromboprophylaxis. Assessment & Plan (03/31/2019 8:49 AM CDT): The patient has a THK1XB4-QUWk score of 3 (annualized risk of stroke [...] Encounters Date Type Department Care Team Description 12/30/2024 2:00 PM CDT Office Visit [facility] [address] [place] [address] Trse Narvaez MD Chronic combined systolic and diastolic CHF (congestive heart failure) (HCC) (Primary Dx); Chronic anticoagulation; Paroxysmal atrial fibrillation (HCC); Hypertensive heart disease with heart failure (HCC); Essential hypertension; Pulmonary hypertension (HCC) 12/29/2024 Results Follow-Up [facility] [address] [facility] [address] [place] [address] Tres Narvaez MD Transthoracic Echo (TTE) Complete W Doppler/CF 12/23/2024 2:00 PM CDT Ancillary Procedure [facility]iology at [address] [place] [address] Chronic combined systolic and diastolic CHF (congestive heart failure) (HCC); Hypertensive heart disease with heart failure (HCC); Status post ablation of atrial fibrillation 12/06/2024 9:35 AM CDT Ancillary Procedure [facility] [address] [facility] [address] [place] [address] Presence of cardiac pacemaker (Primary Dx); Persistent atrial fibrillation (HCC) 11/16/2024 1:44 PM CDT - 11/16/2024 11:59 PM CDT Hospital Encounter [facility] - [facility] Imaging [address] [place] [address] History of right breast cancer Discharge Disposition: Discharge to home or self care 11/16/2024 1:30 PM CDT Office Visit [facility] [address] [place] [id number] Antonella Peña NP Carcinoma of right breast with ductal and lobular features (HCC) (Primary Dx); History of breast cancer; Encounter for screening mammogram for malignant neoplasm of breast 11/15/2024 11:30 AM CDT Office Visit [facility] [address] [place] [address] [place] [id number] Juno Braun MD Age-related osteoporosis without current pathological fracture (Primary Dx); Vitamin D deficiency 11/15/2024 Telephone [facility] [address] [place] [address] [place] [address] Juno Braun MD from Last 3 Months Immunizations Immunization Administration Dates Next Due Influenza, Quadrivalent, Hig h Dose, Preservative Free, Intrr 02/14/2020 Influenza, Quadrivalent, Spl it, Preservative Free, Intramuscular 02/27/2021,03/31/2019,03/05/2018,03/07 Influenza, Trivalent, High D ose, Split, Preservative Free, Intramuscular 03/11/2016,03/10/2013 Influenza, Trivalent, IM (MDV) 03/07/2015 Influenza, Unspecified 03/16/2024 Pneumococcal Conjugate PCV 13 06/07/2015 Pneumococcal Polysaccharide PPV23 08/30/2013 Surgical History Surgery Date Site/Laterality Comments CHOLECYSTECTOMY 06/16/1972 - 06/15/1973 GASTRIC BYPASS 06/16/2011 - 06/15/2012 SPINAL FUSION 06/16/1964 - 06/15/1965 FRACTURE SURGERY 09/15/2019 - 10/14/2019 R arn JOINT REPLACEMENT Hip 2019 BREAST BIOPSY 01/14/2022 Right ABLATION 05/16/2021 - 06/15/2021 a fib BREAST LUMPECTOMY 02/14/2022 - 03/15/2022 Right Medical History Medical History Date Comments Hx Other Medical Morbid obesity, Gastric bypass.; Comments: ELU 02/15/2016 - Hx Other Medical Bleeding ulcer; Comments: ELU 02/15/2016 - Hypertension Heart beat abnormality Atrial fibrillation (HCC) Diabetes mellitus (HCC) 1999 Kidney stone 10/2019 Breast cancer (HCC) Sleep apnea Delayed emergence from gener al anesthesia did not require ICU stay, pr olonged stay, did not require positive pressure therapy PONV (postoperative nausea and vomiting) controlled with medication Type 2 diabetes mellitus History of radiation therapy Family History Medical History Relation Name Comments Breast cancer Daughter D Heart attack Father F Heart disease Father F Lung cancer Father F Cancer, lung; C ause of : Cancer, lung Arthritis Mother M Breast cancer Mother M Cancer, breast ; Hypertension Mother M Obesity Mother M defects Son S Anesthesia problems Neg Hx Broken bones Neg Hx Hip fracture Neg Hx Kyphosis Neg Hx Osteoporosis Neg Hx Scoliosis Neg Hx Relation Name Status Comments Daughter [...] on file Legal Sex Female 12:14 AM COUNT TEAM CLERK Gender Identity Not on file Sexual Orientation Straight 07/05/2021 1: 52 PM COUNT TEAM CLERK Obstetrics History Para Term AB IAB SAB Ectopic Multiple Livin g Live Births 3 Date Outcome GA Total Labor Labor/2nd/3rd Weight Sex Type Anes PTL Sammie A1 A5 Name Clin Last Filed Vital Signs Vital Sign Reading Time Taken Comments Blood Pressure 116/74 12/30/2024 1:57 PM CDT Pulse 82 12/30/2024 1:57 PM CDT Temperature 36.5 C (97.7 F) 08/19/2024 1:02 PM COUNT TEAM CLERK Respiratory Rate 18 08/19/2024 1:02 PM COUNT TEAM CLERK Oxygen Saturation 93% 12/30/2024 1:57 PM CDT Inhaled Oxygen Concentration - - Weight 103 kg (227 lb) 12/30/2024 1:57 PM CDT Height 162.6 cm (5' 4) 12/30/2024 1:57 PM CDT Body Mass Index 38.96 12/30/2024 1:57 PM CDT Plan of Treatment Health Maintenance Due Date Last Done Comments Hepatitis C Screening 1945 DTaP/Tdap/Td Vaccine (1 - Tdap) 1957 Hepatitis B Screening 1964 Zoster Vaccine (1 of 2) 1965 Well Visit 65+ 10/06/2011 Depression Screening 02/05/2023 02/05/2022, 09/28/19 22 Covid-19 Vaccine (4 - 2023-2 5 season) 2024 05/06/2021, 09/04/2020, 08/02/2020 Fall Risk Assessment 11/17/2024 11/18/2023, 04/04/20 22 Influenza Vaccine (#1) 2025 , 02/27/2021, 02/14/2020, Additional history exists Osteoporosis Screening-Bone Density Scan 09/06/2026 09/06/2024, 01/29/2023, 10/01/2021, Additional history exists Pneumococcal vaccine 65+ Completed 06/07/2015, 08/14 Breast Cancer Screening-Mammogram Discontinued 11/16/2024, 11/11/2023, 11/05/2022 Medical Devices Implanted Type Area Performance Management Consultant Device Identifier Shelf Expiration Date Model / Serial / Lot [employer] [id number] Vascade 6/7fr Bioabsorbable Vascular System Compression Collagen - [id number] - [id number] Implanted:Qty: 1 on 10/24/2020 by Mason Miranda MD at [facility] Collagen [employer] 07/19/2022 700-580I -05U / [id number] 204A / [id number] 204A [employer] [id number] System 6-12fr Mvp Venous Closure Vascade - [id number] - [id number] Implanted:Qty: 1 on 10/24/2020 by Mason Miranda MD at [facility] Collagen [employer] 08/22/2022 800-612C -10U / [id number] 310A / [id number] 310A [employer] [id number] System 6-12fr Mvp Venous Closure Vascade - [id number] - [id number] Implanted:Qty: 1 on 10/24/2020 by Mason Miranda MD at [facility] Collagen [employer] 08/22/2022 800-612C -10U / [id number] 310A / [id number] 310A [employer] [id number] System 6-12fr Mvp Venous Closure Vascade - [id number] - [id number] Implanted:Qty: 1 on 10/24/2020 by Mason Miranda MD at [facility] Collagen [employer] 08/22/2022 800-612C -10U / [id number] 310A / [id number] 310A [employer] [id number] System 6-12fr Mvp Venous Closure Vascade - [id number] - [id number] Implanted:Qty: 1 on 06/11/2021 by Mason Miranda MD at [facility] Collagen [employer] 03/27/2023 800-612C -10U / [id number] 019A / [id number] 019A [employer] [id number] System 6-12fr Mvp Venous Closure Vascade - [id number] - [id number] Implanted:Qty: 1 on 06/11/2021 by Mason Miranda MD at [facility] Collagen [employer] 03/27/2023 800-612C -10U / [id number] 019A / [id number] 019A [employer] 260-840a-29s System 6-12fr Mvp Venous Closure Vascade - [id number] - [id number] Implanted:Qty: 1 on 06/11/2021 by Mason Miranda MD at [facility] Collagen [employer] 03/27/2023 800-612C -10U / [id number] 019A / [id number] 019A [employer] [id number] Vascade 6/7fr Bioabsorbable Vascular System Compression Collagen - [id number] - [id number] Implanted:Qty: 1 on 06/11/2021 by Mason Miranda MD at [facility] Collagen [employer] 09/12/2022 700-580I -05U / [id number] 401A / [id number] 401A Med[employer]onic [employer] Capsurefix Novus 6.2fr 2mm 58cm Bipolar Screw In Implantable 5076-58 - [id number] - [id number] Implanted:Qty: 1 on 11/18/2023 by Mason Miranda MD at [facility] Lead [employer] [id number] 03/25/2025 507 6-58 / [id number] 1V / [employer] Inc Attain Stability Quad Mri Surescan Active Fixation Lv Lead 88cm 202715 - [id number] - [id number] Implanted:Qty: 1 on 11/18/2023 by Mason Miranda MD at [facility] Lead [employer] [id number] 09/03/2025 479 888 / [id number] / [employer] Inc Solara Mri Surescan Bluetooth 46.5x59mm Connector Hole Radiopaque W4tr03 - [id number] - [id number] Implanted:Qty: 1 on 11/18/2023 by Mason Miranda MD at [facility] Pacemaker [employer] 12/11/2024 W4TR03 / [id number] / Synthes 241.35 12mm [id number] .5mm 5 Hole Collar 1/3 Tubular Plate Bone Stainless - S000 - [id number] Implanted:Qty: 1 on 10/30/2019 by Paras Houston MD at [facility] Plate Right: Humerus Synthes I 241.35 / 000 / 000 Synthes 241.923s Plate Bone Lcp Combi Philos Long Stainless Steel L232mm X W12mm X H3.7mm Humerus Proximal 10 Hole Shaft Sterile 3.5mm Screw Small Fragment Set - S000 - [id number] Implanted:Qty: 1 on 10/30/2019 by Paras Houston MD at [facility] Plate Right: Humerus Synthes I 241.923S / 000 / 000 Synthes 212.117 3.5mm 2.9mm 40mm Self Tap Lock Stardrive Conical Head T15 Full - S000 - [id number] Implanted:Qty: 1 on 10/30/2019 by Paras Houston MD at [facility] Screw Right: Humerus Synthes I 212.117 / 000 / 000 Synthes 212.118 3.5mm 2.9mm 42mm Self Tap Lock Stardrive Conical Head Full Thread - S000 - [id number] Implanted:Qty: 1 on 10/30/2019 by Paras Houston MD at [facility] Screw Right: Humerus Synthes I 212.118 / 000 / 000 Synthes 212.115 3.5mm 2.9mm 36mm Self Tap Lock Stardrive Conical Head T15 Full - S000 - [id number] Implanted:Qty: 1 on 10/30/2019 by Paras Houston MD at [facility] Screw Right: Humerus Synthes I 212.115 / 000 / 000 Synthes 212.108 3.5mm 2.9mm 24mm Self Tap Lock St[employer]rive Conical Head Pelvis T15 - S000 - [id number] Implanted:Qty: 3 on 10/30/2019 by Paras Houston MD at [facility] Screw Right: Humerus Synthes I 212.108 / 000 / 000 Synthes 204.824 3.5mm 6mm 24mm 2.5mm Self Tap Small Hexagonal Socket Low Profile - S000 - [id number] Implanted:Qty: 2 on 10/30/2019 by Paras Houston MD at [facility] Screw Right: Humerus Synthes I 204.824 / 000 / 000 Synthes 204.820 3.5mm 6mm 20mm 2.5mm Self Tap Small Hexagonal Socket Low Profile - S000 - [id number] Implanted:Qty: 1 on 10/30/2019 by Paras Houston MD at [facility] Screw Right: Humerus Synthes I 204.820 / 000 / 000 Synthes 204.822 3.5mm 6mm 22mm 2.5mm Self Tap Small Hexagonal Socket Low Profile - S000 - [id number] Implanted:Qty: 1 on 10/30/2019 by Paras Houston MD at [facility] Screw Right: Humerus Synthes I 204.822 / 000 / 000 Synthes 204.828 3.5mm 6mm 28mm 2.5mm Self Tap Small Hexagonal Socket Low Profile - S000 - [id number] Implanted:Qty: 1 on 10/30/2019 by Paras Houston MD at [facility] Screw Right: Humerus Synthes I 204.828 / 000 / 000 Synthes 204.826 3.5mm 6mm 26mm 2.5mm Self Tap Small Hexagonal Socket Low Profile - S000 - [id number] Implanted:Qty: 1 on 10/30/2019 by Paras Houston MD at [facility] Screw Right: Humerus Synthes I 204.826 / 000 / 000 Synthes 212.121 3.5mm 2.9mm 50mm Self Tap Lock Stardrive Conical Head T15 Full - S000 - [id number] Implanted:Qty: 1 on 10/30/2019 by Paras Houston MD at [facility] Screw Right: Humerus Synthes I 212.121 / 000 / 000 Synthes 212.114 3.5mm 2.9mm 35mm Self Tap Lock Stardrive Conical Head T15 Full - S000 - [id number] Implanted:Qty: 1 on 10/30/2019 by Paras Houston MD at [facility] Screw Right: Humerus Synthes I 212.114 / 000 / 000 Synthes 212.116 3.5mm 2.9mm 38mm Self Tap Lock Stardrive Conical Head T15 Full - S000 - [id number] Implanted:Qty: 1 on 10/30/2019 by Paras Houston MD at [facility] Screw Right: Humerus Synthes I 212.116 / 000 / 000 Bard Peripheral Vascular Ultraclip Bard 17ga 10cm 2 Trigger Permanent Ultrasound 981982d - [id number] Implanted:Qty: 1 on 01/14/2022 at [facility] Right: Breast [employer] [id number] / / Bard Peripheral Vascular Ghiatas 20ga 20cm 9cm Beaded Needle Breast Wire Localization 77709 - [id number] Implanted:Qty: 1 on 02/28/2022 at [facility] Right: Breast [employer] [id number] / / Explanted Type Area Performance Management Consultant Device Identifier Shelf Expiration Date Model / Serial / Lot Synthes 204.812 3.5mm 6mm 12mm 2.5mm Self Tap Small Hexagonal Socket Low Profile - S000 - [id number] Explanted:Qty: 1 on 10/30/2019 by Paras Houston MD at [facility] Screw Right: Humerus Synthes I 204.812 / 000 / 000 Procedures Procedure Name Priority Date/Time Associated Diagnosis Comments TRANSTHORACIC ECHO (TTE) COMPLETE W DOPPLER/CF WO CONTRAST Routine 12/23/2024 2:36 PM CDT Chronic combined systolic and diastolic CHF (congestive heart failure) (HCC) Hypertensive heart disease with heart failure (HCC) Status post ablation of atrial fibrillation DEVICE CHECK - REMOTE Routine 12/06/2024 10:27 AM CDT Persistent atrial fibrillation (HCC) DIAGNOSTIC MAMMOGRAM BILATERAL W ALEC Schedule Routine, Read Routine (OP Routine) 11/16/2024 2:36 PM CDT History of right breast cancer DEXA TBS AXIAL SKELETON BONE DENSITY 1 OR MORE SITES Schedule Routine, Read Routine (OP Routine) 09/06/2024 1:18 PM CDT Age-related osteoporosis without current pathological fracture from Last 3 Months or Most Recently Relevant to Health Maintenance Results * TRANSTHORACIC ECHO (TTE) COMPLETE W DOPPLER/CF WO CONTRAST (12/23/2024 2:36 PM CDT) Estimated EF 60-65 % CONS SCIMAGE EF Mod BP 61 % CONS SCIMAGE Anatomical Region Laterality Modality Ultrasound 12/23/2024 1:55 PM CDT Narrative 12/23/2024 6:00 PM CDT [facility] [address], [place] [address] P:[phone] P:[phone] Echocardiographic Report Patient Name: SANAM GUEVARA A : 1945 Study Date: 12/23/2024 1:55:56 PM Gender: F Ssn/Ssbn Assistant Navigator: MIKE Location: [facility] Ref Provider: TRES NARVAEZ Height(Cm): 157 BSA: 2.12 Weight(Kg): 103 Heart Rate: 73 BP: 134 / 84 Quality: Good Order Provider: TRES NARVAEZ PROCEDURES: Echocardiographic Report: Transthoracic echocardiogram with complete 2D, M-Mode, and color Doppler examination. With Strain Analysis. INDICATIONS: Status post ablation of atrial fibrillation, I50.42 Chronic combined systolic (congestive) and diastolic (congestive) heart failure, and I11.0 Hypertensive heart disease with heart failure. MEASUREMENTS: 2D/MM Value Range Doppler Value Range EF Mod BP 61 % [ 54 - 74 ] AV Mean PG 6 mmHg Estimated EF 60-65 % AV Peak Ochoa 1.54 m/s [ 1.00 - 1.70 ] LV GLS -15.64 % AV Peak PG 9 mmHg LVIDd 2D 5.70 cm [ 3.80 - 5.20 ] AV VTI 30.61 cm LVIDd MM 5.58 cm [ 3.80 - 5.20 ] LVOT Peak Ochoa 1.47 m/s [ 0.70 - 1.10 ] LVIDs 2D 4.53 cm [ 2.20 - 3.50 ] LVOT VTI 30.67 cm LVIDs MM 4.23 cm [ 2.20 - 3.50 ] MV E Peak Ochoa 1.27 m/s [ 0.60 - 1.30 ] LVPWd 2D 1.19 cm [ 0.60 - 0.90 ] MV Decel Time 197 msec [ 104 - 258 ] LVPWd MM 0.92 cm [ 0.60 - 0.90 ] PV Peak Ochoa 0.98 m/s [ 0.40 - 0.80 ] IVSd 2D 1.19 cm [ 0.60 - 0.90 ] TR Peak Ochoa 3.68 m/s [ 1.00 - 2.80 ] IVSd MM 0.89 cm [ 0.60 - 0.90 ] TR Peak PG 54 mmHg LA Dimension MM 3.81 cm [ 2.70 - 3.80 ] RV S` 0.12 m/s AoR Diam MM 3.98 cm [ 2.70 - 3.70 ] Lateral E` 0.08 m/s [ 0.10 - 0.15 ] LA Volume 130.18 ml [ 22.00 - 52.00 ] Septal E` 0.09 m/s [ 0.08 - 0.15 ] LA Volume Index 61 cc/m2 [ 16 - 28 ] E` 0.09 m/s RA Volume 60.35 ml E/E` 15 Tapse 2.74 cm [ 1.71 - 5.00 ] 2D/MM Value Range Doppler Value Range - FINDINGS: Interpretation Site: Exam was interpreted at [facility]. Left Ventricle: Normal left ventricular systolic function. No focal wall motion abnormalities. Mild concentric left ventricular hypertrophy. Mild enlargement of left ventricle cavity. Diastolic dysfunction is present. Ejection fraction is measured at 61 %. Ejection Fraction is visually estimated to be 60-65 %. Global Longitudinal Strain is -16 %. GLS is borderline. Right Ventricle: Normal right ventricular size. Normal right ventricular systolic function. Linear artifact in right ventricle suggestive of catheter(s), pacemaker lead(s), or ICD lead(s). Left Atrium: There is moderate enlargement of left atrium. Right Atrium: There is mild enlargement of right atrium. Atrial Septum: Normal atrial septum. Mitral Valve: Severe mitral annular calcification. Mild to moderate mitral valve regurgitation. There is no hemodynamically significant mitral stenosis by Doppler. Aortic Valve: No evidence of hemodynamically significant aortic stenosis by Doppler. Aortic cusps appear mildly sclerotic. Trileaflet aortic valve. Moderate aortic valve regurgitation. Tricuspid Valve: Normal appearance of the tricuspid valve. Moderate pulmonary hypertension based on right ventricular systolic pressure. Estimated peak RVSP is 50-55 mmHg. Moderate tricuspid regurgitation. Pulmonic Valve: Normal appearance of the pulmonic valve. No pulmonic stenosis. Mild pulmonic regurgitation. Pericardium: Normal pericardium with no significant pericardial effusion. Aorta: Sinus of Valsalva is mildly dilated. Sinus of Valsalva 4.0 cm. Mild aortic root calcification. IVC: Normal size and incomplete respiratory collapse consistent with elevated right atrial pressure (5-10 mmHg). CONCLUSIONS: Normal left ventricular systolic function. No focal wall motion abnormalities. Mild concentric left ventricular hypertrophy. Mild enlargement of left ventricle cavity. Diastolic dysfunction is present. Ejection fraction is measured at 61 %. Ejection Fraction is visually estimated to be 60-65 %. Global Longitudinal Strain is -16 %. GLS is borderline. Normal right ventricular size. Normal right ventricular systolic function. Linear artifact in right ventricle suggestive of catheter(s), pacemaker lead(s), or ICD lead(s). There is moderate enlargement of left atrium. There is mild enlargement of right atrium. Severe mitral annular calcification. Mild to moderate mitral valve regurgitation. Aortic cusps appear mildly sclerotic. Moderate aortic valve regurgitation. Moderate pulmonary hypertension based on right ventricular systolic pressure. Estimated peak RVSP is 50-55 mmHg. Moderate tricuspid regurgitation. Mild pulmonic regurgitation. Sinus of Valsalva is mildly dilated. Sinus of Valsalva 4.0 cm. Mild aortic root calcification. Ventricular paced rhythm. Electronically Signed By: Tres Narvaez MD 12/23/2024 5:59:06 PM CDT Procedure Note Tres Narvaez MD - 12/23/2024 [facility] Cardiology [facility], [address], [place] [address] P:[phone] P:[phone] Echocardiographic Report Patient Name: SANAM GUEVARA A : 1945 Study Date: 12/23/2024 1:55:56 PM Gender: F Ssn/Ssbn Assistant Navigator: MIKE Location: EDW Ref Provider: TRES NARVAEZ Height(Cm): 157 BSA: 2.12 Weight(Kg): 103 Heart Rate: 73 BP: 134 / 84 Quality: Good Order Provider: TRES NARVAEZ PROCEDURES: Echocardiographic Report: Transthoracic echocardiogram with complete 2D, M-Mode, and color Dopplerexamination. With Strain Analysis. INDICATIONS: Status post ablation of atrial fibrillation, I50.42 Chronic combinedsystolic (congestive) and diastolic (congestive) heart failure, and I11.0Hypertensive heart disease with heart failure. MEASUREMENTS: 2D/MM Value Range DopplerValue Range EF Mod BP 61 % [ 54 - 74 ] AV Mean PG 6mmHg Estimated EF 60-65 % AV Peak Ochoa 1.54m/s [ 1.00 - 1.70 ] LV GLS -15.64 % AV Peak PG 9mmHg LVIDd 2D 5.70 cm [ 3.80 - 5.20 ] AV VTI30.61 cm LVIDd MM 5.58 cm [ 3.80 - 5.20 ] LVOT Peak Ochoa 1.47m/s [ 0.70 - 1.10 ] LVIDs 2D 4.53 cm [ 2.20 - 3.50 ] LVOT VTI30.67 cm LVIDs MM 4.23 cm [ 2.20 - 3.50 ] MV E Peak Ochoa 1.27m/s [ 0.60 - 1.30 ] LVPWd 2D 1.19 cm [ 0.60 - 0.90 ] MV Decel Time 197msec [ 104 - 258 ] LVPWd MM 0.92 cm [ 0.60 - 0.90 ] PV Peak Ochoa 0.98m/s [ 0.40 - 0.80 ] IVSd 2D 1.19 cm [ 0.60 - 0.90 ] TR Peak Ochoa 3.68m/s [ 1.00 - 2.80 ] IVSd MM 0.89 cm [ 0.60 - 0.90 ] TR Peak PG 54mmHg LA Dimension MM 3.81 cm [ 2.70 - 3.80 ] RV S` 0.12m/s AoR Diam MM 3.98 cm [ 2.70 - 3.70 ] Lateral E` 0.08m/s [ 0.10 - 0.15 ] LA Volume 130.18 ml [ 22.00 - 52.00 ] Septal E` 0.09m/s [ 0.08 - 0.15 ] LA Volume Index 61 cc/m2 [ 16 - 28 ] E` 0.09m/s RA Volume 60.35 ml E/E` 15 Tapse 2.74 cm [ 1.71 - 5.00 ] 2D/MM Value Range DopplerValue Range - FINDINGS: Interpretation Site: Exam was interpreted at [facility]. Left Ventricle: Normal left ventricular systolic function. No focal wall motionabnormalities. Mild concentric left ventricular hypertrophy. Mild enlargement of leftventricle cavity. Diastolic dysfunction is present. Ejection fraction is measured at 61 %.Ejection Fraction is visually estimated to be 60-65 %. Global Longitudinal Strainis -16 %. GLS is borderline. Right Ventricle: Normal right ventricular size. Normal right ventricular systolic function.Linear artifact in right ventricle suggestive of catheter(s), pacemaker lead(s),or ICD lead(s). Left Atrium: There is moderate enlargement of left atrium. Right Atrium: There is mild enlargement of right atrium. Atrial Septum: Normal atrial septum. Mitral Valve: Severe mitral annular calcification. Mild to moderate mitral valveregurgitation. There is no hemodynamically significant mitral stenosis by Doppler. Aortic Valve: No evidence of hemodynamically significant aortic stenosis by Doppler.Aortic cusps appear mildly sclerotic. Trileaflet aortic valve. Moderate aortic valveregurgitation. Tricuspid Valve: Normal appearance of the tricuspid valve. Moderate pulmonary hypertensionbased on right ventricular systolic pressure. Estimated peak RVSP is 50-55 mmHg. Moderatetricuspid regurgitation. Pulmonic Valve: Normal appearance of the pulmonic valve. No pulmonic stenosis. Mildpulmonic regurgitation. Pericardium: Normal pericardium with no significant pericardial effusion. Aorta: Sinus of Valsalva is mildly dilated. Sinus of Valsalva 4.0 cm. Mild aorticroot calcification. IVC: Normal size and incomplete respiratory collapse consistent with elevatedright atrial pressure (5-10 mmHg). CONCLUSIONS: Normal left ventricular systolic function. No focal wall motionabnormalities. Mild concentric left ventricular hypertrophy. Mild enlargement of leftventricle cavity. Diastolic dysfunction is present. Ejection fraction is measured at 61 %.Ejection Fraction is visually estimated to be 60-65 %. Global Longitudinal Strainis -16 %. GLS is borderline. Normal right ventricular size. Normal right ventricular systolic function.Linear artifact in right ventricle suggestive of catheter(s), pacemaker lead(s),or ICD lead(s). There is moderate enlargement of left atrium. There is mild enlargement of right atrium. Severe mitral annular calcification. Mild to moderate mitral valveregurgitation. Aortic cusps appear mildly sclerotic. Moderate aortic valveregurgitation. Moderate pulmonary hypertension based on right ventricular systolicpressure. Estimated peak RVSP is 50-55 mmHg. Moderate tricuspid regurgitation. Mild pulmonic regurgitation. Sinus of Valsalva is mildly dilated. Sinus of Valsalva 4.0 cm. Mild aorticroot calcification. Ventricular paced rhythm. Electronically Signed By: Tres Narvaez MD 12/23/2024 5:59:06 PM CDT us Tres Narvaez MD CV ECHO PROCEDURES Final Result * DEVICE CHECK - REMOTE (12/06/2024 10:27 AM CDT) Anatomical Region Laterality Modality Other Narrative 12/08/2024 3:47 PM CDT Table formatting from the original result was not included. BiV PACEMAKER CHECK (REMOTE) Patient ID: Sanam Guevara is a 79 y.o. female. This patient received a Medtronic BiV Pacemaker. They had a routine remote transmission on 12/06/2024. Device implant indications: AF, status post AV node ablation Interrogation of the patient's device demonstrates the following: Presenting EGM: Bi V paced @ 87 bpm Original Device Settings Right Ventricle Left Ventricle Sensitivity (mV) 2.8 mV N/a mV Pacemaker Outputs 2.0 V @ 0.4 ms 2.25 V @ 1.0 ms Testing Measurements Right Ventricle Left Ventricle Sensitivity (mV) 10.9 mV Not done mV Impedence (Ohms) 399 ohms 513 ohms Pace Threshold 1.0 V @ 0.4 ms 1.625 V @ 1.0 ms Pacing % 100 % 100 % Battery Status: 7.3 years to FARZAD Episodes last 90 days/Comments: No new ventricular events NORMAL DEVICE FUNCTION PROGRAMMED MEDICATIONS: Anti-coagulant(s): Eliquis 5 mg twice a day Anti-arrhythmic(s): Lopressor 100 mg twice a day PLAN: 1) Medtronic BiV Pacemaker evaluation 2) Medtronic remote transmission scheduled in 3 months. 3) Programming appropriate for device settings Kim Mosley RN us Mason Miranda MD CV CARDIAC SERVICES PRO CEDURES Final Result * Diagnostic Mammogram Bilateral W Alec (11/16/2024 2:36 PM CDT) Anatomical Region Laterality Modality Breast Bilateral Mammography 11/16/2024 3:05 PM CDT Impressions 11/16/2024 3:09 PM CDT Postsurgical changes of RIGHT breast conservation therapy with no definite mammographic evidence of malignancy in EITHER breast. OVERALL FINAL ASSESSMENT: BI-RADS Category 2: Benign. RECOMMENDATION: 1. Annual screening mammography is recommended. 2. Clinical follow-up is recommended. Dictated by: Masood Bucio M.D. The radiology attending physician has personally reviewed this study, and had reviewed and/or edited this written report and agrees with it. Electronically signed by: Shaista Lyon M.D. Narrative 11/16/2024 3:09 PM CDT EXAMINATION: BILATERAL DIGITAL DIAGNOSTIC MAMMOGRAM INCLUDING CAD AND BILATERAL DIGITAL BREAST TOMOSYNTHESIS HISTORY: 78 year-old woman with history of RIGHT breast invasive mammary carcinoma status post breast conservation therapy in 2021 presenting for follow-up. COMPARISON: Comparison with multiple prior mammograms with most recent from 11/05/2022. TECHNIQUE: Full field digital mammographic views of BOTH breasts were performed, including computer aided detection (CAD) and BILATERAL digital breast tomosynthesis (DBT). BREAST PARENCHYMAL COMPOSITION: There are scattered areas of fibroglandular density. MAMMOGRAM FINDINGS: A questioned asymmetry in the upper right breast on the MLO view does not persist with additional spot compression views and represents superimposed fibroglandular tissue. Changes of right breast conservation therapy. No new suspicious abnormality in either breast. The left MLO 2D image is mildly motion degraded, which limits evaluation. us Antonella Peña NP IMG MAMMO PROCEDURES Final Result * Dexa TBS Axial Skeleton Bone Density 1 or more sites (09/06/2024 1:18 PM CDT) Anatomical Region Laterality Modality Wrist, Body N/A Radiographic Valentine ging Narrative 09/06/2024 10:59 PM CDT Patient Name: Sanam Guevara Date of : 1945 Date of scan: 09/06/2024 Bone mineral density was performed on a Hologic Discovery Densitometer. Based on machine cross-calibration and [...] by the International Society of Clinical Densitometry. [id number] Juno Braun MD IMG DXA PROCEDURES Final Result from Last 3 Months or Most Recently Relevant to Health Maintenance Insurance MEDICARE [facility] MEDICARE SUPPLEMENT MEDICARE [facility] MEDICARE SUPPLEMENT Advance Directives For more information, please contact: [phone] Documents on File Type Date Recorded Patient Target Protection Specialist Expl anation Power of Sports Marketing Internship 12/13/2020 6:34 AM * Full Code (Latest Code Status on File) Date Activated Date Inactivated Comments 10/24/2020 2:28 PM 10/25/2020 4:42 PM * Full Code Date Activated Date Inactivated Comments 10/30/2019 10:51 AM 11/01/2019 7:00 PM Care Teams Machine Bobbin Winder Relationship Specialty Start Date End Date Tomi Be MD [address] [place] [address] PCP - General Internal Medicine 01/15/17 Miscellaneous, Not In File 11/01/19 Krysta Justin MD [address] [facility] [address] [place] [address] Radiation Oncologist Radiation Oncology 04/03/22 Aft, Leah Swift MD PhD [address] [place] [address] Surgeon Surgical Oncology 04/03/22 Marybeth Guerra, PhD [address] [place] [address] Nurse Practitioner Radiation Oncology 05/20/22 Sushil Zarate MD [address] [facility] DIV IM MEDICAL ONCOLOGY, [address] [place] [address] Medical Oncologist/Manager Water Medical Oncology 05/20/22 Tres Narvaez MD [address] [facility] [address] [facility], [address] [place] [address] Consulting Physician Cardiology 04/22/24
[2025-02-05 15:00] LABS: Hematocrit 42.6 % (37.0-47.0); Hemoglobin 13.3 g/dL (12.0-15.0); Immature Granulocyte Percent A 0.3 % (0-0.5); Lymphocytes Absolute Auto 1.03 K/mm3 (0.9-3.2); Mean Corpuscular HGB Conc 31.2 g/dl (32-36); Mean Corpuscular Hemoglobin 30.9 pg (26-34); Mean Corpuscular Volume 99.1 fl (80-100); Nucleated Red Blood Cells Absolute Auto 0.000 K/mm3 (0.0-0.012); Nucleated Red Blood Cells Perc 0.0 % (0.0-0.2); Platelet Count Result 175 k/mm3 (150-375); Red Blood Count 4.30 M/mm3 (4.2-5.4); White Blood Count 6.1 K/mm3 (4.5-10.0)
--- NOTE | 2025-02-05 15:00 | ED.GENADULT ---
HPI - General Adult General Chief complaint: Chest Pain Stated complaint: chest pain Time Seen by Provider: 02/05/25 14:37 History of Present Illness HPI narrative: Patient is a 79-year-old female who presents emergency department with chief complaint of chest pain. Patient reports that over the last several days she has been having discomfort in her chest patient states it is middle portion of her chest reports nonradiating does report that it has improved whenever she lays down reports that it is worsened whenever she sits up or when she is walking the patient reports pain is currently resolved reports that she has prior history of AFib has had multiple ablations has a pacemaker the patient reports that she is on anticoagulants Related Data Home Medications ?Medication ?Instructions ?Recorded ?Confirmed ?Last Taken ?Type allopurinol 100 mg tablet 100 mg PO DAILY 04/28/19 10/15/24 07/31/23 History apixaban 5 mg tablet (Eliquis) 5 mg PO BID 04/28/19 10/15/24 07/31/23 History furosemide 40 mg tablet (Lasix) 80 mg PO DAILY 04/28/19 10/15/24 07/30/23 History potassium chloride 20 mEq 40 meq PO DAILY 04/28/19 10/15/24 07/30/23 History tablet,extended release sertraline 50 mg tablet (Zoloft) 100 mg PO DAILY 04/28/19 10/15/24 07/31/23 History multivit with minerals-iron 18 1 tablet PO DAILY 10/07/19 10/15/24 07/30/23 History mg-folic ac 400 mcg-vit K 25 mcg tablet (Adults Multivitamin) acetaminophen 500 mg tablet 1,000 mg PO Q6H PRN Pain 12/19/20 10/15/24 07/30/23 History docusate sodium 100 mg capsule 100 mg PO DAILY PRN Constipation 12/19/20 10/15/24 07/30/23 History (Colace) glimepiride 2 mg tablet (Amaryl) 2 mg PO QAM 04/10/22 10/15/24 07/30/23 History pravastatin 10 mg tablet 10 mg PO .MWF 04/10/22 10/15/24 07/30/23 History ergocalciferol (vitamin D2) 1,250 1,250 mcg PO WEEKLY 10/08/22 10/15/24 07/30/23 History mcg (50,000 unit) capsule (Vitamin D2) tamoxifen 20 mg tablet 20 mg PO DAILY 10/08/22 10/15/24 07/30/23 History metoprolol tartrate 100 mg tablet 200 mg PO DAILY 07/31/23 10/15/24 07/31/23 History ipratropium bromide 21 mcg (0.03 2 spray intranasal BID 04/07/24 10/15/24 Unknown History %) nasal spray sacubitril 24 mg-valsartan 26 mg 1 tablet PO BID 04/07/24 10/15/24 Unknown History tablet (Entresto) Allergies Allergy/AdvReac Type Severity Reaction Status Date / Time lisinopril Allergy Unknown COUGH Verified 04/07/24 14:38 Review of Systems Review of Systems: A 10 system review of systems was completed on the patient and is negative except for what is stated in the HPI. Nursing and ancillary documentation was reviewed. [facility] Past Medical History Medical History Hyperlipidemia Right arm fracture s /p surgery Kidney stones Dyslipidemia Essential hypertension Former smoker She has a 20 pack year history, quit 1986. Mixed restrictive and obstructive lung disease Paroxysmal atrial fibrillation Surgical History Surgical History History of total hip replacement S/P ablation of atrial fibrillation October 2020, Dr. Espinoza, [facility] History of cardioversion Family History Family History Father Family history of lung cancer CAD (coronary artery disease) Mother Family history of lung cancer Family history of malignant neoplasm of breast in first degree relative Sibling Family history of lung cancer Family history of malignant neoplasm of breast in first degree relative Social History Social History Social History: to Jorje. Disabled adult son a few years ago. Have a daughter in granddaughter in [facility]. Smoking packs per day: 1 Smoking cigarettes per day: 20.0 Years smoked: 20 Smoking pack-years: 20.00 Smoking status: Former smoker Tobacco type: cigarettes Second hand tobacco smoke exposure: Yes Smoking end date: 06/16/86 Alcohol intake: never Substance use type: does not use Living arrangements: with family Spiritual care concerns: No Exam Narrative: GENERAL: Well-appearing, well-nourished, and in no acute distress. HEAD: Normocephalic, atraumatic. EYES: PERRLA and EOMI. ENT: Nares clear, no rhinorrhea or epistaxis. Mucous membranes moist. NECK: Supple. CHEST: Clear to auscultation. No respiratory distress. HEART: Regular rate and rhythm. No murmur heard. Normal peripheral pulses. ABDOMEN: Soft, nontender, nondistended, normal active bowel sounds. EXTREMITIES: Normal range of motion. No edema. SKIN: Warm, dry, no rash. NEURO: No focal deficits. Alert and oriented x3. PSYCH: Normal mood and affect. Course Vital Signs Vital signs: Vital Signs Pulse Rate 80 02/05/25 14:30 Respiratory Rate 20 02/05/25 14:30 Blood Pressure 180/88 H 02/05/25 14:30 Pulse Oximetry 94 02/05/25 14:30 Oxygen Delivery Room Air 02/05/25 14:30 Pulse Rate 75 02/05/25 15:56 Respiratory Rate 20 02/05/25 15:56 Blood Pressure 171/92 H 02/05/25 15:56 Pulse Oximetry 94 02/05/25 15:56 Oxygen Delivery Room Air 02/05/25 14:44 Medical Decision Making MDM Narrative Medical decision making narrative: Differential diagnosis includes atypical chest pain, noncardiac chest pain ACS, unstable angina, EKG showed a paced rhythm initial troponin was negative Chest x-ray showed cardiomegaly Repeat troponin was negative Vital Signs Vital Signs: Vital Signs Pulse Rate 80 02/05/25 14:30 Respiratory Rate 20 02/05/25 14:30 Blood Pressure 180/88 H 02/05/25 14:30 Pulse Oximetry 94 02/05/25 14:30 Oxygen Delivery Room Air 02/05/25 14:30 Pulse Rate 75 02/05/25 15:56 Respiratory Rate 20 02/05/25 15:56 Blood Pressure 171/92 H 02/05/25 15:56 Pulse Oximetry 94 02/05/25 15:56 Oxygen Delivery Room Air 02/05/25 14:44 Lab Data 02/05/25 14:52 02/05/25 14:52 Labs: Lab Results 02/05/25 02/05/25 Range/Units 14:52 17:26 WBC 6.1 (4.5-10.0) K/mm3 RBC 4.30 (4.2-5.4) M/mm3 Hgb 13.3 (12.0-15.0) g/dL Hct 42.6 (37.0-47.0) % MCV 99.1 (80-100) fl MCH 30.9 (26-34) pg MCHC 31.2 L (32-36) g/dl RDW 15.4 H (11.5-14.5) % Plt Count 175 (150-375) k/mm3 MPV 9.1 (7.4-10.4) fl Immature Gran % (Auto) 0.3 (0-0.5) % Neut % (Auto) 73.1 (45.5-73.1) % Lymph % (Auto) 16.8 L (18.3-44.2) % Waller % (Auto) 8.2 (2.6-8.5) % Eos % (Auto) 1.3 (0-4.4) % Baso % (Auto) 0.3 (0.2-1.2) % Lymph # (Auto) 1.03 (0.9-3.2) K/mm3 Waller # (Auto) 0.5 (0.1-0.6) K/mm3 Eos # (Auto) 0.1 (0-0.3) K/mm3 Baso # (Auto) 0.0 (0.0-0.1) K/mm3 Abs Immat Gran (auto) 0.02 (0.00-0.031) K/mm3 Absolute Neuts (auto) 4.5 (1.3-6.7) K/mm3 Absolute Nucleated RBC 0.000 (0.0-0.012) K/mm3 Nucleated RBC % 0.0 (0.0-0.2) % PT 16.2 H (11.1-14.7) Seconds INR 1.3 APTT 30.4 (22.3-36.8) Seconds Sodium 141 (137-145) mmol/L Potassium 4.1 (3.4-5.0) mmol/L Chloride 108 H (98-107) mmol/L Carbon Dioxide 24 (22-30) mmol/L Anion Gap 9 (4-12) mmol/L BUN 14 D (7-17) mg/dL Creatinine 0.74 (0.7-1.0) mg/dL Estim Creat Clear Calc 63 ml/min Estimated GFR > 60 (59 - ) Glucose 135 H (65-110) mg/dL Calcium 9.4 (8.4-10.2) mg/dL Total Bilirubin 0.8 (0.2-1.3) mg/dL AST 24 (14-36) U/L ALT 12 (6-35) U/L Alkaline Phosphatase 71 (38-126) U/L Troponin I < 0.012 Pending (0.000-0.034) ng/mL Total Protein 7.5 (6.3-8.2) g/dL Albumin 4.1 (3.5-5.1) g/dL Lipase 72 (23-300) U/L Discharge Plan Discharge Clinical Impression: Chest pain Patient Disposition: Home Condition: Stable Instructions: Antibiotic Form, Chest Pain (ED) Additional Instructions: Your cardiac markers were negative in the emergency department today. Is recommended that he follow-up with your primary care provider and your regional safety manager if he develops severe chest pain that will not resolve please return to the emergency department or if you have any other concerns and was to be evaluated please return to the emergency department. Patient Language: Surinamese Prescriptions: No Action ipratropium bromide 21 mcg (0.03 %) spray,non-aerosol 2 spray intranasal BID Rx Instructions: administer into each nostril Entresto 24-26 mg tablet 1 tablet PO BID albuterol sulfate [Ventolin HFA] 90 mcg/actuation HFA aerosol inhaler 2 inh inhalation Q4-6H PRN (Reason: shortness of breath) 90 Days Qty: 8.5 3RF tamoxifen 20 mg tablet 20 mg PO DAILY ipratropium bromide 21 mcg (0.03 %) spray,non-aerosol 2 spray intranasal TID PRN (Reason: allergy symptoms) 30 Days Qty: 30 5RF Rx Instructions: administer into each nostril buspirone 7.5 mg tablet 7.5 mg PO BID 30 Days Qty: 60 5RF Adults Multivitamin 18 mg iron-400 mcg-25 mcg Tablet 1 tablet PO DAILY furosemide [Lasix] 40 mg Tablet 80 mg PO DAILY allopurinol 100 mg Tablet 100 mg PO DAILY sertraline [Zoloft] 50 mg Tablet 100 mg PO DAILY Eliquis 5 mg Tablet 5 mg PO BID potassium chloride 20 mEq Tablet Extended Release 40 meq PO DAILY glimepiride [Amaryl] 2 mg tablet 2 mg PO QAM pravastatin 10 mg tablet 10 mg PO .MW Patient Comments: Friday acetaminophen 500 mg Tablet 1,000 mg PO Q6H PRN (Reason: Pain) docusate sodium [Colace] 100 mg Capsule 100 mg PO DAILY PRN (Reason: Constipation) ergocalciferol (vitamin D2) [Vitamin D2] 1,250 mcg (50,000 unit) capsule 1,250 mcg PO WEEKLY Patient Comments: 2 times per week metoprolol tartrate 100 mg Tablet 200 mg PO DAILY Follow-up/Referrals: Tomi Be MD [Primary Care Provider, Internal Medicine] Time of Disposition: 18:02
--- OUTSIDE RECORDS SUMMARY | 2025-02-05 15:00 | XMS_ITS | Encounter Summary ---
Author Organization [facility] Healthcare Address [address] [place] [address] Care Team Providers Care Sewer Pipe Layer Name Role Phone Tomi Be MD Primary Care Provider + [phone] Miscellaneous, Not In File Unavailable Unava ilable Krysta Justin MD Unavailable Aft, Leah Swift MD PhD Unavailable [phone] Marybeth Guerra PhD Unavailable [phone] Sushil Zarate MD Unavailable [phone] Garo Narvaez MD Unavailable [phone] Encounter Details Date Type Department Care Team (Late st Contact Info) Description 01/30/2018 Orders Only [facility] [place] Management [address] [place] [id number] Scanning, Provider Social History Tobacco Use Types Packs/Day Years Used Date Smoking Tobacco: Former Cigarettes Q uit: 12/06/1986 Smokeless Tobacco: Never Alcohol Use Standard Drinks/Week Comments No 0 (1 standard drink = 0.6 oz pur e alcohol) Comments Unknown Sex and Gender Information Value Date Recorded Sex Assigned at Not on file Legal Sex Female 12:14 AM POLYMERIZATION OVEN TENDER Gender Identity Not on file Sexual Orientation Straight 07/05/2021 1: 52 PM POLYMERIZATION OVEN TENDER documented as of this encounter Plan of Treatment Not on file documented as of this encounter Procedures Procedure Name Priority Date/Time Associated Diagnosis Comments SCAN - LABS 01/30/2018 documented in this encounter Results * SCAN - LABS (01/30/2018) us Provider Scanning Final Result documented in this encounter Visit Diagnoses Not on filedocumented in this encounter Additional Health Concerns Infection Onset Date Last Indicated Resolved Time COVID: Suspected 06/20/2023 06/20/2023 06/20/2023 7:31 PM POLYMERIZATION OVEN TENDER documented as of this encounter Care Teams Sewer Pipe Layer Relationship Specialty Start Date End Date Tomi Be MD [address] [place] [address] PCP - General Internal Medicine 01/15/17 Miscellaneous, Not In File 11/01/19 Krysta Justin MD [address] [place] [address] Radiation Oncologist Radiation Oncology 04/03/22 AftLeah MD PhD [address] [place] [address] Surgeon Surgical Oncology 04/03/22 Marybeth Guerra, PhD [address] [place] [address] Nurse Practitioner Radiation Oncology 05/20/22 Sushil Zarate MD [address] DIV MEDICAL ONCOLOGY, [address] [place] [address] Medical Oncologist/Welder First Class Medical Oncology 05/20/22 Garo Narvaez MD [address], [address] [place] [address] Consulting Physician Cardiology 04/22/24 documented as of this encounter
--- OUTSIDE RECORDS SUMMARY | 2025-02-05 15:00 | XMS_ITS | Encounter Summary ---
Author Organization [facility] Healthcare Address [address] [place] [address] Care Team Providers Care Property And Casualty Insurance Agent Name Role Phone Tomi Be MD Primary Care Provider + [phone] Miscellaneous, Not In File Unavailable Unava ilable Krysta Justin MD Unavailable Aft, Leah Swift MD PhD Unavailable [phone] Marybeth Guerra PhD Unavailable [phone] Sushil Zarate MD Unavailable [phone] Garo Narvaez MD Unavailable [phone] Encounter Details Date Type Department Care Team (Latest Contact Info) Description 12/29/2024 Results Follow-Up [facility] Cardiology [address] [place] [address] Garo Narvaez MD [address] [facility] C [address] [facility] C, [address] [place] [address] Transthoracic Echo (TTE) Complete W Doppler/CF Social History Tobacco Use Types Packs/Day Years [...] on file Legal Sex Female 12:14 AM TIMBER ESTIMATOR Gender Identity Not on file Sexual Orientation Straight 07/05/2021 1: 52 PM TIMBER ESTIMATOR documented as of this encounter Plan of Treatment Not on file documented as of this encounter Visit Diagnoses Not on filedocumented in this encounter Care Teams Property And Casualty Insurance Agent Relationship Specialty Start Date End Date Tomi Be MD [address] [place] [address] PCP - General Internal Medicine 01/15/17 Miscellaneous, Not In File 11/01/19 Krysta Justin MD [address] [place] [address] Radiation Oncologist Radiation Oncology 04/03/22 Leah Rogers MD PhD [address] [place] [address] Surgeon Surgical Oncology 04/03/22 Marybeth Guerra, PhD [address] [place] [address] Nurse Practitioner Radiation Oncology 05/20/22 Sushil Zartae MD [address] [facility], [address] [place] [address] Medical Oncologist/Melter Supervisor Oxygen Furnace Medical Oncology 05/20/22 Garo Narvaez MD [address], [address] [place] [address] Consulting Physician Cardiology 04/22/24 documented as of this encounter
[2025-02-05 15:11] LABS: INR 1.3; Prothrombin Time 16.2 Seconds (11.1-14.7)
[2025-02-05 15:12] LABS: Partial Thromboplastin Time 30.4 Seconds (22.3-36.8)
[2025-02-05 15:17] LABS: Alanine Aminotransferase 12 U/L (6-35); Albumin Level 4.1 g/dL (3.5-5.1); Alkaline Phosphatase 71 U/L (38-126); Anion Gap 9 mmol/L (4-12); Aspartate Amino Transferase 24 U/L (14-36); Bilirubin,Total 0.8 mg/dL (0.2-1.3); Blood Urea Nitrogen 14 mg/dL (7-17); Calcium 9.4 mg/dL (8.4-10.2); Carbon Dioxide 24 mmol/L (22-30); Chloride 108 mmol/L (98-107); Estimated CRCL calculation 63 ml/min; Estimated Glomerular Filt Rate > 60; Glucose 135 mg/dL (65-110); Lipase 72 U/L (23-300); Potassium 4.1 mmol/L (3.4-5.0); Sodium 141 mmol/L (137-145); Total Protein 7.5 g/dL (6.3-8.2)
[2025-02-05 15:25] LABS: Troponin I < 0.012 ng/mL (0.000-0.034)
--- NOTE | 2025-02-05 17:18 | ECG_ITS ---
Test Date: 2025-02-05 17:23:49 Measurements Intervals [place] Rate: 72 P: 0 AL: 0 QRS: -69 QRSD: 184 T: 62 QT: 508 QTc: 557 Interpretive Statements ELECTRONIC VENTRICULAR PACEMAKER BASELINE ARTIFACT- I, II, III, AVR, AVL, AVF NO FURTHER INTERPRETATION IS POSSIBLE ATYPICAL ECG Compared to ECG 02/05/2025 14:38:32 No significant changes Electronically Signed On 02-05-2025 20:18:00 CDT by Yunier Godfrey D.O.
[2025-02-05 17:58] LABS: Troponin I < 0.012 ng/mL (0.000-0.034)
== END 2025-02-05 18:24 | disposition home or self-care (01) ==
PROVIDERS: Emergency Medicine; Emergency Provider Emergency Medicine; PCP Internal Medicine
DX: R07.9 Chest pain, unspecified (principal); J44.9 Chronic obstructive pulmonary disease, unspecified; I48.0 Paroxysmal atrial fibrillation; I10 Essential (primary) hypertension; E78.5 Hyperlipidemia, unspecified; Z95.0 Presence of cardiac pacemaker; Z96.649 Presence of unspecified artificial hip joint; Z87.442 Personal history of urinary calculi; Z87.891 Personal history of nicotine dependence; Z79.01 Long term (current) use of anticoagulants; Z79.899 Other long term (current) drug therapy; Z79.84 Long term (current) use of oral hypoglycemic drugs
CPT/HCPCS: 36415; 71046; 80053; 83690; 84484; 85025; 85610; 85730; 93005; 99284; A9270

== ENCOUNTER 2025-04-08 01:35 | Inpatient (IN) | payer MEDICARE, SELFPAY ==
--- OUTSIDE RECORDS SUMMARY | 2015-07-28 01:00 | XMS_ITS | Encounter Summary ---
Author Organization [facility] Healthcare Address [address] [place] [address] Care Team Providers Care Turbine Technician Name Role Phone Unavailable Primary Care Provider Unavailabl e Reason for Visit * Diagnostic Imaging (Routine) - Closed Specialty Diagnoses / Procedures Referred By Contac t Referred To Contact Procedures Breast Imaging Screening Outside Reference Aft, Leah Swift MD PhD [address] [place] [address] Phone: tel: fax: Referral ID Status Reason Start Date Expiration Date Visits Re quested Visits Authorized [id number] Closed 01/02/2022 02/01/2023 1 1 Encounter Details Date Type Department Care Team (Late st Contact Info) Description 07/28/2015 Hospital Encounter [facility] [address] [place] [address] [phone] Social History Tobacco Use Types Packs/Day Years Used Date Smoking Tobacco: Former Cigarettes 1 20.5 1 967 - 12/06/1986 Smokeless Tobacco: Never Alcohol Use Standard Drinks/Week Comments No 0 (1 standard drink = 0.6 oz pur e alcohol) AUDIT-C Answer Date Recorded Q1: How often do you have a drink containing alcohol? Never 11/18/2023 Q2: How many drinks containi ng alcohol do you have on a typical day when you are drinking? Patient does not drink Q3: How often do you have si x or more drinks on one occasion? Never 11/18/2023 PHQ-2 Answer Date Recorded PHQ-2 Total Score (If total score is 3 or more points, staff should administer the PHQ-9) 0 02/05/2022 Personal Safety Answer Date Recorded Have you ever been in or are you currently in a harmful physical or emotional relationship or is someone making you feel afraid or unsafe? Denies 11/18/2023 Comments No Sex and Gender Information Value Date Recorded Sex Assigned at Not on file Legal Sex Female 12:14 AM LEAD SOFTWARE TEST ENGINEER Gender Identity Not on file Sexual Orientation Straight 07/05/2021 1: 52 PM LEAD SOFTWARE TEST ENGINEER documented as of this encounter Functional Status * AUDIT-C Score Answer Date of Assessment Author 0 11/18/2023 2:42 PM CDT Emiliano Roman * Question Answer Date of Assessment Author Q1: How often do you have a drink containing alcohol? Never 11/18/2023 2:42 PM CDT Silvestre Roman Q2: How many drinks containing alcohol do you have on a typical day when you are drinking? Patient does not drink 11/18/2023 2:42 PM CDT Silvestre Roman Q3: How often do you have six or more drinks on one occasion? Never 11/18/2023 2:42 PM CDT Silvestre Roman documented as of this encounter Plan of Treatment Not on file documented as of this encounter Procedures Procedure Name Priority Date/Time Associated Diagnosis Comments BREAST IMAGING MG SCREENING OUTSIDE REFERENCE Routine 07/28/2015 12:00 AM LEAD SOFTWARE TEST ENGINEER documented in this encounter Results * Breast Imaging Screening Outside Reference (07/28/2015 12:00 AM LEAD SOFTWARE TEST ENGINEER) Impressions [facility]MO[facility] - 01/02/2022 5:07 PM CDT These images are for Reference purposes only and have not been reviewed by [facility] Radiology. There will be no report generated by a [facility] Radiologist. Narrative [facility]_MAMMO[facility] - 01/02/2022 5:07 PM CDT EXAMINATION: Images For Reference Purposes Only us Leah Rogers MD PhD IMG MAMMO PROCEDURES Final Result [facility] documented in this encounter Visit Diagnoses Not on filedocumented in this encounter Additional Health Concerns Infection Onset Date Last Indicated Resolved Time COVID: Suspected 06/20/2023 06/20/2023 06/20/2023 7:31 PM LEAD SOFTWARE TEST ENGINEER documented as of this encounter
--- OUTSIDE RECORDS SUMMARY | 2016-08-28 | XMS_ITS | Encounter Summary ---
Author Organization [facility] Healthcare Address [address] [place] [address] Care Team Providers Care Manufacturers Agent Name Role Phone Unavailable Primary Care Provider Unavailabl e Reason for Visit * Diagnostic Imaging (Routine) - Closed Specialty Diagnoses / Procedures Referred By Contac t Referred To Contact Procedures Breast Imaging Screening Outside Reference Aft, Leah Swift MD PhD [address] [place] [address] Phone: tel: fax: Referral ID Status Reason Start Date Expiration Date Visits Re quested Visits Authorized [id number] Closed 01/02/2022 02/01/2023 1 1 Encounter Details Date Type Department Care Team (Late st Contact Info) Description 08/28/2016 Hospital Encounter [facility]iology [facility] [address] [place] [address] [phone] Social History Tobacco Use Types Packs/Day Years [...] on file Legal Sex Female 12:14 AM INSPECTOR CANNED FOOD RECONDITIONING Gender Identity Not on file Sexual Orientation Straight 07/05/2021 1: 52 PM INSPECTOR CANNED FOOD RECONDITIONING documented as of this encounter Functional Status [...] only and have not been reviewed by [facility] Radiology. There will be no report generated by a [facility] Radiologist. Narrative [facility]_MAMMO[facility] - 01/02/2022 5:07 PM CDT EXAMINATION: Images For Reference Purposes Only us Leah Rogers MD PhD IMG MAMMO PROCEDURES Final Result [facility] documented in this encounter Visit Diagnoses Not on filedocumented in this encounter Additional Health Concerns Infection Onset Date Last Indicated Resolved Time COVID: Suspected 06/20/2023 06/20/2023 06/20/2023 7:31 PM INSPECTOR CANNED FOOD RECONDITIONING documented as of this encounter
--- OUTSIDE RECORDS SUMMARY | 2016-09-12 | XMS_ITS | Encounter Summary ---
Author Organization [facility] Healthcare Address [address] [place] [address] Care Team Providers Care Stenographic Court Reporter Name Role Phone Unavailable Primary Care Provider Unavailabl e Reason for Visit * Diagnostic Imaging (Routine) - Closed Specialty Diagnoses / Procedures Referred By Contac t Referred To Contact Procedures Breast Imaging Diagnostic Outside Reference Aft, Leah Swift MD PhD [address] [place] [address] Phone: tel: fax: Referral ID Status Reason Start Date Expiration Date Visits Re quested Visits Authorized [id number] Closed 01/02/2022 02/01/2023 1 1 Encounter Details Date Type Department Care Team (Late st Contact Info) Description 09/12/2016 Hospital Encounter [facility]iology [facility] [address] [place] [address] [phone] Social History Tobacco Use Types Packs/Day Years [...] on file Legal Sex Female 12:14 AM MEDICAL LEAD Gender Identity Not on file Sexual Orientation Straight 07/05/2021 1: 52 PM MEDICAL LEAD documented as of this encounter Functional Status [...] Date/Time Associated Diagnosis Comments BREAST IMAGING MG DIAGNOSTIC OUTSIDE REFERENCE Routine 09/12/2016 12:00 AM CDT documented in this encounter Results * Breast Imaging Diagnostic Outside Reference (09/12/2016 12:00 AM CDT) Impressions [facility] - 01/02/2022 5:07 PM CDT These images are for Reference purposes only and have not been reviewed by [facility] Radiology. There will be no report generated by a [facility] Radiologist. Narrative RAD_MAMMO[facility] - 01/02/2022 5:07 PM CDT EXAMINATION: Images For Reference Purposes Only us Leah Rogers MD PhD IMG MAMMO PROCEDURES Final Result [facility] documented in this encounter Visit Diagnoses Not on filedocumented in this encounter Additional Health Concerns Infection Onset Date Last Indicated Resolved Time COVID: Suspected 06/20/2023 06/20/2023 06/20/2023 7:31 PM MEDICAL LEAD documented as of this encounter
--- OUTSIDE RECORDS SUMMARY | 2017-10-16 | XMS_ITS | Encounter Summary ---
Author Organization [facility] Healthcare Address [address] [place] [address] Care Team Providers Care Director Of Recruitment And Admissions Name Role Phone Tomi Be MD Primary Care Provider + [phone] Reason for Visit * Diagnostic Imaging (Routine) - Closed Specialty Diagnoses / Procedures Referred By Contac t Referred To Contact Procedures Breast Imaging Screening Outside Reference Aft, Leah Swift MD PhD [address] [place] [address] Phone: tel: fax: Referral ID Status Reason Start Date Expiration Date Visits Re quested Visits Authorized [id number] Closed 01/02/2022 02/01/2023 1 1 Encounter Details Date Type Department Care Team (Late st Contact Info) Description 10/16/2017 Hospital Encounter [facility] [address] [place] [phone] Social History Tobacco Use Types Packs/Day Years [...] on file Legal Sex Female 12:14 AM WEATHERCASTER Gender Identity Not on file Sexual Orientation Straight 07/05/2021 1: 52 PM WEATHERCASTER documented as of this encounter Functional Status [...] BREAST IMAGING MG SCREENING OUTSIDE REFERENCE Routine 10/16/2017 12:00 AM CDT documented in this encounter Results * Breast Imaging Screening Outside Reference (10/16/2017 12:00 AM CDT) Impressions RAD_[facility]MO[facility] - 01/02/2022 5:06 PM CDT These images are for Reference purposes only and have not been reviewed by [facility] Radiology. There will be no report generated by a [facility] Radiologist. Narrative RAD_MAMMO[facility] - 01/02/2022 5:06 PM CDT EXAMINATION: Images For Reference Purposes Only us Leah Rogers MD PhD IMG MAMMO PROCEDURES Final Result [facility] documented in this encounter Visit Diagnoses Not on filedocumented in this encounter Additional Health Concerns Infection Onset Date Last Indicated Resolved Time COVID: Suspected 06/20/2023 06/20/2023 06/20/2023 7:31 PM WEATHERCASTER documented as of this encounter Care Teams Director Of Recruitment And Admissions Relationship Specialty Start Date End Date Tomi Be MD [address] [place] [address] PCP - General Internal Medicine 01/15/17 documented as of this encounter
--- OUTSIDE RECORDS SUMMARY | 2018-11-11 | XMS_ITS | Encounter Summary ---
Author Organization [facility] Healthcare Address [address] [place] [address] Care Team Providers Care Test Analyst Name Role Phone Tomi Be MD Primary Care Provider + [phone] Reason for Visit * Diagnostic Imaging (Routine) - Closed Specialty Diagnoses / Procedures Referred By Contac t Referred To Contact Procedures Breast Imaging Screening Outside Reference Aft, Leah Swift MD PhD [address] [place] [address] Phone: tel: fax: Referral ID Status Reason Start Date Expiration Date Visits Re quested Visits Authorized [id number] Closed 01/02/2022 02/01/2023 1 1 Encounter Details Date Type Department Care Team (Late st Contact Info) Description 11/11/2018 Hospital Encounter [facility] [address] [place] [phone] Social History Tobacco Use Types Packs/Day Years [...] on file Legal Sex Female 12:14 AM AUTOMOBILE WRECKER Gender Identity Not on file Sexual Orientation Straight 07/05/2021 1: 52 PM AUTOMOBILE WRECKER documented as of this encounter Functional Status [...] Comments BREAST IMAGING MG SCREENING OUTSIDE REFERENCE Schedule Routine, Read Routine (OP Routine) 11/11/2018 12:00 AM CDT documented in this encounter Results * Breast Imaging Screening Outside Reference (11/11/2018 12:00 AM CDT) Impressions RAD_M[facility]MO[facility] - 01/02/2022 5:06 PM CDT These images are for Reference purposes only and have not been reviewed by [facility] Radiology. There will be no report generated by a [facility] Radiologist. Narrative RAD_MAMMO[facility] - 01/02/2022 5:06 PM CDT EXAMINATION: Images For Reference Purposes Only us Leah Rogres MD PhD IMG MAMMO PROCEDURES Final Result [facility] documented in this encounter Visit Diagnoses Not on filedocumented in this encounter Additional Health Concerns Infection Onset Date Last Indicated Resolved Time COVID: Suspected 06/20/2023 06/20/2023 06/20/2023 7:31 PM AUTOMOBILE WRECKER documented as of this encounter Care Teams Test Analyst Relationship Specialty Start Date End Date Tomi Be MD [address] [place] [phone] PCP - General Internal Medicine 01/15/17 documented as of this encounter
--- OUTSIDE RECORDS SUMMARY | 2018-11-16 | XMS_ITS | Encounter Summary ---
Author Organization [facility] Healthcare Address [address] [place] [address] Care Team Providers Care Marine Rigger Name Role Phone Tomi Be MD Primary Care Provider + [phone] Reason for Visit * Diagnostic Imaging (Routine) - Closed Specialty Diagnoses / Procedures Referred By Contac t Referred To Contact Procedures Breast Imaging Diagnostic Outside Reference Aft, Leah Swift MD PhD [address] [place] [address] Phone: tel: fax: Referral ID Status Reason Start Date Expiration Date Visits Re quested Visits Authorized [id number] Closed 01/02/2022 02/01/2023 1 1 Encounter Details Date Type Department Care Team (Late st Contact Info) Description 11/16/2018 Hospital Encounter [facility] [address] [place] [address] [phone] Social History Tobacco Use Types Packs/Day Years [...] on file Legal Sex Female 12:14 AM SALESPERSON PARTS Gender Identity Not on file Sexual Orientation Straight 07/05/2021 1: 52 PM SALESPERSON PARTS documented as of this encounter Functional Status [...] BREAST IMAGING MG DIAGNOSTIC OUTSIDE REFERENCE Routine 11/16/2018 12:00 AM CDT documented in this encounter Results * Breast Imaging Diagnostic Outside Reference (11/16/2018 12:00 AM CDT) Impressions [facility] - 01/02/2022 5:04 PM CDT These images are for Reference purposes only and have not been reviewed by [facility]. There will be no report generated by a [facility] Radiologist. Narrative [facility] - 01/02/2022 5:04 PM CDT EXAMINATION: Images For Reference Purposes Only us Leah Rogers MD PhD IMG MAMMO PROCEDURES Final Result [facility] documented in this encounter Visit Diagnoses Not on filedocumented in this encounter Additional Health Concerns Infection Onset Date Last Indicated Resolved Time COVID: Suspected 06/20/2023 06/20/2023 06/20/2023 7:31 PM SALESPERSON PARTS documented as of this encounter Care Teams Marine Rigger Relationship Specialty Start Date End Date Tomi Be MD [address] [place] [address] PCP - General Internal Medicine 01/15/17 documented as of this encounter
--- OUTSIDE RECORDS SUMMARY | 2018-11-16 00:05 | XMS_ITS | Encounter Summary ---
Author Organization [facility] Healthcare Address [address] [place] [address] Care Team Providers Care Manager Marketing Communication Name Role Phone Tomi Be MD Primary Care Provider + [phone] Reason for Visit * Diagnostic Imaging (Routine) - Closed Specialty Diagnoses / Procedures Referred By Contac t Referred To Contact Procedures Breast Imaging US Outside Reference Aft, Leah Swift MD PhD [address] [place] [address] Phone: tel: fax: Referral ID Status Reason Start Date Expiration Date Visits Re quested Visits Authorized [id number] Closed 01/02/2022 02/01/2023 1 1 Encounter Details Date Type Department Care Team (Late st Contact Info) Description 11/16/2018 12:05 AM CDT Hospital Encounter [facility]iology [facility] [address] [place] [phone] Social History Tobacco Use Types Packs/Day Years [...] on file 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 There will be no report generated by a [facility] Radiologist. Narrative [facility] - 01/02/2022 5:18 PM CDT EXAMINATION: Images For Reference Purposes Only us Leah Rogers MD PhD IMG MAMMO PROCEDURES Final Result [facility] documented in this encounter Visit Diagnoses Not on filedocumented in this encounter Additional Health Concerns Infection Onset Date Last Indicated Resolved Time COVID: Suspected 06/20/2023 06/20/2023 06/20/2023 7:31 PM MARINE MAMMAL TRAINER documented as of this encounter Care Teams Manager Marketing Communication Relationship Specialty Start Date End Date Tomi Be MD [address] [place], [place] [phone] PCP - General Internal Medicine 01/15/17 documented as of this encounter
--- OUTSIDE RECORDS SUMMARY | 2018-11-30 | XMS_ITS | Encounter Summary ---
Author Organization [facility] Healthcare Address [address] [place] [address] Care Team Providers Care Dye Room Helper Name Role Phone Tomi Be MD Primary Care Provider + [phone] Reason for Visit * Diagnostic Imaging (Routine) - Closed Specialty Diagnoses / Procedures Referred By Contac t Referred To Contact Procedures Breast Imaging Diagnostic Outside Reference Aft, Leah Swift MD PhD [address] [place] [address] Phone: tel: fax: Referral ID Status Reason Start Date Expiration Date Visits Re quested Visits Authorized [id number] Closed 01/02/2022 02/01/2023 1 1 Encounter Details Date Type Department Care Team (Late st Contact Info) Description 11/30/2018 Hospital Encounter [facility] [address] [place] [address] [phone] Social History Tobacco Use Types Packs/Day Years [...] on file 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 There will be no report generated by a [facility] Radiologist. Narrative [facility] - 01/02/2022 5:04 PM CDT EXAMINATION: Images For Reference Purposes Only us Leah Rogers MD PhD IMG MAMMO PROCEDURES Final Result [facility] documented in this encounter Visit Diagnoses Not on filedocumented in this encounter Additional Health Concerns Infection Onset Date Last Indicated Resolved Time COVID: Suspected 06/20/2023 06/20/2023 06/20/2023 7:31 PM SALES ASSOC documented as of this encounter Care Teams Dye Room Helper Relationship Specialty Start Date End Date Tomi Be MD [address] [place] [address] PCP - General Internal Medicine 01/15/17 documented as of this encounter
--- OUTSIDE RECORDS SUMMARY | 2018-11-30 00:05 | XMS_ITS | Encounter Summary ---
Author Organization [facility] Healthcare Address [address] [place] [address] Care Team Providers Care National Account Executive Name Role Phone Tomi Be MD Primary Care Provider + [phone] Reason for Visit * Diagnostic Imaging (Routine) - Closed Specialty Diagnoses / Procedures Referred By Contac t Referred To Contact Procedures Breast Imaging US Outside Reference Aft, Leah Swift MD PhD [address] [place] [address] Phone: tel: fax: Referral ID Status Reason Start Date Expiration Date Visits Re quested Visits Authorized [id number] Closed 01/02/2022 02/01/2023 1 1 Encounter Details Date Type Department Care Team (Late st Contact Info) Description 11/30/2018 12:05 AM CDT Hospital Encounter [facility]iology [facility] [address] [place] [address] Social History Tobacco Use Types Packs/Day Years [...] on file 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 There will be no report generated by a [facility] Radiologist. Narrative RAD[facility] - 01/02/2022 5:18 PM CDT EXAMINATION: Images For Reference Purposes Only us Leah Rogers MD PhD IMG MAMMO PROCEDURES Final Result [facility] documented in this encounter Visit Diagnoses Not on filedocumented in this encounter Additional Health Concerns Infection Onset Date Last Indicated Resolved Time COVID: Suspected 06/20/2023 06/20/2023 06/20/2023 7:31 PM ACCOUNTING MANAGER CPA documented as of this encounter Care Teams National Account Executive Relationship Specialty Start Date End Date Tomi Be MD [address] [place], [place] [phone] PCP - General Internal Medicine 01/15/17 documented as of this encounter
[2025-04-08] VITALS (42 sets, daily range): BP systolic 64–168; BP diastolic 34–70; PULSE 70–99; RESP 15–31; TEMP 36.1–36.7; O2SAT 89–100; BMI 50.0
--- NOTE | ~2025-04-08 | XR_ITS ---
XR chest ET placement 04/08/2025 02:33 Indication: Endotracheal tube placement Procedure: AP view of the chest Comparison: Comparison to multiple prior studies sequentially, with oldest reviewed study dated 08/01/2023. Findings: Cardiomegaly. Mild pulmonary edema. No pleural effusion or pneumothorax. Pacemaker leads are stable. No pneumothorax. Endotracheal tube tip 4.5 cm above the [place]. NG tube in the stomach. Impression: 1: Cardiomegaly with progression of pulmonary edema. Reviewed, dictated and finalized at location O. Impression: 1: Cardiomegaly with progression of pulmonary edema.
--- NOTE | ~2025-04-08 | XR_ITS ---
XR abdomen gastric tube insert INDICATION: Evaluate NG tube position. TECHNIQUE: Limited KUB perform for evaluating NG tube . COMPARISON: No prior studies for comparison. FINDINGS: NG tube tip in the stomach just below the GE junction. Recommend advancement approximately 4-6 cm. Visualized bowel gas pattern is unremarkable.Nonspecific bowel gas pattern. IMPRESSION: 1: NG tube tip in the stomach. Recommend advancement. Reviewed, dictated and finalized at location O.
--- NOTE | ~2025-04-08 | CT_ITS ---
EXAMINATION: CTA chest abdomen pelvis DATE: 04/08/2025 03:35 INDICATION: Cardiac arrest. TECHNIQUE: Computed tomographic angiography (CTA) of the chest, abdomen, and pelvis was performed with 100 mL Omnipaque-350 intravenous contrast. Automated exposure control and iterative reconstruction technique were employed. The dose- length product was 1953.02 mGy-cm. Maximum intensity projection 3D- reconstructions of the aorta and other arteries were constructed by the technologist on a separate workstation. COMPARISON: Chest CT 04/22/2022 FINDINGS: CHEST CTA: There is mild atelectasis in the lungs. There are small right and moderate-sized left pleural effusions. There is a small left pneumothorax. The endotracheal tube tip is in expected position. Cardiomegaly is noted. There are coronary artery calcifications. There is moderate-sized hemopericardium. 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 Pneumomediastinum is noted. There is hematoma in the mediastinum. There is thickening of the right mario of the diaphragm. There is plate-screw fixation of proximal right humerus. There are fractures of right fourth-seventh ribs anteriorly. There are fractures of left first-eighth ribs. There are bridging endplate osteophytes at multiple levels in the spine, consis tent with diffuse idiopathic skeletal hyperostosis (DISH). There is mild thoracic spondylosis. ABDOMEN AND PELVIS CTA: The nasogastric tube tip is in the stomach. There are changes of a bypass procedure. The liver and spleen are normal. The gallbladder is absent. The pancreas and right adrenal gland are normal. There is a 15 mm mass in left adrenal gland, likely an adenoma the absence of known malignancy. There are cys ts in the kidneys measuring up to 3.6 cm on the left. There are 3.5 cm, 0.6 cm, and 0.1 cm stones in left kidney. There are fibroids in the uterus. There are no dilated loops of bowel. The appendix is not visualized. There are no pathologically enlarged lymph nodes. There is no free intraperitoneal fluid. There is no significant stenosis of celiac axis, superior mesenteric artery, the renal arteries, or inferior mesenteric artery. There is a total left hip arthroplasty. There is mild lumbar spondylosis. IMPRESSION: 1. 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 2. Small left pneumothorax. Moderate-sized left pleural effusion. Small right pleural effusion. 3. Pneumomediastinum. 4. Bilateral rib fractures. Reviewed, dictated and finalized at location E. IMPRESSION: 1. Type A dissection with mediastinal hematoma and moderate-sized hemopericardi um. 2. Small left pneumothorax. Moderate-sized left pleural effusion. Small right p leural effusion. 3. Pneumomediastinum. 4. Bilateral rib fractures.
--- NOTE | ~2025-04-08 | CT_ITS ---
EXAMINATION: CT brain wo con DATE: 04/08/2025 03:35 INDICATION: CODE BLUE TECHNIQUE: Computed tomography (CT) of the head was performed without intravenous contrast. Sagittal and coronal reconstructions were performed. The mA was adjusted according to patient size. Iterative reconstruction technique was employed. The dose-length product was 756.67 mGy-cm. COMPARISON: head CT dated 06/13/18 FINDINGS: No fracture. No acute intracranial hemorrhage, acute infarction or abnormal extra axial fluid collection. Old lacunar infarcts at the bilateral caudate nuclei. There is moderate scattered white matter hypoattenuation consistent with chronic small vessel ischemic disease. Symmetric prominence of the sulci consistent with mild to moderate age-appropriate diffuse cerebral volume loss. Ventricles are normal and symmetric. No mass/mass effect. Changes of bilateral intraocular lens replacement. The orbits and mastoid air cells are normal. Small amount of mucus in the posterior most left ethmoid sinus. Orogastric tube and endotracheal tube passes through the oropharynx. IMPRESSION: 1. Old lacunar infarcts at the bilateral caudate nuclei. No acute intracranial process. 2. Age-related changes and mild to moderate diffuse volume loss and moderate scattered white matter hypoattenuation consistent with chronic small vessel ischemic disease. Reviewed, dictated and finalized at location A.
--- NOTE | 2025-04-08 01:37 | PC.NURSE ---
0135 epi given by er staff (round # 5 for this pt total) and pulse check with us by edp sarah. 0138 intubated by edp sarah 0138 pulse check - no pulses- 0140 epi given by ed staff (round #6 for this pt total)
--- NOTE | 2025-04-08 01:41 | PC.NURSE ---
0142 pulse check - vfib shock delivered 200 0144 amiodarone 300mg given by edp staff
--- NOTE | 2025-04-08 01:44 | PC.NURSE ---
0145 pulse check - femoral pulse not found via doppler
--- NOTE | 2025-04-08 01:53 | ECG_ITS ---
Test Date: 2025-04-08 01:53:51 Measurements Intervals [place] Rate: 71 P: 0 [place]: 0 QRS: -25 QRSD: 211 T: 165 QT: 523 QTc: 570 Interpretive Statements ELECTRONIC VENTRICULAR PACEMAKER BASELINE WANDER- V1-V6 NO FURTHER INTERPRETATION IS POSSIBLE ATYPICAL ECG Compared to ECG 02/05/2025 17:23:49 No significant changes Electronically Signed On 04-08-2025 10:34:58 CDT by Yunier Godfrey D.O.
--- NOTE | 2025-04-08 01:53 | PC.NURSE ---
0153 norepi started at 15.
--- NOTE | 2025-04-08 01:55 | PC.NURSE ---
0155 - rn placed og @ 55
--- NOTE | 2025-04-08 02:03 | PC.NURSE ---
0200 art line placed by vic smith
[2025-04-08 02:08] LABS: Hematocrit 39.2 % (37.0-47.0); Hemoglobin 11.5 g/dL (12.0-15.0); Immature Granulocyte Percent A 3.2 % (0-0.5); Lymphocytes Absolute Auto 5.12 K/mm3 (0.9-3.2); Mean Corpuscular HGB Conc 29.3 g/dl (32-36); Mean Corpuscular Hemoglobin 31.7 pg (26-34); Mean Corpuscular Volume 108.0 fl (80-100); Nucleated Red Blood Cells Absolute Auto 0.020 K/mm3 (0.0-0.012); Nucleated Red Blood Cells Perc 0.2 % (0.0-0.2); Platelet Count Result 121 k/mm3 (150-375); Red Blood Count 3.63 M/mm3 (4.2-5.4); White Blood Count 8.7 K/mm3 (4.5-10.0)
[2025-04-08] MEDS: LACTATED RINGERS 1,000 ML 999 ML IV CONT (02:10)
[2025-04-08] MEDS: NOREPINEPHRINE 8 MG/D5W 250 ML 8 MG/250 ML BAG 56.3 MG (02:10)
--- NOTE | 2025-04-08 02:17 | PC.NURSE ---
0206 nor-epi to 30.
[2025-04-08 02:21] LABS: Alveolar/Arterial O2 Gradient 533.6 mmHg; Carboxyhemoglobin 1.2 % THb (0-2.0); Fractional Inspired Oxygen 100 %; HCO3 ABG 7.7 mEq/l (22.0-26.0); Methemoglobin ABG 0.3 %THb (0-1.5); Oxygen Content ABG 16.1 %vol (16.0-22.0); Oxygen Saturation ABG 94.6 % (95.0-100.0); PCO2 ABG 50.4 mmHg (35.0-45.0); PO2 ABG 129.0 mmHg (80.0-100.0); PO2 FiO2 Ratio Arterial Blood 1.29 %; Reduced Hemoglobin 5.1 %THb (0-5.0)
--- NOTE | 2025-04-08 02:24 | PC.NURSE ---
vrbo 3 amps of sodium bicarb per edp torossian
[2025-04-08 02:25] LABS: INR 1.6; Prothrombin Time 19.2 Seconds (11.1-14.7)
[2025-04-08 02:26] LABS: Partial Thromboplastin Time 40.3 Seconds (22.3-36.8)
[2025-04-08] MEDS: SODIUM BICARBONATE 8.4% 50 MEQ/50 ML SYRINGE 150 MEQ IV PUSH (02:26)
--- NOTE | 2025-04-08 02:26 | PC.NURSE ---
advance og tube 10 per edp sarah
[2025-04-08 02:29] LABS: Arterial Blood Gas Ventilator rate 18 /MIN; Site Drawn LEFT RADIAL
--- NOTE | 2025-04-08 02:29 | PC.NURSE ---
blood cultures x 1 by jeny rn left ac blood cultures x 2 by jeny guillen left forearm
[2025-04-08 02:30] LABS: Arterial Blood Gas Tidal Volume 380 ml
[2025-04-08] MEDS: CEFEPIME 2 GM in SODIUM CHLORIDE 0.9% IV 50 ML 100 ML IVPB (02:32)
[2025-04-08] MEDS: FENTANYL 2,500MCG/NS250ML(*CRX 2,500 MCG/250 ML BAG IV CONT (02:35)
[2025-04-08 02:36] LABS: Burr Cells 1+; Ovalocytes 1+; Schistocytes None Seen
--- OUTSIDE RECORDS SUMMARY | 2025-04-08 02:43 | XMS_ITS | Encounter Summary ---
Author Organization [facility] Healthcare Address [address] [place] [address] Care Team Providers Care Plant Maintenance Engineer Name Role Phone Tomi Be MD Primary Care Provider + [phone] Miscellaneous, Not In File Unavailable Unava ilable Krysta Justin MD Unavailable Aft, Leah Swift MD PhD Unavailable [phone] Marybeth Guerra PhD Unavailable [phone] Sushil Zarate MD Unavailable [phone] Garo Narvaez MD Unavailable [phone] Encounter Details Date Type Department Care Team (Late st Contact Info) Description 07/13/2020 Telephone [facility] - Interventional Radiology [address] [place] [address] Giselle Rutledge RN Social History Tobacco Use Types Packs/Day Years Used Date Smoking Tobacco: Former Cigarettes Q uit: 12/06/1986 Smokeless Tobacco: Never Alcohol Use Standard Drinks/Week Comments No 0 (1 standard drink = 0.6 oz pur e alcohol) Comments No Sex and Gender Information Value Date Recorded Sex Assigned at Not on file Legal Sex Female 12:14 AM 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 Gender Identity Not on file Sexual Orientation Straight 07/05/2021 1: 52 PM 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 documented as of this encounter Plan of Treatment Not on file documented as of this encounter Visit Diagnoses Not on filedocumented in this encounter Additional Health Concerns Infection Onset Date Last Indicated Resolved Time COVID: Suspected 06/20/2023 06/20/2023 06/20/2023 7:31 PM 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 documented as of this encounter Care Teams Plant Maintenance Engineer Relationship Specialty Start Date End Date Tomi Be MD [address] [place] [address] PCP - General Internal Medicine 01/15/17 Miscellaneous, Not In File 11/01/19 Krysta Justin MD [address] [place] [address] Radiation Oncologist Radiation Oncology 04/03/22 Leah Rogers MD PhD [address] [place] [address] Surgeon Surgical Oncology 04/03/22 Marybeth Guerra, PhD [address] [place] [address] Nurse Practitioner Radiation Oncology 05/20/22 Sushil Zarate MD [address] DIV IM MEDICAL ONCOLOGY, [address] [place] [address] Medical Oncologist/Check Viewer Medical Oncology 05/20/22 Garo Narvaez MD [address] [place] [address] Consulting Physician Cardiology 04/22/24 documented as of this encounter
--- OUTSIDE RECORDS SUMMARY | 2025-04-08 02:43 | XMS_ITS | Clinical Summary ---
Author Organization [facility] [employer] Address [address] [place] [address] Care Team Providers Care Manufacturing Team Member Name Role Phone Puja Dobbs MD Unavailable [phone] Tomi Be MD Primary Care Provider Source Comments [facility] [employer],non-owned Affiliates and Associated Physician Practices is amultiple site organization consisting of ambulatory clinics and hospital sitesin [place], [place], [place] and [place]. This disclosure is being madepursuant to the Care Everywhere program and may not contain all information available regarding this patient. 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 Gender Identity Not on file Sexual [...] yrs (1 - 1-dose 75+ series) 2021 DEPRESSION SCREENING 06/16/2024 COVID-19 VACCINE ( - season) 2025 INFLUENZA VACCINE (#1) 2025 8, 03/07/2017, 03/11/2016, [...] this topic Medical Devices Implanted Type Area Commercial Coordinator Device Identifier Shelf Expiration Date Model / Serial / Lot Shell Actb 50mm Hip 3 Hl R3 Implanted:Qty: 1 on 03/02/2020 by Fili Wilkinson IV, MD at [facility] Left: Hip [employer] 09/13/2029 [id number] / / [id number] Acetabular Liner 36 Mm Implanted:Qty: 1 on 03/02/2020 by Fili Wilkinson IV, MD at [facility] Left: Hip 01/17/2030 [id number] / / [id number] Marline Stem Size 5 Implanted:Qty: 1 on 03/02/2020 by Fili Wilkinson IV, MD at [facility] Left: Hip 03/16/2026 [id number] / / [id number] Taper Femoral Head +0 Implanted:Qty: 1 on 03/02/2020 by Fili Wilkinson IV, MD at [facility] Left: Hip 01/23/2030 [id number] / / [id number] Explanted Type Area Commercial Coordinator Device Identifier Shelf Expiration Date Model / Serial / Lot Pin Hlf 255mm 5mm Jtx Lng Orth Ss 45mm Explanted:Qty: 1 on 03/02/2020 by Fili Wilkinson IV, MD at [facility] Left: Hip [employer] [id number] / / Insurance MEDICARE [facility] MEDICARE [employer] Advance Directives Documents on File Type Date Recorded Patient Palliative Care Nurse Expl anation Adv Directive/Living Will/POA 05/02/2012 3:46 PM * Full Code (Latest Code Status on File) Date Activated Date Inactivated Comments 03/02/2020 11:51 AM 03/07/2020 2:38 PM * Full Code Date Activated Date Inactivated Comments 08/29/2013 8:44 PM 08/31/2013 3:36 PM * FULL RESUSCITATION Date Activated Date Inactivated Comments 04/28/2012 8:03 PM 05/01/2012 3:51 PM Care Teams Manufacturing Team Member Relationship Specialty Start Date End Date Tomi Be MD [address] [place] [address] PCP - General Internal Medicine 02/02/20 Puja Dobbs MD [address] [place] [id number] Cardiovascular Disease 08/23/19
--- OUTSIDE RECORDS SUMMARY | 2025-04-08 02:43 | XMS_ITS | Clinical Summary ---
Author Organization [facility] [address] Address [address] [place] [address] Care Team Providers Care Hydraulic Modeling Engineer Name Role Phone Tomi Be MD Primary Care Provider [phone] Miscellaneous, Not In File Unavailable Unava ilable Krysta Justin MD Unavailable Aft, Leah Swift MD PhD Unavailable [phone] Marybeth Guerra PhD Unavailable [phone] Sushil Zarate MD Unavailable [phone] Garo Narvaez MD Unavailable [phone] Allergies Active Allergy Reactions Criticality Noted Date [...] daily 60 tablet 11 03/18/20 24 Active Additional Information Patient taking differently: 40 mgoral Daily, Reported on 03/29/2025 tamoxifen (NOLVADEX) 20 mg tablet TAKE 1 TABLET(20 MG) BY MOUTH DAILY 90 tablet 3 04/20/20 24 Active cholecalcifero l (VITAMIN D-3) 2000 unit capsule Take 1 capsule (2,000 Units total) by mouth daily 90 capsule 3 08/20/19 25 Active busPIRone (BUSPAR) 10 mg tabletIndicati ons:Generalize d Anxiety Disorder Take 1 tablet (10 mg total) by mouth as needed Active pravastatin (PRAVACHOL) 10 mg tabletIndicati ons:Hyperchole steremia TAKE 1 TABLET BY MOUTH THREE DAYS A WEEK(FRIDAY, FRIDAY, AND FRIDAY) 36 tablet 2 11/10/19 25 Active ergocalciferol (VITAMIN D) 50,000 unit capsuleIndicat ions:Vitamin D deficiency Take 1 capsule (50,000 Units total) by mouth once a week Take 1 capsule every 7 days for 8 weeks 4 capsule 11 11/16/19 25 026 Active busPIRone (BUSPAR) 7.5 mg tablet Take 1 tablet (7.5 mg total) by mouth 2 (two) times a day 12/06/19 25 Active cyanocobalamin (Vitamin B-12) 1,000 mcg tabletIndicati ons:Prevention of Vitamin B12 Deficiency Take 1 tablet (1,000 mcg total) by mouth daily Active sacubitriL-lydia sartan (ENTRESTO) 49-51 mg tabletIndicati ons:chronic heart failure Take 1 tablet by mouth 2 (two) times a day 60 tablet 11 02/03/20 25 Active metoprolol (LOPRESSOR) 100 mg tablet TAKE 1 TABLET BY MOUTH TWICE DAILY 60 tablet 3 03/04/20 25 Active ipratropium (ATROVENT) 21 mcg (0.03 %) nasal spray Administer 2 sprays into affected nostril(s) 2 (two) times a day 04/07/20 24 Active docusate sodium (COLACE) 100 mg capsule Take 1 capsule (100 mg total) by mouth 2 (two) times a day as needed for constipation 12/20/19 21 Active Eliquis 5 mg tablet TAKE 1 TABLET(5 MG) BY MOUTH TWICE DAILY 60 tablet 3 03/29/20 25 Active apixaban (Eliquis) 5 mg tablet TAKE 1 TABLET(5 MG) BY MOUTH TWICE DAILY 60 tablet 3 11/30/19 25 025 Discontinued Active Problems Problem Noted Date Diagnosed Date Pulmonary hypertension 12/30/2024 Severe obesity 06/22/2024 History of right breast cancer 11/11/2022 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 02/04/2022 Cancer Staging:Clinical stage from 01/14/2022:Stage IA(cT1b, cN0, cM0, G2, ER+, OR+, HER2-) - Signed by Lance Austin MD on 04/03/2022 Pathologic stage from 02/28/2022:No Stage Recommended(pT1c, cN0, cM0, G2, ER+, OR+, HER2-) - Signed by Lance Austin MD on 04/03/2022 Pathologic: Unsigned Overview (02/04/2022): Added automatically from request for surgery [id number] Mammogram abnormal 01/07/2022 DURANT (dyspnea on exertion) 10/02/2021 Chronic combined systolic an d diastolic CHF (congestive heart failure) 10/02/2021 History of amiodarone therapy 10/02/2021 Hyperthyroidism 09/27/2021 Assessment & Plan (08/06/2022 3:06 PM HOIST WORKER): Seems to have resolved Will test once [...] m Assessment & Plan (07/24/2021 4:23 PM HOIST WORKER): I explained to Mrs. Guevara that her [...] 07/24/2021 Assessment & Plan (08/06/2022 3:06 PM HOIST WORKER): Check vit D Adjust dose of Ergocalciferol accordingly Assessment & Plan (07/24/2021 4:25 PM HOIST WORKER): Check 25 OH vit D and restart Ergocalciferol , accordingly Vitamin B 12 deficiency 07/24/2021 Assessment & Plan (07/24/2021 4:25 PM HOIST WORKER): The patient asked me to check on her B12 level to adjust her vitamin B12 supplementation. She follows also with her primary care doctor, Dr. Be on this regard A-fib 06/11/2021 Hip arthritis 03/02/2020 Pulmonary nodule 12/05/2019 Essential hypertension 10/31/2019 Depression 10/31/2019 Closed displaced comminuted fracture of shaft of right humerus 10/30/2019 Overview (10/30/2019): Added automatically from request for surgery [id number] PEYMAN (obstructive sleep apnea) 03/22/2019 Status post [...] with atrial fibrillation: a report of the [employer] Association Task Force on Practice Guidelines [...] (06/06/2021): Added automatically from request for surgery [id number] Medication management 12/12/20202021 Acute pain due to [...] 4:41 PM CDT): The patient has a HEK8ZF8-DZUf score of 3 (annualized risk of stroke 3%). I have therefore recommended that she remain anticoagulated for thromboprophylaxis. Assessment & Plan (03/31/2019 8:49 AM CDT): The patient has a MLR4ZW4-OVRq score of 3 (annualized risk of stroke [...] Encounters Date Type Department Care Team Description 04/05/2025 1:30 PM CDT Lab [facility] [address] [place] [address] Age-related osteoporosis without current pathological fracture; Vitamin D deficiency 04/05/2025 11:30 AM CDT Office Visit [facility] [address] [facility] [facility] [address] [place] [address] [place] [address] Juno Braun MD 04/05/2025 Telephone [facility] [address] [facility] [address] [place] [address] [place] [address] Juno Braun MD 03/29/2025 1:15 PM CDT [facility] [address] [place] [address] [phone] Rhonda White NP Cardiac pacemaker (Primary Dx); Persistent atrial fibrillation (HCC) 03/29/2025 1:00 PM CDT Ancillary Procedure [facility] [address] [place] [address] [phone] Cardiac pacemaker in situ (Primary Dx); Persistent atrial fibrillation (HCC) 03/15/2025 11:15 AM CDT Ancillary Procedure [facility] [address] [place] [address] [phone] Cardiac pacemaker (Primary Dx); Persistent atrial fibrillation (HCC) 03/15/2025 Orders Only [facility] [address] [place] [address] [phone] Mason Miranda MD Persistent atrial fibrillation (HCC) (Primary Dx) from Last 3 Months Immunizations Immunization Administration [...] beat abnormality Atrial fibrillation (HCC) Diabetes mellitus 1999 Kidney stone 10/2019 Breast cancer (HCC) [...] on file Legal Sex Female 12:14 AM HOIST WORKER Gender Identity Not on file Sexual Orientation Straight 07/05/2021 1: 52 PM HOIST WORKER Obstetrics History Para Term AB IAB SAB Ectopic Multiple Livin g Live Births 3 Date Outcome GA Total Labor Labor/2nd/3rd Weight Sex Type Anes PTL Sammie A1 A5 Name Clin Last Filed Vital Signs Vital Sign Reading Time Taken Comments Blood Pressure 130/78 03/29/2025 1:52 PM CDT Pulse 75 03/29/2025 1:52 PM CDT Temperature 36.5 C (97.7 F) 08/19/2024 1:02 PM HOIST WORKER Respiratory Rate 18 08/19/2024 1:02 PM HOIST WORKER Oxygen Saturation 95% 03/29/2025 1:52 PM CDT Inhaled Oxygen Concentration - - Weight 103 kg (227 lb) 12/30/2024 1:57 PM CDT Height 162.6 cm (5' 4.02) 03/29/2025 1:52 PM CD T Body Mass Index 38.96 12/30/2024 1:57 PM CDT Plan of Treatment Health Maintenance Due Date Last Done Comments Hepatitis C Screening 1945 DTaP/Tdap/Td Vaccine (1 - Tdap) 1957 Hepatitis B Screening 1964 Zoster Vaccine (1 of 2) 1965 Well Visit 65+ 10/06/2011 Depression Screening 02/05/2023 02/05/2022, 09/28/19 Fall Risk Assessment 11/17/2024 11/18/2023, 04/04/20 22 Covid-19 Vaccine (4 - 2024-2 6 season) 2025 05/06/2021, 09/04/2020, 08/02/2020 Influenza Vaccine (#1) 2025 , 02/27/2021, 02/14/2020, Additional history exists Osteoporosis Screening-Bone Density Scan 09/06/2026 09/06/2024, 01/29/2023, 10/01/2021, Additional history exists Pneumococcal vaccine 65+ Completed 06/07/2015, 08/14 Breast Cancer Screening-Mammogram Discontinued 11/16/2024, 11/11/2023, 11/05/2022 Medical Devices Implanted Type Area Wedger Device Identifier Shelf Expiration Date Model / Serial / Lot [employer] Inc [id number] Vascade 6/7fr Bioabsorbable Vascular System Compression Collagen - [id number] - [id number] Implanted:Qty: 1 on 10/24/2020 by Mason Miranda MD at [facility] Collagen [employer] 07/19/2022 700-580I -05U / [id number] 204A / [id number] 204A [employer] 226-125b-[id number] System 6-12fr Mvp Venous Closure Vascade - [id number] - [id number] Implanted:Qty: 1 on 10/24/2020 by Mason Miranda MD at [facility] Collagen [employer] 08/22/2022 800-612C -10U / [id number] 310A / [id number] 310A [employer] [id number]-[id number] System 6-12fr Mvp Venous Closure Vascade - [id number] - [id number] Implanted:Qty: 1 on 10/24/2020 by Mason Miranda MD at [facility] Collagen [employer] 08/22/2022 800-612C -10U / [id number] 310A / [id number] 310A [employer] 758-287x-81y System 6-12fr Mvp Venous Closure Vascade - [id number] - [id number] Implanted:Qty: 1 on 10/24/2020 by Mason Miranda MD at [facility] Collagen [employer] 08/22/2022 800-612C -10U / [id number] 310A / [id number] 310A [employer] 325-833w-17w System 6-12fr Mvp Venous Closure Vascade - [id number] - [id number] Implanted:Qty: 1 on 06/11/2021 by Mason Miranda MD at [facility] Collagen [employer] 03/27/2023 800-612C -10U / [id number] 019A / [id number] 019A [employer] 244-133w-40w System 6-12fr Mvp Venous Closure Vascade - [id number] - [id number] Implanted:Qty: 1 on 06/11/2021 by Mason Miranda MD at [facility] Collagen [employer] 03/27/2023 800-612C -10U / [id number] 019A / [id number] 019A [employer] 134-123w-90c System 6-12fr Mvp Venous Closure Vascade - [id number] - [id number] Implanted:Qty: 1 on 06/11/2021 by Mason Miranda MD at [facility] Collagen [employer] 03/27/2023 800-612C -10U / [id number] 019A / [id number] 019A [employer] 658-281q-37i Vascade 6/7fr Bioabsorbable Vascular System Compression Collagen - [id number] - [id number] Implanted:Qty: 1 on 06/11/2021 by Mason Miranda MD at [facility] Collagen [employer] 09/12/2022 700-580I -05U / [id number] 401A / [id number] 401A Medtronic Inc Capsurefix Novus 6.2fr 2mm 58cm Bipolar Screw In Implantable 5076-58 - [id number] - [id number] Implanted:Qty: 1 on 11/18/2023 by Mason Miranda MD at [facility] Lead Medtronic Inc [id number] 03/25/2025 507 6-58 / [id number] 1V / Medtronic Inc Attain Stability Quad Mri Surescan Active Fixation Lv Lead 88cm [id number] - [id number] - [id number] Implanted:Qty: 1 on 11/18/2023 by Mason Miranda MD at [facility] Lead [employer]onic Inc [id number] 09/03/2025 479 888 / [id number] 7V / Medtronic Inc Solara Mri Surescan Bluetooth 46.5x59mm Connector Hole Radiopaque W4tr03 - [id number] - [id number] Implanted:Qty: 1 on 11/18/2023 by Mason Miranda MD at [facility] Pacemaker Med[employer]onic Inc 12/11/2024 W4TR03 / [id number] / Synthes 241.35 12mm [id number] .5mm 5 Hole Collar 1/3 Tubular Plate Bone Stainless - S000 - [id number] Implanted:Qty: 1 on 10/30/2019 by Paras Houston MD at [facility] Plate Right: Humerus Synthes I 241.35 / 000 / 000 Synthes 241.923s Plate Bone Lcp Combi Philos Long Stainless Steel L232mm X W12mm X H3.7mm Humerus Proximal 10 Hole Shaft Sterile 3.5mm Screw Small Fragment Set - S000 - [id number] Implanted:Qty: 1 on 10/30/2019 by Paras Houston MD at [facility] Plate Right: Humerus Synthes I 241.923S / 000 / 000 Synthes 212.117 3.5mm 2.9mm 40mm Self Tap Lock Stardrive Conical Head T15 Full - S000 - [id number] Implanted:Qty: 1 on 10/30/2019 by Paras Houston MD at [facility] Screw Right: Humerus Synthes I 212.117 / 000 / 000 Synthes 212.118 3.5mm 2.9mm 42mm Self Tap Lock Stardrive Conical Head Full Thread - S000 - [id number] Implanted:Qty: 1 on 10/30/2019 by Paras Houston MD at [facility] Screw Right: Humerus Synthes I 212.118 / 000 / 000 Synthes 212.115 3.5mm 2.9mm 36mm Self Tap Lock Stardrive Conical Head T15 Full - S000 - [id number] Implanted:Qty: 1 on 10/30/2019 by Paras Houston MD at [facility] Screw Right: Humerus Synthes I 212.115 / 000 / 000 Synthes 212.108 3.5mm 2.9mm 24mm Self Tap Lock Stardrive Conical Head Pelvis T15 - S000 - [id number] Implanted:Qty: 3 on 10/30/2019 by Paras Houston MD at [facility] Screw Right: Humerus Synthes I 212.108 / 000 / 000 Synthes 204.824 3.5mm 6mm 24mm 2.5mm Self Tap Small Hexagonal Socket Low Profile - S000 - [id number] Implanted:Qty: 2 on 10/30/2019 by Paras Houston MD at [facility] Screw Right: Humerus Synthes I 204.824 / 000 / 000 Synthes 204.820 3.5mm 6mm 20mm 2.5mm Self Tap Small Hexagonal Socket Low Profile - S000 - [id number] Implanted:Qty: 1 on 10/30/2019 by Paras Houston MD at [facility] Screw Right: Humerus Synthes I 204.820 / 000 / 000 Synthes 204.822 3.5mm 6mm 22mm 2.5mm Self Tap Small Hexagonal Socket Low Profile - S000 - [id number] Implanted:Qty: 1 on 10/30/2019 by Paras Houston MD at [facility] Screw Right: Humerus Synthes I 204.822 / 000 / 000 Synthes 204.828 3.5mm 6mm 28mm 2.5mm Self Tap Small Hexagonal Socket Low Profile - S000 - [id number] Implanted:Qty: 1 on 10/30/2019 by Paras Houston MD at [facility] Screw Right: Humerus Synthes I 204.828 / 000 / 000 Synthes 204.826 3.5mm 6mm 26mm 2.5mm Self Tap Small Hexagonal Socket Low Profile - S000 - [id number] Implanted:Qty: 1 on 10/30/2019 by Paras Houston MD at [facility] Screw Right: Humerus Synthes I 204.826 / 000 / 000 Synthes 212.121 3.5mm 2.9mm 50mm Self Tap Lock Stardrive Conical Head T15 Full - S000 - [id number] Implanted:Qty: 1 on 10/30/2019 by Paras Houston MD at [facility] Screw Right: Humerus Synthes I 212.121 / 000 / 000 Synthes 212.114 3.5mm 2.9mm 35mm Self Tap Lock Stardrive Conical Head T15 Full - S000 - [id number] Implanted:Qty: 1 on 10/30/2019 by Paras Houston MD at [facility] Screw Right: Humerus Synthes I 212.114 / 000 / 000 Synthes 212.116 3.5mm 2.9mm 38mm Self Tap Lock Stardrive Conical Head T15 Full - S000 - [id number] Implanted:Qty: 1 on 10/30/2019 by Paras Houston MD at [facility] Screw Right: Humerus Synthes I 212.116 / 000 / 000 Bard Peripheral Vascular Ultraclip Bard 17ga 10cm 2 Trigger Permanent Ultrasound [id number] - [id number] Implanted:Qty: 1 on 01/14/[address] [facility] Right: Breast Bard Peripheral Vascular [id number] / / Bard Peripheral Vascular Ghiatas 20ga 20cm 9cm Beaded Needle Breast Wire Localization 10667 - [id number] Implanted:Qty: 1 on 02/28/[address] [facility] Right: Breast Bard Peripheral Vascular [id number] / / Explanted Type Area Wedger Device Identifier Shelf Expiration Date Model / Serial / Lot Synthes 204.812 3.5mm 6mm 12mm 2.5mm Self Tap Small Hexagonal Socket Low Profile - S000 - [id number] Explanted:Qty: 1 on 10/30/2019 by Paras Houston MD at [facility] Screw Right: Humerus Synthes I 204.812 / 000 / 000 Procedures Procedure Name Priority Date/Time Associated Diagnosis Comments EGFR Routine 04/05/2025 11:51 AM CDT Age-related osteoporosis without current pathological fracture Vitamin D deficiency COMPREHENSIVE METABOLIC PANEL Routine 04/05/2025 11:51 AM CDT Age-related osteoporosis without current pathological fracture Vitamin D deficiency PTH Routine 04/05/2025 11:51 AM CDT Age-related osteoporosis without current pathological fracture Vitamin D deficiency VITAMIN D 25 HYDROXY Routine 04/05/2025 11:51 AM CDT Age-related osteoporosis without current pathological fracture Vitamin D deficiency THYROID FUNCTION CASCADE Routine 04/05/2025 11:51 AM CDT Age-related osteoporosis without current pathological fracture ECG 12-LEAD Routine 03/29/2025 1:45 PM CDT Cardiac pacemaker Persistent atrial fibrillation (HCC) DEVICE CHECK - IN OFFICE Routine 03/29/2025 1:06 PM CDT Persistent atrial fibrillation (HCC) DEVICE CHECK - REMOTE Routine 03/15/2025 8:50 AM CDT Persistent atrial fibrillation (HCC) DIAGNOSTIC [...] Recently Relevant to Health Maintenance Results * eGFR (04/05/2025 11:51 AM CDT) eGFR 75 >=60 mL/min/1. 73 m2 Comment: Interpretive Data [...] interpretive data was last reviewed 2021. Blood 04/05/2025 11:5 1 AM CDT 04/05/2025 12:21 PM CDT us Juno Braun MD LAB BLOOD ORDERABLES Final Resu lt Performing Organization Address [facility] de Phone Number [facility] [place] [address] * Thyroid Function Jeff Davis (04/05/2025 11:51 AM CDT) TSH 2.89 0.30 - 4.20 mcIUnit/mL Blood 04/05/2025 11:5 1 AM CDT 04/05/2025 12:21 PM CDT us Juno Braun MD LAB BLOOD ORDERABLES Final Resu lt Performing Organization Address [facility] de Phone Number [facility] [place] [address] * Vitamin D 25 hydroxy (04/05/2025 11:51 AM CDT) Vitamin D 25-OH 30 30 - 80 ng/mL Blood 04/05/2025 11:5 1 AM CDT 04/05/2025 12:21 PM CDT us Juno Braun MD LAB BLOOD ORDERABLES Final Resu lt [facility] Department [place] [address] * (ABNORMAL) PTH (04/05/2025 11:51 AM CDT) Pathologist [facility] PTH 101(H) 18 - 59 pg/mL Blood 04/05/2025 11:5 1 AM CDT 04/05/2025 12:21 PM CDT us Juno Braun MD LAB BLOOD ORDERABLES Final Resu lt [facility] Department [place] [address] * Comprehensive metabolic panel (04/05/2025 11:51 AM CDT) [facility] Sodium 145 135 - 145 mmol/L Potassium, pl 4.0 3.3 - 4.9 mmol/L [facility] Chloride 109 97 - 110 mmol/L [facility] CO2 26 22 - 32 mmol/L [facility] Anion gap 10 2 - 15 mmol/L [facility] BUN 14 6 - 25 mg/dL [facility] Creatinine 0.80 0.60 - 1.10 mg/dL [facility] Glucose 113 70 - 199 mg/dL [facility] Comment: Interpretive Data Fasting [...] interpretive data was last revised 2022. Calcium 9.5 8.5 - 10.3 mg/dL [facility] Bilirubin, total 0.6 0.1 - 1.2 mg/dL [facility] Protein, pl 7.0 6.5 - 8.5 g/dL [facility] Albumin 3.6 3.5 - 5.0 g/dL [facility] Alk phos 61 40 - 130 Units/L [facility] ALT 9 7 - 45 Units/L [facility] AST 21 10 - 45 Units/L [facility] Blood 04/05/2025 11:5 1 AM CDT 04/05/2025 12:21 PM CDT us Juno Braun MD LAB BLOOD ORDERABLES Final Resu lt [facility] Department [place] [address] * ECG 12 lead (03/29/2025 1:45 PM CDT) us Rhonda White NP ECG ORDERABLES Final Resu lt * DEVICE CHECK - IN OFFICE (03/29/2025 1:06 PM CDT) Anatomical Region Laterality Modality Other Narrative 04/03/2025 10:52 AM CDT Table formatting from the original result was not included. BiV PACEMAKER CHECK (IN OFFICE) Patient ID: Sanam Guevara is a 79 y.o. female. This patient received a Medtronic BiV Pacemaker. They had a routine in office device interrogation on 03/29/25. Device implant indications: AF, status post AV node ablation Interrogation of the patient's device demonstrates the following: Presenting EGM: Bi V paced @ 85 bpm Underlying Rhythm: Paced at 50 Original Device Settings Right Ventricle Left Ventricle Sensitivity (mV) 2.8 mV N/a mV Pacemaker Outputs 2.25 V @ 0.4 ms 2.25 V @ 0.4 ms Testing Measurements Right Ventricle Left Ventricle Sensitivity (mV) Paced mV Not done mV Impedence (Ohms) 475 ohms 494 ohms Pace Threshold 1.0 V @ 0.4 ms 1.625 V @ 0.4 ms Pacing % 99.9 % 99.9 % Battery Status: 6.7 years to FARZAD Episodes last 90 days/Comments: 2 episodes of nonsustained VT the longest lasting 5 seconds at 170 beats per minute NORMAL DEVICE FUNCTION PROGRAMMED MEDICATIONS: Anti-coagulant(s): Eliquis 5 mg twice a day Anti-arrhythmic(s): Lopressor 100 mg twice a day PLAN: 1) Medtronic BiV Pacemaker evaluation 2) Medtronic remote transmission scheduled in 3 months. 3) Programming appropriate for device settings Kim Mosley RN us Mason Miranda MD [facility] PRO CEDURES Final Result * DEVICE CHECK - REMOTE (03/15/2025 8:50 AM CDT) Anatomical Region Laterality Modality Other Narrative 03/18/2025 3:38 PM CDT Table formatting from the original result was not included. BiV PACEMAKER CHECK (REMOTE) Patient ID: Sanam Guevara is a 79 y.o. female. This patient received a Medtronic BiV Pacemaker. They had a routine remote transmission on 03/15/2025. Device implant indications: AF, status post AV node ablation Interrogation of the patient's device demonstrates the following: Presenting EGM: Bi V paced @ 75 bpm Original Device Settings Right Ventricle Left Ventricle Sensitivity (mV) 2.8 mV N/a mV Pacemaker Outputs 2.25 V @ 0.4 ms 2.25 V @ 1.0 ms Testing Measurements Right Ventricle Left Ventricle Sensitivity (mV) 10.9 mV Not done mV Impedence (Ohms) 475 ohms 513 ohms Pace Threshold 1.125 V @ 0.4 ms 1.625 V @ 0.4 ms Pacing % 100 % 100 % Battery Status: 6.8 years to FARZAD Episodes last 90 days/Comments: 2 Episodes classified as nonsustained VT both lasting 2 seconds at 155 and 170 beats per minute NORMAL DEVICE FUNCTION PROGRAMMED [...] is mildly motion degraded, which limits evaluation. Antonella Peña NP IMG MAMMO PROCEDURES Final Result * Dexa TBS Axial Skeleton Bone Density 1 or more sites (09/06/2024 1:18 PM CDT) Anatomical Region Laterality Modality Wrist, Body N/A Radiographic Valentine ging Narrative 09/06/2024 10:59 PM CDT Patient Name: Sanam Guevara Date of : 1945 Date of scan: 09/06/2024 Bone mineral density was performed on a HoloHeadspace Discovery Densitometer. Based on machine cross-calibration and [...] by the International Society of Clinical Densitometry. [id number] Juno Braun MD IM DXA PROCEDURES Final Result from Last 3 Months or Most Recently Relevant to Health Maintenance Insurance MEDICARE [facility] MEDICARE SUPPLEMENT MEDICARE [facility] MEDICARE SUPPLEMENT Advance Directives For more information, please contact: [phone] Documents on File Type Date Recorded Patient Pulp Drier Firer Expl anation Power of Wrapping Machine Helper 12/13/2020 6:34 AM * Full Code (Latest Code Status on File) Date Activated Date Inactivated Comments 10/24/2020 2:28 PM 10/25/2020 4:42 PM * Full Code Date Activated Date Inactivated Comments 10/30/2019 10:51 AM 11/01/2019 7:00 PM Care Teams Hydraulic Modeling Engineer Relationship Specialty Start Date End Date Tomi Be MD [address] [place] [address] PCP - General Internal Medicine 01/15/17 Miscellaneous, Not In File 11/01/19 Krysta Justin MD [address] [address] [address] [place] [address] Radiation Oncologist Radiation Oncology 04/03/22 AftLeah MD PhD [address] [place] [address] Surgeon Surgical Oncology 04/03/22 Marybeth Guerra, PhD [address] [facility] [place] [address] Nurse Practitioner Radiation Oncology 05/20/22 Sushil Zaraet MD [address] [facility] [address] DIV IM MEDICAL ONCOLOGY, [address] [place] [address] Medical Oncologist/Insulation Supervisor Medical Oncology 05/20/22 Garo Narvaez MD [address] [facility] [place] [address] Consulting Physician Cardiology 04/22/24
--- OUTSIDE RECORDS SUMMARY | 2025-04-08 02:43 | XMS_ITS | Encounter Summary ---
Author Organization [facility] Healthcare Address [address] [place] [address] Care Team Providers Care Gear Grinder Name Role Phone Tomi Be MD Primary Care Provider + [phone] Miscellaneous, Not In File Unavailable Unava ilable Krysta Justin MD Unavailable Aft, Leah Swift MD PhD Unavailable [phone] Marybeth Guerra PhD Unavailable [phone] Sushil Zarate MD Unavailable [phone] Garo Narvaez MD Unavailable [phone] Encounter Details Date Type Department Care Team (Late st Contact Info) Description 01/30/2018 Orders Only [facility] Information Management [address] [place] [id number] Scanning, Provider Social History Tobacco Use Types Packs/Day Years Used Date Smoking Tobacco: Former Cigarettes Q uit: 12/06/1986 Smokeless Tobacco: Never Alcohol Use Standard Drinks/Week Comments No 0 (1 standard drink = 0.6 oz pur e alcohol) Comments Unknown Sex and Gender Information Value Date Recorded Sex Assigned at Not on file Legal Sex Female 12:14 AM CUTTING TORCH OPERATOR Gender Identity Not on file Sexual Orientation Straight 07/05/2021 1: 52 PM CUTTING TORCH OPERATOR documented as of this encounter Plan of [...] COVID: Suspected 06/20/2023 06/20/2023 06/20/2023 7:31 PM CUTTING TORCH OPERATOR documented as of this encounter Care Teams Gear Grinder Relationship Specialty Start Date End Date Tomi Be MD [address] [place] [address] PCP - General Internal Medicine 01/15/17 Miscellaneous, Not In File 11/01/19 Krysta Justin MD [address] [place] [address] Radiation Oncologist Radiation Oncology 04/03/22 AftLeah MD PhD [address] [place] [address] Surgeon Surgical Oncology 04/03/22 Marybteh Guerra, PhD [address] [place] [address] Nurse Practitioner Radiation Oncology 05/20/22 Sushil Zarate MD [address] DIV MEDICAL ONCOLOGY, [address] [place] [address] Medical Oncologist/Rug Cutter Helper Medical Oncology 05/20/22 Garo Narvaez MD [address] [place] [address] Consulting Physician Cardiology 04/22/24 documented as of this encounter
--- OUTSIDE RECORDS SUMMARY | 2025-04-08 02:43 | XMS_ITS ---
Author Organization [facility] [address] Address [address] [place] [address] Care Team Providers Care Telephone Lines Repairer Name Role Phone Tomi Be MD Primary Care Provider + [phone] Miscellaneous, Not In File Unavailable Unava ilable Krysta Justin MD Unavailable Aft, Leah Swift MD PhD Unavailable [phone] Marybeth Guerra PhD Unavailable [phone] Sushil Zarate MD Unavailable [phone] Garo Narvaez MD Unavailable [phone] Active Problems Problem Noted Date Diagnosed Date Pulmonary hypertension 12/30/2024 Severe obesity 06/22/2024 History of right breast cancer 11/11/2022 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 02/04/2022 Cancer Staging:Clinical stage from 01/14/2022:Stage IA(cT1b, cN0, cM0, G2, ER+, IN+, HER2-) - Signed by Lance Austin MD on 04/03/2022 Pathologic stage from 02/28/2022:No Stage Recommended(pT1c, cN0, cM0, G2, ER+, IN+, HER2-) - Signed by Lance Austin MD on 04/03/2022 Pathologic: Unsigned Overview (02/04/2022): Added automatically from request for surgery [id number] Mammogram abnormal 01/07/2022 DURANT (dyspnea on exertion) 10/02/2021 Chronic combined systolic an d diastolic CHF (congestive heart failure) 10/02/2021 History of amiodarone therapy 10/02/2021 Hyperthyroidism 09/27/2021 Assessment & Plan (08/06/2022 3:06 PM CUSHION INSTALLER): Seems to have resolved Will test once [...] m Assessment & Plan (07/24/2021 4:23 PM CUSHION INSTALLER): I explained to Mrs. Muñoz that her [...] 07/24/2021 Assessment & Plan (08/06/2022 3:06 PM CUSHION INSTALLER): Check vit D Adjust dose of Ergocalciferol accordingly Assessment & Plan (07/24/2021 4:25 PM CUSHION INSTALLER): Check 25 OH vit D and restart Ergocalciferol , accordingly Vitamin B 12 deficiency 07/24/2021 Assessment & Plan (07/24/2021 4:25 PM CUSHION INSTALLER): The patient asked me to check on her B12 level to adjust her vitamin B12 supplementation. She follows also with her primary care doctor, Dr. Be on this regard A-fib 06/11/2021 Hip arthritis 03/02/2020 Pulmonary nodule 12/05/2019 Essential hypertension 10/31/2019 Depression 10/31/2019 Closed displaced comminuted fracture of shaft of right humerus 10/30/2019 Overview (10/30/2019): Added automatically from request for surgery [id number] PEYMAN (obstructive sleep apnea) 03/22/2019 Status post [...] with atrial fibrillation: a report of the [place] [employer]/[place] [employer] Task Force on Practice Guidelines [...] VR RT BRST 04/30/2022 - 04/30/2022 2,000 1 / 2,000 Reference Points Delivered PTV_SURG_BED IZ 04/30/2022 - 04/30/2022 2,000 Lifetime Dose Tracking * Chemical Lifetime Dose Automatic Entry Manual Entr y Fluoro Time 20.1 minutes 1 minutes 19.1 minutes Air kerma at the reference point (Ka,r) 119.23 mGy 8 .23 mGy 111 mGy DLP 1,488 mGycm 1,488 mGycm 0 mGycm DAP 19.27 Gy-cm2 0 Gy-cm2 19.27 Gy-cm2 Resolved Problems Problem Noted Date Diagnosed Date Resolved Date Persistent atrial fibrillation 06/06/2021 10/02/2021 Overview (06/06/2021): Added automatically from request for surgery [id number] Medication management 12/12/20202021 Acute pain due to [...] 4:41 PM CDT): The patient has a [id number] score of 3 (annualized risk of stroke 3%). I have therefore recommended that she remain anticoagulated for thromboprophylaxis. Assessment & Plan (03/31/2019 8:49 AM CDT): The patient has a [id number] score of 3 (annualized risk of stroke [...]
[2025-04-08 02:51] LABS: Troponin I 0.226 ng/mL (0.000-0.034)
--- NOTE | 2025-04-08 03:03 | ED.CPR ---
HPI - CPR General Chief Complaint: Cardiac Arrest/CPR Stated Complaint: full arrest Time Seen by Provider: 04/08/25 02:29 History of Present Illness HPI narrative: 79-year-old female with a past medical history including recurrent AFib status post ablation and pacemaker, hypertension, COPD, hyperlipidemia. Patient presents to the emergency department in cardiac arrest. Witnessed cardiac arrest as patient's called EMS while patient was complaining of a headache and then lost consciousness. Patient was found pulses by EMS after brief arrival time. Place the patient on the floor and start ACLS protocol with high quality CPR. I gel in place, 4 rounds of epinephrine given prior to arrival. Paced rhythm with what appeared to be ventricular fibrillation intermittently but no shocks provided and no amiodarone given. Patient arrives and placed in the room 9 for continued resuscitation. Collateral formation available by EMR and family recollection otherwise patient is unresponsive and pulseless on arrival. Related Data Home Medications ?Medication ?Instructions ?Recorded ?Confirmed ?Last Taken ?Type allopurinol 100 mg tablet 100 mg PO DAILY 04/28/19 10/15/24 07/31/23 History apixaban 5 mg tablet (Eliquis) 5 mg PO BID 04/28/19 10/15/24 07/31/23 History furosemide 40 mg tablet (Lasix) 80 mg PO DAILY 04/28/19 10/15/24 07/30/23 History potassium chloride 20 mEq 40 meq PO DAILY 04/28/19 10/15/24 07/30/23 History tablet,extended release sertraline 50 mg tablet (Zoloft) 100 mg PO DAILY 04/28/19 10/15/24 07/31/23 History multivit with minerals-iron 18 1 tablet PO DAILY 10/07/19 10/15/24 07/30/23 History mg-folic ac 400 mcg-vit K 25 mcg tablet (Adults Multivitamin) acetaminophen 500 mg tablet 1,000 mg PO Q6H PRN Pain 12/19/20 10/15/24 07/30/23 History docusate sodium 100 mg capsule 100 mg PO DAILY PRN Constipation 12/19/20 10/15/24 07/30/23 History (Colace) glimepiride 2 mg tablet (Amaryl) 2 mg PO QAM 04/10/22 10/15/24 07/30/23 History pravastatin 10 mg tablet 10 mg PO .MWF 04/10/22 10/15/24 07/30/23 History ergocalciferol (vitamin D2) 1,250 1,250 mcg PO WEEKLY 10/08/22 10/15/24 07/30/23 History mcg (50,000 unit) capsule (Vitamin D2) tamoxifen 20 mg tablet 20 mg PO DAILY 10/08/22 10/15/24 07/30/23 History metoprolol tartrate 100 mg tablet 200 mg PO DAILY 07/31/23 10/15/24 07/31/23 History ipratropium bromide 21 mcg (0.03 2 spray intranasal BID 04/07/24 10/15/24 Unknown History %) nasal spray sacubitril 24 mg-valsartan 26 mg 1 tablet PO BID 04/07/24 10/15/24 Unknown History tablet (Entresto) Allergies Allergy/AdvReac Type Severity Reaction Status Date / Time lisinopril Allergy Unknown COUGH Verified 04/07/24 14:38 Review of Systems Review of Systems: ROS unobtainable: Yes unobtainable due to medical condition and unobtainable due to mental status [facility] Past Medical History Medical History Hyperlipidemia Right arm fracture s /p surgery Kidney stones Dyslipidemia Essential hypertension Former smoker She has a 20 pack year history, quit 1986. Mixed restrictive and obstructive lung disease Paroxysmal atrial fibrillation Surgical History Surgical History History of total hip replacement S/P ablation of atrial fibrillation October 2020, Dr. Espinoza, [facility] History of cardioversion Family History Family History Father Family history of lung cancer CAD (coronary artery disease) Mother Family history of lung cancer Family history of malignant neoplasm of breast in first degree relative Sibling Family history of lung cancer Family history of malignant neoplasm of breast in first degree relative Social History Social History Social History: to [place]. Disabled adult son a few years ago. Have a daughter in granddaughter in [place]. Smoking packs per day: 1 Smoking cigarettes per day: 20.0 Years smoked: 20 Smoking pack-years: 20.00 Smoking status: Former smoker Tobacco type: cigarettes Second hand tobacco smoke exposure: Yes Smoking end date: 06/16/86 Alcohol intake: never Substance use type: does not use Living arrangements: with family Spiritual care concerns: No Exam Narrative: GENERAL: Apneic, pulseless, hurley HEAD: Normocephalic EYES: Left pupil 4 mm right pupil 3 mm, neither reactive ENT: Vomitus in the posterior oropharynx, membranes moist NECK: Supple. CHEST: Coarse asymmetric breath sounds right worse than left with BVM, no spontaneous respirations HEART: Pulseless, left chest wall pacemaker on palpation ABDOMEN: Obese, mildly distended EXTREMITIES: No extremity edema SKIN: Cold and dry extremities NEURO: GCS 3, asymmetric pupils Course Vital Signs Vital signs: Vital Signs Pulse Rate 71 04/08/25 01:53 Temperature 36.6 C 04/08/25 05:48 Pulse Rate 70 04/08/25 05:48 Respiratory Rate 24 H 04/08/25 05:48 Blood Pressure 83/53 L 04/08/25 05:48 Pulse Oximetry 100 04/08/25 05:48 Oxygen Delivery Mechanical Ventilation 04/08/25 04:35 Fraction of Inspired Oxygen 100 04/08/25 04:35 Procedures Arterial Line Arterial line #1: Date of Arterial Line: 04/08/25 Time of Arterial Line: 02:00 Arterial Line Location: radial and left Perfomed Emergently - Given emergent patient conditions, temporal constraints may have precluded informed consent: Yes Time Out Performed: Yes Size (Gauge): 20 Technique Used: guide wire technique Post-Procedure: line sutured into place and dry sterile dressing placed Patient Tolerated Procedure: well and no complications Complications: none Central Line Placement Left Femoral: Central Line Date: 04/08/25 Central Line Time: 02:10 Performed Emergently - Given emergent patient condition, temporal constraints may have precluded informed consent.: Yes Time Out Performed: Yes Patient Placed on Monitor/Pulse Ox: Yes Max. Sterile Barrier Technique: Caps and hand hygiene Central Line Prep: 2% chlorhexidine scrub Emergently Placed, Full Sterile: prep not done Technique: US-Guided Local Anesthetic: none Ultrasound Used for Placement: Yes Central Line Lumen Inserted: triple Post Procedure: sutured in place, good blood return, all ports aspirated, flushed, capped and sterile dressing applied Post Procedure X-Ray: no pneumothorax seen Patient Tolerated Procedure: well and no complications Complications: none Intubation Intubation #1: Intubation Date: 04/08/25 Intubation Time: 01:50 Time out performed: Yes sedative: none Laryngoscope: fiber optic video scope Tube Size (cm): 7.5 Method of Intubation: orotracheal Number of Attempts: 2 Tube Secured Depth (cm): 25 Tube Secured Location: lips Tube Placement Confirmation: visualized tube passing through cords, equal breath sounds bilaterally, no breath sounds over epigastrium and confirmation by capnometry Patient Tolerated Procedure: well and no complications Intubation Complications: none MDM - Cardiac Arrest/CPR MDM Narrative Medical decision making narrative: 79-year-old female with a past medical history including recurrent AFib status post ablation and pacemaker, hypertension, COPD, hyperlipidemia. Patient presents to the emergency department in cardiac arrest. Witnessed cardiac arrest as patient's called EMS while patient was complaining of a headache and then lost consciousness. Patient was found pulses by EMS after brief arrival time. Place the patient on the floor and start ACLS protocol with high quality CPR. I gel in place, 4 rounds of epinephrine given prior to arrival. Paced rhythm with what appeared to be ventricular fibrillation intermittently but no shocks provided and no amiodarone given. Patient arrives and placed in the room 9 for continued resuscitation. Collateral formation available by EMR and family recollection otherwise patient is unresponsive and pulseless on arrival. ACLS protocol followed. Initial rhythm appeared to be paced with irregularities resembling potential ventricular fibrillation. Pacemaker magnet applied to reset the pacemaker to standard function. No pulses on check. Additional epinephrine infused every 3-5 minutes with every 2 minute pulse checks. Patient successfully intubated after 2 attempts. Bedside echocardiogram during code reveals cardiac standstill but radiation monitor appears to be ventricular fibrillation on subsequent pulse check. Administered 200 joule defibrillation with the correction of the dysrhythmia. 300 mg of IV amiodarone infiltrated, amiodarone bag started. Fluid 1 L bolus initiated. Patient did receive dextrose containing fluids EN route with point of care glucose normal. Subsequent pulse check showed no palpable pulses but bedside echocardiogram shows nicely organized rhythm with good contractility of the ventricles. Arterial line placed with pressure 68/45. Started on max dose peripheral norepinephrine. OG placed, x-rays obtained confirm placement of the ET tube and largely widened mediastinum shifting towards the right side with concern raised for potential dissection process with her previous chest x-ray showing only mildly wide mediastinum. Left femoral central line placed emergently with left arterial line in the radial vessel placed emergently. Resuscitative efforts ongoing. Blood pressure improved into the 140s to 150s. ABG obtained shows severe acidosis and mixed respiratory and metabolic acidosis likely. Patient hyperventilated with a rate of 24, tidal volume 450, 100% and PEEP of 5. Laboratory studies sent as well as blood cultures from new sites. Patient empirically started on vancomycin and cefepime to cover infectious pathology. CTs of the head and CT angiography of the chest abdomen pelvis ordered for further evaluation. Patient had no sedating medications or paralytics. Only return of any neurological function thus far showed twitches with appear to be potentially myoclonic jerks in the left upper extremity and left-sided face but no movement in the right side of the body. Spoke to patient's who arrived to the emergency department regarding patient's cardiac arrest with over 30 minutes of down time prior to Goodman as well as her current neurological status and function and prognosis being poor. EKG obtained after return spontaneous circulation shows ventricular paced rhythm with no ST segment concerns at this time. Laboratory studies pending. CTs pending. Patient remains with some jerking activity only in the left side of her body. Started on low-dose fentanyl infusion for sedation and norepinephrine was able to weaned to minimal after 3 amps of bicarbonate were given through an IV for the profound acidosis. Patient CT angiography was reviewed in real-time and shows a type a aortic dissection with hemopericardium, rupture that appears partially contained and no extension into the descending aorta. Pleural effusion which possibly represents hemothorax. Small left hemothorax versus pneumothorax and pneumomediastinum noted. CT head shows no hemorrhage evident. These results are confirmed by radiology who called me over the phone to discuss them. Likely representing a ruptured type A thoracic aortic aneurysm and its sequela. Patient re-evaluated at this time and having myoclonic jerks of only her left upper extremity and left side face concerning for profound brain hypoxia versus stroke in the setting of cardiac arrest and dissection. No movement or twitching noticed of the right side of her face or body. No movement in the left or right leg. Pupils nonreactive. Patient not currently on any sedative medications and no neurological recovery expected based on profound hypoxemia and down time with 30 minutes plus CPR and new type a dissection with rupture. I discussed these injuries and findings with the family members at bedside and informed them of patient's abysmal prognosis likely near imminent . Decision made by to make the patient comfort measures and control patient's myoclonic jerking activity and augment her blood pressure with vasopressors until family member can arrive from out of town to say goodbye. Family's wafer fabrication technician arrived and performed a last rites in the ED. I spoke to the seconds inspector and the hospitalist regarding moving the patient upstairs to the intensive care unit for comfort care measures and withdrawal of care upon arrival of remaining family members. Patient was accepted to the hospital and ICU bed at this time for this. Medical Records Attestation: I reviewed the patient's medical records. Lab Data Attestation: I reviewed the patient's lab results. 04/08/25 01:44 04/08/25 01:44 Labs: Lab Results 04/08/25 04/08/25 04/08/25 Range/Units 01:44 02:14 02:19 WBC 8.7 (4.5-10.0) K/mm3 RBC 3.63 L (4.2-5.4) M/mm3 Hgb 11.5 L (12.0-15.0) g/dL Hct 39.2 (37.0-47.0) % MCV 108.0 H (80-100) fl MCH 31.7 (26-34) pg MCHC 29.3 L (32-36) g/dl RDW 15.1 H (11.5-14.5) % Plt Count 121 L (150-375) k/mm3 MPV 9.8 (7.4-10.4) fl Immature Gran % (Auto) 3.2 H (0-0.5) % Neut % (Auto) 28.3 L (45.5-73.1) % Lymph % (Auto) 59.1 H (18.3-44.2) % Ocean % (Auto) 6.8 (2.6-8.5) % Eos % (Auto) 2.1 (0-4.4) % Baso % (Auto) 0.5 (0.2-1.2) % Lymph # (Auto) 5.12 H (0.9-3.2) K/mm3 Ocean # (Auto) 0.6 (0.1-0.6) K/mm3 Eos # (Auto) 0.2 (0-0.3) K/mm3 Baso # (Auto) 0.0 (0.0-0.1) K/mm3 Abs Immat Gran (auto) 0.28 H (0.00-0.031) K/mm3 Absolute Neuts (auto) 2.5 (1.3-6.7) K/mm3 Absolute Nucleated RBC 0.020 H (0.0-0.012) K/mm3 Band Neutrophils % Not Reportable Nucleated RBC % 0.2 (0.0-0.2) % Platelet Estimate Decreased (Adequate) Ovalocytes 1+ Joseph Cells 1+ Schistocytes None seen PT 19.2 H (11.1-14.7) Seconds INR 1.6 APTT 40.3 H (22.3-36.8) Seconds Methemoglobin 0.3 (0-1.5) %THb Minute Volume Not Reportable Vent Mode Assist control Tidal Volume 380 ml PEEP 5 cmH2O Peak Inspir Pressure Not Reportable Pressure Support Not Reportable Sodium 138 (137-145) mmol/L Potassium 3.1 L (3.4-5.0) mmol/L Chloride 112 H (98-107) mmol/L Carbon Dioxide 11 L (22-30) mmol/L Anion Gap 15 H (4-12) mmol/L BUN 21 H (7-17) mg/dL Creatinine 1.01 H (0.7-1.0) mg/dL Estim Creat Clear Calc 51 ml/min Estimated GFR 53 L (59 - ) Glucose 304 H (65-110) mg/dL POC Capillary Glucose 117 H (65-105) mg/dl Lactic Acid (0.7-2.0) mmol/L Calcium 8.3 L (8.4-10.2) mg/dL Total Bilirubin 0.3 (0.2-1.3) mg/dL AST 52 H (14-36) U/L ALT 25 (6-35) U/L Alkaline Phosphatase 56 (38-126) U/L Troponin I 0.226 H* (0.000-0.034) ng/mL Total Protein 5.2 L (6.3-8.2) g/dL Albumin 2.7 L (3.5-5.1) g/dL Lipase 205 (23-300) U/L Urine Color (Yellow) Urine Appearance (Clear) Urine pH (5.0-9.0) Ur Specific [place] (1.001-1.035) Urine Protein (Negative) mg/dL Urine Glucose (UA) (Negative) mg/dL Urine Ketones (Negative) mg/dL Ur Blood (Man) (Negative) Urine Nitrate (Negative) Urine Bilirubin (Negative) Urine Urobilinogen (<2.0) mg/dL Leukocyte Esterase Rfl (Negative) ROXIE/UL Urine RBC (0-2) /hpf Urine WBC (0-3) /hpf Ur Squamous Epith Cells (Few) /hpf Urine Bacteria /hpf Urine Casts 04/08/25 04/08/25 Range/Units 02:50 02:54 WBC (4.5-10.0) K/mm3 RBC (4.2-5.4) M/mm3 Hgb (12.0-15.0) g/dL Hct (37.0-47.0) % MCV (80-100) fl MCH (26-34) pg MCHC (32-36) g/dl RDW (11.5-14.5) % Plt Count (150-375) k/mm3 MPV (7.4-10.4) fl Immature Gran % (Auto) (0-0.5) % Neut % (Auto) (45.5-73.1) % Lymph % (Auto) (18.3-44.2) % Ocean % (Auto) (2.6-8.5) % Eos % (Auto) (0-4.4) % Baso % (Auto) (0.2-1.2) % Lymph # (Auto) (0.9-3.2) K/mm3 Ocean # (Auto) (0.1-0.6) K/mm3 Eos # (Auto) (0-0.3) K/mm3 Baso # (Auto) (0.0-0.1) K/mm3 Abs Immat Gran (auto) (0.00-0.031) K/mm3 Absolute Neuts (auto) (1.3-6.7) K/mm3 Absolute Nucleated RBC (0.0-0.012) K/mm3 Band Neutrophils % Nucleated RBC % (0.0-0.2) % Platelet Estimate (Adequate) Ovalocytes Joseph Cells Schistocytes PT (11.1-14.7) Seconds INR APTT (22.3-36.8) Seconds Methemoglobin (0-1.5) %THb Minute Volume Vent Mode Tidal Volume ml PEEP cmH2O Peak Inspir Pressure Pressure Support Sodium (137-145) mmol/L Potassium (3.4-5.0) mmol/L Chloride (98-107) mmol/L Carbon Dioxide (22-30) mmol/L Anion Gap (4-12) mmol/L BUN (7-17) mg/dL Creatinine (0.7-1.0) mg/dL Estim Creat Clear Calc ml/min Estimated GFR (59 - ) Glucose (65-110) mg/dL POC Capillary Glucose (65-105) mg/dl Lactic Acid 8.7 H* (0.7-2.0) mmol/L Calcium (8.4-10.2) mg/dL Total Bilirubin (0.2-1.3) mg/dL AST (14-36) U/L ALT (6-35) U/L Alkaline Phosphatase (38-126) U/L Troponin I (0.000-0.034) ng/mL Total Protein (6.3-8.2) g/dL Albumin (3.5-5.1) g/dL Lipase (23-300) U/L Urine Color Dark mandy (Yellow) Urine Appearance Cloudy H (Clear) Urine pH 5.0 (5.0-9.0) Ur Specific [place] 1.016 (1.001-1.035) Urine Protein 3+ H (Negative) mg/dL Urine Glucose (UA) Negative (Negative) mg/dL Urine Ketones Negative (Negative) mg/dL Ur Blood (Man) 3+ H (Negative) Urine Nitrate Negative (Negative) Urine Bilirubin Negative (Negative) Urine Urobilinogen 0.2 (<2.0) mg/dL Leukocyte Esterase Rfl Trace H (Negative) ROXIE/UL Urine RBC >100 H (0-2) /hpf Urine WBC 0-5 (0-3) /hpf Ur Squamous Epith Cells Few (Few) /hpf Urine Bacteria None seen /hpf Urine Casts 3-5 ABG Data ABG results: 04/08/25 02:19 Puncture Site Left radial ABG pH 6.803 L* ABG pCO2 50.4 H ABG pO2 129.0 H ABG PO2/FiO2 Ratio 1.29 ABG HCO3 7.7 L ABG O2 Saturation 94.6 L ABG O2 Content 16.1 ABG Base Excess -26.6 A-a Gradient 533.6 Oxyhemoglobin 93.4 Carboxyhemoglobin 1.2 Reduced Hemoglobin 5.1 H Total Hemoglobin 12.1 O2 Delivery Device Ventilator O2 Liters/Min Not Reportable Vent Rate 18 FiO2 100 Attestation: I personally reviewed and interpreted this ABG as follows: Interpretation: Mixed respiratory and metabolic acidosis Imaging Data Attestation: I personally reviewed and interpreted this imaging study as follows: My impression: Ruptured type a dissection with sequela including hemopericardium, hemothorax, pneumomediastinum Critical Care Time Critical Care Time Critical Care Time: Yes Total Critical Care Time: 110 (Critical care time is billed exclusive of the separately billable procedures above) Discharge Plan Discharge Clinical Impression: Cardiac arrest, Ruptured aneurysm of thoracic aorta, Type A aortic dissection Patient Disposition: Still a Patient Condition: Terminal Time of Disposition: 05:30
[2025-04-08 03:12] LABS: Add Urine Microscopic? YES; Appearance Urine Cloudy (Clear); Glucose Urine UA Negative (Negative); Leukocyte Esterase Ur Trace LEU/UL (Negative); Nitrate Urine Negative (Negative); Specific Grav Ur 1.016 (1.001-1.035)
[2025-04-08 03:24] LABS: Alanine Aminotransferase 25 U/L (6-35); Albumin Level 2.7 g/dL (3.5-5.1); Alkaline Phosphatase 56 U/L (38-126); Anion Gap 15 mmol/L (4-12); Aspartate Amino Transferase 52 U/L (14-36); Bilirubin,Total 0.3 mg/dL (0.2-1.3); Blood Urea Nitrogen 21 mg/dL (7-17); Calcium 8.3 mg/dL (8.4-10.2); Carbon Dioxide 11 mmol/L (22-30); Chloride 112 mmol/L (98-107); Estimated CRCL calculation 51 ml/min; Estimated Glomerular Filt Rate 53; Glucose 304 mg/dL (65-110); Lipase 205 U/L (23-300); Potassium 3.1 mmol/L (3.4-5.0); Sodium 138 mmol/L (137-145); Total Protein 5.2 g/dL (6.3-8.2)
--- NOTE | 2025-04-08 04:00 | PC.NURSE ---
while pt was in ct imaging, this rn, karen guillen, maribel rn all cleaned pt BM.
[2025-04-08] MEDS: PROPOFOL IV EMULSION 100 ML 3.8 MG (04:08)
--- NOTE | 2025-04-08 05:03 | PC.NURSE ---
ok to increase nor-epi to 35 per edp sarah
--- NOTE | 2025-04-08 06:29 | PM.IMHP ---
H&P: HPI History of Present Illness Date/Time: 04/08/25 06:29 Chief Complaint: Cardiac arrest Narrative: 71-year-old female with PMH AFib status post ablation and pacemaker, hypertension, COPD, hyperlipidemia had a witnessed cardiac arrest at home. Patient was complaining of headache and then lost consciousness. Witnessed by . EMS arrived, started CPR. Gave 4 rounds of epinephrine and placed I gel prior to arrival to [facility] on 04/08/2025. On arrival patient noted to be in ventricular fibrillation. Patient intubated, given epinephrine, given shock x1, amiodarone 300 mg IV x1. 1 L fluid bolus. Bedside echo showed good contractility of ventricles with organized rhythm. Patient placed on max dose norepinephrine, blood pressure was 60/45. OG tube placed, left femoral central line placed, left radial arterial line placed. ABG showed pH 6.8, pCO2 50.4. Patient given 3 amps of bicarb. EKG without significant ST changes. CT angiography demonstrated type a aortic dissection with hemopericardium, pleural effusion, small left hemo thorax versus pneumothorax, pneumomediastinum. Patient had myoclonic jerks of left upper extremity and left side face. Patient unresponsive without sedative medications. Review of Systems Review of Systems: All systems reviewed & are unremarkable except as noted in HPI and below (Subjective) [facility] Past Medical History Medical History Hyperlipidemia Right arm fracture s /p surgery Kidney stones Dyslipidemia Essential hypertension Former smoker She has a 20 pack year history, quit 1986. Mixed restrictive and obstructive lung disease Paroxysmal atrial fibrillation Surgical History Surgical History History of total hip replacement S/P ablation of atrial fibrillation October 2020, Dr. Espinoza, [facility] History of cardioversion Family History Family History Father Family history of lung cancer CAD (coronary artery disease) Mother Family history of lung cancer Family history of malignant neoplasm of breast in first degree relative Sibling Family history of lung cancer Family history of malignant neoplasm of breast in first degree relative Social History Social History Social History: to [place]. Disabled adult son a few years ago. Have a daughter in granddaughter in [facility]. Smoking packs per day: 1 Smoking cigarettes per day: 20.0 Years smoked: 20 Smoking pack-years: 20.00 Smoking status: Former smoker Tobacco type: cigarettes Second hand tobacco smoke exposure: Yes Smoking end date: 06/16/86 Alcohol intake: never Substance use type: does not use Living arrangements: with family Spiritual care concerns: No Meds Home Medications and Allergies Home Medications ?Medication ?Instructions ?Recorded ?Confirmed ?Type allopurinol 100 mg tablet 100 mg PO DAILY 04/28/19 10/15/24 History apixaban 5 mg tablet (Eliquis) 5 mg PO BID 04/28/19 10/15/24 History furosemide 40 mg tablet (Lasix) 80 mg PO DAILY 04/28/19 10/15/24 History potassium chloride 20 mEq 40 meq PO DAILY 04/28/19 10/15/24 History tablet,extended release sertraline 50 mg tablet (Zoloft) 100 mg PO DAILY 04/28/19 10/15/24 History multivit with minerals-iron 18 1 tablet PO DAILY 10/07/19 10/15/24 History mg-folic ac 400 mcg-vit K 25 mcg tablet (Adults Multivitamin) acetaminophen 500 mg tablet 1,000 mg PO Q6H PRN Pain 12/19/20 10/15/24 History docusate sodium 100 mg capsule 100 mg PO DAILY PRN Constipation 12/19/20 10/15/24 History (Colace) glimepiride 2 mg tablet (Amaryl) 2 mg PO QAM 04/10/22 10/15/24 History pravastatin 10 mg tablet 10 mg PO .MWF 04/10/22 10/15/24 History ergocalciferol (vitamin D2) 1,250 1,250 mcg PO WEEKLY 10/08/22 10/15/24 History mcg (50,000 unit) capsule (Vitamin D2) tamoxifen 20 mg tablet 20 mg PO DAILY 10/08/22 10/15/24 History metoprolol tartrate 100 mg tablet 200 mg PO DAILY 07/31/23 10/15/24 History albuterol sulfate 90 mcg/actuation 2 inh inhalation Q4-6H PRN 04/07/24 10/15/24 Rx aerosol inhaler (Ventolin HFA) shortness of breath 90 days #8.5 grams ipratropium bromide 21 mcg (0.03 2 spray intranasal BID 04/07/24 10/15/24 History %) nasal spray sacubitril 24 mg-valsartan 26 mg 1 tablet PO BID 04/07/24 10/15/24 History tablet (Entresto) ipratropium bromide 21 mcg (0.03 2 spray intranasal TID PRN allergy 10/13/24 10/13/24 Rx %) nasal spray symptoms 1 month #30 mL buspirone 7.5 mg tablet See Rx Instructions .Route 04/01/25 Rx .COMPLEX #60 tabs Allergies Allergy/AdvReac Type Severity Reaction Status Date / Time lisinopril Allergy Unknown COUGH Verified 04/07/24 14:38 Vital Signs Vital Signs - 24 hr 04/08/25 01:53 04/08/25 02:00 04/08/25 02:05 Temperature 98.0 F Pulse Rate 71 71 70 Respiratory Rate 19 Blood Pressure 68/45 L Pulse Oximetry 100 100 Oxygen Delivery Mechanical Ventilation Fraction of Inspired Oxygen 100 04/08/25 02:08 04/08/25 02:10 04/08/25 02:15 Temperature 96.9 F L 97.4 F L Pulse Rate 70 70 70 Respiratory Rate 15 20 Blood Pressure 64/34 L Pulse Oximetry 95 98 Oxygen Delivery Fraction of Inspired Oxygen 04/08/25 02:18 04/08/25 02:20 04/08/25 02:28 Temperature Pulse Rate 73 74 70 Respiratory Rate Blood Pressure 137/67 168/70 H Pulse Oximetry 100 Oxygen Delivery Mechanical Ventilation Fraction of Inspired Oxygen 100 04/08/25 02:30 04/08/25 02:30 04/08/25 02:35 Temperature 97.9 F Pulse Rate 71 70 70 Respiratory Rate 21 H 22 H Blood Pressure Pulse Oximetry 100 Oxygen Delivery Mechanical Ventilation Fraction of Inspired Oxygen 100 04/08/25 02:42 04/08/25 03:38 04/08/25 03:45 Temperature 98.0 F Pulse Rate 70 99 94 Respiratory Rate 23 H 18 Blood Pressure Pulse Oximetry Oxygen Delivery Fraction of Inspired Oxygen 04/08/25 04:00 04/08/25 04:08 04/08/25 04:10 Temperature 98.0 F Pulse Rate 95 97 97 Respiratory Rate 19 20 20 Blood Pressure Pulse Oximetry Oxygen Delivery Fraction of Inspired Oxygen 04/08/25 04:15 04/08/25 04:28 04/08/25 04:29 Temperature 97.9 F Pulse Rate 94 98 97 Respiratory Rate 19 20 Blood Pressure 77/56 L Pulse Oximetry Oxygen Delivery Fraction of Inspired Oxygen 04/08/25 04:30 04/08/25 04:33 04/08/25 04:35 Temperature 97.9 F Pulse Rate 77 75 72 Respiratory Rate 16 Blood Pressure 71/47 L Pulse Oximetry 100 Oxygen Delivery Mechanical Ventilation Fraction of Inspired Oxygen 100 04/08/25 04:36 04/08/25 04:45 04/08/25 04:51 Temperature 97.9 F 97.9 F 97.9 F Pulse Rate 73 70 70 Respiratory Rate 20 24 H 24 H Blood Pressure 75/48 L 77/50 L Pulse Oximetry 100 98 Oxygen Delivery Fraction of Inspired Oxygen 04/08/25 05:00 04/08/25 05:04 04/08/25 05:10 Temperature 97.9 F Pulse Rate 70 70 70 Respiratory Rate 24 H Blood Pressure 75/49 L 74/50 L Pulse Oximetry Oxygen Delivery Fraction of Inspired Oxygen 04/08/25 05:15 04/08/25 05:19 04/08/25 05:30 Temperature 97.9 F 97.9 F 97.9 F Pulse Rate 70 70 70 Respiratory Rate 24 H 18 24 H Blood Pressure 81/52 L Pulse Oximetry 95 Oxygen Delivery Fraction of Inspired Oxygen 04/08/25 05:40 04/08/25 05:45 04/08/25 05:48 Temperature 97.9 F 97.9 F 97.9 F Pulse Rate 70 70 70 Respiratory Rate 24 H 24 H 24 H Blood Pressure 82/53 L 83/53 L Pulse Oximetry 98 100 Oxygen Delivery Fraction of Inspired Oxygen Exam Const: Other: Unresponsive HENMT: Other: ETT in place Eyes: Pupils: Equal, round and reactive pupils present Neck: Neck: supple Resp: Other: Mechanical breath sounds Cardio: Rate: regular rate Rhythm: regular rhythm GI: Inspection: non-distended GI Palp: Yes Soft to palpation Extrem: General: no edema H&P: Results Labs Labs: Short CBC 04/08/25 Range/Units 01:44 WBC 8.7 (4.5-10.0) K/mm3 Hgb 11.5 L (12.0-15.0) g/dL Hct 39.2 (37.0-47.0) % Plt Count 121 L (150-375) k/mm3 BMP 04/08/25 01:44 Sodium 138 Potassium 3.1 L Chloride 112 H Carbon Dioxide 11 L BUN 21 H Creatinine 1.01 H Glucose 304 H Calcium 8.3 L Cardiac Enzymes 04/08/25 Range/Units 01:44 Troponin I 0.226 H* (0.000-0.034) ng/mL Liver Function 04/08/25 Range/Units 01:44 Total Bilirubin 0.3 (0.2-1.3) mg/dL AST 52 H (14-36) U/L ALT 25 (6-35) U/L Alkaline Phosphatase 56 (38-126) U/L Albumin 2.7 L (3.5-5.1) g/dL Urine 04/08/25 Range/Units 02:50 Urine Color Dark mandy (Yellow) Urine Appearance Cloudy H (Clear) Urine pH 5.0 (5.0-9.0) Ur Specific [place] 1.016 (1.001-1.035) Urine Protein 3+ H (Negative) mg/dL Urine Glucose (UA) Negative (Negative) mg/dL Assessment and Plan Assessment and plan (1) Cardiac arrest: Code(s): I46.9 - Cardiac arrest, cause unspecified Status: Acute (2) Ruptured aneurysm of thoracic aorta: Code(s): I71.10 - Thoracic aortic aneurysm, ruptured, unspecified Status: Acute (3) Type A aortic dissection: Code(s): I71.00 - Dissection of unspecified site of aorta Status: Acute Plan Placed on propofol for myoclonic jerks. ER physician spoke with patient's , decision to make patient comfort care, DNR. ETT to remain, daughter she is coming from 3 hours away. They hope to withdrawal care soon. I confirmed this with the at bedside. [facility] was notified. Hospitalist MIPS Advance Care Plan I have confirmed that the patient's Advanced Care Plan is present, code status is documented, or surrogate decision maker is listed in patient medical record.: Yes Medication Reconciliation I have utilized all available resources to obtain, update and review the patients current medications (includes all prescriptions, OTC, herbals, cannabis, and nutritional supplements).: No The patient is not eligible for med reconciliation; the patient is in a emergent medical situation where delaying treatment would jeopardize the patients health.: Yes
[2025-04-08] MEDS: PROPOFOL IV EMULSION 100 ML 7.49 MG IV CONT (06:46)
[2025-04-08] MEDS: NOREPINEPHRINE 8 MG/D5W 250 ML 8 MG/250 ML BAG 75 MG IV CONT ×2 (06:47→07:08)
--- NOTE | 2025-04-08 06:51 | ADMGEN ---
This patient, Bela Muñoz, was admitted to Intensive Care Unit-2 at 0625. Patient/family oriented to hospital policies and general routines including ID bracelet, bed and alarms, visiting hours, pain management, procedures, bathroom and other care routines, personal items, smoking policy, room service/diet, and visiting hours. Information on how to activate the Rapid Response Team has been discussed. Patient/Family are encouraged to report perceived risks to care and to ask questions if they do not understand what they are told or what they should do.
--- NOTE | 2025-04-08 06:51 | PC.NURSE ---
Pt admitted from ER. Patient is comfort-instructed to keep Levophed om until daughter can come and say goodbye and then family will withdraw. Family not burdened with admit questions at this time.
--- NOTE | 2025-04-08 07:24 | PC.NURSE ---
Spoke with Rea at [facility]. Patient admitted to ICU at 0615. at bedside requesting patient be extubated at this time. Rea reported that it was ok to compassionately wean patient, requested rn discharge notify of time of .
[2025-04-08] MEDS: MORPHINE SULFATE INJ (*CRX) 10 MG/ML AMP 5 MG IV PUSH (07:28)
[2025-04-08] MEDS: diazePAM INJ (*CRX) 10 MG/2 ML SYRINGE 5 MG IV PUSH (07:28)
--- NOTE | 2025-04-08 09:15 | WPDCNINT ---
Assessment and Plan Assessment and plan (1) Cardiac arrest: Code(s): I46.9 - Cardiac arrest, cause unspecified Status: Acute Assessment and Plan: Patient presented the ED on 04/08/2025 with cardiac arrest at home, upon EMS arrival ACLS was started and and eye gel was inserted and patient brought to the ED. she was intubated in the ED, was found to be in ventricular fibrillation and received CPR, defibrillation and amiodarone 300 mg IV x1 -family requested pursuing comfort measures but wanted to wait for the daughter who was 3-4 hours away. -this morning patient's daughter arrived in the ICU, discussed with family at length regarding the procedure for comfort measures and palliative withdrawal of support. -comfort measure orders were placed in the chart, bedside RN was notified. -patient on 04/08/2025 and 8:00 AM (2) Acute respiratory failure: Code(s): J96.00 - Acute respiratory failure, unspecified whether with hypoxia or hypercapnia Status: Acute (3) Type A aortic dissection: Code(s): I71.00 - Dissection of unspecified site of aorta Status: Acute Plan Code Status: DNR/comfort measure Critical Care Time Spent: 15 minutes Due to a high probability of clinically significant, life threatening deterioration, the patient required my highest level of preparedness to intervene emergently and I personally spent this critical care time directly and personally managing the patient. This critical care time included obtaining a history; examining the patient; pulse oximetry; ordering and review of studies; arranging urgent treatment with development of a management plan; evaluation of patient's response to treatment; frequent reassessment; and discussions with other providers. It was exclusive of separately billable procedures and treating other patients and teaching time. Please see Assessment and Plan section and the rest of the note for further information on patient assessment and treatment This dictation may have been done utilizing a voice recognition system. Attempts have been made to correct errors. However, there may be uncorrected grammatical, spelling, and recognitions errors present. Sagger Maker Consult Note Consult date: 04/08/25 Reason for consult: Cardiac arrest, loss of consciousness, aortic dissection with hemopericardium, pleural effusion, small hemothorax versus pneumothorax, pneumomediastinum. HPI: Bela Muñoz is a 79 year old female with history of atrial fibrillation status post ablation, pacemaker, hypertension, COPD, hyperlipidemia had a witnessed cardiac arrest at home. Patient was complaining of headache and then lost consciousness. Upon EMS arrival they started CPR, give 4 rounds of epinephrine and placed eye gel prior to arrival to the [facility] on 04/08/2025. In the ED patient was noted to be in VFib, patient intubated, ACLS protocol was started. Patient was defibrillated x1, along with amiodarone 300 mg IV x1. Patient received IV fluid bolus. EKG did not show any ST changes. 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 Small left pneumothorax, pneumomediastinum, bilateral rib fracture. CT brain showed old lacunar infarcts, no acute intracranial process, chronic small vessel ischemic disease. Femoral central line was inserted, patient was started on Levophed. Family decided to make her comfort measures but they were awaiting a family member was roughly 3-4 hours away, patient was transferred to the ICU for that reason. Patient seen this morning, patient is intubated, sedated with propofol. Remains on Levophed at 40 mcg/min. Unresponsive. Family at bedside as the decided to proceed with comfort measures since the daughter has arrived. I discussed with the family in details regarding the process of comfort measures and palliative withdrawal of support, dated not have any questions. Comfort measure orders were placed in the chart, bedside RN was made aware Review of Systems Review of Systems: ROS unobtainable: Yes unobtainable due to endotracheal tube, unobtainable due to medical condition and unobtainable due to mental status PMFSH Past Medical History Medical History Hyperlipidemia Right arm fracture s /p surgery Kidney stones Dyslipidemia Essential hypertension Former smoker She has a 20 pack year history, quit 1986. Mixed restrictive and obstructive lung disease Paroxysmal atrial fibrillation Surgical History Surgical History History of total hip replacement S/P ablation of atrial fibrillation October 2020, Dr. Espinoza, [facility] History of cardioversion Family History Family History Father Family history of lung cancer CAD (coronary artery disease) Mother Family history of lung cancer Family history of malignant neoplasm of breast in first degree relative Sibling Family history of lung cancer Family history of malignant neoplasm of breast in first degree relative Social History Social History Social History: to [place]orje. Disabled adult son a few years ago. Have a daughter in granddaughter in [facility]. Smoking packs per day: 1 Smoking cigarettes per day: 20.0 Years smoked: 20 Smoking pack-years: 20.00 Smoking status: Former smoker Tobacco type: cigarettes Second hand tobacco smoke exposure: Yes Smoking end date: 06/16/86 Alcohol intake: never Substance use type: does not use Living arrangements: with family Spiritual care concerns: No Meds Home Medications and Allergies Home Medications ?Medication ?Instructions ?Recorded ?Confirmed ?Type allopurinol 100 mg tablet 100 mg PO DAILY 04/28/19 10/15/24 History apixaban 5 mg tablet (Eliquis) 5 mg PO BID 04/28/19 10/15/24 History furosemide 40 mg tablet (Lasix) 80 mg PO DAILY 04/28/19 10/15/24 History potassium chloride 20 mEq 40 meq PO DAILY 04/28/19 10/15/24 History tablet,extended release sertraline 50 mg tablet (Zoloft) 100 mg PO DAILY 04/28/19 10/15/24 History multivit with minerals-iron 18 1 tablet PO DAILY 10/07/19 10/15/24 History mg-folic ac 400 mcg-vit K 25 mcg tablet (Adults Multivitamin) acetaminophen 500 mg tablet 1,000 mg PO Q6H PRN Pain 12/19/20 10/15/24 History docusate sodium 100 mg capsule 100 mg PO DAILY PRN Constipation 12/19/20 10/15/24 History (Colace) glimepiride 2 mg tablet (Amaryl) 2 mg PO QAM 04/10/22 10/15/24 History pravastatin 10 mg tablet 10 mg PO .MWF 04/10/22 10/15/24 History ergocalciferol (vitamin D2) 1,250 1,250 mcg PO WEEKLY 10/08/22 10/15/24 History mcg (50,000 unit) capsule (Vitamin D2) tamoxifen 20 mg tablet 20 mg PO DAILY 10/08/22 10/15/24 History metoprolol tartrate 100 mg tablet 200 mg PO DAILY 07/31/23 10/15/24 History albuterol sulfate 90 mcg/actuation 2 inh inhalation Q4-6H PRN 04/07/24 10/15/24 Rx aerosol inhaler (Ventolin HFA) shortness of breath 90 days #8.5 grams ipratropium bromide 21 mcg (0.03 2 spray intranasal BID 04/07/24 10/15/24 History %) nasal spray sacubitril 24 mg-valsartan 26 mg 1 tablet PO BID 04/07/24 10/15/24 History tablet (Entresto) ipratropium bromide 21 mcg (0.03 2 spray intranasal TID PRN allergy 10/13/24 10/13/24 Rx %) nasal spray symptoms 1 month #30 mL buspirone 7.5 mg tablet See Rx Instructions .Route 04/01/25 Rx .COMPLEX #60 tabs Allergies Allergy/AdvReac Type Severity Reaction Status Date / Time lisinopril Allergy Unknown COUGH Verified 04/08/25 06:57 Vital Signs Vital Signs - 24 hr 04/08/25 01:53 04/08/25 02:00 04/08/25 02:05 Temperature 98.0 F Pulse Rate 71 71 70 Respiratory Rate 19 Blood Pressure 68/45 L Pulse Oximetry 100 100 Oxygen Delivery Mechanical Ventilation Fraction of Inspired Oxygen 100 04/08/25 02:08 04/08/25 02:10 04/08/25 02:15 Temperature 96.9 F L 97.4 F L Pulse Rate 70 70 70 Respiratory Rate 15 20 Blood Pressure 64/34 L Pulse Oximetry 95 98 Oxygen Delivery Fraction of Inspired Oxygen 04/08/25 02:18 04/08/25 02:20 04/08/25 02:28 Temperature Pulse Rate 73 74 70 Respiratory Rate Blood Pressure 137/67 168/70 H Pulse Oximetry 100 Oxygen Delivery Mechanical Ventilation Fraction of Inspired Oxygen 100 04/08/25 02:30 04/08/25 02:30 04/08/25 02:35 Temperature 97.9 F Pulse Rate 71 70 70 Respiratory Rate 21 H 22 H Blood Pressure Pulse Oximetry 100 Oxygen Delivery Mechanical Ventilation Fraction of Inspired Oxygen 100 04/08/25 02:42 04/08/25 03:38 04/08/25 03:45 Temperature 98.0 F Pulse Rate 70 99 94 Respiratory Rate 23 H 18 Blood Pressure Pulse Oximetry Oxygen Delivery Fraction of Inspired Oxygen 04/08/25 04:00 04/08/25 04:08 04/08/25 04:10 Temperature 98.0 F Pulse Rate 95 97 97 Respiratory Rate 19 20 20 Blood Pressure Pulse Oximetry Oxygen Delivery Fraction of Inspired Oxygen 04/08/25 04:15 04/08/25 04:28 04/08/25 04:29 Temperature 97.9 F Pulse Rate 94 98 97 Respiratory Rate 19 20 Blood Pressure 77/56 L Pulse Oximetry Oxygen Delivery Fraction of Inspired Oxygen 04/08/25 04:30 04/08/25 04:33 04/08/25 04:35 Temperature 97.9 F Pulse Rate 77 75 72 Respiratory Rate 16 Blood Pressure 71/47 L Pulse Oximetry 100 Oxygen Delivery Mechanical Ventilation Fraction of Inspired Oxygen 100 04/08/25 04:36 04/08/25 04:45 04/08/25 04:51 Temperature 97.9 F 97.9 F 97.9 F Pulse Rate 73 70 70 Respiratory Rate 20 24 H 24 H Blood Pressure 75/48 L 77/50 L Pulse Oximetry 100 98 Oxygen Delivery Fraction of Inspired Oxygen 04/08/25 05:00 04/08/25 05:04 04/08/25 05:10 Temperature 97.9 F Pulse Rate 70 70 70 Respiratory Rate 24 H Blood Pressure 75/49 L 74/50 L Pulse Oximetry Oxygen Delivery Fraction of Inspired Oxygen 04/08/25 05:15 04/08/25 05:19 04/08/25 05:30 Temperature 97.9 F 97.9 F 97.9 F Pulse Rate 70 70 70 Respiratory Rate 24 H 18 24 H Blood Pressure 81/52 L Pulse Oximetry 95 Oxygen Delivery Fraction of Inspired Oxygen 04/08/25 05:40 04/08/25 05:45 04/08/25 05:48 Temperature 97.9 F 97.9 F 97.9 F Pulse Rate 70 70 70 Respiratory Rate 24 H 24 H 24 H Blood Pressure 82/53 L 83/53 L Pulse Oximetry 98 100 Oxygen Delivery Fraction of Inspired Oxygen 04/08/25 06:30 04/08/25 06:39 04/08/25 06:45 Temperature Pulse Rate 71 70 Respiratory Rate 29 H 25 H Blood Pressure Pulse Oximetry 98 89 L Oxygen Delivery Fraction of Inspired Oxygen 100 04/08/25 06:46 04/08/25 06:47 04/08/25 07:00 Temperature Pulse Rate 70 70 Respiratory Rate 29 H Blood Pressure 76/51 L 78/53 L Pulse Oximetry Oxygen Delivery Fraction of Inspired Oxygen 04/08/25 07:00 04/08/25 07:00 04/08/25 07:02 Temperature Pulse Rate 70 70 Respiratory Rate 27 H 31 H Blood Pressure 73/50 L Pulse Oximetry 100 100 100 Oxygen Delivery Fraction of Inspired Oxygen 100 04/08/25 07:08 04/08/25 07:36 Temperature Pulse Rate 70 Respiratory Rate Blood Pressure 75/51 L Pulse Oximetry Oxygen Delivery Room Air Fraction of Inspired Oxygen Exam Narrative: General: Exam was not performed as patient's family has opted for comfort measures HEENT:? Neck:? Respiratory:? Cardiac:? Abdomen:? Extremities:? Neuro:? Skin:? Psych:? Results Labs 04/08/25 01:44 04/08/25 01:44 Labs: Short CBC 04/08/25 Range/Units 01:44 WBC 8.7 (4.5-10.0) K/mm3 Hgb 11.5 L (12.0-15.0) g/dL Hct 39.2 (37.0-47.0) % Plt Count 121 L (150-375) k/mm3 BMP 04/08/25 01:44 Sodium 138 Potassium 3.1 L Chloride 112 H Carbon Dioxide 11 L BUN 21 H Creatinine 1.01 H Glucose 304 H Calcium 8.3 L Cardiac Enzymes 04/08/25 Range/Units 01:44 Troponin I 0.226 H* (0.000-0.034) ng/mL Liver Function 04/08/25 Range/Units 01:44 Total Bilirubin 0.3 (0.2-1.3) mg/dL AST 52 H (14-36) U/L ALT 25 (6-35) U/L Alkaline Phosphatase 56 (38-126) U/L Albumin 2.7 L (3.5-5.1) g/dL Urine 04/08/25 Range/Units 02:50 Urine Color Dark mandy (Yellow) Urine Appearance Cloudy H (Clear) Urine pH 5.0 (5.0-9.0) Ur Specific [place] 1.016 (1.001-1.035) Urine Protein 3+ H (Negative) mg/dL Urine Glucose (UA) Negative (Negative) mg/dL Quality If No VTE Prophylaxis Answer both mechanical and pharmacologic: Reason no pharmacologic proph: medical contraindication Hospitalist MIPS Advance Care Plan I have confirmed that the patient's Advanced Care Plan is present, code status is documented, or surrogate decision maker is listed in patient medical record.: Yes Medication Reconciliation I have utilized all available resources to obtain, update and review the patients current medications (includes all prescriptions, OTC, herbals, cannabis, and nutritional supplements).: Yes
--- NOTE | 2025-04-08 09:27 | PM.DDS ---
Discharge Summary Date and Time Date of : 04/08/25 Time of : 08:00 Provider Pronounced By: 2 RNs Name of First RN That Pronounced: Lisa Muñoz Name of Second RN That Pronounced: Ramandeep Gao Probable Cause of Probable Cause of : Cardiopulmonary arrest, palliative withdrawal of support Summary Hospital Course: Bela Muñoz is a 79 year old female with history of atrial fibrillation status post ablation, pacemaker, hypertension, COPD, hyperlipidemia had a witnessed cardiac arrest at home. Patient was complaining of headache and then lost consciousness. Upon EMS arrival they started CPR, give 4 rounds of epinephrine and placed eye gel prior to arrival to the [facility] on 04/08/2025. In the ED patient was noted to be in VFib, patient intubated, ACLS protocol was started. Patient was defibrillated x1, along with amiodarone 300 mg IV x1. Patient received IV fluid bolus. EKG did not show any ST changes. 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 Small left pneumothorax, pneumomediastinum, bilateral rib fracture. CT brain showed old lacunar infarcts, no acute intracranial process, chronic small vessel ischemic disease. Femoral central line was inserted, patient was started on Levophed. Family decided to make her comfort measures but they were awaiting a family member was roughly 3-4 hours away, patient was transferred to the ICU for that reason. 04/08/2025: Patient seen this morning, patient is intubated, sedated with propofol. Remains on Levophed at 40 mcg/min. Unresponsive. Family at bedside as the decided to proceed with comfort measures since the daughter has arrived. I discussed with the family in details regarding the process of comfort measures and palliative withdrawal of support, dated not have any questions. Comfort measure orders were placed in the chart, bedside RN was made aware Patient peacefully on 04/08/2025 at 8:00 AM Additional Data Confirmation of as documented by pronouncing clinician: Pupillary Reflex, Palpable Pulses, Response to Stimuli, Heart Tones and Breath Sounds Name of Provider Notified: dr. jenkins Time Provider Notified: 08:26 Provider Requests Autopsy: No Family Requests Autopsy: No Control Room Operator Notified: Yes Date [facility] Notified of : 04/08/25 Time [facility] Notified of : 08:08
== END 2025-04-08 10:30 | disposition expired | DRG 308 ==
LOC: ANHED 02:40 → ANHICU 06:02
PROVIDERS: Admitting Provider General Practice; Emergency Provider Student in an Organized Health Care Education/Training Program; PCP Internal Medicine; Visit Provider Internal Medicine
DX: I49.01 Ventricular fibrillation (principal); I71.00 Dissection of unspecified site of aorta; I71.10 Thoracic aortic aneurysm, ruptured, unspecified; J96.00 Acute respiratory failure, unspecified whether with hypoxia or hypercapnia; Z68.43 Body mass index [BMI] 50.0-59.9, adult; I31.2 Hemopericardium, not elsewhere classified; J90 Pleural effusion, not elsewhere classified; J94.2 Hemothorax; J93.9 Pneumothorax, unspecified; I46.2 Cardiac arrest due to underlying cardiac condition; I48.0 Paroxysmal atrial fibrillation; J44.9 Chronic obstructive pulmonary disease, unspecified; E78.5 Hyperlipidemia, unspecified; I10 Essential (primary) hypertension; Z66 Do not resuscitate; E66.9 Obesity, unspecified; Z96.649 Presence of unspecified artificial hip joint; Z95.0 Presence of cardiac pacemaker; Z87.891 Personal history of nicotine dependence; Z87.442 Personal history of urinary calculi; Z51.5 Encounter for palliative care
CPT/HCPCS: 31500; 36415; 36556; 36600; 70450; 71275; 74174; 80053; 81001; 82375; 82805; 82948; 83050; 83605; 83690; 84484; 85018; 85025; 85610; 85730; 87040; 92950; 93005; 94002; 96361; 96365; 96368; 96375; 99291; C1751; J0168; J0282; J0692; J2270; J2704; J3010; J3360; J7030; J7120; Q9967